=== PATIENT | male | born 1950 | race Caucasian/White ===

== ENCOUNTER 2019-01-27 14:07 | Observation (INO) | payer OTHER ==
--- OUTSIDE RECORDS SUMMARY | 2019-01-27 14:38 | XMS REPORT | Clinical Summary ---
:1950 Author Organization [facility] Address [address] [place] [address] Care Team Providers Name Role Phone Sybil Orona MD Primary Care Provider Allergies Active Allergy Reactions Severity Noted Date Comments Codeine Itching, Rash Low 07/09/2018 Latex Rash Low 07/09/2018 Penicillins Itching, Rash Low 07/09/2018 Medications Medication Sig Dispensed Refills Start End Date Status Date DULoxetine Take 60 mg by mouth 0 Active (CYMBALTA) 60 MG daily. capsule lansoprazole Take 30 mg by mouth 0 Active (PREVACID) 30 MG daily. capsule tamsulosin Take 0.4 mg by 0 Active (FLOMAX) 0.4 mg mouth daily. Cap 24 hr capsule rOPINIRole Take 2 mg by mouth 0 Active (REQUIP) 2 MG nightly. tablet olmesartan Take 20 mg by mouth 0 Active (BENICAR) 20 MG daily. tablet allopurinol Take 100 mg by 0 Active (ZYLOPRIM) 100 MG mouth daily . tablet colchicine Take 0.6 mg by 0 Active (COLCRYS) 0.6 mg mouth daily as tablet needed. albuterol HFA Inhale 1 puff by 0 Active (VENTOLIN HFA) 90 mouth via inhaler mcg/actuation every 6 (six) hours inhaler as needed for Wheezing. pravastatin Take 80 mg by mouth 0 Active (PRAVACHOL) 80 MG daily. tablet cholecalciferol, Take by mouth daily 0 Active vitamin D3, 2,000 . unit Cap traMADol (ULTRAM) Take 2 tablets (100 30 tablet 0 Active 50 mg tablet mg total) by mouth 9 every 6 (six) hours as needed for Pain. Max Daily Amount: 400 mg rivaroxaban Take 20 mg by mouth 0 11/22/19 Discontinued (XARELTO) 20 mg daily with dinner. 19 Tab tablet docusate sodium Take 1 capsule (100 30 capsule 0 08/30/20 (COLACE) 100 MG mg total) by mouth 8 18 capsule 2 (two) times daily for 10 days. traMADol (ULTRAM) Take 1 tablet (50 30 tablet 0 08/30/20 50 mg tablet mg total) by mouth 8 18 every 6 (six) hours as needed for Pain for up to 10 days. Max Daily Amount: 200 mg heparin injection Inject 1 mL (5,000 21 mL 0 08/27/20 5,000 units/mL Units total) 8 18 for DVT subcutaneously 3 prophylaxis/dialy (three) times daily sis lock/IV bolus for 7 days. traMADol (ULTRAM) Take 2 tablets (100 30 tablet 0 11/22/19 Discontinued 50 mg tablet mg total) by mouth 9 19 every 6 (six) hours as needed for Pain. Max Daily Amount: 400 mg docusate sodium Take 1 capsule (100 50 capsule 0 11/22/19 Discontinued (COLACE) 100 MG mg total) by mouth 9 19 capsule 2 (two) times daily. traMADol (ULTRAM) Take 2 tablets (100 30 tablet 0 11/22/19 Discontinued 50 mg tablet mg total) by mouth 9 19 every 6 (six) hours as needed for Pain. Max Daily Amount: 400 mg traMADol (ULTRAM) Take 2 tablets (100 30 tablet 0 11/22/19 Discontinued 50 mg tablet mg total) by mouth 9 19 every 6 (six) hours as needed for Pain. Max Daily Amount: 400 mg traMADol (ULTRAM) Take 2 tablets (100 30 tablet 0 11/22/19 Discontinued 50 mg tablet mg total) by mouth 9 19 every 6 (six) hours as needed for Pain. Max Daily Amount: 400 mg Active Problems Problem Noted Date Bilateral renal masses 11/19/2018 Renal mass 08/17/2018 Encounters Date Type Specialty Care Team Description 11/20/2018 Travel 11/19/2018 Anesthesia Event Ladarius Verde MD 11/19/2018 Surgery Link, Jose Barnhart MD LAPAROSCOPY,NEPHREC JOCELYN-PARTIAL 11/19/2018 - Hospital Encounter General Internal Link, Jose Renal mass 11/22/2018 Lia Barnhart MD 11/09/2018 Hospital Encounter Pre-Admission Link, Jose Barnhart MD Resource, [employer] Preadmit Phone 08/17/2018 Anesthesia Event Tahir Tamez MD 08/17/2018 Surgery Link, Jose Barnhart MD LAPAROSCOPY,NEPHREC JOCELYN-CHIDI 08/17/2018 - Hospital Encounter General Internal Link, Jose Renal mass 08/20/2018 Lia Barnhart MD 07/09/2018 Hospital Encounter Link, Jose Left renal mass MD [facility] 07/01/2018 Hospital Encounter Radiology Link, Jose No Show MD [facility] 06/25/2018 Outside Orders Central Scheduling Link, Jose Left renal mass MD [facility] (Primary Dx) after 01/26/2018 Social History Tobacco Use Types Packs/Day Years Used Date Former Smoker 2 30 Smokeless Tobacco: Never Used Comments: quit 1989 Alcohol Use Drinks/Week oz/Week Comments No Sex Assigned at Date Recorded Not on file Job Start Date Occupation Industry Not on file Not on file Not on file Travel History Travel Start Travel End No recent travel history available. Last Filed Vital Signs Vital Sign Reading Time Taken Blood Pressure 131/67 11/22/2018 8:32 AM CDT Pulse 86 11/22/2018 8:32 AM CDT Temperature 36.7 C (98 F) 11/22/2018 8:32 AM CDT Respiratory Rate 20 11/22/2018 8:32 AM CDT Oxygen Saturation 95% 11/22/2018 5:42 AM CDT Inhaled Oxygen Concentration - - Weight 119 kg (262 lb 5.6 oz) 11/19/2018 5:42 AM [employer]IGONOMETRY TEACHER Height 193 cm (6' 4") 11/19/2018 5:42 AM TRIGONOMETRY TEACHER Body Mass Index 31.93 11/19/2018 5:42 AM TRIGONOMETRY TEACHER Plan of Treatment Not on file Procedures Procedure Name Priority Date/Time Associated Comments Diagnosis RHYTHM STRIP - SCAN 12/21/2018 8:50 AM CDT RHYTHM STRIP - SCAN 11/24/2018 8:52 AM CDT TRANSFUSION SERVICE 11/23/2018 6:01 REPORT - SCAN PM CDT PREPARE Routine 11/22/2018 11:54 Results for this LEUKO-REDUCED RBC PM CDT procedure are in the results section. TRANSFUSION SERVICE 11/22/2018 6:00 REPORT - SCAN PM CDT HEMOGLOBIN AND Routine 11/22/2018 5:49 Results for this HEMATOCRIT AM CDT procedure are in the results section. BASIC METABOLIC Routine 11/22/2018 5:49 Results for this PANEL (7) AM CDT procedure are in the results section. HEMOGLOBIN AND STAT 11/21/2018 8:05 Results for this HEMATOCRIT PM CDT procedure are in the results section. TRANSFUSE Routine 11/21/2018 6:50 LEUKO-REDUCED RED PM CDT BLOOD CELLS HEMOGLOBIN AND STAT 11/21/2018 12:54 Results for this HEMATOCRIT PM CDT procedure are in the results section. HEMOGLOBIN AND Routine 11/21/2018 4:58 Results for this HEMATOCRIT AM CDT procedure are in the results section. BASIC METABOLIC Routine 11/21/2018 4:58 Results for this PANEL (7) AM CDT procedure are in the results section. TRANSFUSION SERVICE 11/20/2018 6:00 REPORT - SCAN PM TR[employer]ONOMETRY TEACHER HEMOGLOBIN AND Routine 11/20/2018 3:41 Results for this HEMATOCRIT AM TRIGONOMETRY TEACHER procedure are in the results section. BASIC METABOLIC Routine 11/20/2018 3:41 Results for this PANEL (7) AM TRIGONOMETRY TEACHER procedure are in the results section. HEMOGLOBIN AND Routine 11/19/2018 1:24 Results for this HEMATOCRIT PM TRIGONOMETRY TEACHER procedure are in the results section. BASIC METABOLIC Routine 11/19/2018 1:24 Results for this PANEL (7) PM TRIGONOMETRY TEACHER procedure are in the results section. TISSUE EXAM AP Routine 11/19/2018 12:18 Results for this PM [employer]ONOMETRY TEACHER procedure are in the results section. HGB/HCT (H&H) - STAT STAT 11/19/2018 9:25 Results for this LAB AM TRIGONOMETRY TEACHER procedure are in the results section. GLUCOSE-STAT LAB STAT 11/19/2018 9:25 Results for this AM TRIGONOMETRY TEACHER procedure are in the results section. POTASSIUM-STAT LAB STAT 11/19/2018 9:25 Results for this AM TRIGONOMETRY TEACHER procedure are in the results section. SODIUM NA-STAT LAB STAT 11/19/2018 9:25 Results for this AM TRIGONOMETRY TEACHER procedure are in the results section. BLOOD GAS, ARTERIAL STAT 11/19/2018 9:25 Results for this AM TRIGONOMETRY TEACHER procedure are in the results section. RRL CRITICAL LABS STAT 11/19/2018 9:25 Results for this (ABG,NA,K,H&H,GLUCOS AM TRIGONOMETRY TEACHER procedure are in E) the results section. PREPARE RBC STAT 11/19/2018 8:41 Results for this AM TRIGONOMETRY TEACHER procedure are in the results section. PROCEDURE W/ DAVINCI 11/19/2018 7:30 Renal mass AM TRIGONOMETRY TEACHER Case Notes 4 HRS Special Needs (DAVINCI Si) [employer] Confirmation [id number] for Ultrasound ROBOTIC LAPAROSCOPY,NEPHRECTOMY-PARTIAL 11/19/2018 7:30 AM TRIGONOMETRY TEACHER Renal mass Case Notes 4 HRS Special Needs (DAVINCI Si) [employer] Confirmation [id number] for Ultrasound TYPE AND SCREEN, Routine 11/19/2018 6:17 AM Results for this AUTOMATED TRIGONOMETRY TEACHER procedure are in the results section. RHYTHM STRIP - SCAN 08/27/2018 9:50 AM TRIGONOMETRY TEACHER BASIC METABOLIC PANEL STAT 08/20/2018 11:18 AM Results for this (7) TRIGONOMETRY TEACHER procedure are in the results section. HEMOGLOBIN AND Routine 08/20/2018 11:18 AM Results for this HEMATOCRIT TR[employer]ONOMETRY TEACHER procedure are in the results section. CBC W/PLT COUNT & AUTO Routine 08/20/2018 4:33 AM Results for this DIFFERENTIAL TR[employer]ONOMETRY TEACHER procedure are in the results section. CBC W/PLT COUNT & AUTO Routine 08/20/2018 4:33 AM Results for this DIFFERENTIAL TR[employer]ONOMETRY TEACHER procedure are in the results section. BASIC METABOLIC PANEL Routine 08/20/2018 4:33 AM Results for this (7) TRIGONOMETRY TEACHER procedure are in the results section. (CELLAVISION MANUAL Routine 08/19/2018 5:25 AM Results for this DIFF) TRIGONOMETRY TEACHER procedure are in the results section. CBC W/PLT COUNT & AUTO Routine 08/19/2018 5:25 AM Results for this DIFFERENTIAL TR[employer]ONOMETRY TEACHER procedure are in the results section. CBC W/PLT COUNT & AUTO Routine 08/19/2018 5:25 AM Results for this DIFFERENTIAL TRIGONOMETRY TEACHER procedure are in the results section. BASIC METABOLIC PANEL Routine 08/19/2018 5:25 AM Results for this (7) TRIGONOMETRY TEACHER procedure are in the results section. TRANSFUSION SERVICE 08/18/2018 6:01 PM REPORT - SCAN TRIGONOMETRY TEACHER HEMOGLOBIN AND Routine 08/18/2018 5:15 PM Results for this HEMATOCRIT TRIGONOMETRY TEACHER procedure are in the results section. CBC W/PLT COUNT & AUTO Routine 08/18/2018 8:38 AM Results for this DIFFERENTIAL TRIGONOMETRY TEACHER procedure are in the results section. CBC W/PLT COUNT & AUTO Routine 08/18/2018 8:38 AM Results for this DIFFERENTIAL TR[employer]ONOMETRY TEACHER procedure are in the results section. BASIC METABOLIC PANEL Routine 08/18/2018 5:53 AM Results for this (7) TR[employer]ONOMETRY TEACHER procedure are in the results section. HEMOGLOBIN AND Routine 08/17/2018 9:05 PM Results for this HEMATOCRIT TRIGONOMETRY TEACHER procedure are in the results section. BASIC METABOLIC PANEL Routine 08/17/2018 9:05 PM Results for this (7) TR[employer]ONOMETRY TEACHER procedure are in the results section. HGB/HCT (H&H) - STAT STAT 08/17/2018 8:07 PM Results for this LAB [employer]ONOMETRY TEACHER procedure are in the results section. GLUCOSE-STAT LAB STAT 08/17/2018 8:07 PM Results for this TR[employer]ONOMETRY TEACHER procedure are in the results section. POTASSIUM-STAT LAB STAT 08/17/2018 8:07 PM Results for this TRIGONOMETRY TEACHER procedure are in the results section. SODIUM NA-STAT LAB STAT 08/17/2018 8:07 PM Results for this TR[employer]ONOMETRY TEACHER procedure are in the results section. BLOOD GAS, ARTERIAL STAT 08/17/2018 8:07 PM Results for this TR[employer]ONOMETRY TEACHER procedure are in the results section. CALCIUM, IONIZED STAT 08/17/2018 8:07 PM Results for this TRIGONOMETRY TEACHER procedure are in the results section. RRL CRITICAL LABS STAT 08/17/2018 8:07 PM Results for this (ABG,NA,K,H&H,GLUCOSE) TR[employer]ONOMETRY TEACHER procedure are in the results section. TISSUE EXAM AP Routine 08/17/2018 7:58 PM Results for this TRIGONOMETRY TEACHER procedure are in the results section. PREPARE LEUKO-REDUCED Routine 08/17/2018 12:50 PM Results for this RBC TRIGONOMETRY TEACHER procedure are in the results section. PROCEDURE W/ DAVINCI 08/17/2018 12:30 PM Renal cell TRIGONOMETRY TEACHER adenocarcinoma , left (HCC) Case Notes 4 HRS Special Needs DAVINCI ROBOTIC LAPAROSCOPY,NEPHRECTOMY-PARTIAL 08/17/2018 12:30 Renal cell PM TRIGONOMETRY TEACHER adenocarcinoma, left (HCC) Case Notes 4 HRS Special Needs DAVINCI TYPE AND SCREEN, AUTOMATED Routine 08/17/2018 11:26 AM TRIGONOMETRY TEACHER PROTHROMBIN TIME/INR STAT 08/17/2018 11:26 AM TRIGONOMETRY TEACHER TISSUE EXAM AP Routine 07/09/2018 9:40 PM CDT US RENAL BIOPSY Routine 07/09/2018 5:22 PM CDT CBC W/PLT COUNT & AUTO STAT 07/09/2018 12:22 PM CDT Results for this DIFFERENTIAL procedure are in the results section. CREATININE STAT 07/09/2018 12:22 PM CDT PT/APTT STAT 07/09/2018 12:22 PM CDT CBC W/PLT COUNT & AUTO STAT 07/09/2018 12:22 PM CDT Results for this DIFFERENTIAL procedure are in the results section. after 01/26/2018 Results RHYTHM STRIP - SCAN (12/21/2018 8:50 AM CDT)Only the most recent of3 resultswithin the time period is included. Narrative Performed At TRANSFUSION SERVICE REPORT - SCAN (11/23/2018 6:01 PM CDT)Only the most recent of4 resultswithin the time period is included. Narrative Performed At Prepare Leuko-Red RBC (11/22/2018 11:54 PM CDT)Only the most recent of2 resultswithin the time period is included. CROSSMATCH COMPATIBLE SAFETRACE TX Unit ABO B Pos SAFETRACE TX UNIT NUMBER [id number] [place] Status TX_TIMEINCHART [facility] [place] Blood Bank Product RED BLOOD CELLS [place]AF[place]ACE [place] PRODUCT CODE [id number] [place] Specimen Other Performing Organization Address City/[facility] [place] [facility] Phone Number [employer] [place] Hemoglobin and hematocrit POD # 1 (11/22/2018 5:49 AM CDT)Only the most recent of9 resultswithin the time period is included. Hemoglobin 7.5 (L) 13.7 - 17.5 GM/DL [facility] Hematocrit 24.8 (L) 40.1 - 51.0 % [facility] Specimen Blood Performing Organization Address City/State/Zipcode Phone Number [facility] [address] [place] [address] [phone] CENTER Basic Metabolic Panel - POD 1 (11/22/2018 5:49 AM CDT)Only the most recent of9 resultswithin the time period is included. Sodium 135 (L) 136 - 145 meq/L [facility] Potassium 3.8 3.5 - 5.1 meq/L [facility] Chloride 108 (H) 98 - 107 meq/L [facility] CO2 20 (L) 22 - 29 meq/L [facility] BUN 16 7 - 21 mg/dL [facility] Creatinine 1.16 0.57 - 1.25 mg/dL [facility] Glucose 97 70 - 105 mg/dL [facility] Calcium 8.1 (L) 8.4 - 10.2 mg/dL [facility] EGFR 62Comment: ESTIMATED GFR IS mL/min/1.73 sq m [facility] NOT ACCURATE CREATININE [facility] CLEARANCE IN PREDICTING GLOMERULAR FILTRATION RATE. ESTIMATED GFR IS NOT APPLICABLE FOR DIALYSIS PATIENTS. Specimen Blood Performing Organization Address City/State/Zipcode Phone Number [facility] [address] [place] [address] [phone] CENTER Transfuse Leuko-Red RBC (11/21/2018 6:50 PM CDT)Only the most recent of2 resultswithin the time period is included.Tissue Exam (11/19/2018 12:18 PM TRIGONOMETRY TEACHER) Only the most recent of3 resultswithin the time period is included. 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 [facility] THE NEOPLASM IS CONFINED TO THE KIDNEY. LYMPHOVASCULAR INVASION IS NOT IDENTIFIED. PERINEURAL INVASION IS NOT IDENTIFIED. SURGICAL MARGINS ARE NEGATIVE FOR TUMOR. 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 SEE SYNOPTIC REPORT. Signing Pathologist Direct Phone Line: [phone] COMMENT This case has been partially [facility] reviewed (slide A5) with [facility] Del Catalan, who concurs with the interpretation of the presence of metaplastic bone. There is no evidence of sarcomatous transformation. SYNOPTIC REPORT KIDNEY: Nephrectomy(Kidney Res - All Specimens) [facility] SPECIMEN Procedure:Partial nephrectomy Specimen Laterality:Right TUMOR Tumor Site:Not specified Histologic Type:Clear cell renal cell carcinoma Histologic Grade (WHO / ISUP Grade):G2: Nucleoli conspicuous and eosinophilic at 400x magnification, visible but not prominent at 100x magnification Tumor Size:Greatest dimension in Centimeters (cm): 3 Centimeters (cm) Additional Dimension in Centimeters (cm):3 Centimeters (cm) Additional Dimension in Centimeters (cm):2.5 Centimeters (cm ) Tumor Focality:Unifocal Tumor Extent: Tumor Extension:Tumor limited to kidney Accessory Findings: Sarcomatoid Features:Not identified Rhabdoid Features:Not identified Tumor Necrosis:Present Percentage of Necrosis:10 % Lymphovascular Invasion:Not identified MARGINS Margins:Uninvolved by invasive carcinoma LYMPH NODES Regional Lymph Nodes:No lymph nodes submitted or found PATHOLOGIC STAGE CLASSIFICATION (pTNM, AJCC 8th Edition) Primary Tumor (pT):pT1a Regional Lymph Nodes (pN):pNX CPT Code(s) 14603 [facility] CLINICAL HISTORY Renal mass [facility] SPECIMEN SOURCE Right renal mass with [facility] perirenal fat [facility] GROSS DESCRIPTION The specimen is received fresh labeled with the patient's information labeled "right renal mass with perirenal fat" and consists of 170 gm partial nephrectomy that measures 4.5 x 3.8 x 2.6 cm with detac [facility] hed perirenal fat measuring 8 x 8 x 2 cm in aggregate. [facility] Ink code: perirenal fat black and kidney parenchyma blue. The specimen is serially sectioned from one end to the other revealing well- circumscribed hemorrhagic partially bulging yellow mass measuring 3 x 3 x 2.5 cm , grossly 0.5 cm from the kidney parenchymal m argin and 0.3 cm from the perirenal fat. The detached perirenal fat is sectioned yielding no lymph nodes or areas of suspicion. Section code: A1 to A3, Tumor and kidney parenchyma; A4 to A6, tumor and perirenal fat; A7 and 8, sales representative jewelry of detached perirenal fat. Tissue is submitted for tumor banking. CG/pl MICROSCOPIC DESCRIPTION Performed. [facility] Specimen Tissue Performing Organization Address [facility] [place] [facility] Phone Number [address] [address] OCCIDENTAL Potassium-Stat Lab (11/19/2018 9:25 AM TRIGONOMETRY TEACHER)Only the most recent of2 resultswithin the time period is included. Potassium 3.6 3.6 - 5.5 meq/L [facility] Specimen Blood, Arterial Performing Organization Address [facility] Phone Number [address] [address] OCCIDENTAL Sodium Na-Stat Lab (11/19/2018 9:25 AM TRIGONOMETRY TEACHER)Only the most recent of2 resultswithin the time period is included. Sodium 138 135 - 148 meq/L [facility] Specimen Blood, Arterial Performing Organization Address [facility] Phone Number [address] [phone] OCCIDENTAL Glucose-Stat Lab (11/19/2018 9:25 AM TRIGONOMETRY TEACHER)Only the most recent of2 resultswithin the time period is included. Glucose 139 (H) 70 - 110 mg/dL [facility] Specimen Blood, Arterial Performing Organization Address [facility] Phone Number [address] [address] [phone] CENTER HGB/HCT (H&H)-Stat Lab (11/19/2018 9:25 AM TRIGONOMETRY TEACHER)Only the most recent of2 resultswithin the time period is included. Hemoglobin 8.0 (L) 13.0 - 16.8 g/dL [facility] Hematocrit 24.0 (L) 40.0 - 50.0 % [facility] Specimen Blood, Arterial Performing Organization Address [facility] [place] [facility] Cent[facility]ode Phone Number [address] [address] [phone] OCCIDENTAL Blood gas, arterial (11/19/2018 9:25 AM TRIGONOMETRY TEACHER)Only the most recent of2 resultswithin the time period is included. pH, Arterial 7.30 (L) 7.35 - 7.45 [facility] pCO2, Arterial 45 35 - 45 mmHg [facility] pO2, Arterial 100 (H) 80 - 90 mmHg [facility] O2 Sat, Arterial 97.0 96.0 - 97.0 % [facility] HCO3, Arterial 22 21 - 29 mmol/L [facility] Base Excess, Arterial -4.6 (L) -2.0 - 3.0 mmol/L [facility] Patient Temperature 37.0 C [facility] FIO2 21.0 % [facility] Specimen Blood, Arterial Performing Organization Address [facility] Phone Number [address] [address] OCCIDENTAL Prepare RBC (11/19/2018 8:41 AM TRIGONOMETRY TEACHER) CROSSMATCH COMPATIBLE SAFETRACE TX Unit ABO B Pos SAFETRACE TX UNIT NUMBER [id number] SAFETRACE TX Status READY SAFETRACE TX Blood Bank Product RED BLOOD CELLS SAFETRACE TX PRODUCT CODE [id number] SAFETRACE TX CROSSMATCH COMPATIBLE SAFETRACE TX Unit ABO B Pos SAFETRACE TX UNIT NUMBER [id number] SAFETRACE TX Status READY SAFETRACE TX Blood Bank Product RED BLOOD CELLS SAFETRACE TX PRODUCT CODE [id number] [place]AFET[place] Performing Organization Address City/[facility] [place] [facility] Phone Number [employer] [place] Type and screen, automated (11/19/2018 6:17 AM TRIGONOMETRY TEACHER)Only the most recent of2 resultswithin the time period is included. ABO/RH AUTOMATED (BEAKER) B POSITIVE [facility] Ab Scrn NEGATIVE [facility] Specimen Blood Performing Organization Address City/State/Zipcode Phone Number [facility] [address] [place] [address] CBC with platelet count + automated diff (08/20/2018 4:33 AM TRIGONOMETRY TEACHER)Only the most recent of4 resultswithin the time period is included. WBC 11.1 (H) 3.5 - 10.5 K/L [facility] RBC 3.18 (L) 4.63 - 6.08 M/L [facility] Hemoglobin 8.0 (L) 13.7 - 17.5 GM/DL [facility] Hematocrit 26.6 (L) 40.1 - 51.0 % [facility] MCV 83.6 79.0 - 92.2 fL [facility] MCH 25.2 (L) 25.7 - 32.2 pg [facility] MCHC 30.1 (L) 32.3 - 36.5 GM/DL [facility] RDW 14.8 (H) 11.6 - 14.4 % [facility] Platelets 205 150 - 450 K/CU MM [facility] MPV 11.5 9.4 - 12.4 fL [facility] nRBC 0 0 - 0 /100 WBC [facility] % Neutros 79 % [facility] % Lymphs 8 % [facility] % Monos 11 % [facility] % Eos 2 % [facility] % Baso 0 % [facility] # Neutros 8.75 (H) 1.78 - 5.38 K/L [facility] # Lymphs 0.86 (L) 1.32 - 3.57 K/L [facility] # Monos 1.16 (H) 0.30 - 0.82 K/L [facility] # Eos 0.25 0.04 - 0.54 K/L [facility] # Baso 0.04 0.01 - 0.08 K/L [facility] Immature Granulocytes-Relative 0 0 - 1 % [facility] Specimen Blood Performing Organization Address City/State/Zipcode Phone Number [facility] [address] [place] [address] CENTER Manual Differential (08/19/2018 5:25 AM TRIGONOMETRY TEACHER) % Neutros 90 % [facility] % Lymphs 5 % [facility] % Monos 2 % [facility] % Eos 2 % [facility] % Baso 1 % [facility] # Neutros 11.70 (H) 1.78 - 5.38 K/ul [facility] # Lymphs 0.65 (L) 1.32 - 3.57 K/ul [facility] # Monos 0.26 (L) 0.30 - 0.82 K/uL [facility] # Eos 0.26 0.04 - 0.54 K/uL [facility] # Baso 0.13 (H) 0.01 - 0.08 K/uL [facility] Total Counted 100 [facility] WBC Morphology Normal [facility] Giant Platelet Present [facility] Anisocytosis 2+ moderate [facility] Microcytes 2+ moderate [facility] Poikilocytes 1+ few [facility] Elliptocytes 1+ few [facility] Artifact Present [facility] Platelet Conc Adequate [facility] Specimen Blood Narrative Performed At Received comment: [facility] User comments: Slide comments: Performing Organization Address City/State/[place] [facility] Phone Number [address] [address] [phone] OCCIDENTAL Calcium, Ionized (08/17/2018 8:07 PM [employer]IGONOMETRY TEACHER) Calcium, Ion 1.05 (L) 1.12 - 1.27 mmol/L [facility] pH, Blood 7.35 [facility] Specimen Blood Performing Organization Address City/[facility]/[place] [facility] Phone Number [address] [address] OCCIDENTAL Prothrombin time/INR (08/17/2018 11:26 AM TRIGONOMETRY TEACHER) Protime 14.8 (H) 11.7 - 14.7 seconds [facility] INR 1.2 <=5.9 [facility] Specimen Blood Narrative Performed At RECOMMENDED COUMADIN/WARFARIN INR THERAPY [facility] RANGES STANDARD DOSE: 2.0 - 3.0 Includes: PROPHYLAXIS for venous thrombosis, systemic embolization; TREATMENT for venous thrombosis and/or pulmonary embolus. HIGH RISK: Target INR is 2.5-3.5 for patients with mechanical heart valves. Performing Organization Address City/State/Zipcode Phone Number [address] [address] OCCIDENTAL US renal biopsy (07/09/2018 5:22 PM CDT) Specimen Narrative Performed At [facility] [employer] Ultrasound guided renal biopsy. Clinical History: Left renal mass. Informed consent was obtained from the patient and risks of the procedure were explained including bleeding, infection and visceral injury. Sedation: 1% Xylocaine. 0.5 mg of Versed and 25 mcg of Fentanyl were administered using the moderate sedation protocol under the supervision of a physician. Moderate Sedation Time: 30 minutes. Technique: Using sterile technique, real-time ultrasound guidance and a 18 gauge core biopsy needle, a two pass core biopsy of the 4.3 x 2.0 cm mass in the lower pole of the left kidney. The sample was sent to the pathology lab in formalin. No complications were encountered. Patient disposition: The patient was asymptomatic.Postprocedure ultrasound demonstrates no significant bleeding. Impression: Successful biopsy of a mass in the lower pole of the left kidney. Signed: David Leyva MD Report Verified Date/Time:07/09/2018 17:45:45 Reading Location: [address] Ultrasound Reading Room Procedure Note Interface, External Ris In - 07/09/2018 5:47 PM CDT FINAL REPORT Ultrasound guided renal biopsy. Clinical History: Left renal mass. Informed consent was obtained from the patient and risks of the procedure were explained including bleeding, infection and visceral injury. Sedation: 1% Xylocaine. 0.5 mg of Versed and 25 mcg of Fentanyl were administered using the moderate sedation protocol under the supervision of a physician. Moderate Sedation Time: 30 minutes. Technique: Using sterile technique, real-time ultrasound guidance and a 18 gauge core biopsy needle, a two pass core biopsy of the 4.3 x 2.0 cm mass in the lower pole of the left kidney. The sample was sent to the pathology lab in formalin. No complications were encountered. Patient disposition: The patient was asymptomatic. Postprocedure ultrasound demonstrates no significant bleeding. Impression: Successful biopsy of a mass in the lower pole of the left kidney. Signed: David Leyva MD Report Verified Date/Time: 07/09/2018 17:45:45 Reading Location: [address] Ultrasound Reading Room Performing Organization Address City/State/Zipcode Phone Number [facility] PT/aPTT (07/09/2018 12:22 PM CDT) Protime 14.6 11.7 - 14.7 seconds [facility] INR 1.1 <=5.9 [facility] PTT 28.7 22.5 - 36.0 seconds [facility] Specimen Blood Narrative Performed At [facility] RECOMMENDED COUMADIN/WARFARIN INR THERAPY RANGES STANDARD DOSE: 2.0 - 3.0 Includes: PROPHYLAXIS for venous thrombosis, systemic embolization; TREATMENT for venous thrombosis and/or pulmonary embolus. HIGH RISK: Target INR is 2.5-3.5 for patients with mechanical heart valves. Performing Organization Address City/State/[place] [facility] Phone Number [address] [phone] CENTER Creatinine (07/09/2018 12:22 PM CDT) Creatinine 1.29 (H) 0.57 - 1.25 mg/dL [facility] EGFR 55Comment: ESTIMATED GFR IS mL/min/1.73 sq m [facility] NOT ACCURATE CREATININE [facility] CLEARANCE IN PREDICTING GLOMERULAR FILTRATION RATE. ESTIMATED GFR IS NOT APPLICABLE FOR DIALYSIS PATIENTS. Specimen Blood Performing Organization Address City/[facility]/[place] [facility] Cent[facility] Phone Number [phone] [place] [address] CENTER after 01/26/2018 Insurance Payer Benefit Plan / Subscriber ID Type Phone Address Group [employer] - MEDICARE [employer] MEDICARE O xxxxxxxx [phone] [address] [place] [address] Advance Directives For more information, please contact:[address] [place], [place] [phone] Code Status Date Activated Date Inactivated Comments Full Code 11/19/2018 4:41 PM 11/22/2018 11:47 AM This code status was determined by: Patient Full Code 08/17/2018 9:36 PM 11/19/2018 5:32 AM This code status was determined by: Patient Full Code 07/09/2018 5:20 PM 07/12/2018 7:40 AM This code status was determined by: Patient
--- OUTSIDE RECORDS SUMMARY | 2019-01-27 14:39 | XMS REPORT ---
:1950 [facility] Address [address] [place] [address] Dr. Mai [address] [place] [id number] Care Team Providers Name Role Phone ABA ROBINS Unavailable Unavailable Problems This patient has no known problems. Allergies, Adverse Reactions, Alerts This patient has no known allergies or adverse reactions. Medications This patient has no known medications. 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 SEE SYNOPTIC REPORT. Signing Pathologist Direct Phone Line: [phone] signed by Tristan Huffman MD on 11/24/2018 at 4:03 PMThis case has been partially reviewed (slide A5) with Dr. Del Catalan, who concurs with the interpretation of the presence of metaplastic bone. There is no evidence of sarcomatous transformation.KIDNEY: Nephrectomy (Kidney Res - All Specimens)SPECIMEN Procedure: Partial nephrectomy Specimen Laterality: Right TUMOR Tumor Site: Not specified Histologic Type: Clear cell renal cell carcinoma Histologic Grade (WHO / ISUP Grade): G2: Nucleoli conspicuous and eosinophilic at 400x magnification, visible but not prominent at 100x magnification Tumor Size: Greatest dimension in Centimeters (cm): 3 Centimeters (cm) Additional Dimension in Centimeters (cm): 3 Centimeters (cm) Additional Dimension in Centimeters (cm): 2.5 Centimeters (cm) Tumor Focality: Unifocal Tumor Extent: Tumor Extension: Tumor limited to kidney Accessory Findings: Sarcomatoid Features: Not identified Rhabdoid Features: Not identified Tumor Necrosis: Present Percentage of Necrosis: 10 % Lymphovascular Invasion: Not identified MARGINS Margins: Uninvolved by invasive carcinoma LYMPH NODES Regional Lymph Nodes: No lymph nodes submitted or found PATHOLOGIC STAGE CLASSIFICATION (pTNM, AJCC 8th Edition) Primary Tumor (pT): pT1a Regional Lymph Nodes (pN): pNX [id number] massRight renal mass with perirenal fat The specimen is received fresh labeled with the patient's information labeled "right renal mass with perirenal fat" and consists of 170 gm partial nephrectomy that measures 4.5 x 3.8 x 2.6 cm with detached perirenal fat measuring 8 x 8 x 2 cm in aggregate. Ink code: perirenal fat black and kidney parenchyma blue.The specimen is serially sectioned from one end to the other revealing well-circumscribed hemorrhagic partially bulging yellow mass measuring 3 x 3 x 2.5 cm, grossly 0.5 cm from the kidney parenchymal margin and 0.3 cm from the perirenal fat. The detached perirenal fat is sectioned yielding no lymph nodes or areas of suspicion. Section code: A1 to A3, Tumor and kidney parenchyma; A4 to A6, tumor and perirenal fat; A7 and 8, physician representative of detached perirenal fat. Tissue is submitted for tumor banking. CG/pl Performed. BASIC METABOLIC PANEL 2018-11-22 07:10:00 Test Item Value Reference Range Comments SODIUM (BEAKER) (test 135 meq/L 136-145 josc=226) POTASSIUM (BEAKER) (test 3.8 meq/L 3.5-5.1 upvy=512) CHLORIDE (BEAKER) (test 108 meq/L 98-107 kisl=353) CO2 (BEAKER) (test izre=014) 20 meq/L 22-29 BLOOD UREA NITROGEN (BEAKER) 16 mg/dL 7-21 (test vwtq=823) CREATININE (BEAKER) (test 1.16 mg/dL 0.57-1.25 ulgb=137) GLUCOSE RANDOM (BEAKER) 97 mg/dL 70-105 (test yehp=842) CALCIUM (BEAKER) (test 8.1 mg/dL 8.4-10.2 fsgv=837) EGFR (BEAKER) (test 62 mL/min/1.73 sq m ESTIMATED GFR IS NOT mjfm=8204) ACCURATE CREATININE CLEARANCE IN PREDICTING GLOMERULAR FILTRATION RATE. ESTIMATED GFR IS NOT APPLICABLE FOR DIALYSIS PATIENTS. HEMOGLOBIN AND [id number] 06:37:00 Test Item Value Reference Range Comments HEMOGLOBIN (BEAKER) (test psdk=367) 7.5 GM/DL 13.7-17.5 HEMATOCRIT (BEAKER) (test sjxy=108) 24.8 % 40.1-51.0 HEMOGLOBIN AND [id number] 20:28:00 Test Item Value Reference Range Comments HEMOGLOBIN (BEAKER) (test mcmh=683) 8.1 GM/DL 13.7-17.5 HEMATOCRIT (BEAKER) (test kcsc=934) 27.3 % 40.1-51.0 After transfusionHEMOGLOBIN AND [id number] 13:08:00 Test Item Value Reference Range Comments HEMOGLOBIN (BEAKER) (test hknx=240) 6.9 GM/DL 13.7-17.5 HEMATOCRIT (BEAKER) (test hhhj=224) 23.0 % 40.1-51.0 BASIC METABOLIC [id number] 06:12:00 Test Item Value Reference Range Comments SODIUM (BEAKER) (test 137 meq/L 136-145 bfvm=807) POTASSIUM (BEAKER) (test 3.9 meq/L 3.5-5.1 smql=509) CHLORIDE (BEAKER) (test 110 meq/L 98-107 mjgw=231) CO2 (BEAKER) (test 20 meq/L 22-29 arlg=514) BLOOD UREA NITROGEN 21 mg/dL 7-21 (BEAKER) (test npro=885) CREATININE (BEAKER) (test 1.29 mg/dL 0.57-1.25 xtio=729) GLUCOSE RANDOM (BEAKER) 96 mg/dL 70-105 (test tkoi=332) CALCIUM (BEAKER) (test 7.9 mg/dL 8.4-10.2 ogak=574) EGFR (BEAKER) (test 55 mL/min/1.73 sq m ESTIMATED GFR IS NOT fdku=5960) ACCURATE CREATININE CLEARANCE IN PREDICTING GLOMERULAR FILTRATION RATE. ESTIMATED GFR IS NOT APPLICABLE FOR DIALYSIS PATIENTS. HEMOGLOBIN AND [id number] 05:47:00 Test Item Value Reference Range Comments HEMOGLOBIN (BEAKER) (test awoj=404) 7.0 GM/DL 13.7-17.5 HEMATOCRIT (BEAKER) (test ppvj=159) 23.8 % 40.1-51.0 BASIC METABOLIC [id number] 05:00:00 Test Item Value Reference Range Comments SODIUM (BEAKER) (test 139 meq/L 136-145 ubtr=219) POTASSIUM (BEAKER) (test 4.0 meq/L 3.5-5.1 ozcp=936) CHLORIDE (BEAKER) (test 110 meq/L 98-107 jcqd=834) CO2 (BEAKER) (test 21 meq/L 22-29 cleu=352) BLOOD UREA NITROGEN 25 mg/dL 7-21 (BEAKER) (test czbh=966) CREATININE (BEAKER) (test 1.40 mg/dL 0.57-1.25 ptjn=942) GLUCOSE RANDOM (BEAKER) 110 mg/dL 70-105 (test tsla=652) CALCIUM (BEAKER) (test 8.1 mg/dL 8.4-10.2 rurx=469) EGFR (BEAKER) (test 50 mL/min/1.73 sq m ESTIMATED GFR IS NOT stxl=7663) ACCURATE CREATININE CLEARANCE IN PREDICTING GLOMERULAR FILTRATION RATE. ESTIMATED GFR IS NOT APPLICABLE FOR DIALYSIS PATIENTS. HEMOGLOBIN AND [id number] 04:36:00 Test Item Value Reference Range Comments HEMOGLOBIN (BEAKER) (test ushx=503) 7.4 GM/DL 13.7-17.5 HEMATOCRIT (BEAKER) (test kypm=511) 25.7 % 40.1-51.0 BASIC METABOLIC [id number] 13:52:00 Test Item Value Reference Range Comments SODIUM (BEAKER) (test 138 meq/L 136-145 vaww=229) POTASSIUM (BEAKER) (test 4.6 meq/L 3.5-5.1 zbni=212) CHLORIDE (BEAKER) (test 111 meq/L 98-107 haky=014) CO2 (BEAKER) (test 19 meq/L 22-29 qcah=653) BLOOD UREA NITROGEN 30 mg/dL 7-21 (BEAKER) (test gjdh=441) CREATININE (BEAKER) (test 1.35 mg/dL 0.57-1.25 bmuk=786) GLUCOSE RANDOM (BEAKER) 125 mg/dL 70-105 (test ilii=070) CALCIUM (BEAKER) (test 7.9 mg/dL 8.4-10.2 siku=420) EGFR (BEAKER) (test 52 mL/min/1.73 sq m ESTIMATED GFR IS NOT caqb=1875) ACCURATE CREATININE CLEARANCE IN PREDICTING GLOMERULAR FILTRATION RATE. ESTIMATED GFR IS NOT APPLICABLE FOR DIALYSIS PATIENTS. [id number] 13:30:00 Test Item Value Reference Range Comments HEMOGLOBIN (BEAKER) (test zhih=570) 7.2 GM/DL 13.7-17.5 HEMATOCRIT (BEAKER) (test kbcb=635) 24.5 % 40.1-51.0 SODIUM NA-STAT [id number] 09:41:00 Test Item Value Reference Range Comments SODIUM (BEAKER) (test eamw=107) 138 meq/L 135-148 POTASSIUM-STAT [id number] 09:41:00 Test Item Value Reference Range Comments POTASSIUM (BEAKER) (test jrjt=502) 3.6 meq/L 3.6-5.5 BLOOD GAS, [id number] 09:41:00 Test Item Value Reference Range Comments PH ARTERIAL (BEAKER) (test wygf=998) 7.30 7.35-7.45 PCO2 ARTERIAL (BEAKER) (test vbsq=345) 45 mmHg 35-45 PO2 ARTERIAL (BEAKER) (test sisc=638) 100 mmHg 80-90 O2 SATURATION ARTERIAL (BEAKER) (test xwlt=822) 97.0 % 96.0-97.0 HCO3 ARTERIAL (BEAKER) (test npdv=925) 22 mmol/L 21-29 BASE EXCESS ARTERIAL (BEAKER) (test bvkj=496) -4.6 mmol/L -2.0-3.0 PATIENT TEMPERATURE (BEAKER) (test zrxu=6201) 37.0 C FIO2 (BEAKER) (test ffgu=0858) 21.0 % GLUCOSE-STAT [id number] 09:41:00 Test Item Value Reference Range Comments GLUCOSE RANDOM (BEAKER) (test lyuh=893) 139 mg/dL 70-110 HGB/HCT (H&H) - STAT [id number] 09:41:00 Test Item Value Reference Range Comments HEMOGLOBIN (BEAKER) (test cjch=400) 8.0 g/dL 13.0-16.8 HEMATOCRIT (BEAKER) (test bjqc=629) 24.0 % 40.0-50.0 TISSUE [id number] 18:24:00Surgical Pathology Report Case: [id number] Authorizing Provider: Aba Robins MD Collected: 08/17/20181957 Ordering Location: [facility] Received: 08/18/2018 0820 SERVICES Pathologist: Aylin Arango MD Specimen: Mass, Left renal mass KIDNEY, LEFT, PARTIAL NEPHRECTOMY : - CLEAR CELL RENAL CELL CARCINOMA, 4.0 CM ~ NUCLEAR GRADE 2 ~ PARENCHYMAL MARGIN FOCALLY POSITIVE FOR CARCINOMA - NO LYMPH-VASCULAR OR ELLEN- NEURAL INVASION IDENTIFIED -PATHOLOGIC STAGE CLASSIFICATION (pTNM, AJCC 8th Edition) : pT1a pNX pMX Signing Pathologist Direct Phone Line: [phone] The tumor is very close to the parenchymal margin and focally touches the inked margin (A9). It bulges into the fat but does not conclusively invade the adipose tissue (A9, A12, A19).INTRADEPARTMENTAL CONSULTATION: - Dee Newton MD has seen selected slides and agrees with the diagnosis.KIDNEY: Nephrectomy( Kidney Res - All Specimens)SPECIMEN Procedure: Partial nephrectomy Specimen Laterality: Left TUMOR Tumor Site: Lower pole Histologic Type: Clear cell renal cell carcinoma Histologic Grade (WHO / ISUP Grade) : G2: Nucleoli conspicuous and eosinophilic at 400x magnification, visible but not prominent at 100x magnification Tumor Size: Greatest dimension in Centimeters (cm): 4.0 Centimeters (cm) Additional Dimension in Centimeters ( cm): 3 Centimeters (cm) Additional Dimension in Centimeters (cm): 2.2 Centimeters (cm) Tumor Focality: Unifocal TumorExtent: Tumor Extension: Tumor limited to kidney Accessory Findings: Sarcomatoid Features: Not identified Rhabdoid Features: Not identified Tumor Necrosis: Not identified Lymphovascular Invasion: Not identified MARGINS Margins: Involved by invasivecarcinoma Margin(s): Renal parenchymal margin (partial nephrectomy only) LYMPH NODES Regional Lymph Nodes: No lymph nodes submitted or found PATHOLOGIC STAGE CLASSIFICATION (pTNM, AJCC 8thEdition) TNM Descriptors: Not applicable Primary Tumor (pT): pT1a Regional Lymph Nodes(pN): pNX ADDITIONAL FINDINGS Pathologic Findings in Nonneoplastic Kidney: None identified 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 Received fresh labeled "mass ", description "left renal mass" is a 6.0 x 4.0 x 4.0 cm left partial nephrectomy specimen.The capsular sections is purple-urbano and smooth with attached focally adherent yellow-urbano adipose tissue.The specimen is serially sectioned to reveal a 4.0 x 3.0 x 2.2 cm, irregular, yellow-gold to red, rubbery , lobulated, hemorrhagic mass, which abuts the parenchymal resection margin and capsule and appears to invade into the attached perinephric adipose tissue.The surrounding uninvolved renal parenchyma is dark-brown, homogeneous, dense and unremarkable.Ink code: Parenchymal resection margin-black, capsule-blue.Also received in the specimen container is a 15.0 x 8. X 3.0 cm, yellow-urbano, irregular portion of adipose tissue. Sectioning reveals no discrete masses. Section code: A1-A12, physician representative sequential sections of renal mass; A13-A16 , physician representative sections of separately received adipose tissue. Additional sections A17-20. DB/ew [facility] METABOLIC [id number] 11:51:00 Test Item Value Reference Range Comments SODIUM (BEAKER) (test 135 meq/L 136-145 antz=206) POTASSIUM (BEAKER) (test 3.4 meq/L 3.5-5.1 ocgp=467) CHLORIDE (BEAKER) (test 106 meq/L 98-107 mcmm=055) CO2 (BEAKER) (test 21 meq/L 22-29 xfxh=715) BLOOD UREA NITROGEN 16 mg/dL 7-21 (BEAKER) (test xisd=958) CREATININE (BEAKER) (test 1.17 mg/dL 0.57-1.25 nhsu=443) GLUCOSE RANDOM (BEAKER) 116 mg/dL 70-105 (test kvfq=830) CALCIUM (BEAKER) (test 8.2 mg/dL 8.4-10.2 xcwj=310) EGFR (BEAKER) (test 62 mL/min/1.73 sq m ESTIMATED GFR IS NOT uysz=0159) ACCURATE CREATININE CLEARANCE IN PREDICTING GLOMERULAR FILTRATION RATE. ESTIMATED GFR IS NOT APPLICABLE FOR DIALYSIS PATIENTS. HEMOGLOBIN AND [id number] 11:31:00 Test Item Value Reference Range Comments HEMOGLOBIN (BEAKER) (test fxwk=152) 8.7 GM/DL 13.7-17.5 HEMATOCRIT (BEAKER) (test dest=786) 28.1 % 40.1-51.0 BASIC METABOLIC [id number] 05:37:00 Test Item Value Reference Range Comments SODIUM (BEAKER) (test 133 meq/L 136-145 nzlh=064) POTASSIUM (BEAKER) (test 3.5 meq/L 3.5-5.1 oejl=298) CHLORIDE (BEAKER) (test 107 meq/L 98-107 vzuv=661) CO2 (BEAKER) (test 20 meq/L 22-29 jhyh=535) BLOOD UREA NITROGEN 16 mg/dL 7-21 (BEAKER) (test kmus=189) CREATININE (BEAKER) (test 1.15 mg/dL 0.57-1.25 llhe=650) GLUCOSE RANDOM (BEAKER) 101 mg/dL 70-105 (test qrdb=327) CALCIUM (BEAKER) (test 7.8 mg/dL 8.4-10.2 upcr=268) EGFR (BEAKER) (test 63 mL/min/1.73 sq m ESTIMATED GFR IS NOT wxcf=9473) ACCURATE CREATININE CLEARANCE IN PREDICTING GLOMERULAR FILTRATION RATE. ESTIMATED GFR IS NOT APPLICABLE FOR DIALYSIS PATIENTS. CBC W/PLT COUNT & AUTO [id number] 05:18:00 Test Item Value Reference Range Comments WHITE BLOOD CELL COUNT (BEAKER) (test jova=402) 11.1 K/ L 3.5-10.5 RED BLOOD CELL COUNT (BEAKER) (test rxal=784) 3.18 M/ L 4.63-6.08 HEMOGLOBIN (BEAKER) (test hfwt=369) 8.0 GM/DL 13.7-17.5 HEMATOCRIT (BEAKER) (test mzng=065) 26.6 % 40.1-51.0 MEAN CORPUSCULAR VOLUME (BEAKER) (test ltvo=836) 83.6 fL 79.0-92.2 MEAN CORPUSCULAR HEMOGLOBIN (BEAKER) (test 25.2 pg 25.7-32.2 owap=104) MEAN CORPUSCULAR HEMOGLOBIN CONC (BEAKER) (test 30.1 GM/DL 32.3-36.5 tlvp=410) RED CELL DISTRIBUTION WIDTH (BEAKER) (test 14.8 % 11.6-14.4 tipb=008) PLATELET COUNT (BEAKER) (test wjkx=406) 205 K/CU MM 150-450 MEAN PLATELET VOLUME (BEAKER) (test cgqr=162) 11.5 fL 9.4-12.4 NUCLEATED RED BLOOD CELLS (BEAKER) (test 0 /100 WBC 0-0 jwso=464) NEUTROPHILS RELATIVE PERCENT (BEAKER) (test 79 % nifo=426) LYMPHOCYTES RELATIVE PERCENT (BEAKER) (test 8 % mdxz=727) MONOCYTES RELATIVE PERCENT (BEAKER) (test 11 % qnup=332) EOSINOPHILS RELATIVE PERCENT (BEAKER) (test 2 % glei=741) BASOPHILS RELATIVE PERCENT (BEAKER) (test 0 % nqhu=044) NEUTROPHILS ABSOLUTE COUNT (BEAKER) (test 8.75 K/ L 1.78-5.38 gzaw=189) LYMPHOCYTES ABSOLUTE COUNT (BEAKER) (test 0.86 K/ L 1.32-3.57 bkzj=108) MONOCYTES ABSOLUTE COUNT (BEAKER) (test 1.16 K/ L 0.30-0.82 xyvs=383) EOSINOPHILS ABSOLUTE COUNT (BEAKER) (test 0.25 K/ L 0.04-0.54 fctd=338) BASOPHILS ABSOLUTE COUNT (BEAKER) (test 0.04 K/ L 0.01-0.08 oadu=234) IMMATURE GRANULOCYTES-RELATIVE PERCENT (BEAKER) 0 % 0-1 (test ymaj=5340) CBC W/PLT COUNT & AUTO [id number] 16:39:00 Test Item Value Reference Range Comments WHITE BLOOD CELL COUNT (BEAKER) (test qjux=292) 13.0 K/ L 3.5-10.5 RED BLOOD CELL COUNT (BEAKER) (test wkdm=271) 3.44 M/ L 4.63-6.08 HEMOGLOBIN (BEAKER) (test ngzg=143) 8.7 GM/DL 13.7-17.5 HEMATOCRIT (BEAKER) (test bsjv=422) 28.3 % 40.1-51.0 MEAN CORPUSCULAR VOLUME (BEAKER) (test dvzq=732) 82.3 fL 79.0-92.2 MEAN CORPUSCULAR HEMOGLOBIN (BEAKER) (test 25.3 pg 25.7-32.2 smqc=144) MEAN CORPUSCULAR HEMOGLOBIN CONC (BEAKER) (test 30.7 GM/DL 32.3-36.5 ayjy=125) RED CELL DISTRIBUTION WIDTH (BEAKER) (test 15.0 % 11.6-14.4 nmpk=787) PLATELET COUNT (BEAKER) (test ljfy=104) 224 K/CU MM 150-450 MEAN PLATELET VOLUME (BEAKER) (test gahl=589) 11.9 fL 9.4-12.4 NUCLEATED RED BLOOD CELLS (BEAKER) (test 0 /100 WBC 0-0 ioiv=116) (CELLAVISION MANUAL DIFF)2018-08-19 16:39:00 Test Item Value Reference Range Comments NEUTROPHILS - REL (CELLAVISION)(BEAKER) (test 90 % xtik=6575) LYMPHOCYTES - REL (CELLAVISION)(BEAKER) (test 5 % amoc=6746) MONOCYTES - REL (CELLAVISION)(BEAKER) (test 2 % rjvh=2140) EOSINOPHILS - REL (CELLAVISION)(BEAKER) (test 2 % gohd=6270) BASOPHILS - REL (CELLAVISION)(BEAKER) (test 1 % ksod=0205) NEUTROPHILS - ABS (CELLAVISION)(BEAKER) (test 11.70 K/ul 1.78-5.38 zeza=9719) LYMPHOCYTES - ABS (CELLAVISION)(BEAKER) (test 0.65 K/ul 1.32-3.57 xbwk=0469) MONOCYTES - ABS (CELLAVISION)(BEAKER) (test 0.26 K/uL 0.30-0.82 jona=8455) EOSINOPHILS - ABS (CELLAVISION)(BEAKER) (test 0.26 K/uL 0.04-0.54 uthl=9518) BASOPHILS - ABS (CELLAVISION)(BEAKER) (test 0.13 K/uL 0.01-0.08 lckw=2687) TOTAL COUNTED (BEAKER) (test azkg=4261) 100 WBC MORPHOLOGY (BEAKER) (test ingo=470) Normal GIANT PLATELETS (BEAKER) (test bszk=526) Present ANISOCYTOSIS (BEAKER) (test ubfu=058) 2+ moderate MICROCYTES (BEAKER) (test mqbc=318) 2+ moderate POIKILOCYTES (BEAKER) (test kohe=120) 1+ few ELLIPTOCYTES (BEAKER) (test itle=152) 1+ few ARTIFACT (CELLAVISION)(BEAKER) (test dzsc=4166) Present PLATELET CONCENTRATION (CELLAVISION)(BEAKER) Adequate (test jqep=0576) Received comment: User comments: Slide comments:BASIC METABOLIC [id number] 07:05:00 Test Item Value Reference Range Comments SODIUM (BEAKER) (test 137 meq/L 136-145 xsmt=941) POTASSIUM (BEAKER) (test 3.6 meq/L 3.5-5.1 gvhk=929) CHLORIDE (BEAKER) (test 108 meq/L 98-107 mrnb=844) CO2 (BEAKER) (test 23 meq/L 22-29 deaq=999) BLOOD UREA NITROGEN 15 mg/dL 7-21 (BEAKER) (test kgrj=501) CREATININE (BEAKER) (test 1.13 mg/dL 0.57-1.25 ombv=790) GLUCOSE RANDOM (BEAKER) 92 mg/dL 70-105 (test bugv=519) CALCIUM (BEAKER) (test 7.8 mg/dL 8.4-10.2 vhfi=086) EGFR (BEAKER) (test 64 mL/min/1.73 sq m ESTIMATED GFR IS NOT haob=9151) ACCURATE CREATININE CLEARANCE IN PREDICTING GLOMERULAR FILTRATION RATE. ESTIMATED GFR IS NOT APPLICABLE FOR DIALYSIS PATIENTS. HEMOGLOBIN AND [id number] 17:30:00 Test Item Value Reference Range Comments HEMOGLOBIN (BEAKER) (test qrpk=037) 9.2 GM/DL 13.7-17.5 HEMATOCRIT (BEAKER) (test wzgh=274) 29.7 % 40.1-51.0 CBC W/PLT COUNT & AUTO [id number] 10:06:00 Test Item Value Reference Range Comments WHITE BLOOD CELL COUNT (BEAKER) (test kapy=648) 8.6 K/ L 3.5-10.5 RED BLOOD CELL COUNT (BEAKER) (test jlpq=376) 3.50 M/ L 4.63-6.08 HEMOGLOBIN (BEAKER) (test pkvn=170) 8.9 GM/DL 13.7-17.5 HEMATOCRIT (BEAKER) (test udkt=022) 29.3 % 40.1-51.0 MEAN CORPUSCULAR VOLUME (BEAKER) (test sxjn=437) 83.7 fL 79.0-92.2 MEAN CORPUSCULAR HEMOGLOBIN (BEAKER) (test 25.4 pg 25.7-32.2 moph=618) MEAN CORPUSCULAR HEMOGLOBIN CONC (BEAKER) (test 30.4 GM/DL 32.3-36.5 bgei=133) RED CELL DISTRIBUTION WIDTH (BEAKER) (test 14.8 % 11.6-14.4 fjwn=958) PLATELET COUNT (BEAKER) (test mawt=031) 210 K/CU MM 150-450 MEAN PLATELET VOLUME (BEAKER) (test uudo=823) 11.7 fL 9.4-12.4 NUCLEATED RED BLOOD CELLS (BEAKER) (test 0 /100 WBC 0-0 ycda=594) NEUTROPHILS RELATIVE PERCENT (BEAKER) (test 80 % jtal=939) LYMPHOCYTES RELATIVE PERCENT (BEAKER) (test 8 % iwhj=301) MONOCYTES RELATIVE PERCENT (BEAKER) (test 11 % xibt=468) EOSINOPHILS RELATIVE PERCENT (BEAKER) (test 1 % ucgc=776) BASOPHILS RELATIVE PERCENT (BEAKER) (test 0 % afja=778) NEUTROPHILS ABSOLUTE COUNT (BEAKER) (test 6.88 K/ L 1.78-5.38 qsko=846) LYMPHOCYTES ABSOLUTE COUNT (BEAKER) (test 0.65 K/ L 1.32-3.57 mbpo=480) MONOCYTES ABSOLUTE COUNT (BEAKER) (test 0.96 K/ L 0.30-0.82 axnb=623) EOSINOPHILS ABSOLUTE COUNT (BEAKER) (test 0.06 K/ L 0.04-0.54 zlem=901) BASOPHILS ABSOLUTE COUNT (BEAKER) (test 0.03 K/ L 0.01-0.08 gumt=191) IMMATURE GRANULOCYTES-RELATIVE PERCENT (BEAKER) 0 % 0-1 (test gfnt=6634) BASIC METABOLIC [id number] 07:06:00 Test Item Value Reference Range Comments SODIUM (BEAKER) (test 140 meq/L 136-145 batf=822) POTASSIUM (BEAKER) (test 4.1 meq/L 3.5-5.1 fsgk=149) CHLORIDE (BEAKER) (test 111 meq/L 98-107 ffyl=532) CO2 (BEAKER) (test 25 meq/L 22-29 eqla=276) BLOOD UREA NITROGEN 18 mg/dL 7-21 (BEAKER) (test dflt=629) CREATININE (BEAKER) (test 1.11 mg/dL 0.57-1.25 nhaq=790) GLUCOSE RANDOM (BEAKER) 96 mg/dL 70-105 (test pgnq=871) CALCIUM (BEAKER) (test 8.0 mg/dL 8.4-10.2 pved=844) EGFR (BEAKER) (test 65 mL/min/1.73 sq m ESTIMATED GFR IS NOT rgxe=8027) ACCURATE CREATININE CLEARANCE IN PREDICTING GLOMERULAR FILTRATION RATE. ESTIMATED GFR IS NOT APPLICABLE FOR DIALYSIS PATIENTS. HEMOGLOBIN AND [id number] 21:41:00 Test Item Value Reference Range Comments HEMOGLOBIN (BEAKER) (test aqgt=573) 13.9 GM/DL 13.7-17.5 HEMATOCRIT (BEAKER) (test hupi=313) 45.4 % 40.1-51.0 BASIC METABOLIC [id number] 21:35:00 Test Item Value Reference Range Comments SODIUM (BEAKER) (test 137 meq/L 136-145 mzxo=873) POTASSIUM (BEAKER) (test 4.4 meq/L 3.5-5.1 Specimen slightly xneu=927) hemolyzed CHLORIDE (BEAKER) (test 109 meq/L 98-107 ltgt=655) CO2 (BEAKER) (test 22 meq/L 22-29 biaj=953) BLOOD UREA NITROGEN 19 mg/dL 7-21 (BEAKER) (test hhnl=753) CREATININE (BEAKER) (test 1.18 mg/dL 0.57-1.25 Specimen slightly vdiv=838) hemolyzed GLUCOSE RANDOM (BEAKER) 133 mg/dL 70-105 (test nesb=271) CALCIUM (BEAKER) (test 7.9 mg/dL 8.4-10.2 rxkt=803) EGFR (BEAKER) (test 61 mL/min/1.73 sq m ESTIMATED GFR IS NOT nyld=5538) ACCURATE CREATININE CLEARANCE IN PREDICTING GLOMERULAR FILTRATION RATE. ESTIMATED GFR IS NOT APPLICABLE FOR DIALYSIS PATIENTS. SODIUM NA-STAT [id number] 20:15:00 Test Item Value Reference Range Comments SODIUM (BEAKER) (test hlsc=295) 137 meq/L 135-148 FIO2: 75TEMP:36FIO2: 75TEMP:36FIO2: 75TEMP:36FIO2: 75TEMP:36FIO2: 75TEMP: 36POTASSIUM-STAT [id number] 20:15:00 Test Item Value Reference Range Comments POTASSIUM (BEAKER) (test zlmg=540) 4.1 meq/L 3.6-5.5 FIO2: 75TEMP:36FIO2: 75TEMP:36FIO2: 75TEMP:36FIO2: 75TEMP:36FIO2: 75TEMP: 36CALCIUM, [id number] 20:15:00 Test Item Value Reference Range Comments CALCIUM IONIZED (BEAKER) (test mafv=277) 1.05 mmol/L 1.12-1.27 PH, BLOOD (BEAKER) (test xupp=3398) 7.35 BLOOD GAS, [id number] 20:15:00 Test Item Value Reference Range Comments PH ARTERIAL (BEAKER) (test ekcq=422) 7.36 7.35-7.45 PCO2 ARTERIAL (BEAKER) (test nuit=678) 39 mmHg 35-45 PO2 ARTERIAL (BEAKER) (test awiu=167) 172 mmHg 80-90 O2 SATURATION ARTERIAL (BEAKER) (test rkow=077) 99.1 % 96.0-97.0 HCO3 ARTERIAL (BEAKER) (test pjsn=285) 22 mmol/L 21-29 BASE EXCESS ARTERIAL (BEAKER) (test ivkw=527) -3.2 mmol/L -2.0-3.0 PATIENT TEMPERATURE (BEAKER) (test mfhf=0844) 36.0 C FIO2 (BEAKER) (test cphf=1519) 75.0 % FIO2: 75TEMP:36FIO2: 75TEMP:36FIO2: 75TEMP:36FIO2: 75TEMP:36FIO2: 75TEMP: 36GLUCOSE-STAT [id number] 20:15:00 Test Item Value Reference Range Comments GLUCOSE RANDOM (BEAKER) (test owjx=035) 145 mg/dL 70-110 FIO2: 75TEMP:36FIO2: 75TEMP:36FIO2: 75TEMP:36FIO2: 75TEMP:36FIO2: 75TEMP:36HGB/ HCT (H&H) - STAT [id number] 20:15:00 Test Item Value Reference Range Comments HEMOGLOBIN (BEAKER) (test bpdo=997) 10.4 g/dL 13.0-16.8 HEMATOCRIT (BEAKER) (test vibx=038) 31.0 % 40.0-50.0 FIO2: 75TEMP:36FIO2: 75TEMP:36FIO2: 75TEMP:36FIO2: 75TEMP:36FIO2: 75TEMP: 36PROTHROMBIN TIME/[id number] 12:12:00 Test Item Value Reference Range Comments PROTIME (BEAKER) (test hnwf=295) 14.8 seconds 11.7-14.7 INR (BEAKER) (test dkzf=556) 1.2 <=5.9 RECOMMENDED COUMADIN/WARFARIN INR THERAPY RANGESSTANDARD DOSE: 2.0 - 3.0 Includes: PROPHYLAXIS forvenous thrombosis, systemic embolization; TREATMENT for venous thrombosis and/or pulmonary embolus.HIGH RISK: Target INR is 2.5-3.5 for patients with mechanical heart valves.TISSUE [id number] 14:21: 00Surgical Pathology Report Case: [id number] Authorizing Provider: Aba Robins MD Collected : 07/09/[id number] Ordering Location: [place] [address] OP Received: 07/09/[id number] Pathologist: Jose Archibald MD Specimen: Kidney, Left, Mass Bx KIDNEY, LEFT INFERIOR POLE, ULTRASOUND-GUIDED CORE NEEDLE BIOPSY :- CONVENTIONAL CLEAR CELL RENAL CELL CARCINOMA, FURHMAN NUCLEAR GRADE 2 Signing Pathologist Direct Phone Line: [phone] signed by Jose Archibald MD on 07/21/2018 at 2:21 PMPreliminary result electronically signed by Jose Archibald MD on 07/13/2018 at 1:34 PMPreliminary result electronically signed by Jose Archibald MD on 07/10/2018 at 12:23 [id number] inferior pole renal massUltrasound-guided biopsy of renal mass at lower pole of kidneyReceived in formalin labeled with patient's name and MRN are multiple tissue cores ranging from 0.2 cm to 1.5 cm in length respectively with an average diameter of 0.1 cm. Entirely submitted in A1.Microscopic examination is performed and the findings are incorporated in the diagnosticline.U/S, BIOPSY, RENAL (KIDNEY)2018-07-09 17:45:00Reason for exam:->Left renal massFINAL REPORT Ultrasound guided renal biopsy. Clinical History: Left renal mass. Informed consent was obtained from the patient and risks of the procedure were explained includingbleeding, infection and visceral injury. Sedation: 1% Xylocaine. [...] of the left kidney. Signed: David Leyva MDReport Verified Date/Time: 07/09/2018 17:45:45 Reading Location: [address] Ultrasound Reading Room [id number] 13:01:00 Test Item Value Reference Range Comments CREATININE (BEAKER) (test 1.29 mg/dL 0.57-1.25 wrmj=118) EGFR (BEAKER) (test 55 mL/min/1.73 sq m ESTIMATED GFR IS NOT giqg=1152) ACCURATE CREATININE CLEARANCE IN PREDICTING GLOMERULAR FILTRATION RATE. ESTIMATED GFR IS NOT APPLICABLE FOR DIALYSIS PATIENTS. PT/[id number] 12:41:00 Test Item Value Reference Range Comments PROTIME (BEAKER) (test qqvh=029) 14.6 seconds 11.7-14.7 INR (BEAKER) (test ojkh=912) 1.1 <=5.9 PARTIAL THROMBOPLASTIN TIME (BEAKER) (test 28.7 seconds 22.5-36.0 hmou=436) RECOMMENDED COUMADIN/WARFARIN INR THERAPY RANGESSTANDARD DOSE: 2.0 - 3.0 Includes: PROPHYLAXIS forvenous thrombosis, systemic embolization; TREATMENT for venous thrombosis and/or pulmonary embolus.HIGH RISK: Target INR is 2.5-3.5 for patients with mechanical heart valves.CBC W/PLT COUNT & AUTO [id number] 12:32:00 Test Item Value Reference Range Comments WHITE BLOOD CELL COUNT (BEAKER) (test zhkv=139) 7.8 K/ L 3.5-10.5 RED BLOOD CELL COUNT (BEAKER) (test cefr=982) 4.07 M/ L 4.63-6.08 HEMOGLOBIN (BEAKER) (test pqhn=151) 11.1 GM/DL 13.7-17.5 HEMATOCRIT (BEAKER) (test guoe=938) 34.9 % 40.1-51.0 MEAN CORPUSCULAR VOLUME (BEAKER) (test nqnf=929) 85.7 fL 79.0-92.2 MEAN CORPUSCULAR HEMOGLOBIN (BEAKER) (test 27.3 pg 25.7-32.2 kdca=804) MEAN CORPUSCULAR HEMOGLOBIN CONC (BEAKER) (test 31.8 GM/DL 32.3-36.5 cvhx=101) RED CELL DISTRIBUTION WIDTH (BEAKER) (test 14.5 % 11.6-14.4 dxob=679) PLATELET COUNT (BEAKER) (test jahm=201) 286 K/CU MM 150-450 MEAN PLATELET VOLUME (BEAKER) (test hkhb=205) 11.6 fL 9.4-12.4 NUCLEATED RED BLOOD CELLS (BEAKER) (test 0 /100 WBC 0-0 dwtz=879) NEUTROPHILS RELATIVE PERCENT (BEAKER) (test 71 % drib=399) LYMPHOCYTES RELATIVE PERCENT (BEAKER) (test 12 % aeuc=902) MONOCYTES RELATIVE PERCENT (BEAKER) (test 10 % suda=584) EOSINOPHILS RELATIVE PERCENT (BEAKER) (test 5 % ddbb=715) BASOPHILS RELATIVE PERCENT (BEAKER) (test 1 % migv=629) NEUTROPHILS ABSOLUTE COUNT (BEAKER) (test 5.58 K/ L 1.78-5.38 qvbm=109) LYMPHOCYTES ABSOLUTE COUNT (BEAKER) (test 0.96 K/ L 1.32-3.57 rjiy=586) MONOCYTES ABSOLUTE COUNT (BEAKER) (test 0.80 K/ L 0.30-0.82 urnq=661) EOSINOPHILS ABSOLUTE COUNT (BEAKER) (test 0.41 K/ L 0.04-0.54 dgie=878) BASOPHILS ABSOLUTE COUNT (BEAKER) (test 0.06 K/ L 0.01-0.08 modn=455) IMMATURE GRANULOCYTES-RELATIVE PERCENT (BEAKER) 0 % 0-1 (test nwai=3331)
[2019-01-27 15:42] LABS: Protime INR 1.89
[2019-01-27 15:43] LABS: Absolute Monocytes 0.7 K/uL (0.1-1.3); Absolute Neutrophil 7.2 K/uL (1.8-8.0); Basophils % 0.6 % (0-1.3); Eosinophils % 1.9 % (0-4.4); Hematocrit 28.2 % (39.6-49.0); Lymphocytes % 10.6 % (15.3-44.8); MPV 9.2 fL (7.6-11.3); Monocytes % 8.1 % (3.3-12.3); RBC Red Blood Cell Count 3.94 M/uL (4.33-5.43)
[2019-01-27 15:55] LABS: ALT/SGPT 17 U/L (12-78); AST/SGOT 13 U/L (15-37); Albumin 3.9 g/dL (3.4-5.0); Alkaline Phosphatase 128 U/L (45-117); BUN Blood Urea Nitrogen 35 mg/dL (7-18); Bicarbonate 23 mmol/L (21-32); Bilirubin Direct 0.1 mg/dL (0-0.2); Bilirubin Total 0.3 mg/dL (0.2-1.0); Glucose Level 98 mg/dL (74-106); Magnesium 2.2 mg/dL (1.8-2.4); NT PRO-BNP 45 pg/mL (<125); Potassium 4.2 mmol/L (3.5-5.1); Protein, Total 8.1 g/dL (6.4-8.2); Sodium Level 141 mmol/L (136-145); Troponin (Emerg Dept Use Only) < 0.02 ng/mL (0.0-0.045)
--- NOTE | 2019-01-27 16:09 | RAD REPORT ---
EXAM DESCRIPTION: RAD - Chest Single View - 01/27/2019 4:01 pm CLINICAL HISTORY: SOB Chest pain. COMPARISON: Chest Pa And Lat (2 Views) dated 09/12/2016; CHEST PA AND LAT 2 VIEW dated 11/13/2015; TIM ST PA AND LAT 2 VIEW dated 12/08/2014; CHEST PA AND LAT 2 VIEW dated 03/13/2000 FINDINGS: Portable technique limits examination quality. Lungs are mildly emphysematous but clear. The heart is normal in size. No displaced fractures. IMPRESSION: No acute intrathoracic process suspected.
--- NOTE | 2019-01-27 16:32 | RAD REPORT ---
EXAM DESCRIPTION: CT - Thorax Wo Con CLINICAL HISTORY: Chest pain shortness of breath COMPARISON: Thorax Wo Con dated 05/27/2016; Chest Single View dated 01/27/2019 FINDINGS: The lungs are mildly emphysematous with peripheral areas of early fibrosis suspected. No p ulmonary nodule, mass or infiltrate is seen. No pleural thickening or pleural effusion. No pneumothor ax. No axillary, mediastinal or hilar adenopathy. No concerning bony finding. Cholelithiasis. All CT scans are performed using dose optimization technique as appropriate and may include automated exposure control or mA/KV adjustment according to patient size. IMPRESSION: COPD is visualized without evidence of pulmonary nodule, mass or infiltrate of concern. Cholelithiasis.
[2019-01-27] MEDS ORDERED: NA CHLORIDE 0.9% 500 ML ONE (16:58)
--- NOTE | 2019-01-27 17:05 | ER ---
Nurse's Notes [facility] Name: Zen Pink Age: 68 yrs Sex: Male : 1950 Arrival Date: 01/27/2019 Time: 14:09 Bed 24 Private MD: Sybil Orona F Diagnosis: Anemia in chronic diseases classified elsewhere;Dyspnea, unspecified;Chronic kidney disease, unspecified Presentation: 01/27 14:12 Presenting complaint: Patient states: coming from Dr. Pelayo [facility], felicitas had SOB for a hj long time and its getting worse, i was flakita i was anemic and short of electrolytes; reports chest pain (feeling heavy);. Transition of care: patient was not received from another setting of care. Onset of symptoms was January 27, 2019. Risk Assessment: Do you want to hurt yourself or someone else? Patient reports no desire to harm self or others. Initial Sepsis Screen: Does the patient meet any 2 criteria? No. Patient's initial sepsis screen is negative. Does the patient have a suspected source of infection? No. Patient's initial sepsis screen is negative. Care prior to arrival: None. 14:12 Method Of Arrival: Ambulatory hj 14:12 Acuity: DOMINICK 3 hj Historical: - Allergies: 14:15 Codeine; hj 14:15 Latex, Natural Rubber; hj 14:15 PENICILLINS; hj - PMHx: 14:15 Hypertension; COPD; Asthma; asbestosis; Hyperlipidemia; stege 3 kidney disease; hj - PSHx: 14:15 kidney cancer; hj - Immunization history:: Flu vaccine status is unknown. - Social history:: Smoking status: unknown. - Ebola Screening: : No symptoms or risks identified at this time. Screenin:04 Abuse screen: Denies threats or abuse. Denies injuries from another. Nutritional mg2 screening: No deficits noted. Tuberculosis screening: No symptoms or risk factors identified. Fall Risk IV access (20 points). Assessment: 15:59 General: Appears in no apparent distress. comfortable, Behavior is calm, cooperative. mg2 Pain: Complains of pain in chest Pain does not radiate. Pain currently is 5 out of 10 on a pain scale. Quality of pain is described as heavy, pressure, Pain began gradually, few days ago Is intermittent. Neuro: Level of Consciousness is awake, alert, obeys commands, Oriented to person, place, time, situation. Cardiovascular: Reports chest pain, Capillary refill < 3 seconds Patient's skin is warm and dry. Respiratory: Airway is patent Respiratory effort is even, unlabored, Respiratory pattern is regular, symmetrical. GI: No signs and/or symptoms were reported involving the gastrointestinal system. : No signs and/or symptoms were reported regarding the genitourinary system. EENT: No signs and/or symptoms were reported regarding the EENT system. Derm: Skin is intact, is healthy with good turgor, Skin is pink, warm \T\ dry. normal. Musculoskeletal: Circulation, motion, and sensation intact. Capillary refill < 3 seconds. 16:18 Reassessment: patient sent to ct scan via stretcher. mg2 20:47 Reassessment: receiving nurse will call back to take the report. mg2 Vital Signs: 14:15 BP 116 / 66; Pulse 100; Resp 20; Temp 98.2(TE); Pulse Ox 98% on R/A; Weight 117.93 kg; hj Height 6 ft. 4 in. (193.04 cm); Pain 5/10; 16:05 BP 92 / 58; Pulse 87; Resp 19; Temp 98.3; Pulse Ox 100% on R/A; Pain 4/10; mg2 17:23 BP 102 / 62; Pulse 88; Resp 18; Temp 98.5; Pulse Ox 100% on R/A; mg2 19:49 BP 114 / 62; Pulse 79; Resp 18; Pulse Ox 100% on R/A; mg2 20:46 BP 127 / 79; Pulse 90; Resp 18; Temp 98.3; Pulse Ox 100% on R/A; Pain 0/10; mg2 14:15 Body Mass Index 31.65 (117.93 kg, 193.04 cm) ED Course: 14:09 Patient arrived in ED. rg4 14:09 Sybil Orona MD is Private Physician. rg4 14:14 Triage completed. hj 14:17 Arm band placed on right wrist. hj 14:20 EKG done, by head of academic technology. reviewed by Pipo Prieto MD. sm3 14:50 Rajinder Waldrop PA is PHCP. cp 14:50 Pipo Prieto MD is Attending Physician. cp 14:58 Joey Payan, FILI is Primary Nurse. mg2 16:01 X-ray completed. Portable x-ray completed in exam room. Patient tolerated procedure mh1 well. 16:01 XRAY Chest (1 view) In Process Unspecified. EDMS 16:04 No provider procedures requiring assistance completed. Inserted saline lock: 20 gauge mg2 in right antecubital area, using aseptic technique. Blood collected. 16:06 Patient has correct armband on for positive identification. pvc monitor on. Pulse mg2 ox on. NIBP on. Door closed. Warm blanket given. Pillow given. 16:[address] vm2 16:23 CT Chest Wo Con In Process Unspecified. EDMS 17:02 Sybil Orona MD is Hospitalizing Provider. cp 20:45 Patient admitted, IV remains in place. mg2 Administered Medications: 17:07 Drug: NS 0.9% 500 ml Route: IV; Rate: 500 ml/hr; Site: right antecubital; mg2 18:56 Follow up: Response: No adverse reaction; IV Status: Completed infusion; IV Intake: mg2 500ml Intake: 18:56 IV: 500ml; Total: 500ml. mg2 Outcome: 17:04 Decision to Hospitalize by Provider. cp 21:06 Admitted to Tele accompanied by tech, via wheelchair, room 411, with chart, Report mg2 called to Chuck Mota RN 21:06 Condition: stable 21:06 Instructed on the need for admit, Demonstrated understanding of instructions. 21:39 Patient left the ED. mg2 Signatures: Dispatcher [employer] EDMS Elsa Chatman 1 Romel Wolf RN RN hj Page, Corey, PA PA Maria Elena Tiwari 4 Xuan Rg 2 Joey Payan RN RN mg2 Lorraine Huntley 3 Corrections: (The following items were deleted from the chart) 14:17 14:15 Pulse 100bpm; Resp 20bpm; Pulse Ox 98% RA; Temp 98.2F Temporal; 117.93 kg; Height 6 ft. 4 in.; BMI: 31.6; Pain 5/10; hj 16:07 16:05 Pulse 87bpm; Resp 19bpm; Pulse Ox 100% RA; Temp 98.3F; Pain 4/10; mg2 mg2
--- NOTE | 2019-01-27 17:05 | EDPHYS ---
Physician Documentation [facility] Name: Zen Pink Age: 68 yrs Sex: Male : 1950 Arrival Date: 01/27/2019 Time: 14:09 Bed 24 Private MD: Sybil Orona F ED Physician Pipo Prieto HPI: 01/27 15:10 This 68 yrs old Male presents to ER via Ambulatory with complaints of cp Abnormal Lab Results. 15:10 The patient has shortness of breath at rest, with light activity. Onset: The cp symptoms/episode began/occurred gradually. 15:10 Duration: The symptoms are continuous, and are steadily getting worse. cp 15:10 The patient's shortness of breath is aggravated by light activity. Associated signs and cp symptoms: Pertinent positives: history of anemia, Pertinent negatives: chest pain, productive cough, diaphoresis, dizziness, fever, hemoptysis. Severity of symptoms: in the emergency department the symptoms are unchanged despite home interventions. Historical: - Allergies: 14:15 Codeine; hj 14:15 Latex, Natural Rubber; hj 14:15 PENICILLINS; hj - PMHx: 14:15 Hypertension; COPD; Asthma; asbestosis; Hyperlipidemia; stege 3 kidney disease; hj - PSHx: 14:15 kidney cancer; hj - Immunization history:: Flu vaccine status is unknown. - Social history:: Smoking status: unknown. - Ebola Screening: : No symptoms or risks identified at this time. ROS: 15:15 Eyes: Negative for injury, pain, redness, and discharge. cp 15:15 Constitutional: Negative for body aches, chills, fever, poor PO intake. 15:15 ENT: Negative for drainage from ear(s), ear pain, sore throat, difficulty swallowing, cp difficulty handling secretions. 15:15 Cardiovascular: Negative for chest pain, edema, palpitations. 15:15 Respiratory: Positive for dyspnea on exertion, shortness of breath, Negative for cough, wheezing. 15:15 Abdomen/GI: Negative for abdominal pain, vomiting, diarrhea, constipation, anorexia, cp black/tarry stool, rectal bleeding. 15:15 : Negative for urinary symptoms. 15:15 Skin: Negative for rash. 15:15 Neuro: Negative for altered mental status, headache, syncope, weakness. 15:15 All other systems are negative. Exam: 14:30 ECG was reviewed by the Attending Physician. cp 15:20 Constitutional: The patient appears in no acute distress, alert, awake, cp non-diaphoretic, non-toxic, well developed, well nourished. 15:20 Head/Face: Normocephalic, atraumatic. cp 15:20 Eyes: Periorbital structures: appear normal, Pupils: equal, round, and reactive to cp light and accomodation, Extraocular movements: intact throughout, Conjunctiva: normal, no exudate, no injection, Sclera: no appreciated abnormality, Lids and lashes: appear normal, bilaterally. 15:20 ENT: External ear(s): are unremarkable, Ear canal(s): are normal, clear, TM's: cp dullness, bilaterally, Nose: is normal, Mouth: Lips: moist, Oral mucosa: pink and intact, moist, Posterior pharynx: is normal, airway is patent, no erythema, no exudate. 15:20 Neck: ROM/movement: is normal, is supple, without pain, no range of motions limitations, no nuchal rigidity. 15:20 Chest/axilla: Inspection: normal, Palpation: is normal, no crepitus, no tenderness. 15:20 Cardiovascular: Rate: tachycardic, Rhythm: regular, Edema: is not appreciated, JVD: is not appreciated. 15:20 Respiratory: the patient does not display signs of respiratory distress, Respirations: labored breathing, that is mild, intercostal retractions, are absent, splinting, is not noted, tachypnea, is not appreciated, Breath sounds: are clear throughout, no stridor, no wheezing, decreased breath sounds, that are mild, throughout. 15:20 Abdomen/GI: Inspection: abdomen appears normal, Bowel sounds: active, all quadrants, Palpation: abdomen is soft and non-tender, in all quadrants, voluntary guarding, is not appreciated, involuntary guarding, is not appreciated. 15:20 Back: pain, is absent, ROM is normal. 15:20 Skin: cellulitis, is not appreciated, no rash present. 15:20 Neuro: Orientation: to person, place \T\ time. Mentation: is normal, Cerebellar function: is grossly normal, Motor: is normal. 16:00 : Rectal exam: Stool: brown, Guaiac testing: results were negative for occult blood. Vital Signs: 14:15 BP 116 / 66; Pulse 100; Resp 20; Temp 98.2(TE); Pulse Ox 98% on R/A; Weight 117.93 kg; hj Height 6 ft. 4 in. (193.04 cm); Pain 5/10; 16:05 BP 92 / 58; Pulse 87; Resp 19; Temp 98.3; Pulse Ox 100% on R/A; Pain 4/10; mg2 17:23 BP 102 / 62; Pulse 88; Resp 18; Temp 98.5; Pulse Ox 100% on R/A; mg2 19:49 BP 114 / 62; Pulse 79; Resp 18; Pulse Ox 100% on R/A; mg2 20:46 BP 127 / 79; Pulse 90; Resp 18; Temp 98.3; Pulse Ox 100% on R/A; Pain 0/10; mg2 14:15 Body Mass Index 31.65 (117.93 kg, 193.04 cm) hj MDM: 14:50 Patient medically screened. cp 15:30 Differential diagnosis: Anemia asthma, Bronchitis CHF exacerbation, Chronic Obstructive cp Pulmonary Disease Myocardial Infarction pneumonia, pulmonary edema, Pulmonary Embolism Unstable Angina. 16:40 Data reviewed: vital signs, nurses notes, lab test result(s), EKG, radiologic studies, cp CT scan, plain films. 16:40 Test interpretation: by ED physician or midlevel provider: ECG, plain radiologic cp studies. 16:41 Physician consultation: Sybil Orona MD was called at 16:42, regarding admission, to cp the telemetry unit. patient's condition, left message on voicemail. 17:02 Physician consultation: Sybil Orona MD was contacted at 17:02, regarding admission, cp to the telemetry unit. patient's condition, would like consultation with Dr. Bustamante. 01/27 15:10 Order name: Basic Metabolic Panel; Complete Time: 16:03 cp 01/27 16:03 Interpretation: Normal except: CL 111; BUN 35; CRE 1.76; GFR 38. cp 01/27 15:10 Order name: CBC with Diff; Complete Time: 16:03 cp 01/27 16:04 Interpretation: Normal except: RBC 3.94; HGB 8.7; HCT 28.2; MCV 71.4; MCH 22.0; MCHC cp 30.8; RDW 17.5; FIDE% 78.8; LYM% 10.6. 01/27 15:10 Order name: LFT's; Complete Time: 16:03 cp 01/27 15:10 Order name: Magnesium; Complete Time: 16:03 cp 01/27 15:10 Order name: NT PRO-BNP; Complete Time: 16:03 cp 01/27 15:10 Order name: PT-INR; Complete Time: 16:03 cp 01/27 15:10 Order name: Troponin (emerg Dept Use Only); Complete Time: 16:03 cp 01/27 15:10 Order name: XRAY Chest (1 view); Complete Time: 16:38 cp 01/27 15:10 Order name: EKG; Complete Time: 15:11 cp 01/27 16:06 Order name: CT Chest Wo Con; Complete Time: 16:38 cp 01/27 16:40 Order name: Type And Screen 01/27 16:49 Order name: Urine Microscopic Only 01/27 21:06 Order name: ABO/RH no charge [facility] 01/27 15:10 Order name: Cardiac monitoring; Complete Time: 15:58 cp 01/27 15:10 Order name: EKG - Nurse/Tech; Complete Time: 15:58 01/27 15:10 Order name: IV Saline Lock; Complete Time: 15:58 01/27 15:10 Order name: Labs collected and sent; Complete Time: 15:58 01/27 15:10 Order name: O2 Per Protocol; Complete Time: 15:58 01/27 15:10 Order name: O2 Sat Monitoring; Complete Time: 15:59 01/27 17:41 Order name: CONS Physician Consult [facility] 01/27 17:41 Order name: Heart Healthy EDIL EC:30 Rate is 99 beats/min. Rhythm is regular. OK interval is normal. QRS interval is normal. cp QT interval is normal. Interpreted by me. Reviewed by me. Administered Medications: 17:07 Drug: NS 0.9% 500 ml Route: IV; Rate: 500 ml/hr; Site: right antecubital; mg2 18:56 Follow up: Response: No adverse reaction; IV Status: Completed infusion; IV Intake: mg2 500ml Disposition: 01/28 11:56 Co-signature as Attending Physician, Pipo Prieto MD. Disposition: 01/27/19 17:04 Hospitalization ordered by Sybil Orona for Inpatient Admission. Preliminary diagnosis are Anemia in chronic diseases classified elsewhere, Dyspnea, unspecified, Chronic kidney disease, unspecified. - Bed requested for Telemetry/MedSurg (Inpatient). - Status is Inpatient Admission. mg2 - Condition is Stable. - Problem is an ongoing problem. - Symptoms are unchanged. UTI on Admission? No Signatures: Dispatcher [employer] EDIL Romel Wolf RN RN Rajinder Waldrop PA PA cp Fitzgerald, Diane, RN RN df Pipo Prieto MD MD Joey Payan RN RN mg2 Corrections: (The following items were deleted from the chart) 01/27 17:05 17:04 Hospitalization Ordered by Sybil Orona MD for Inpatient Admission. Preliminary cp diagnosis is Anemia in chronic diseases classified elsewhere; Dyspnea, unspecified. Bed requested for Telemetry/MedSurg (Inpatient). Status is Inpatient Admission. Condition is Stable. Problem is an ongoing problem. Symptoms are unchanged. UTI on Admission? No. cp 20:20 17:05 01/27/2019 17:04 Hospitalization Ordered by Sybil Orona MD for Inpatient df Admission. Preliminary diagnosis is Anemia in chronic diseases classified elsewhere; Dyspnea, unspecified; Chronic kidney disease, unspecified. Bed requested for Telemetry/MedSurg (Inpatient). Status is Inpatient Admission. Condition is Stable. Problem is an ongoing problem. Symptoms are unchanged. UTI on Admission? No. cp 21:39 20:20 01/27/2019 17:04 Hospitalization Ordered by Sybil Orona MD for Inpatient mg2 Admission. Preliminary diagnosis is Anemia in chronic diseases classified elsewhere; Dyspnea, unspecified; Chronic kidney disease, unspecified. Bed requested for Telemetry/MedSurg (Inpatient). Status is Inpatient Admission. Condition is Stable. Problem is an ongoing problem. Symptoms are unchanged. UTI on Admission? No. df
[2019-01-27] MEDS ORDERED: ONDANSETRON 4 MG/2 ML VIAL IV PRN (17:33)
[2019-01-27] MEDS: ALBUTEROL 2.5 MG/3 ML NEB SOL NEB SCH (21:40)
[2019-01-28] MEDS: ALBUTEROL 2.5 MG/3 ML NEB SOL NEB SCH ×4 (02:25→20:00)
[2019-01-28 05:07] LABS: Urine Appearance CLOUDY; Urine Bilirubin NEGATIVE (NEG); Urine Blood NEGATIVE (NEG); Urine Color YELLOW; Urine Glucose NEGATIVE (NEG); Urine Protein NEGATIVE (NEG); Urine Specific Gravity 1.015 (1.005-1.030); Urine Urobilinogen 0.2 mg/dL (0.2-1.0); Urine pH 5.5 (5.0-7.0)
[2019-01-28 05:21] LABS: Urine Bacteria <20 /HPF (NONE SEEN); Urine Culture Reflex Order REFLEXED; Urine RBC NONE SEEN /HPF (NONE SEEN)
[2019-01-28 06:04] LABS: Absolute Lymphocytes (CBC) 0.9 K/uL (0.7-4.9); Absolute Monocytes 0.7 K/uL (0.1-1.3); Absolute Neutrophil 5.4 K/uL (1.8-8.0); Basophils % 0.7 % (0-1.3); Eosinophils % 3.4 % (0-4.4); Hematocrit 22.8 % (39.6-49.0); Lymphocytes % 12.1 % (15.3-44.8); MPV 8.6 fL (7.6-11.3); Monocytes % 10.1 % (3.3-12.3); RBC Red Blood Cell Count 3.24 M/uL (4.33-5.43)
[2019-01-28 06:23] LABS: Magnesium 2.2 mg/dL (1.8-2.4); Potassium 4.5 mmol/L (3.5-5.1)
--- NOTE | 2019-01-28 08:23 | RAD REPORT ---
EXAM DESCRIPTION: NM - Vent Perfusion VQ Scan - 01/28/2019 7:27 am CLINICAL HISTORY: SOB, r/o PE Chest pain, shortness of breath COMPARISON: AXILLA ONLY dated 07/14/2016; Chest Single View dated 01/27/2019 TECHNIQUE: 22mCi Xe-133 gas inhaled and 7mCi Tc-MAA IV. Planar ventilation scan was performed in posterior projection after Xe-133 gas inhalation (wash-in, e quilibrium, and wash-out phases) followed by perfusion scan with Tc-MAA IV in multiple projections. Examination is correlated with recent chest radiograph. FINDINGS: Normal ventilation with appropriate wash-out and no significant air-trapping. No mismatched segmental perfusion defect. IMPRESSION: Very low probability of acute pulmonary embolism.
--- NOTE | 2019-01-28 08:29 | EKG ---
Test Date: 2019-01-27 Test Time: 14:20:15 Sales And Events Coordinator: HARSHAD MEASUREMENT RESULTS: Intervals: Rate: 99 IN: 124 QRSD: 82 QT: 328 QTc: 420 [place]: P: 16 IN: 124 QRS: 47 T: 59 INTERPRETIVE STATEMENTS: Normal sinus rhythm Normal ECG Compared to ECG 12/30/2005 15:45:24 No significant changes Electronically Signed On 01-28-19 08:28:33 CDT by Rashad Pelaoy
[2019-01-28] MEDS ORDERED: ASPIRIN EC 81 MG TAB PO SCH (09:00)
[2019-01-28 09:31] LABS: Ferritin 7.5 ng/mL (26-388); Folic Acid, (Folate) 8.5 ng/mL (3.1-17.5)
[2019-01-28] MEDS ORDERED: NA CHLORIDE 0.9% 250 ML ONE ×2 (11:33→16:24)
--- NOTE | 2019-01-28 14:12 | P.CNS ---
Date of Consult: 01/28/19 Reason for Consult: Shortness of breath Chief Complaint: Shortness of breath History of Present Illness: Patient is 68 years of age admitted with progressive dyspnea he is at shortness of breath for quite some time uses albuterol at home former smoker he quit smoking in the denies any orthopnea PND seen by a lath tier also has chronic renal insufficiency underlying anemia denies any cough sputum hemoptysis no chest pain patient was evaluated by me over a year ago Allergies codeine [Codeine] Allergy (Mild, Verified 12/09/12 08:04) ITCH Penicillins Allergy (Mild, Verified 12/09/12 08:03) ITCH Latex, Natu Allergy (Uncoded 10/21/17 14:01) Unknown Home Medications: Albuterol Sulfate [Proair Hfa] 8.5 gm IH TID PRN 01/27/19 Allopurinol 100 mg PO DAILY 01/27/19 Aspirin/Acetaminophen/Caffeine [Excedrin Extra Strength Caplet] 1 each PO BID PRN 01/27/19 Cholecalciferol (Vitamin D3) [Vitamin D3] 1,000 unit PO DAILY 01/27/19 Colchicine [Colcrys] 0.6 mg PO DAILY PRN 01/27/19 Duloxetine HCl 60 mg PO DAILY 01/27/19 Loratadine [Claritin] 10 mg PO DAILY PRN 01/27/19 Pravastatin Sodium 80 mg PO DAILY 01/27/19 Rivaroxaban [Xarelto] 20 mg PO DAILY 01/27/19 Ropinirole HCl 2 mg PO DAILY 01/27/19 Tamsulosin [Flomax] 0.4 mg PO DAILY 01/27/19 - Past Medical/Surgical History Diabetic: No -: CKD -: COPD -: Asbestosis -: Asthma -: HTN -: Hyperelipidemia -: IBS -: 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, 11/2017 -: back sx - 2010 -: spinal stimulator - 2016 - Social History Smoking Status: Unknown if ever smoked Alcohol use: No CD- Drugs: No Caffeine use: Yes Place of Residence: Home Review of Systems 10-point ROS is otherwise unremarkable General: Weakness Respiratory: Shortness of Breath Physical Examination Temp Pulse Resp BP Pulse Ox 97.0 F 89 24 H 108/51 L 99 01/28/19 12:00 01/28/19 12:00 01/28/19 12:00 01/28/19 12:00 01/28/19 12:00 General: Alert, Oriented x3 HEENT: Atraumatic Neck: Supple Respiratory: Clear to auscultation bilaterally Cardiovascular: No edema, Regular rate/rhythm, Normal S1 S2 Gastrointestinal: Normal bowel sounds, Soft and benign Laboratory Data (last 24 hrs) 01/27/19 15:20: PT 21.8 H, INR 1.89 01/27/19 15:20: WBC 9.1, Hgb 8.7 L, Hct 28.2 L, Plt Count 355 01/27/19 15:20: Sodium 141, Potassium 4.2, BUN 35 H, Creatinine 1.76 H, Glucose 98, Magnesium 2.2, Total Bilirubin 0.3, AST 13 L, ALT 17, Alkaline Phosphatase 128 H - Problems (1) Shortness of breath Current Visit: Yes Status: Acute Plan: Patient is 68 years of age admitted with progressive dyspnea extensive workup done CT scan was negative no evidence of thromboembolism patient has a microcytic anemia currently being transfused 2 units of packed red blood cells chronic renal insufficiency bilateral renal cell cancers that were resected patient has iron deficiency anemia ferritin level is very low is also anti coagulated denies any hematemesis or melena apparently he has a hemoglobin around [address] [place] the [facility] psychiatry he probably has underlying obstructive airways disease I recommended trial of prednisone and long-acting bronchodilators oxygenation satisfactory seen by Dr. Pelayo lath tier his BNP level is also low I doubt if this is related to his heart
[2019-01-28] MEDS: predniSONE 20 MG TAB PO SCH ×2 (17:31→20:16)
[2019-01-28] MEDS: ARFORMOTEROL TARTRATE 15 MCG/2 ML VIAL.NEB NEB SCH (20:00)
[2019-01-28] MEDS: SMZ./TMP. 800/160 MG TABLET PO SCH (20:16)
[2019-01-28] MEDS: ATORVASTATIN 10 MG TAB PO SCH (20:16)
[2019-01-28 21:46] LABS: Hematocrit 26.8 % (39.6-49.0)
[2019-01-29] MEDS: ALBUTEROL 2.5 MG/3 ML NEB SOL NEB SCH ×4 (01:55→20:00)
[2019-01-29 05:59] LABS: Absolute Lymphocytes (CBC) 0.6 K/uL (0.7-4.9); Absolute Monocytes 0.1 K/uL (0.1-1.3); Absolute Neutrophil 8.5 K/uL (1.8-8.0); Basophils % 0.3 % (0-1.3); Eosinophils % 0.1 % (0-4.4); Hematocrit 29.8 % (39.6-49.0); Lymphocytes % 6.1 % (15.3-44.8); MPV 9.1 fL (7.6-11.3); Monocytes % 1.2 % (3.3-12.3); RBC Red Blood Cell Count 4.07 M/uL (4.33-5.43)
[2019-01-29] MEDS: ARFORMOTEROL TARTRATE 15 MCG/2 ML VIAL.NEB NEB SCH ×2 (08:00→20:00)
[2019-01-29 08:38] LABS: Anisocytosis 2+; Blood Morphology Comment NOTED (NOT SEEN); Elliptocytes 1+; Platelet Estimate ADEQ; Urine White Blood Cell Casts OK
[2019-01-29] MEDS ORDERED: HOME MED 1 EA UNK (Ropinirole Hcl [Ropinirole Hcl] 2 MG) PO SCH (09:00)
[2019-01-29] MEDS ORDERED: HOME MED 1 EA UNK (Duloxetine Hcl [Duloxetine Hcl] 60 MG) PO SCH (09:00)
[2019-01-29] MEDS ORDERED: HOME MED 1 EA UNK (Pravastatin Sodium [Pravastatin Sodium] 80 MG) PO SCH (09:00)
[2019-01-29] MEDS: predniSONE 20 MG TAB PO SCH ×2 (09:10→21:12)
[2019-01-29] MEDS: ROPINIROLE HCL 1 MG TAB PO SCH (09:11)
[2019-01-29] MEDS: SMZ./TMP. 800/160 MG TABLET PO SCH ×2 (09:11→21:11)
[2019-01-29] MEDS: TAMSULOSIN 0.4 MG SR CAP PO SCH (09:12)
[2019-01-29] MEDS: DULOXETINE 30 MG CAP PO SCH (09:12)
--- NOTE | 2019-01-29 16:35 | PN ---
Subjective: The patient is doing well, ambulating, and his shortness of breath is significantly less . Objective: Vital Signs: Blood pressure 120/60, pulse 95, temperature 98.2. Heart: Regular rate and rhythm. Chest: Clear to auscultation. Abdomen: Soft, nontender. Bowel sounds normoactive. Extremities: No edema. No cyanosis. Peripheral pulses are felt. Neurological Examination: Alert, oriented, nonfocal. Grossly intact. Laboratory Data: The patient's hemoglobin up 9.5 and hematocrit 29.8 this morning after transfusing 2 units of blood. Platelets 325. Chemistry; BUN 31, creatinine 1.60. The patient's iron 16 with tr ansferrin 4.1 and ferritin 7.5, and his B12 is 525 and folate is 8.5. Interpretation is iron-deficie ncy anemia. We will monitor his CBC. Assessment And Plan: The patient has anemia, possible gastrointestinal blood loss. We will monitor his CBC. If he stays stable, we can discharge him home tomorrow and work him up as an outpatient. T he rest of his chronic medical problems, stable. His urine showed less than 10,000 colony-forming un its. Look orders for details. MFS/MODL Voice ID: [id number] Report ID: [id number]
[2019-01-29] MEDS: ATORVASTATIN 10 MG TAB PO SCH (21:11)
[2019-01-30] MEDS: ALBUTEROL 2.5 MG/3 ML NEB SOL NEB SCH ×4 (02:00→20:05)
[2019-01-30 05:13] LABS: Absolute Lymphocytes (CBC) 0.6 K/uL (0.7-4.9); Absolute Monocytes 0.4 K/uL (0.1-1.3); Absolute Neutrophil 9.8 K/uL (1.8-8.0); Basophils % 0.3 % (0-1.3); Eosinophils % 0.1 % (0-4.4); Hematocrit 26.8 % (39.6-49.0); Lymphocytes % 5.8 % (15.3-44.8); MPV 8.6 fL (7.6-11.3); Monocytes % 4.1 % (3.3-12.3)
[2019-01-30 05:31] LABS: Potassium 4.8 mmol/L (3.5-5.1)
[2019-01-30] MEDS: PANTOPRAZOLE 40MG TABLET PO SCH (06:13)
[2019-01-30] MEDS: ARFORMOTEROL TARTRATE 15 MCG/2 ML VIAL.NEB NEB SCH ×2 (08:11→20:05)
[2019-01-30] MEDS: SMZ./TMP. 800/160 MG TABLET PO SCH ×2 (09:49→20:31)
[2019-01-30] MEDS: DULOXETINE 30 MG CAP PO SCH (09:49)
[2019-01-30] MEDS: ROPINIROLE HCL 1 MG TAB PO SCH (09:49)
[2019-01-30] MEDS: TAMSULOSIN 0.4 MG SR CAP PO SCH (09:49)
[2019-01-30] MEDS: predniSONE 20 MG TAB PO SCH ×2 (09:50→20:31)
--- NOTE | 2019-01-30 11:41 | P.PN ---
Subjective Date of Service: 01/30/19 Chief Complaint: Shortness of breath Subjective: Improving (Patient is doing much better shortness of breath has improved although is a little anemic with a declining hemoglobin feeling weak no other complaints) Review of Systems General: Weakness Respiratory: Shortness of Breath Physical Examination - Vital Signs Temperature: 98.2 F Blood Pressure: 126/60 Pulse: 81 Respirations: 14 Pulse Ox (%): 98 - Physical Exam General: Alert, In no apparent distress, Oriented x3 Respiratory: Clear to auscultation bilaterally Cardiovascular: No edema, Regular rate/rhythm Assessment & Plan - Problems (Diagnosis) (1) Shortness of breath Current Visit: Yes Status: Acute Plan: Patient shortness of breath improved he will need bronchodilators at home monitor hemoglobin vital signs satisfactory room-air sats satisfactory possible discharge home tomorrow he will need outpatient follow up with me
--- NOTE | 2019-01-30 16:14 | PN ---
The patient is doing well, having no new complaint. No increased shortness of breath. Objective: Vital signs: Blood pressure 125/60, pulse 80, temperature 98.2. Heart: Regular rate and rhythm. Chest: Clear to auscultation. Abdomen: Soft, benign. Neurological examination: Alert, oriented, intact. Extremities: No edema. No cyanosis. Peripheral pulses are felt. Laboratory Data: Hemoglobin 8.7, dropped from 9.5 since yesterday; hematocrit 26.8, platelets 313. Chemistry noted; BUN 35 and creatinine 1.61. Assessment And Plan: 1.Shortness of breath, likely secondary to anemia. Drop in hemoglobin noted, however, he has also a nemia of chronic illness. We will recheck his hemoglobin in the morning. If it stays within the 8.5 range, we can discharge to be followed as an outpatient. Meanwhile, we will continue the rest of hi s current treatment. 2.Chronic renal insufficiency, stable. 3.Rest of chronic medical problems, stable. MFS/MODL Voice ID: [id number] Report ID: [id number]
[2019-01-30 16:49] VITALS: O2SAT 98
[2019-01-30] MEDS: ATORVASTATIN 10 MG TAB PO SCH (20:31)
[2019-01-31] MEDS: ALBUTEROL 2.5 MG/3 ML NEB SOL NEB SCH ×2 (02:05→07:52)
[2019-01-31 06:09] LABS: Absolute Lymphocytes (CBC) 0.9 K/uL (0.7-4.9); Absolute Monocytes 0.4 K/uL (0.1-1.3); Basophils % 0.2 % (0-1.3); Hematocrit 28.8 % (39.6-49.0); Lymphocytes % 7.8 % (15.3-44.8); Monocytes % 3.3 % (3.3-12.3); RBC Red Blood Cell Count 3.93 M/uL (4.33-5.43)
[2019-01-31] MEDS: PANTOPRAZOLE 40MG TABLET PO SCH (06:30)
[2019-01-31 06:45] VITALS: BMI 31.6
[2019-01-31] MEDS: ARFORMOTEROL TARTRATE 15 MCG/2 ML VIAL.NEB NEB SCH (07:52)
[2019-01-31] MEDS: SMZ./TMP. 800/160 MG TABLET PO SCH (08:56)
[2019-01-31] MEDS: ROPINIROLE HCL 1 MG TAB PO SCH (08:56)
[2019-01-31] MEDS: TAMSULOSIN 0.4 MG SR CAP PO SCH (08:56)
[2019-01-31] MEDS: DULOXETINE 30 MG CAP PO SCH (08:57)
[2019-01-31] MEDS: predniSONE 20 MG TAB PO SCH (08:59)
[2019-01-31 12:23] VITALS: BP 120/66; TEMP 98.5
== END 2019-01-31 12:22 | disposition home or self-care (01) ==
LOC: ER 14:07 → INTOOBSV 17:31 → ERHOLD 17:31 → 4TH 21:09
PROVIDERS: ADMIT Internal Medicine; ATTEND Internal Medicine
DX: N18.9 Chronic kidney disease, unspecified (principal); D63.1 Anemia in chronic kidney disease; D50.9 Iron deficiency anemia, unspecified; I12.9 Hypertensive chronic kidney disease with stage 1 through stage 4 chronic kidney disease, or unspecified chronic kidney disease; R06.00 Dyspnea, unspecified; R06.02 Shortness of breath; J44.9 Chronic obstructive pulmonary disease, unspecified; K80.20 Calculus of gallbladder without cholecystitis without obstruction; E78.5 Hyperlipidemia, unspecified; Z79.01 Long term (current) use of anticoagulants; Z79.82 Long term (current) use of aspirin; Z79.899 Other long term (current) drug therapy
CPT/HCPCS: 96361; 36430; 93005; 87088; 85025 ×6; 81001; 87086; 80048 ×4; 36415 ×5; 86900; 83735 ×2; 86850; 82274; 85610; 80061; 86901; 80076; 85018; 85014; 84484; 82728; 82746; 82607; 83540; 83880; 84466; 71250; 71045; 94640; 78582; 96360; 99285; J7605 ×6; P9016 ×2; A9558; A9540; J7512

== ENCOUNTER 2019-02-09 09:59 | Day surgery (SDC) | payer OTHER ==
--- OUTSIDE RECORDS SUMMARY | 2019-02-09 10:09 | XMS REPORT | Clinical Summary ---
:1950 Author Organization [facility] Address [address] [place] [address] Care Team Providers Name Role Phone Sybil [...] renal mass MD Obey (Primary Dx) after 02/08/2018 Social History Tobacco Use Types Packs/Day Years [...] (262 lb 5.6 oz) 11/19/2018 5:42 AM POTATO LOADER Height 193 cm (6' 4") 11/19/2018 5:42 AM POTATO LOADER Body Mass Index 31.93 11/19/2018 5:42 AM POTATO LOADER Plan of Treatment Not on file Procedures [...] SERVICE 11/20/2018 6:00 REPORT - SCAN PM [employer]ER HEMOGLOBIN AND Routine 11/20/2018 3:41 Results for this HEMATOCRIT AM [employer]ATO [employer]ADER procedure are in the results section. BASIC METABOLIC Routine 11/20/2018 3:41 Results for this PANEL (7) AM [employer]ATO [employer]ER procedure are in the results section. HEMOGLOBIN AND Routine 11/19/2018 1:24 Results for this HEMATOCRIT PM [employer]ATO [employer]ADER procedure are in the results section. BASIC METABOLIC Routine 11/19/2018 1:24 Results for this PANEL (7) PM [employer]ATO [employer]ADER procedure are in the results section. TISSUE EXAM AP Routine 11/19/2018 12:18 Results for this PM [employer]ER procedure are in the results section. HGB/HCT (H&H) - STAT STAT 11/19/2018 9:25 Results for this LAB AM [employer]ATO [employer]ADER procedure are in the results section. GLUCOSE-STAT LAB STAT 11/19/2018 9:25 Results for this AM [employer]O [employer]ER procedure are in the results section. POTASSIUM-STAT LAB STAT 11/19/2018 9:25 Results for this AM [employer]O [employer]ADER procedure are in the results section. SODIUM NA-STAT LAB STAT 11/19/2018 9:25 Results for this AM [employer]ATO [employer]ADER procedure are in the results section. BLOOD GAS, ARTERIAL STAT 11/19/2018 9:25 Results for this AM [employer]ATO [employer]ADER procedure are in the results section. RRL CRITICAL LABS STAT 11/19/2018 9:25 Results for this (ABG,NA,K,H&H,GLUCOS AM POTATO LOADER procedure are in E) the results section. PREPARE RBC STAT 11/19/2018 8:41 Results for this AM [employer]ATO LOADER procedure are in the results section. PROCEDURE W/ DAVINCI 11/19/2018 7:30 Renal mass AM POTATO LOADER Case Notes 4 HRS Special Needs (DAVINCI Si) [place] Confirmation [id number] for Ultrasound ROBOTIC LAPAROSCOPY,NEPHRECTOMY-PARTIAL 11/19/2018 7:30 AM POTATO LOADER Renal mass Case Notes 4 HRS Special Needs (DAVINCI Si) [place] Confirmation [id number] for Ultrasound TYPE AND SCREEN, Routine 11/19/2018 6:17 AM Results for this AUTOMATED [employer]ATO [employer]ER procedure are in the results section. RHYTHM STRIP - SCAN 08/27/2018 9:50 AM POTATO LOADER BASIC METABOLIC PANEL STAT 08/20/2018 11:18 AM Results for this (7) [employer]ER procedure are in the results section. HEMOGLOBIN AND Routine 08/20/2018 11:18 AM Results for this HEMATOCRIT [employer]ER procedure are in the results section. CBC W/PLT COUNT & AUTO Routine 08/20/2018 4:33 AM Results for this DIFFERENTIAL [employer]ADER procedure are in the results section. CBC W/PLT COUNT & AUTO Routine 08/20/2018 4:33 AM Results for this DIFFERENTIAL [employer]ER procedure are in the results section. BASIC METABOLIC PANEL Routine 08/20/2018 4:33 AM Results for this (7) [employer]ER procedure are in the results section. (CELLAVISION MANUAL Routine 08/19/2018 5:25 AM Results for this DIFF) [employer]ADER procedure are in the results section. CBC W/PLT COUNT & AUTO Routine 08/19/2018 5:25 AM Results for this DIFFERENTIAL [employer]ER procedure are in the results section. CBC W/PLT COUNT & AUTO Routine 08/19/2018 5:25 AM Results for this DIFFERENTIAL [employer]ADER procedure are in the results section. BASIC METABOLIC PANEL Routine 08/19/2018 5:25 AM Results for this (7) [employer]ER procedure are in the results section. TRANSFUSION SERVICE 08/18/2018 6:01 PM REPORT - SCAN P[employer]ATO [employer]ADER HEMOGLOBIN AND Routine 08/18/2018 5:15 PM Results for this HEMATOCRIT [employer]AT[employer]ADER procedure are in the results section. CBC W/PLT COUNT & AUTO Routine 08/18/2018 8:38 AM Results for this DIFFERENTIAL [employer]ER procedure are in the results section. CBC W/PLT COUNT & AUTO Routine 08/18/2018 8:38 AM Results for this DIFFERENTIAL [employer]ADER procedure are in the results section. BASIC METABOLIC PANEL Routine 08/18/2018 5:53 AM Results for this (7) [employer]ER procedure are in the results section. HEMOGLOBIN AND Routine 08/17/2018 9:05 PM Results for this HEMATOCRIT [employer]AT[employer]ER procedure are in the results section. BASIC METABOLIC PANEL Routine 08/17/2018 9:05 PM Results for this (7) [employer]ER procedure are in the results section. HGB/HCT (H&H) - STAT STAT 08/17/2018 8:07 PM Results for this LAB [employer] procedure are in the results section. GLUCOSE-STAT LAB STAT 08/17/2018 8:07 PM Results for this [employer]ER procedure are in the results section. POTASSIUM-STAT LAB STAT 08/17/2018 8:07 PM Results for this [employer]ER procedure are in the results section. SODIUM NA-STAT LAB STAT 08/17/2018 8:07 PM Results for this [employer]ADER procedure are in the results section. BLOOD GAS, ARTERIAL STAT 08/17/2018 8:07 PM Results for this [employer]ADER procedure are in the results section. CALCIUM, IONIZED STAT 08/17/2018 8:07 PM Results for this [employer]AT[employer] LOADER procedure are in the results section. RRL CRITICAL LABS STAT 08/17/2018 8:07 PM Results for this (ABG,NA,K,H&H,GLUCOSE) [employer]ADER procedure are in the results section. TISSUE EXAM AP Routine 08/17/2018 7:58 PM Results for this [employer]ADER procedure are in the results section. PREPARE LEUKO-REDUCED Routine 08/17/2018 12:50 PM Results for this RBC [employer]ER procedure are in the results section. PROCEDURE W/ DAVINCI 08/17/2018 12:30 PM Renal cell POTATO LOADER adenocarcinoma , left (HCC) Case Notes 4 HRS Special Needs DAVINCI ROBOTIC LAPAROSCOPY,NEPHRECTOMY-PARTIAL 08/17/2018 12:30 Renal cell PM [employer]OTATO LOADER adenocarcinoma, left (HCC) Case Notes 4 HRS Special Needs DAVINCI TYPE AND SCREEN, AUTOMATED Routine 08/17/2018 11:26 AM POTATO LOADER PROTHROMBIN TIME/INR STAT 08/17/2018 11:26 AM POTATO LOADER TISSUE EXAM AP Routine 07/09/2018 9:40 PM [...] procedure are in the results section. after 02/08/2018 Results RHYTHM STRIP - SCAN (12/21/2018 8:50 [...] ABO B Pos SAFETRACE TX UNIT NUMBER [id number] [place] Status TX_TIMEINCHART [place] Blood Bank Product RED BLOOD CELLS [place] PRODUCT CODE [id number] [place] Specimen Other Performing Organization Address City/[facility] Phone Number [place] Hemoglobin and hematocrit POD # 1 (11/22/2018 5:49 AM CDT)Only the most recent of9 resultswithin the time period is included. Hemoglobin 7.5 (L) 13.7 - 17.5 GM/DL [facility] Hematocrit 24.8 (L) 40.1 - 51.0 % [facility] Specimen Blood Performing Organization Address City/State/Zipcode Phone Number [facility] [address] [place] [address] [phone] CENTER Basic Metabolic Panel - POD 1 (11/22/2018 5:49 AM CDT)Only the most recent of9 resultswithin the time period is included. Sodium 135 (L) 136 - 145 meq/L [facility] Potassium 3.8 3.5 - 5.1 meq/L [facility] Chloride 108 (H) 98 - 107 meq/L [facility] CO2 20 (L) 22 - 29 meq/L [facility] BUN 16 7 - 21 mg/dL [facility] Creatinine 1.16 0.57 - 1.25 mg/dL [facility] Glucose 97 70 - 105 mg/dL [facility] Calcium 8.1 (L) 8.4 - 10.2 mg/dL [facility] EGFR 62Comment: ESTIMATED GFR IS mL/min/1.73 sq m [facility] NOT ACCURATE CREATININE [facility] CENTER CLEARANCE IN PREDICTING GLOMERULAR FILTRATION RATE. ESTIMATED GFR IS NOT APPLICABLE FOR DIALYSIS PATIENTS. Specimen Blood Performing Organization Address City/State/Zipcode Phone Number [facility] [address] [place] [address] CENTER Transfuse Leuko-Red RBC (11/21/2018 6:50 PM CDT)Only the most recent of2 resultswithin the time period is included.Tissue Exam (11/19/2018 12:18 PM POTATO LOADER) Only the most recent of3 resultswithin the time period is included. 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 [facility] THE NEOPLASM IS CONFINED TO THE KIDNEY. LYMPHOVASCULAR INVASION IS NOT IDENTIFIED. PERINEURAL INVASION IS NOT IDENTIFIED. SURGICAL MARGINS ARE NEGATIVE FOR TUMOR. 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 SEE SYNOPTIC REPORT. Signing Pathologist Direct Phone Line: [phone] COMMENT This case has been partially [facility] reviewed (slide A5) with [facility] Del Catalan, who concurs with the interpretation of the presence of metaplastic bone. There is no evidence of sarcomatous transformation. SYNOPTIC REPORT KIDNEY: Nephrectomy(Kidney Res - All Specimens) [facility] SPECIMEN Procedure:Partial nephrectomy Specimen Laterality:Right TUMOR Tumor [...] (pT):pT1a Regional Lymph Nodes (pN):pNX CPT Code(s) 65212 [facility] CLINICAL HISTORY Renal mass [facility] SPECIMEN SOURCE Right renal mass with [facility] perirenal fat [facility] GROSS DESCRIPTION The specimen is received fresh labeled with the patient's information labeled "right renal mass with perirenal fat" and consists of 170 gm partial nephrectomy that measures 4.5 x 3.8 x 2.6 cm with detac [facility] hed perirenal fat measuring 8 x 8 x 2 cm in aggregate. [facility] Ink code: perirenal fat black and [...] and perirenal fat; A7 and 8, sales and merchandising representative of detached perirenal fat. Tissue is submitted for tumor banking. CG/pl MICROSCOPIC DESCRIPTION Performed. [facility] Specimen Tissue Performing Organization Address [facility] Phone Number [address] [address] [phone] [place] Potassium-Stat Lab (11/19/2018 9:25 AM POTATO LOADER)Only the most recent of2 resultswithin the time period is included. Potassium 3.6 3.6 - 5.5 meq/L [facility] Specimen Blood, Arterial Performing Organization Address [facility] Phone Number [address] [address] [place] Sodium Na-Stat Lab (11/19/2018 9:25 AM POTATO LOADER)Only the most recent of2 resultswithin the time period is included. Sodium 138 135 - 148 meq/L [facility] Specimen Blood, Arterial Performing Organization Address [facility] Phone Number [address] [address] [phone] [place] Glucose-Stat Lab (11/19/2018 9:25 AM POTATO LOADER)Only the most recent of2 resultswithin the time period is included. Glucose 139 (H) 70 - 110 mg/dL [facility] Specimen Blood, Arterial Performing Organization Address [facility] Phone Number [address] [address] CENTER HGB/HCT (H&H)-Stat Lab (11/19/2018 9:25 AM POTATO LOADER)Only the most recent of2 resultswithin the time period is included. Hemoglobin 8.0 (L) 13.0 - 16.8 g/dL [facility] Hematocrit 24.0 (L) 40.0 - 50.0 % [facility] Specimen Blood, Arterial Performing Organization Address [facility] Phone Number [address] [address] [place] Blood gas, arterial (11/19/2018 9:25 AM POTATO LOADER)Only the most recent of2 resultswithin the time period is included. pH, Arterial 7.30 (L) 7.35 - 7.45 [facility] pCO2, Arterial 45 35 - 45 mmHg [facility] pO2, Arterial 100 (H) 80 - 90 mmHg [facility] O2 Sat, Arterial 97.0 96.0 - 97.0 % [facility] HCO3, Arterial 22 21 - 29 mmol/L [facility] Base Excess, Arterial -4.6 (L) -2.0 - 3.0 mmol/L [facility] Patient Temperature 37.0 C [facility] FIO2 21.0 % [facility] Specimen Blood, Arterial Performing Organization Address [facility] Phone Number [address] [address] [phone] [place] Prepare RBC (11/19/2018 8:41 AM POTATO LOADER) CROSSMATCH COMPATIBLE SAFET[place]ACE [place] Unit ABO B Pos SAFETRACE TX UNIT NUMBER [id number] [place] Status READY [place] Blood Bank Product RED BLOOD CELLS [place] PRODUCT CODE [id number] [place] CROSSMATCH COMPATIBLE SAFETRACE TX Unit ABO B Pos SAFETRACE TX UNIT NUMBER [id number] [place] Status READY [place] Blood Bank Product RED BLOOD CELLS [place] PRODUCT CODE [id number] [place] Performing Organization Address City/[facility] Phone Number [place] Type and screen, automated (11/19/2018 6:17 AM POTATO LOADER)Only the most recent of2 resultswithin the time period is included. ABO/RH AUTOMATED (BEAKER) B POSITIVE [facility] Ab Scrn NEGATIVE [facility] Specimen Blood Performing Organization Address City/State/Zipcode Phone Number [facility] [address] [place] [address] CBC with platelet count + automated diff (08/20/2018 4:33 AM POTATO LOADER)Only the most recent of4 resultswithin the time period is included. WBC 11.1 (H) 3.5 - 10.5 K/L [facility] RBC 3.18 (L) 4.63 - 6.08 M/L [facility] Hemoglobin 8.0 (L) 13.7 - 17.5 GM/DL [facility] Hematocrit 26.6 (L) 40.1 - 51.0 % [facility] MCV 83.6 79.0 - 92.2 fL [facility] MCH 25.2 (L) 25.7 - 32.2 pg [facility] MCHC 30.1 (L) 32.3 - 36.5 GM/DL [facility] RDW 14.8 (H) 11.6 - 14.4 % [facility] Platelets 205 150 - 450 K/CU MM [facility] MPV 11.5 9.4 - 12.4 fL [facility] nRBC 0 0 - 0 /100 WBC [facility] % Neutros 79 % [facility] % Lymphs 8 % [facility] % Monos 11 % [facility] % Eos 2 % [facility] % Baso 0 % [facility] # Neutros 8.75 (H) 1.78 - 5.38 K/L [facility] # Lymphs 0.86 (L) 1.32 - 3.57 K/L [facility] # Monos 1.16 (H) 0.30 - 0.82 K/L [facility] # Eos 0.25 0.04 - 0.54 K/L [facility] # Baso 0.04 0.01 - 0.08 K/L [facility] Immature Granulocytes-Relative 0 0 - 1 % [facility] Specimen Blood Performing Organization Address City/State/Zipcode Phone Number [facility] [address] [place] [address] [phone] CENTER Manual Differential (08/19/2018 5:25 AM POTATO LOADER) % Neutros 90 % [facility] % Lymphs 5 % [facility] % Monos 2 % [facility] % Eos 2 % [facility] % Baso 1 % [facility] # Neutros 11.70 (H) 1.78 - 5.38 K/ul [facility] # Lymphs 0.65 (L) 1.32 - 3.57 K/ul [facility] # Monos 0.26 (L) 0.30 - 0.82 K/uL [facility] # Eos 0.26 0.04 - 0.54 K/uL [facility] # Baso 0.13 (H) 0.01 - 0.08 K/uL [facility] Total Counted 100 [facility] WBC Morphology Normal [facility] Giant Platelet Present [facility] Anisocytosis 2+ moderate [facility] Microcytes 2+ moderate [facility] Poikilocytes 1+ few [facility] Elliptocytes 1+ few [facility] Artifact Present [facility] Platelet Conc Adequate [facility] Specimen Blood Narrative Performed At Received comment: [facility] User comments: Slide comments: Performing Organization Address City/State/[facility] Phone Number [address] [address] [phone] [place] Calcium, Ionized (08/17/2018 8:07 PM POTATO LOADER) Calcium, Ion 1.05 (L) 1.12 - 1.27 mmol/L [facility] pH, Blood 7.35 [facility] Specimen Blood Performing Organization Address City/[facility] Phone Number [address] [address] [place] Prothrombin time/INR (08/17/2018 11:26 AM POTATO LOADER) Protime 14.8 (H) 11.7 - 14.7 seconds [facility] INR 1.2 <=5.9 [facility] Specimen Blood Narrative Performed At RECOMMENDED COUMADIN/WARFARIN INR THERAPY [facility] RANGES STANDARD DOSE: 2.0 - 3.0 Includes: PROPHYLAXIS for venous thrombosis, systemic embolization; TREATMENT for venous thrombosis and/or pulmonary embolus. HIGH RISK: Target INR is 2.5-3.5 for patients with mechanical heart valves. Performing Organization Address City/State/Zipcode Phone Number [address] [address] [place] US renal biopsy (07/09/2018 5:22 PM CDT) Specimen Narrative Performed At FINAL REPORT [employer] Ultrasound guided renal biopsy. Clinical History: Left [...] MD Report Verified Date/Time:07/09/2018 17:45:45 Reading Location: [address] Ultrasound Reading Room Procedure Note Interface, [...] Report Verified Date/Time: 07/09/2018 17:45:45 Reading Location: [address] Ultrasound Reading Room Performing Organization Address City/State/Zipcode Phone Number [facility] PT/aPTT (07/09/2018 12:22 PM CDT) Protime 14.6 11.7 - 14.7 seconds [facility] INR 1.1 <=5.9 [facility] PTT 28.7 22.5 - 36.0 seconds [facility] Specimen Blood Narrative Performed At [facility] RECOMMENDED COUMADIN/WARFARIN INR THERAPY RANGES STANDARD DOSE: 2.0 - 3.0 Includes: PROPHYLAXIS for venous thrombosis, systemic embolization; TREATMENT for venous thrombosis and/or pulmonary embolus. HIGH RISK: Target INR is 2.5-3.5 for patients with mechanical heart valves. Performing Organization Address City/State/[facility] Phone Number [address] [address] [phone] CENTER Creatinine (07/09/2018 12:22 PM CDT) Creatinine 1.29 (H) 0.57 - 1.25 mg/dL [facility] EGFR 55Comment: ESTIMATED GFR IS mL/min/1.73 sq m [facility] NOT ACCURATE CREATININE [facility] CENTER CLEARANCE IN PREDICTING GLOMERULAR FILTRATION RATE. ESTIMATED GFR IS NOT APPLICABLE FOR DIALYSIS PATIENTS. Specimen Blood Performing Organization Address City/[facility] Phone Number [place] [phone] [place] [address] [phone] CENTER after 02/08/2018 Insurance Payer Benefit Plan / Subscriber ID Type Phone Address Group [employer] - MEDICARE [employer] MEDICARE O xxxxxxxx [phone] [address] [place] [address] Advance Directives For more information, please contact:[address] [place], [place] [phone] Code Status Date Activated Date Inactivated Comments Full Code 11/19/2018 4:41 PM 11/22/2018 11:47 AM This code status was determined by: Patient Full Code 08/17/2018 9:36 PM 11/19/2018 5:32 AM This code status was determined by: Patient Full Code 07/09/2018 5:20 PM 07/12/2018 7:40 AM This code status was determined by: Patient
--- OUTSIDE RECORDS SUMMARY | 2019-02-09 10:10 | XMS REPORT | Clinical Summary ---
:1950 Author Organization [facility] Address [address] [place] [address] Care Team Providers Name Role Phone Sybil [...] (262 lb 5.6 oz) 11/19/2018 5:42 AM [employer] [employer] Height 193 cm (6' 4") 11/19/2018 5:42 AM [employer] [employer] Body Mass Index 31.93 11/19/2018 5:42 AM [employer] [employer] Plan of Treatment Not on file Procedures [...] SERVICE 11/20/2018 6:00 REPORT - SCAN PM [employer] [employer] HEMOGLOBIN AND Routine 11/20/2018 3:41 Results for this HEMATOCRIT AM [employer] [employer] procedure are in the results section. BASIC METABOLIC Routine 11/20/2018 3:41 Results for this PANEL (7) AM [employer] [employer] procedure are in the results section. HEMOGLOBIN AND Routine 11/19/2018 1:24 Results for this HEMATOCRIT PM [employer] procedure are in the results section. BASIC METABOLIC Routine 11/19/2018 1:24 Results for this PANEL (7) PM [employer] [employer] procedure are in the results section. TISSUE EXAM AP Routine 11/19/2018 12:18 Results for this PM [employer] procedure are in the results section. HGB/HCT (H&H) - STAT STAT 11/19/2018 9:25 Results for this LAB AM [employer] procedure are in the results section. GLUCOSE-STAT LAB STAT 11/19/2018 9:25 Results for this AM [employer] procedure are in the results section. POTASSIUM-STAT LAB STAT 11/19/2018 9:25 Results for this AM [employer] procedure are in the results section. SODIUM NA-STAT LAB STAT 11/19/2018 9:25 Results for this AM [employer] procedure are in the results section. BLOOD GAS, ARTERIAL STAT 11/19/2018 9:25 Results for this AM [employer] procedure are in the results section. RRL CRITICAL LABS STAT 11/19/2018 9:25 Results for this (ABG,NA,K,H&H,GLUCOS AM [employer] procedure are in E) the results section. PREPARE RBC STAT 11/19/2018 8:41 Results for this AM [employer] procedure are in the results section. PROCEDURE W/ DAVINCI 11/19/2018 7:30 Renal mass AM [employer] Case Notes 4 HRS Special Needs (DAVINCI Si) [place] Confirmation [id number] for Ultrasound ROBOTIC LAPAROSCOPY,NEPHRECTOMY-PARTIAL 11/19/2018 7:30 AM [employer] Renal mass Case Notes 4 HRS Special Needs (DAVINCI Si) [place] Confirmation [id number] for Ultrasound TYPE AND SCREEN, Routine 11/19/2018 6:17 AM Results for this AUTOMATED [employer] procedure are in the results section. RHYTHM STRIP - SCAN 08/27/2018 9:50 AM [employer] BASIC METABOLIC PANEL STAT 08/20/2018 11:18 AM Results for this (7) [employer] [employer] procedure are in the results section. HEMOGLOBIN AND Routine 08/20/2018 11:18 AM Results for this HEMATOCRIT [employer] procedure are in the results section. CBC W/PLT COUNT & AUTO Routine 08/20/2018 4:33 AM Results for this DIFFERENTIAL [employer] procedure are in the results section. CBC W/PLT COUNT & AUTO Routine 08/20/2018 4:33 AM Results for this DIFFERENTIAL [employer] procedure are in the results section. BASIC METABOLIC PANEL Routine 08/20/2018 4:33 AM Results for this (7) [employer] procedure are in the results section. (CELLAVISION MANUAL Routine 08/19/2018 5:25 AM Results for this DIFF) [employer] procedure are in the results section. CBC W/PLT COUNT & AUTO Routine 08/19/2018 5:25 AM Results for this DIFFERENTIAL [employer] procedure are in the results section. CBC W/PLT COUNT & AUTO Routine 08/19/2018 5:25 AM Results for this DIFFERENTIAL [employer] procedure are in the results section. BASIC METABOLIC PANEL Routine 08/19/2018 5:25 AM Results for this (7) [employer] procedure are in the results section. TRANSFUSION SERVICE 08/18/2018 6:01 PM REPORT - SCAN [employer] [employer] HEMOGLOBIN AND Routine 08/18/2018 5:15 PM Results for this HEMATOCRIT [employer] [employer] procedure are in the results section. CBC W/PLT COUNT & AUTO Routine 08/18/2018 8:38 AM Results for this DIFFERENTIAL [employer] procedure are in the results section. CBC W/PLT COUNT & AUTO Routine 08/18/2018 8:38 AM Results for this DIFFERENTIAL [employer] procedure are in the results section. BASIC METABOLIC PANEL Routine 08/18/2018 5:53 AM Results for this (7) [employer] procedure are in the results section. HEMOGLOBIN AND Routine 08/17/2018 9:05 PM Results for this HEMATOCRIT [employer] procedure are in the results section. BASIC METABOLIC PANEL Routine 08/17/2018 9:05 PM Results for this (7) [employer] procedure are in the results section. HGB/HCT (H&H) - STAT STAT 08/17/2018 8:07 PM Results for this LAB [employer] procedure are in the results section. GLUCOSE-STAT LAB STAT 08/17/2018 8:07 PM Results for this [employer] procedure are in the results section. POTASSIUM-STAT LAB STAT 08/17/2018 8:07 PM Results for this [employer] procedure are in the results section. SODIUM NA-STAT LAB STAT 08/17/2018 8:07 PM Results for this [employer] procedure are in the results section. BLOOD GAS, ARTERIAL STAT 08/17/2018 8:07 PM Results for this [employer] procedure are in the results section. CALCIUM, IONIZED STAT 08/17/2018 8:07 PM Results for this [employer] procedure are in the results section. RRL CRITICAL LABS STAT 08/17/2018 8:07 PM Results for this (ABG,NA,K,H&H,GLUCOSE) [employer] procedure are in the results section. TISSUE EXAM AP Routine 08/17/2018 7:58 PM Results for this [employer] procedure are in the results section. PREPARE LEUKO-REDUCED Routine 08/17/2018 12:50 PM Results for this RBC [employer] procedure are in the results section. 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 , left (HCC) Case Notes 4 HRS Special Needs DAVINCI ROBOTIC LAPAROSCOPY,NEPHRECTOMY-PARTIAL 08/17/2018 12:30 Renal cell PM [employer] adenocarcinoma, left (HCC) Case Notes 4 HRS Special Needs DAVINCI TYPE AND SCREEN, AUTOMATED Routine 08/17/2018 11:26 AM [employer] PROTHROMBIN TIME/INR STAT 08/17/2018 11:26 AM [employer] TISSUE EXAM AP Routine 07/09/2018 9:40 PM [...] ABO B Pos SAFETRACE TX UNIT NUMBER [id number] SAFETRACE TX Status TX_TIMEINCHART SAFETRACE TX Blood Bank Product RED BLOOD CELLS SAFETR[place] PRODUCT CODE [id number] [place]AF[place] Specimen Other Performing Organization Address City/[facility] Cent[facility]ode Phone Number [employer] Hemoglobin and hematocrit POD # 1 (11/22/2018 5:49 AM CDT)Only the most recent of9 resultswithin the time period is included. Hemoglobin 7.5 (L) 13.7 - 17.5 GM/DL [facility] Hematocrit 24.8 (L) 40.1 - 51.0 % [facility] Specimen Blood Performing Organization Address City/State/Zipcode Phone Number [facility] [address] [place] [address] CENTER Basic Metabolic Panel - POD 1 (11/22/2018 5:49 AM CDT)Only the most recent of9 resultswithin the time period is included. Sodium 135 (L) 136 - 145 meq/L [facility] Potassium 3.8 3.5 - 5.1 meq/L [facility] Chloride 108 (H) 98 - 107 meq/L [facility] CO2 20 (L) 22 - 29 meq/L [facility] BUN 16 7 - 21 mg/dL [facility] Creatinine 1.16 0.57 - 1.25 mg/dL [facility] Glucose 97 70 - 105 mg/dL [facility] Calcium 8.1 (L) 8.4 - 10.2 mg/dL [facility] EGFR 62Comment: ESTIMATED GFR IS mL/min/1.73 sq m [facility] NOT ACCURATE CREATININE [facility] CLEARANCE IN PREDICTING GLOMERULAR FILTRATION RATE. ESTIMATED GFR IS NOT APPLICABLE FOR DIALYSIS PATIENTS. Specimen Blood Performing Organization Address City/State/Zipcode Phone Number [facility] [address] [place] [address] CENTER Transfuse Leuko-Red RBC (11/21/2018 6:50 PM CDT)Only the most recent of2 resultswithin the time period is included.Tissue Exam (11/19/2018 12:18 PM [employer]) Only the most recent of3 resultswithin the time period is included. Case Report Surgical Pathology Report Case: [id number] [facility] Authorizing Provider:Jose Robins MD Collected: 11/19/2018 1218 [place] Ordering Location: [facility] PERIOPERATIVE Received: 11/19/2018 1324 SERVICES Pathologist: Tristan Huffman MD Specimen:Mass, RIGHT RENAL MASS WITH PERINEAL FAT DIAGNOSIS PART A RIGHT RENAL MASS, PARTIAL NEPHRECTOMY (170 GRAMS): 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 [place] THE NEOPLASM IS CONFINED TO THE KIDNEY. LYMPHOVASCULAR INVASION IS NOT IDENTIFIED. PERINEURAL INVASION IS NOT IDENTIFIED. SURGICAL MARGINS ARE NEGATIVE FOR TUMOR. 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 SEE SYNOPTIC REPORT. Signing Pathologist Direct Phone Line: [phone] COMMENT This case has been partially [facility] reviewed (slide A5) with [place], who concurs with the interpretation of the presence of metaplastic bone. There is no evidence of sarcomatous transformation. SYNOPTIC REPORT KIDNEY: Nephrectomy(Kidney Res - All Specimens) [facility] SPECIMEN Procedure:Partial nephrectomy Specimen Laterality:Right TUMOR Tumor [...] (pT):pT1a Regional Lymph Nodes (pN):pNX CPT Code(s) 04278 [facility] CLINICAL HISTORY Renal mass [facility] SPECIMEN SOURCE Right renal mass with [facility] perirenal fat [place] GROSS DESCRIPTION The specimen is received fresh labeled with the patient's information labeled "right renal mass with perirenal fat" and consists of 170 gm partial nephrectomy that measures 4.5 x 3.8 x 2.6 cm with detac [facility] hed perirenal fat measuring 8 x 8 x 2 cm in aggregate. [place] Ink code: perirenal fat black and kidney [...] tumor and perirenal fat; A7 and 8, teleservices representative of detached perirenal fat. Tissue is submitted for tumor banking. CG/pl MICROSCOPIC DESCRIPTION Performed. [facility] Specimen Tissue Performing Organization Address [facility] Centercone Phone Number [address] [address] [phone] [place] Potassium-Stat Lab (11/19/2018 9:25 AM [employer])Only the most recent of2 resultswithin the time period is included. Potassium 3.6 3.6 - 5.5 meq/L [facility] Specimen Blood, Arterial Performing Organization Address [facility] Phone Number [address] [address] [place] Sodium Na-Stat Lab (11/19/2018 9:25 AM [employer])Only the most recent of2 resultswithin the time period is included. Sodium 138 135 - 148 meq/L [facility] Specimen Blood, Arterial Performing Organization Address [facility] Phone Number [address] [address] [phone] [place] Glucose-Stat Lab (11/19/2018 9:25 AM [employer])Only the most recent of2 resultswithin the time period is included. Glucose 139 (H) 70 - 110 mg/dL [facility] Specimen Blood, Arterial Performing Organization Address [facility] Phone Number [address] [address] CENTER HGB/HCT (H&H)-Stat Lab (11/19/2018 9:25 AM [employer])Only the most recent of2 resultswithin the time period is included. Hemoglobin 8.0 (L) 13.0 - 16.8 g/dL [facility] Hematocrit 24.0 (L) 40.0 - 50.0 % [facility] Specimen Blood, Arterial Performing Organization Address [facility] Centercode Phone Number [address] [address] [place] Blood gas, arterial (11/19/2018 9:25 AM [employer])Only the most recent of2 resultswithin the time period is included. pH, Arterial 7.30 (L) 7.35 - 7.45 [facility] pCO2, Arterial 45 35 - 45 mmHg [facility] pO2, Arterial 100 (H) 80 - 90 mmHg [facility] O2 Sat, Arterial 97.0 96.0 - 97.0 % [facility] HCO3, Arterial 22 21 - 29 mmol/L [facility] Base Excess, Arterial -4.6 (L) -2.0 - 3.0 mmol/L [facility] Patient Temperature 37.0 C [facility] FIO2 21.0 % [facility] Specimen Blood, Arterial Performing Organization Address [facility] Phone Number [address] [address] [place] Prepare RBC (11/19/2018 8:41 AM [employer]) CROSSMATCH COMPATIBLE SAFETRACE TX Unit ABO B Pos SAFETRACE TX UNIT NUMBER [id number] SAFETRACE TX Status READY SAFETRACE [place] Blood Bank Product RED BLOOD CELLS [place]AFETRACE [place] PRODUCT CODE [id number] SAFETRACE [place] CROSSMATCH COMPATIBLE SAFETRACE TX Unit ABO B Pos SAFETRACE TX UNIT NUMBER [id number] SAFETRACE TX Status READY [place]AFETRACE [place] Blood Bank Product RED BLOOD CELLS [place] PRODUCT CODE [id number] [place] Performing Organization Address City/[facility] Phone Number [place] Type and screen, automated (11/19/2018 6:17 AM [employer])Only the most recent of2 resultswithin the time period is included. ABO/RH AUTOMATED (BEAKER) B POSITIVE [facility] Ab Scrn NEGATIVE [facility] Specimen Blood Performing Organization Address City/State/Zipcode Phone Number [facility] [address] [place] [address] CBC with platelet count + automated diff (08/20/2018 4:33 AM [employer])Only the most recent of4 resultswithin the time period is included. WBC 11.1 (H) 3.5 - 10.5 K/L [facility] RBC 3.18 (L) 4.63 - 6.08 M/L [facility] Hemoglobin 8.0 (L) 13.7 - 17.5 GM/DL [facility] Hematocrit 26.6 (L) 40.1 - 51.0 % [facility] MCV 83.6 79.0 - 92.2 fL [facility] MCH 25.2 (L) 25.7 - 32.2 pg [facility] MCHC 30.1 (L) 32.3 - 36.5 GM/DL [facility] RDW 14.8 (H) 11.6 - 14.4 % [facility] Platelets 205 150 - 450 K/CU MM [facility] MPV 11.5 9.4 - 12.4 fL [facility] nRBC 0 0 - 0 /100 WBC [facility] % Neutros 79 % [facility] % Lymphs 8 % [facility] % Monos 11 % [facility] % Eos 2 % [facility] % Baso 0 % [facility] # Neutros 8.75 (H) 1.78 - 5.38 K/L [facility] # Lymphs 0.86 (L) 1.32 - 3.57 K/L [facility] # Monos 1.16 (H) 0.30 - 0.82 K/L [facility] # Eos 0.25 0.04 - 0.54 K/L [facility] # Baso 0.04 0.01 - 0.08 K/L [facility] Immature Granulocytes-Relative 0 0 - 1 % [facility] Specimen Blood Performing Organization Address City/State/Zipcode Phone Number [facility] [address] [place] [address] CENTER Manual Differential (08/19/2018 5:25 AM [employer]) % Neutros 90 % [facility] % Lymphs 5 % [facility] % Monos 2 % [facility] % Eos 2 % [facility] % Baso 1 % [facility] # Neutros 11.70 (H) 1.78 - 5.38 K/ul [facility] # Lymphs 0.65 (L) 1.32 - 3.57 K/ul [facility] # Monos 0.26 (L) 0.30 - 0.82 K/uL [facility] # Eos 0.26 0.04 - 0.54 K/uL [facility] # Baso 0.13 (H) 0.01 - 0.08 K/uL [facility] Total Counted 100 [facility] WBC Morphology Normal [facility] Giant Platelet Present [facility] Anisocytosis 2+ moderate [facility] Microcytes 2+ moderate [facility] Poikilocytes 1+ few [facility] Elliptocytes 1+ few [facility] Artifact Present [facility] Platelet Conc Adequate [facility] Specimen Blood Narrative Performed At Received comment: [facility] User comments: Slide comments: Performing Organization Address City/State/[facility] Cent[facility] Phone Number [address] [address] [phone] [place] Calcium, Ionized (08/17/2018 8:07 PM [employer]) Calcium, Ion 1.05 (L) 1.12 - 1.27 mmol/L [facility] pH, Blood 7.35 [facility] Specimen Blood Performing Organization Address City/[facility] Centercode Phone Number [address] [address] [phone] [place] Prothrombin time/INR (08/17/2018 11:26 AM [employer]) Protime 14.8 (H) 11.7 - 14.7 seconds [facility] INR 1.2 <=5.9 [facility] Specimen Blood Narrative Performed At RECOMMENDED COUMADIN/WARFARIN INR THERAPY [facility] RANGES STANDARD DOSE: 2.0 - 3.0 Includes: PROPHYLAXIS for venous thrombosis, systemic embolization; TREATMENT for venous thrombosis and/or pulmonary embolus. HIGH RISK: Target INR is 2.5-3.5 for patients with mechanical heart valves. Performing Organization Address City/State/Zipcode Phone Number [address] [address] [place] US renal biopsy (07/09/2018 5:22 PM CDT) Specimen Narrative Performed At FINAL REPORT [facility] Ultrasound guided renal biopsy. Clinical History: Left [...] MD Report Verified Date/Time:07/09/2018 17:45:45 Reading Location: [address] Ultrasound Reading Room Procedure Note Interface, [...] Report Verified Date/Time: 07/09/2018 17:45:45 Reading Location: [address] Ultrasound Reading Room Performing Organization Address City/State/Zipcode Phone Number [facility] PT/aPTT (07/09/2018 12:22 PM CDT) Protime 14.6 11.7 - 14.7 seconds [facility] INR 1.1 <=5.9 [facility] PTT 28.7 22.5 - 36.0 seconds [facility] Specimen Blood Narrative Performed At [facility] RECOMMENDED COUMADIN/WARFARIN INR THERAPY RANGES STANDARD DOSE: 2.0 - 3.0 Includes: PROPHYLAXIS for venous thrombosis, systemic embolization; TREATMENT for venous thrombosis and/or pulmonary embolus. HIGH RISK: Target INR is 2.5-3.5 for patients with mechanical heart valves. Performing Organization Address City/State/[facility] Cent[facility]ode Phone Number [address] [address] [phone] CENTER Creatinine (07/09/2018 12:22 PM CDT) Creatinine 1.29 (H) 0.57 - 1.25 mg/dL [facility] EGFR 55Comment: ESTIMATED GFR IS mL/min/1.73 sq m [facility] NOT ACCURATE CREATININE [facility] CLEARANCE IN PREDICTING GLOMERULAR FILTRATION RATE. ESTIMATED GFR IS NOT APPLICABLE FOR DIALYSIS PATIENTS. Specimen Blood Performing Organization Address City/[facility] Centercode Phone Number [place] [phone] [place] [address] CENTER after 02/08/2018 Insurance Payer Benefit Plan / Subscriber ID Type Phone Address Group [employer] - MEDICARE [employer] MEDICARE O xxxxxxxx [phone] [address] [place] [address] Advance Directives For more information, please contact:[address] [place], [place] [phone] Code Status Date Activated Date Inactivated Comments Full Code 11/19/2018 4:41 PM 11/22/2018 11:47 AM This code status was determined by: Patient Full Code 08/17/2018 9:36 PM 11/19/2018 5:32 AM This code status was determined by: Patient Full Code 07/09/2018 5:20 PM 07/12/2018 7:40 AM This code status was determined by: Patient
--- OUTSIDE RECORDS SUMMARY | 2019-02-09 10:10 | XMS REPORT ---
:1950 Author Organization [facility] Address [address] [place] [address] Dr. Mai [address] [place] [id number] Care Team Providers Name Role Phone ABA ROBINS Unavailable Unavailable Problems This patient has no known problems. Allergies, Adverse Reactions, Alerts This patient has no known allergies or adverse reactions. Medications This patient has no known medications. Results Test Description Test Time Test Comments Text Results Atomic Results Result Comments TISSUE EXAM 2018-11-24 16:03:00 Surgical Pathology Report Case: [id number] Authorizing Provider: Aba Robins MD Collected: 11/19/2018 1218 Ordering Location: [facility] Received: 11/19/2018 1324 SERVICES Pathologist: [...] BONE IS PRESENT IN THE TUMORAJCC CLASSIFICATION [id number]. SEE SYNOPTIC REPORT. Signing Pathologist Direct Phone Line: [phone] signed by Tristan Huffman MD on 11/24/2018 [...] (pT): pT1a Regional Lymph Nodes (pN): pNX [id number] massRight renal mass with perirenal fat The [...] tumor and perirenal fat; A7 and 8, employer relations representative of detached perirenal fat. Tissue is submitted for tumor banking. CG/pl Performed. BASIC METABOLIC PANEL 2018-11-22 07:10:00 Test Item Value Reference Range Comments SODIUM (BEAKER) (test 135 meq/L 136-145 oyip=724) POTASSIUM (BEAKER) (test 3.8 meq/L 3.5-5.1 hmix=997) CHLORIDE (BEAKER) (test 108 meq/L 98-107 sfvy=853) CO2 (BEAKER) (test qqip=638) 20 meq/L 22-29 BLOOD UREA NITROGEN (BEAKER) 16 mg/dL 7-21 (test wtad=605) CREATININE (BEAKER) (test 1.16 mg/dL 0.57-1.25 vfnl=023) GLUCOSE RANDOM (BEAKER) 97 mg/dL 70-105 (test nkst=185) CALCIUM (BEAKER) (test 8.1 mg/dL 8.4-10.2 dlig=846) EGFR (BEAKER) (test 62 mL/min/1.73 sq m ESTIMATED GFR IS NOT bold=6325) ACCURATE CREATININE CLEARANCE IN PREDICTING GLOMERULAR FILTRATION RATE. ESTIMATED GFR IS NOT APPLICABLE FOR DIALYSIS PATIENTS. HEMOGLOBIN AND [id number] 06:37:00 Test Item Value Reference Range Comments HEMOGLOBIN (BEAKER) (test osax=181) 7.5 GM/DL 13.7-17.5 HEMATOCRIT (BEAKER) (test ffjv=195) 24.8 % 40.1-51.0 HEMOGLOBIN AND [id number] 20:28:00 Test Item Value Reference Range Comments HEMOGLOBIN (BEAKER) (test zqvg=846) 8.1 GM/DL 13.7-17.5 HEMATOCRIT (BEAKER) (test esac=977) 27.3 % 40.1-51.0 After transfusionHEMOGLOBIN AND [id number] 13:08:00 Test Item Value Reference Range Comments HEMOGLOBIN (BEAKER) (test exym=122) 6.9 GM/DL 13.7-17.5 HEMATOCRIT (BEAKER) (test ehwz=827) 23.0 % 40.1-51.0 BASIC METABOLIC [id number] 06:12:00 Test Item Value Reference Range Comments SODIUM (BEAKER) (test 137 meq/L 136-145 ynhi=480) POTASSIUM (BEAKER) (test 3.9 meq/L 3.5-5.1 mhpl=808) CHLORIDE (BEAKER) (test 110 meq/L 98-107 htdd=940) CO2 (BEAKER) (test 20 meq/L 22-29 vllq=820) BLOOD UREA NITROGEN 21 mg/dL 7-21 (BEAKER) (test uhgf=260) CREATININE (BEAKER) (test 1.29 mg/dL 0.57-1.25 yzqr=082) GLUCOSE RANDOM (BEAKER) 96 mg/dL 70-105 (test dvos=733) CALCIUM (BEAKER) (test 7.9 mg/dL 8.4-10.2 wnch=706) EGFR (BEAKER) (test 55 mL/min/1.73 sq m ESTIMATED GFR IS NOT xjgs=8059) ACCURATE CREATININE CLEARANCE IN PREDICTING GLOMERULAR FILTRATION RATE. ESTIMATED GFR IS NOT APPLICABLE FOR DIALYSIS PATIENTS. HEMOGLOBIN AND [id number] 05:47:00 Test Item Value Reference Range Comments HEMOGLOBIN (BEAKER) (test lnzj=401) 7.0 GM/DL 13.7-17.5 HEMATOCRIT (BEAKER) (test jdek=326) 23.8 % 40.1-51.0 BASIC METABOLIC [id number] 05:00:00 Test Item Value Reference Range Comments SODIUM (BEAKER) (test 139 meq/L 136-145 wian=379) POTASSIUM (BEAKER) (test 4.0 meq/L 3.5-5.1 zqsz=978) CHLORIDE (BEAKER) (test 110 meq/L 98-107 ntoz=352) CO2 (BEAKER) (test 21 meq/L 22-29 zpus=790) BLOOD UREA NITROGEN 25 mg/dL 7-21 (BEAKER) (test juuj=251) CREATININE (BEAKER) (test 1.40 mg/dL 0.57-1.25 czkq=339) GLUCOSE RANDOM (BEAKER) 110 mg/dL 70-105 (test tbdl=081) CALCIUM (BEAKER) (test 8.1 mg/dL 8.4-10.2 qnzy=543) EGFR (BEAKER) (test 50 mL/min/1.73 sq m ESTIMATED GFR IS NOT svcd=8268) ACCURATE CREATININE CLEARANCE IN PREDICTING GLOMERULAR FILTRATION RATE. ESTIMATED GFR IS NOT APPLICABLE FOR DIALYSIS PATIENTS. HEMOGLOBIN AND [id number] 04:36:00 Test Item Value Reference Range Comments HEMOGLOBIN (BEAKER) (test quzo=950) 7.4 GM/DL 13.7-17.5 HEMATOCRIT (BEAKER) (test jckx=771) 25.7 % 40.1-51.0 BASIC METABOLIC [id number] 13:52:00 Test Item Value Reference Range Comments SODIUM (BEAKER) (test 138 meq/L 136-145 jrik=435) POTASSIUM (BEAKER) (test 4.6 meq/L 3.5-5.1 kyqo=939) CHLORIDE (BEAKER) (test 111 meq/L 98-107 tmis=423) CO2 (BEAKER) (test 19 meq/L 22-29 nvte=990) BLOOD UREA NITROGEN 30 mg/dL 7-21 (BEAKER) (test wkbh=807) CREATININE (BEAKER) (test 1.35 mg/dL 0.57-1.25 vubq=752) GLUCOSE RANDOM (BEAKER) 125 mg/dL 70-105 (test yjwy=555) CALCIUM (BEAKER) (test 7.9 mg/dL 8.4-10.2 urjn=728) EGFR (BEAKER) (test 52 mL/min/1.73 sq m ESTIMATED GFR IS NOT muog=9812) ACCURATE CREATININE CLEARANCE IN PREDICTING GLOMERULAR FILTRATION RATE. ESTIMATED GFR IS NOT APPLICABLE FOR DIALYSIS PATIENTS. Upon arrival to [facility]OGLOBIN AND [id number] 13:30:00 Test Item Value Reference Range Comments HEMOGLOBIN (BEAKER) (test tbuq=418) 7.2 GM/DL 13.7-17.5 HEMATOCRIT (BEAKER) (test gfxd=888) 24.5 % 40.1-51.0 SODIUM NA-STAT [id number] 09:41:00 Test Item Value Reference Range Comments SODIUM (BEAKER) (test tpjl=208) 138 meq/L 135-148 POTASSIUM-STAT [id number] 09:41:00 Test Item Value Reference Range Comments POTASSIUM (BEAKER) (test hfeg=163) 3.6 meq/L 3.6-5.5 BLOOD GAS, [id number] 09:41:00 Test Item Value Reference Range Comments PH ARTERIAL (BEAKER) (test mard=422) 7.30 7.35-7.45 PCO2 ARTERIAL (BEAKER) (test xsyh=771) 45 mmHg 35-45 PO2 ARTERIAL (BEAKER) (test bvwa=790) 100 mmHg 80-90 O2 SATURATION ARTERIAL (BEAKER) (test oftx=484) 97.0 % 96.0-97.0 HCO3 ARTERIAL (BEAKER) (test nogc=935) 22 mmol/L 21-29 BASE EXCESS ARTERIAL (BEAKER) (test dxfb=671) -4.6 mmol/L -2.0-3.0 PATIENT TEMPERATURE (BEAKER) (test vooj=0230) 37.0 C FIO2 (BEAKER) (test qqjt=5769) 21.0 % GLUCOSE-STAT [id number] 09:41:00 Test Item Value Reference Range Comments GLUCOSE RANDOM (BEAKER) (test xnkv=627) 139 mg/dL 70-110 HGB/HCT (H&H) - STAT [id number] 09:41:00 Test Item Value Reference Range Comments HEMOGLOBIN (BEAKER) (test wswv=082) 8.0 g/dL 13.0-16.8 HEMATOCRIT (BEAKER) (test yxde=361) 24.0 % 40.0-50.0 TISSUE [id number] 18:24:00Surgical Pathology Report Case: [id number] Authorizing Provider: Aba Robins MD Collected: 08/17/20181957 Ordering Location: [facility] Received: 08/18/2018 0820 SERVICES Pathologist: Aylin Arango MD Specimen: Mass, Left renal mass KIDNEY, LEFT, PARTIAL NEPHRECTOMY : - CLEAR CELL RENAL CELL CARCINOMA, 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 Section code: A1-A12, employer relations representative sequential sections of renal mass; A13-A16 , employer relations representative sections of separately received adipose tissue. Additional sections A17-20. DB/ew [facility]formedB[facility] METABOLIC [id number] 11:51:00 Test Item Value Reference Range Comments SODIUM (BEAKER) (test 135 meq/L 136-145 cdvo=084) POTASSIUM (BEAKER) (test 3.4 meq/L 3.5-5.1 etmb=376) CHLORIDE (BEAKER) (test 106 meq/L 98-107 mxcn=489) CO2 (BEAKER) (test 21 meq/L 22-29 qadc=266) BLOOD UREA NITROGEN 16 mg/dL 7-21 (BEAKER) (test fsjo=691) CREATININE (BEAKER) (test 1.17 mg/dL 0.57-1.25 ivwq=539) GLUCOSE RANDOM (BEAKER) 116 mg/dL 70-105 (test iliu=279) CALCIUM (BEAKER) (test 8.2 mg/dL 8.4-10.2 lxbw=570) EGFR (BEAKER) (test 62 mL/min/1.73 sq m ESTIMATED GFR IS NOT utus=1599) ACCURATE CREATININE CLEARANCE IN PREDICTING GLOMERULAR FILTRATION RATE. ESTIMATED GFR IS NOT APPLICABLE FOR DIALYSIS PATIENTS. HEMOGLOBIN AND [id number] 11:31:00 Test Item Value Reference Range Comments HEMOGLOBIN (BEAKER) (test lyym=836) 8.7 GM/DL 13.7-17.5 HEMATOCRIT (BEAKER) (test akom=514) 28.1 % 40.1-51.0 BASIC METABOLIC [id number] 05:37:00 Test Item Value Reference Range Comments SODIUM (BEAKER) (test 133 meq/L 136-145 bevq=608) POTASSIUM (BEAKER) (test 3.5 meq/L 3.5-5.1 bvsj=528) CHLORIDE (BEAKER) (test 107 meq/L 98-107 zxzx=418) CO2 (BEAKER) (test 20 meq/L 22-29 tlrq=037) BLOOD UREA NITROGEN 16 mg/dL 7-21 (BEAKER) (test vhqj=304) CREATININE (BEAKER) (test 1.15 mg/dL 0.57-1.25 fwfc=945) GLUCOSE RANDOM (BEAKER) 101 mg/dL 70-105 (test etqi=468) CALCIUM (BEAKER) (test 7.8 mg/dL 8.4-10.2 rwyb=704) EGFR (BEAKER) (test 63 mL/min/1.73 sq m ESTIMATED GFR IS NOT sdnq=0656) ACCURATE CREATININE CLEARANCE IN PREDICTING GLOMERULAR FILTRATION RATE. ESTIMATED GFR IS NOT APPLICABLE FOR DIALYSIS PATIENTS. CBC W/PLT COUNT & AUTO [id number] 05:18:00 Test Item Value Reference Range Comments WHITE BLOOD CELL COUNT (BEAKER) (test dmcn=591) 11.1 K/ L 3.5-10.5 RED BLOOD CELL COUNT (BEAKER) (test jgwy=999) 3.18 M/ L 4.63-6.08 HEMOGLOBIN (BEAKER) (test fwcy=732) 8.0 GM/DL 13.7-17.5 HEMATOCRIT (BEAKER) (test jyum=878) 26.6 % 40.1-51.0 MEAN CORPUSCULAR VOLUME (BEAKER) (test drdy=260) 83.6 fL 79.0-92.2 MEAN CORPUSCULAR HEMOGLOBIN (BEAKER) (test 25.2 pg 25.7-32.2 mwip=345) MEAN CORPUSCULAR HEMOGLOBIN CONC (BEAKER) (test 30.1 GM/DL 32.3-36.5 vsgl=484) RED CELL DISTRIBUTION WIDTH (BEAKER) (test 14.8 % 11.6-14.4 kyln=999) PLATELET COUNT (BEAKER) (test wxju=878) 205 K/CU MM 150-450 MEAN PLATELET VOLUME (BEAKER) (test ebft=842) 11.5 fL 9.4-12.4 NUCLEATED RED BLOOD CELLS (BEAKER) (test 0 /100 WBC 0-0 sony=320) NEUTROPHILS RELATIVE PERCENT (BEAKER) (test 79 % cqrz=874) LYMPHOCYTES RELATIVE PERCENT (BEAKER) (test 8 % hdpc=511) MONOCYTES RELATIVE PERCENT (BEAKER) (test 11 % mljq=082) EOSINOPHILS RELATIVE PERCENT (BEAKER) (test 2 % ceta=561) BASOPHILS RELATIVE PERCENT (BEAKER) (test 0 % lcva=168) NEUTROPHILS ABSOLUTE COUNT (BEAKER) (test 8.75 K/ L 1.78-5.38 midu=550) LYMPHOCYTES ABSOLUTE COUNT (BEAKER) (test 0.86 K/ L 1.32-3.57 scec=066) MONOCYTES ABSOLUTE COUNT (BEAKER) (test 1.16 K/ L 0.30-0.82 fajw=382) EOSINOPHILS ABSOLUTE COUNT (BEAKER) (test 0.25 K/ L 0.04-0.54 wphn=983) BASOPHILS ABSOLUTE COUNT (BEAKER) (test 0.04 K/ L 0.01-0.08 qxlj=350) IMMATURE GRANULOCYTES-RELATIVE PERCENT (BEAKER) 0 % 0-1 (test pjly=2849) CBC W/PLT COUNT & AUTO [id number] 16:39:00 Test Item Value Reference Range Comments WHITE BLOOD CELL COUNT (BEAKER) (test sudt=302) 13.0 K/ L 3.5-10.5 RED BLOOD CELL COUNT (BEAKER) (test nbng=077) 3.44 M/ L 4.63-6.08 HEMOGLOBIN (BEAKER) (test ieye=381) 8.7 GM/DL 13.7-17.5 HEMATOCRIT (BEAKER) (test yaeu=582) 28.3 % 40.1-51.0 MEAN CORPUSCULAR VOLUME (BEAKER) (test cxrj=416) 82.3 fL 79.0-92.2 MEAN CORPUSCULAR HEMOGLOBIN (BEAKER) (test 25.3 pg 25.7-32.2 retq=093) MEAN CORPUSCULAR HEMOGLOBIN CONC (BEAKER) (test 30.7 GM/DL 32.3-36.5 pmsz=258) RED CELL DISTRIBUTION WIDTH (BEAKER) (test 15.0 % 11.6-14.4 abxg=786) PLATELET COUNT (BEAKER) (test ewor=078) 224 K/CU MM 150-450 MEAN PLATELET VOLUME (BEAKER) (test gign=625) 11.9 fL 9.4-12.4 NUCLEATED RED BLOOD CELLS (BEAKER) (test 0 /100 WBC 0-0 fhga=437) (CELLAVISION MANUAL DIFF)2018-08-19 16:39:00 Test Item Value Reference Range Comments NEUTROPHILS - REL (CELLAVISION)(BEAKER) (test 90 % agrb=1309) LYMPHOCYTES - REL (CELLAVISION)(BEAKER) (test 5 % jmsj=7077) MONOCYTES - REL (CELLAVISION)(BEAKER) (test 2 % wmjz=9980) EOSINOPHILS - REL (CELLAVISION)(BEAKER) (test 2 % sfkk=5470) BASOPHILS - REL (CELLAVISION)(BEAKER) (test 1 % fpjv=2461) NEUTROPHILS - ABS (CELLAVISION)(BEAKER) (test 11.70 K/ul 1.78-5.38 clia=2997) LYMPHOCYTES - ABS (CELLAVISION)(BEAKER) (test 0.65 K/ul 1.32-3.57 qazg=1686) MONOCYTES - ABS (CELLAVISION)(BEAKER) (test 0.26 K/uL 0.30-0.82 gwrp=2321) EOSINOPHILS - ABS (CELLAVISION)(BEAKER) (test 0.26 K/uL 0.04-0.54 tkiy=0378) BASOPHILS - ABS (CELLAVISION)(BEAKER) (test 0.13 K/uL 0.01-0.08 whge=3387) TOTAL COUNTED (BEAKER) (test rtod=2926) 100 WBC MORPHOLOGY (BEAKER) (test gmni=053) Normal GIANT PLATELETS (BEAKER) (test gnao=444) Present ANISOCYTOSIS (BEAKER) (test mwcp=644) 2+ moderate MICROCYTES (BEAKER) (test ypiq=055) 2+ moderate POIKILOCYTES (BEAKER) (test elzb=974) 1+ few ELLIPTOCYTES (BEAKER) (test zekq=141) 1+ few ARTIFACT (CELLAVISION)(BEAKER) (test jjhj=1098) Present PLATELET CONCENTRATION (CELLAVISION)(BEAKER) Adequate (test vqhv=9211) Received comment: User comments: Slide comments:BASIC METABOLIC [id number] 07:05:00 Test Item Value Reference Range Comments SODIUM (BEAKER) (test 137 meq/L 136-145 rtdw=509) POTASSIUM (BEAKER) (test 3.6 meq/L 3.5-5.1 qzbf=538) CHLORIDE (BEAKER) (test 108 meq/L 98-107 enuy=996) CO2 (BEAKER) (test 23 meq/L 22-29 quky=054) BLOOD UREA NITROGEN 15 mg/dL 7-21 (BEAKER) (test glcl=232) CREATININE (BEAKER) (test 1.13 mg/dL 0.57-1.25 hopy=221) GLUCOSE RANDOM (BEAKER) 92 mg/dL 70-105 (test xefx=840) CALCIUM (BEAKER) (test 7.8 mg/dL 8.4-10.2 nigo=427) EGFR (BEAKER) (test 64 mL/min/1.73 sq m ESTIMATED GFR IS NOT lnfs=8955) ACCURATE CREATININE CLEARANCE IN PREDICTING GLOMERULAR FILTRATION RATE. ESTIMATED GFR IS NOT APPLICABLE FOR DIALYSIS PATIENTS. HEMOGLOBIN AND [id number] 17:30:00 Test Item Value Reference Range Comments HEMOGLOBIN (BEAKER) (test lyxi=783) 9.2 GM/DL 13.7-17.5 HEMATOCRIT (BEAKER) (test miuq=838) 29.7 % 40.1-51.0 CBC W/PLT COUNT & AUTO [id number] 10:06:00 Test Item Value Reference Range Comments WHITE BLOOD CELL COUNT (BEAKER) (test hzav=468) 8.6 K/ L 3.5-10.5 RED BLOOD CELL COUNT (BEAKER) (test oqyh=281) 3.50 M/ L 4.63-6.08 HEMOGLOBIN (BEAKER) (test vydr=267) 8.9 GM/DL 13.7-17.5 HEMATOCRIT (BEAKER) (test hppx=828) 29.3 % 40.1-51.0 MEAN CORPUSCULAR VOLUME (BEAKER) (test spzl=663) 83.7 fL 79.0-92.2 MEAN CORPUSCULAR HEMOGLOBIN (BEAKER) (test 25.4 pg 25.7-32.2 txih=654) MEAN CORPUSCULAR HEMOGLOBIN CONC (BEAKER) (test 30.4 GM/DL 32.3-36.5 nbkk=546) RED CELL DISTRIBUTION WIDTH (BEAKER) (test 14.8 % 11.6-14.4 ezse=839) PLATELET COUNT (BEAKER) (test hzyb=036) 210 K/CU MM 150-450 MEAN PLATELET VOLUME (BEAKER) (test lrxm=452) 11.7 fL 9.4-12.4 NUCLEATED RED BLOOD CELLS (BEAKER) (test 0 /100 WBC 0-0 heen=920) NEUTROPHILS RELATIVE PERCENT (BEAKER) (test 80 % hkvf=379) LYMPHOCYTES RELATIVE PERCENT (BEAKER) (test 8 % iudk=667) MONOCYTES RELATIVE PERCENT (BEAKER) (test 11 % hhix=939) EOSINOPHILS RELATIVE PERCENT (BEAKER) (test 1 % bwyj=433) BASOPHILS RELATIVE PERCENT (BEAKER) (test 0 % jylf=666) NEUTROPHILS ABSOLUTE COUNT (BEAKER) (test 6.88 K/ L 1.78-5.38 vwmo=629) LYMPHOCYTES ABSOLUTE COUNT (BEAKER) (test 0.65 K/ L 1.32-3.57 fcwp=914) MONOCYTES ABSOLUTE COUNT (BEAKER) (test 0.96 K/ L 0.30-0.82 qsry=538) EOSINOPHILS ABSOLUTE COUNT (BEAKER) (test 0.06 K/ L 0.04-0.54 vyps=590) BASOPHILS ABSOLUTE COUNT (BEAKER) (test 0.03 K/ L 0.01-0.08 shgz=138) IMMATURE GRANULOCYTES-RELATIVE PERCENT (BEAKER) 0 % 0-1 (test mned=5831) BASIC METABOLIC [id number] 07:06:00 Test Item Value Reference Range Comments SODIUM (BEAKER) (test 140 meq/L 136-145 sseq=716) POTASSIUM (BEAKER) (test 4.1 meq/L 3.5-5.1 pdft=507) CHLORIDE (BEAKER) (test 111 meq/L 98-107 appq=117) CO2 (BEAKER) (test 25 meq/L 22-29 uczv=207) BLOOD UREA NITROGEN 18 mg/dL 7-21 (BEAKER) (test yngr=476) CREATININE (BEAKER) (test 1.11 mg/dL 0.57-1.25 byox=150) GLUCOSE RANDOM (BEAKER) 96 mg/dL 70-105 (test uwph=041) CALCIUM (BEAKER) (test 8.0 mg/dL 8.4-10.2 oovq=620) EGFR (BEAKER) (test 65 mL/min/1.73 sq m ESTIMATED GFR IS NOT awfr=2775) ACCURATE CREATININE CLEARANCE IN PREDICTING GLOMERULAR FILTRATION RATE. ESTIMATED GFR IS NOT APPLICABLE FOR DIALYSIS PATIENTS. HEMOGLOBIN AND [id number] 21:41:00 Test Item Value Reference Range Comments HEMOGLOBIN (BEAKER) (test qjos=830) 13.9 GM/DL 13.7-17.5 HEMATOCRIT (BEAKER) (test hstd=105) 45.4 % 40.1-51.0 BASIC METABOLIC [id number] 21:35:00 Test Item Value Reference Range Comments SODIUM (BEAKER) (test 137 meq/L 136-145 namv=858) POTASSIUM (BEAKER) (test 4.4 meq/L 3.5-5.1 Specimen slightly fgai=498) hemolyzed CHLORIDE (BEAKER) (test 109 meq/L 98-107 iydu=395) CO2 (BEAKER) (test 22 meq/L 22-29 jxll=511) BLOOD UREA NITROGEN 19 mg/dL 7-21 (BEAKER) (test gnfh=583) CREATININE (BEAKER) (test 1.18 mg/dL 0.57-1.25 Specimen slightly apjb=572) hemolyzed GLUCOSE RANDOM (BEAKER) 133 mg/dL 70-105 (test jvqx=976) CALCIUM (BEAKER) (test 7.9 mg/dL 8.4-10.2 tqum=617) EGFR (BEAKER) (test 61 mL/min/1.73 sq m ESTIMATED GFR IS NOT itwg=9732) ACCURATE CREATININE CLEARANCE IN PREDICTING GLOMERULAR FILTRATION RATE. ESTIMATED GFR IS NOT APPLICABLE FOR DIALYSIS PATIENTS. SODIUM NA-STAT [id number] 20:15:00 Test Item Value Reference Range Comments SODIUM (BEAKER) (test fuxn=601) 137 meq/L 135-148 FIO2: 75TEMP:36FIO2: 75TEMP:36FIO2: 75TEMP:36FIO2: 75TEMP:36FIO2: 75TEMP: 36POTASSIUM-STAT [id number] 20:15:00 Test Item Value Reference Range Comments POTASSIUM (BEAKER) (test vvjp=225) 4.1 meq/L 3.6-5.5 FIO2: 75TEMP:36FIO2: 75TEMP:36FIO2: 75TEMP:36FIO2: 75TEMP:36FIO2: 75TEMP: 36CALCIUM, [id number] 20:15:00 Test Item Value Reference Range Comments CALCIUM IONIZED (BEAKER) (test swjf=229) 1.05 mmol/L 1.12-1.27 PH, BLOOD (BEAKER) (test adci=3048) 7.35 BLOOD GAS, [id number] 20:15:00 Test Item Value Reference Range Comments PH ARTERIAL (BEAKER) (test mfyc=264) 7.36 7.35-7.45 PCO2 ARTERIAL (BEAKER) (test kwrd=023) 39 mmHg 35-45 PO2 ARTERIAL (BEAKER) (test idzc=803) 172 mmHg 80-90 O2 SATURATION ARTERIAL (BEAKER) (test ykla=992) 99.1 % 96.0-97.0 HCO3 ARTERIAL (BEAKER) (test ndco=009) 22 mmol/L 21-29 BASE EXCESS ARTERIAL (BEAKER) (test gnzr=149) -3.2 mmol/L -2.0-3.0 PATIENT TEMPERATURE (BEAKER) (test txqf=9603) 36.0 C FIO2 (BEAKER) (test ggjd=5002) 75.0 % FIO2: 75TEMP:36FIO2: 75TEMP:36FIO2: 75TEMP:36FIO2: 75TEMP:36FIO2: 75TEMP: 36GLUCOSE-STAT [id number] 20:15:00 Test Item Value Reference Range Comments GLUCOSE RANDOM (BEAKER) (test gbnd=166) 145 mg/dL 70-110 FIO2: 75TEMP:36FIO2: 75TEMP:36FIO2: 75TEMP:36FIO2: 75TEMP:36FIO2: 75TEMP:36HGB/ HCT (H&H) - STAT [id number] 20:15:00 Test Item Value Reference Range Comments HEMOGLOBIN (BEAKER) (test egia=645) 10.4 g/dL 13.0-16.8 HEMATOCRIT (BEAKER) (test udqw=658) 31.0 % 40.0-50.0 FIO2: 75TEMP:36FIO2: 75TEMP:36FIO2: 75TEMP:36FIO2: 75TEMP:36FIO2: 75TEMP: 36PROTHROMBIN [id number] 12:12:00 Test Item Value Reference Range Comments PROTIME (BEAKER) (test zkzx=913) 14.8 seconds 11.7-14.7 INR (BEAKER) (test dniy=345) 1.2 <=5.9 RECOMMENDED COUMADIN/WARFARIN INR THERAPY RANGESSTANDARD DOSE: 2.0 - 3.0 Includes: PROPHYLAXIS forvenous thrombosis, systemic embolization; TREATMENT for venous thrombosis and/or pulmonary embolus.HIGH RISK: Target INR is 2.5-3.5 for patients with mechanical heart valves.TISSUE [id number] 14:21: 00Surgical Pathology Report Case: [id number] Authorizing Provider: Aba Robins MD Collected : 07/09/20182139 Ordering Location: [place] [address] OP Received: 07/09/20182144 Pathologist: Jose Archibald MD Specimen: Kidney, Left, Mass Bx KIDNEY, LEFT INFERIOR POLE, ULTRASOUND-GUIDED CORE NEEDLE BIOPSY :- CONVENTIONAL CLEAR CELL RENAL CELL CARCINOMA, FURHMAN NUCLEAR GRADE 2 Signing Pathologist Direct Phone Line: [phone] signed by Jose Archibald MD on 07/21/2018 at 2:21 PMPreliminary result electronically signed by Jose Archibald MD on 07/13/2018 at 1:34 PMPreliminary result electronically signed by Jose Archibald MD on 07/10/2018 at 12:23 [id number] inferior pole renal massUltrasound-guided biopsy of renal [...] MDReport Verified Date/Time: 07/09/2018 17:45:45 Reading Location: [address] Ultrasound Reading Room [id number] 13:01:00 Test Item Value Reference Range Comments CREATININE (BEAKER) (test 1.29 mg/dL 0.57-1.25 lfvg=598) EGFR (BEAKER) (test 55 mL/min/1.73 sq m ESTIMATED GFR IS NOT hnix=9740) ACCURATE CREATININE CLEARANCE IN PREDICTING GLOMERULAR FILTRATION RATE. ESTIMATED GFR IS NOT APPLICABLE FOR DIALYSIS PATIENTS. [id number] 12:41:00 Test Item Value Reference Range Comments PROTIME (BEAKER) (test ipff=872) 14.6 seconds 11.7-14.7 INR (BEAKER) (test qgvf=048) 1.1 <=5.9 PARTIAL THROMBOPLASTIN TIME (BEAKER) (test 28.7 seconds 22.5-36.0 dwie=206) RECOMMENDED COUMADIN/WARFARIN INR THERAPY RANGESSTANDARD DOSE: 2.0 - 3.0 Includes: PROPHYLAXIS forvenous thrombosis, systemic embolization; TREATMENT for venous thrombosis and/or pulmonary embolus.HIGH RISK: Target INR is 2.5-3.5 for patients with mechanical heart valves.CBC W/PLT COUNT & AUTO [id number] 12:32:00 Test Item Value Reference Range Comments WHITE BLOOD CELL COUNT (BEAKER) (test jwkb=198) 7.8 K/ L 3.5-10.5 RED BLOOD CELL COUNT (BEAKER) (test ougw=848) 4.07 M/ L 4.63-6.08 HEMOGLOBIN (BEAKER) (test ocnm=806) 11.1 GM/DL 13.7-17.5 HEMATOCRIT (BEAKER) (test qpfp=386) 34.9 % 40.1-51.0 MEAN CORPUSCULAR VOLUME (BEAKER) (test oszd=310) 85.7 fL 79.0-92.2 MEAN CORPUSCULAR HEMOGLOBIN (BEAKER) (test 27.3 pg 25.7-32.2 ohdm=058) MEAN CORPUSCULAR HEMOGLOBIN CONC (BEAKER) (test 31.8 GM/DL 32.3-36.5 duof=127) RED CELL DISTRIBUTION WIDTH (BEAKER) (test 14.5 % 11.6-14.4 vamn=294) PLATELET COUNT (BEAKER) (test qeko=042) 286 K/CU MM 150-450 MEAN PLATELET VOLUME (BEAKER) (test qthf=581) 11.6 fL 9.4-12.4 NUCLEATED RED BLOOD CELLS (BEAKER) (test 0 /100 WBC 0-0 izsb=053) NEUTROPHILS RELATIVE PERCENT (BEAKER) (test 71 % nhis=378) LYMPHOCYTES RELATIVE PERCENT (BEAKER) (test 12 % rvcn=748) MONOCYTES RELATIVE PERCENT (BEAKER) (test 10 % eaym=342) EOSINOPHILS RELATIVE PERCENT (BEAKER) (test 5 % requ=727) BASOPHILS RELATIVE PERCENT (BEAKER) (test 1 % rfah=630) NEUTROPHILS ABSOLUTE COUNT (BEAKER) (test 5.58 K/ L 1.78-5.38 vzuf=782) LYMPHOCYTES ABSOLUTE COUNT (BEAKER) (test 0.96 K/ L 1.32-3.57 znis=692) MONOCYTES ABSOLUTE COUNT (BEAKER) (test 0.80 K/ L 0.30-0.82 rqlk=453) EOSINOPHILS ABSOLUTE COUNT (BEAKER) (test 0.41 K/ L 0.04-0.54 qcke=382) BASOPHILS ABSOLUTE COUNT (BEAKER) (test 0.06 K/ L 0.01-0.08 tkhk=412) IMMATURE GRANULOCYTES-RELATIVE PERCENT (BEAKER) 0 % 0-1 (test kohu=9474)
--- OUTSIDE RECORDS SUMMARY | 2019-02-09 10:11 | XMS REPORT ---
:1950 Author Organization [facility] Address [address] [place] [address] Dr. Mai [address] [place] [id number] Care Team Providers Name Role Phone ABA ROBINS Unavailable Unavailable Problems This patient has no known problems. Allergies, Adverse Reactions, Alerts This patient has no known allergies or adverse reactions. Medications This patient has no known medications. Results Test Description Test Time Test Comments Text Results Atomic Results Result Comments TISSUE EXAM 2018-11-24 16:03:00 Surgical Pathology Report Case: [id number] Authorizing Provider: Aba Robins MD Collected: 11/19/2018 1218 Ordering Location: [facility] Received: 11/19/2018 1324 SERVICES Pathologist: [...] BONE IS PRESENT IN THE TUMORAJCC CLASSIFICATION [id number]. SEE SYNOPTIC REPORT. Signing Pathologist Direct Phone Line: [phone] signed by Tristan Huffman MD on 11/24/2018 [...] (pT): pT1a Regional Lymph Nodes (pN): pNX [id number] massRight renal mass with perirenal fat The [...] tumor and perirenal fat; A7 and 8, telephone sales representative of detached perirenal fat. Tissue is submitted for tumor banking. CG/pl Performed. BASIC METABOLIC PANEL 2018-11-22 07:10:00 Test Item Value Reference Range Comments SODIUM (BEAKER) (test 135 meq/L 136-145 hsce=469) POTASSIUM (BEAKER) (test 3.8 meq/L 3.5-5.1 nwpm=113) CHLORIDE (BEAKER) (test 108 meq/L 98-107 mllb=143) CO2 (BEAKER) (test sxwl=109) 20 meq/L 22-29 BLOOD UREA NITROGEN (BEAKER) 16 mg/dL 7-21 (test jnew=759) CREATININE (BEAKER) (test 1.16 mg/dL 0.57-1.25 swaa=775) GLUCOSE RANDOM (BEAKER) 97 mg/dL 70-105 (test yxqo=338) CALCIUM (BEAKER) (test 8.1 mg/dL 8.4-10.2 kzvk=175) EGFR (BEAKER) (test 62 mL/min/1.73 sq m ESTIMATED GFR IS NOT xgyl=3186) ACCURATE CREATININE CLEARANCE IN PREDICTING GLOMERULAR FILTRATION RATE. ESTIMATED GFR IS NOT APPLICABLE FOR DIALYSIS PATIENTS. HEMOGLOBIN AND [id number] 06:37:00 Test Item Value Reference Range Comments HEMOGLOBIN (BEAKER) (test ksnv=683) 7.5 GM/DL 13.7-17.5 HEMATOCRIT (BEAKER) (test elbj=611) 24.8 % 40.1-51.0 HEMOGLOBIN AND [id number] 20:28:00 Test Item Value Reference Range Comments HEMOGLOBIN (BEAKER) (test olcs=365) 8.1 GM/DL 13.7-17.5 HEMATOCRIT (BEAKER) (test mwxp=386) 27.3 % 40.1-51.0 After transfusionHEMOGLOBIN AND [id number] 13:08:00 Test Item Value Reference Range Comments HEMOGLOBIN (BEAKER) (test alcd=935) 6.9 GM/DL 13.7-17.5 HEMATOCRIT (BEAKER) (test xjqr=818) 23.0 % 40.1-51.0 BASIC METABOLIC [id number] 06:12:00 Test Item Value Reference Range Comments SODIUM (BEAKER) (test 137 meq/L 136-145 rpkd=421) POTASSIUM (BEAKER) (test 3.9 meq/L 3.5-5.1 xrpk=836) CHLORIDE (BEAKER) (test 110 meq/L 98-107 pqcm=540) CO2 (BEAKER) (test 20 meq/L 22-29 mlkw=436) BLOOD UREA NITROGEN 21 mg/dL 7-21 (BEAKER) (test mxhl=313) CREATININE (BEAKER) (test 1.29 mg/dL 0.57-1.25 fpuw=066) GLUCOSE RANDOM (BEAKER) 96 mg/dL 70-105 (test vtjw=739) CALCIUM (BEAKER) (test 7.9 mg/dL 8.4-10.2 lzmp=348) EGFR (BEAKER) (test 55 mL/min/1.73 sq m ESTIMATED GFR IS NOT xkqe=5928) ACCURATE CREATININE CLEARANCE IN PREDICTING GLOMERULAR FILTRATION RATE. ESTIMATED GFR IS NOT APPLICABLE FOR DIALYSIS PATIENTS. HEMOGLOBIN AND [id number] 05:47:00 Test Item Value Reference Range Comments HEMOGLOBIN (BEAKER) (test fkoh=678) 7.0 GM/DL 13.7-17.5 HEMATOCRIT (BEAKER) (test whur=258) 23.8 % 40.1-51.0 BASIC METABOLIC [id number] 05:00:00 Test Item Value Reference Range Comments SODIUM (BEAKER) (test 139 meq/L 136-145 jtou=098) POTASSIUM (BEAKER) (test 4.0 meq/L 3.5-5.1 vybg=496) CHLORIDE (BEAKER) (test 110 meq/L 98-107 ppzp=071) CO2 (BEAKER) (test 21 meq/L 22-29 pxrp=763) BLOOD UREA NITROGEN 25 mg/dL 7-21 (BEAKER) (test vzja=718) CREATININE (BEAKER) (test 1.40 mg/dL 0.57-1.25 aoip=330) GLUCOSE RANDOM (BEAKER) 110 mg/dL 70-105 (test ckps=871) CALCIUM (BEAKER) (test 8.1 mg/dL 8.4-10.2 bbvi=200) EGFR (BEAKER) (test 50 mL/min/1.73 sq m ESTIMATED GFR IS NOT jqyd=3930) ACCURATE CREATININE CLEARANCE IN PREDICTING GLOMERULAR FILTRATION RATE. ESTIMATED GFR IS NOT APPLICABLE FOR DIALYSIS PATIENTS. HEMOGLOBIN AND [id number] 04:36:00 Test Item Value Reference Range Comments HEMOGLOBIN (BEAKER) (test jiss=915) 7.4 GM/DL 13.7-17.5 HEMATOCRIT (BEAKER) (test pxdr=576) 25.7 % 40.1-51.0 BASIC METABOLIC [id number] 13:52:00 Test Item Value Reference Range Comments SODIUM (BEAKER) (test 138 meq/L 136-145 sfxp=193) POTASSIUM (BEAKER) (test 4.6 meq/L 3.5-5.1 btrl=316) CHLORIDE (BEAKER) (test 111 meq/L 98-107 iwty=984) CO2 (BEAKER) (test 19 meq/L 22-29 bufu=486) BLOOD UREA NITROGEN 30 mg/dL 7-21 (BEAKER) (test fbnh=986) CREATININE (BEAKER) (test 1.35 mg/dL 0.57-1.25 ioxf=949) GLUCOSE RANDOM (BEAKER) 125 mg/dL 70-105 (test slbk=546) CALCIUM (BEAKER) (test 7.9 mg/dL 8.4-10.2 korp=555) EGFR (BEAKER) (test 52 mL/min/1.73 sq m ESTIMATED GFR IS NOT aeug=0901) ACCURATE CREATININE CLEARANCE IN PREDICTING GLOMERULAR FILTRATION RATE. ESTIMATED GFR IS NOT APPLICABLE FOR DIALYSIS PATIENTS. [facility] [id number] 13:30:00 Test Item Value Reference Range Comments HEMOGLOBIN (BEAKER) (test bnly=215) 7.2 GM/DL 13.7-17.5 HEMATOCRIT (BEAKER) (test cyne=737) 24.5 % 40.1-51.0 SODIUM NA-STAT [id number] 09:41:00 Test Item Value Reference Range Comments SODIUM (BEAKER) (test kyhv=180) 138 meq/L 135-148 POTASSIUM-STAT [id number] 09:41:00 Test Item Value Reference Range Comments POTASSIUM (BEAKER) (test xlef=382) 3.6 meq/L 3.6-5.5 BLOOD GAS, [id number] 09:41:00 Test Item Value Reference Range Comments PH ARTERIAL (BEAKER) (test nadv=733) 7.30 7.35-7.45 PCO2 ARTERIAL (BEAKER) (test oknp=308) 45 mmHg 35-45 PO2 ARTERIAL (BEAKER) (test lspd=578) 100 mmHg 80-90 O2 SATURATION ARTERIAL (BEAKER) (test lmfi=527) 97.0 % 96.0-97.0 HCO3 ARTERIAL (BEAKER) (test kyva=050) 22 mmol/L 21-29 BASE EXCESS ARTERIAL (BEAKER) (test xrjq=582) -4.6 mmol/L -2.0-3.0 PATIENT TEMPERATURE (BEAKER) (test zgth=8318) 37.0 C FIO2 (BEAKER) (test kvog=7087) 21.0 % GLUCOSE-STAT [id number] 09:41:00 Test Item Value Reference Range Comments GLUCOSE RANDOM (BEAKER) (test ztzj=537) 139 mg/dL 70-110 HGB/HCT (H&H) - STAT [id number] 09:41:00 Test Item Value Reference Range Comments HEMOGLOBIN (BEAKER) (test kkzg=015) 8.0 g/dL 13.0-16.8 HEMATOCRIT (BEAKER) (test rvtc=170) 24.0 % 40.0-50.0 TISSUE [id number] 18:24:00Surgical Pathology Report Case: [id number] Authorizing Provider: Aba Robins MD Collected: 08/17/20181957 Ordering Location: [facility] Received: 08/18/2018 0820 SERVICES Pathologist: [...] Pathologic Findings in Nonneoplastic Kidney: 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 Section code: A1-A12, telephone sales representative sequential sections of renal mass; A13-A16 , telephone sales representative sections of separately received adipose tissue. Additional sections A17-20. DB[facility] [id number] 11:51:00 Test Item Value Reference Range Comments SODIUM (BEAKER) (test 135 meq/L 136-145 hifs=653) POTASSIUM (BEAKER) (test 3.4 meq/L 3.5-5.1 svdk=924) CHLORIDE (BEAKER) (test 106 meq/L 98-107 ehlq=693) CO2 (BEAKER) (test 21 meq/L 22-29 qgev=101) BLOOD UREA NITROGEN 16 mg/dL 7-21 (BEAKER) (test afmo=331) CREATININE (BEAKER) (test 1.17 mg/dL 0.57-1.25 rpqj=894) GLUCOSE RANDOM (BEAKER) 116 mg/dL 70-105 (test casa=996) CALCIUM (BEAKER) (test 8.2 mg/dL 8.4-10.2 duzu=968) EGFR (BEAKER) (test 62 mL/min/1.73 sq m ESTIMATED GFR IS NOT ftzj=1362) ACCURATE CREATININE CLEARANCE IN PREDICTING GLOMERULAR FILTRATION RATE. ESTIMATED GFR IS NOT APPLICABLE FOR DIALYSIS PATIENTS. HEMOGLOBIN AND [id number] 11:31:00 Test Item Value Reference Range Comments HEMOGLOBIN (BEAKER) (test vgfo=250) 8.7 GM/DL 13.7-17.5 HEMATOCRIT (BEAKER) (test koxh=813) 28.1 % 40.1-51.0 BASIC METABOLIC [id number] 05:37:00 Test Item Value Reference Range Comments SODIUM (BEAKER) (test 133 meq/L 136-145 hrjd=517) POTASSIUM (BEAKER) (test 3.5 meq/L 3.5-5.1 tkrh=464) CHLORIDE (BEAKER) (test 107 meq/L 98-107 nqks=255) CO2 (BEAKER) (test 20 meq/L 22-29 xapu=007) BLOOD UREA NITROGEN 16 mg/dL 7-21 (BEAKER) (test gfxh=275) CREATININE (BEAKER) (test 1.15 mg/dL 0.57-1.25 oowa=115) GLUCOSE RANDOM (BEAKER) 101 mg/dL 70-105 (test skyk=546) CALCIUM (BEAKER) (test 7.8 mg/dL 8.4-10.2 mcuj=192) EGFR (BEAKER) (test 63 mL/min/1.73 sq m ESTIMATED GFR IS NOT qsva=1502) ACCURATE CREATININE CLEARANCE IN PREDICTING GLOMERULAR FILTRATION RATE. ESTIMATED GFR IS NOT APPLICABLE FOR DIALYSIS PATIENTS. CBC W/PLT COUNT & AUTO [id number] 05:18:00 Test Item Value Reference Range Comments WHITE BLOOD CELL COUNT (BEAKER) (test rwvn=334) 11.1 K/ L 3.5-10.5 RED BLOOD CELL COUNT (BEAKER) (test joxv=840) 3.18 M/ L 4.63-6.08 HEMOGLOBIN (BEAKER) (test zqnd=601) 8.0 GM/DL 13.7-17.5 HEMATOCRIT (BEAKER) (test ssfi=337) 26.6 % 40.1-51.0 MEAN CORPUSCULAR VOLUME (BEAKER) (test rqlz=259) 83.6 fL 79.0-92.2 MEAN CORPUSCULAR HEMOGLOBIN (BEAKER) (test 25.2 pg 25.7-32.2 dxam=385) MEAN CORPUSCULAR HEMOGLOBIN CONC (BEAKER) (test 30.1 GM/DL 32.3-36.5 vdzl=768) RED CELL DISTRIBUTION WIDTH (BEAKER) (test 14.8 % 11.6-14.4 ypjx=777) PLATELET COUNT (BEAKER) (test puxt=181) 205 K/CU MM 150-450 MEAN PLATELET VOLUME (BEAKER) (test soor=771) 11.5 fL 9.4-12.4 NUCLEATED RED BLOOD CELLS (BEAKER) (test 0 /100 WBC 0-0 akwx=150) NEUTROPHILS RELATIVE PERCENT (BEAKER) (test 79 % ooky=623) LYMPHOCYTES RELATIVE PERCENT (BEAKER) (test 8 % szgk=896) MONOCYTES RELATIVE PERCENT (BEAKER) (test 11 % hlyl=050) EOSINOPHILS RELATIVE PERCENT (BEAKER) (test 2 % vihe=820) BASOPHILS RELATIVE PERCENT (BEAKER) (test 0 % qahu=293) NEUTROPHILS ABSOLUTE COUNT (BEAKER) (test 8.75 K/ L 1.78-5.38 vhbe=070) LYMPHOCYTES ABSOLUTE COUNT (BEAKER) (test 0.86 K/ L 1.32-3.57 wzho=957) MONOCYTES ABSOLUTE COUNT (BEAKER) (test 1.16 K/ L 0.30-0.82 cgpm=679) EOSINOPHILS ABSOLUTE COUNT (BEAKER) (test 0.25 K/ L 0.04-0.54 mzss=084) BASOPHILS ABSOLUTE COUNT (BEAKER) (test 0.04 K/ L 0.01-0.08 vprm=237) IMMATURE GRANULOCYTES-RELATIVE PERCENT (BEAKER) 0 % 0-1 (test wxig=2251) CBC W/PLT COUNT & AUTO [id number] 16:39:00 Test Item Value Reference Range Comments WHITE BLOOD CELL COUNT (BEAKER) (test elxd=655) 13.0 K/ L 3.5-10.5 RED BLOOD CELL COUNT (BEAKER) (test qtnq=074) 3.44 M/ L 4.63-6.08 HEMOGLOBIN (BEAKER) (test ieyd=968) 8.7 GM/DL 13.7-17.5 HEMATOCRIT (BEAKER) (test ynmb=449) 28.3 % 40.1-51.0 MEAN CORPUSCULAR VOLUME (BEAKER) (test eqmc=214) 82.3 fL 79.0-92.2 MEAN CORPUSCULAR HEMOGLOBIN (BEAKER) (test 25.3 pg 25.7-32.2 yhnv=602) MEAN CORPUSCULAR HEMOGLOBIN CONC (BEAKER) (test 30.7 GM/DL 32.3-36.5 hvki=721) RED CELL DISTRIBUTION WIDTH (BEAKER) (test 15.0 % 11.6-14.4 ppmp=618) PLATELET COUNT (BEAKER) (test bbkm=743) 224 K/CU MM 150-450 MEAN PLATELET VOLUME (BEAKER) (test unin=641) 11.9 fL 9.4-12.4 NUCLEATED RED BLOOD CELLS (BEAKER) (test 0 /100 WBC 0-0 bhba=719) (CELLAVISION MANUAL DIFF)2018-08-19 16:39:00 Test Item Value Reference Range Comments NEUTROPHILS - REL (CELLAVISION)(BEAKER) (test 90 % oqfq=9047) LYMPHOCYTES - REL (CELLAVISION)(BEAKER) (test 5 % xewp=4632) MONOCYTES - REL (CELLAVISION)(BEAKER) (test 2 % oyve=3691) EOSINOPHILS - REL (CELLAVISION)(BEAKER) (test 2 % wmyu=5735) BASOPHILS - REL (CELLAVISION)(BEAKER) (test 1 % bwye=7408) NEUTROPHILS - ABS (CELLAVISION)(BEAKER) (test 11.70 K/ul 1.78-5.38 glls=3579) LYMPHOCYTES - ABS (CELLAVISION)(BEAKER) (test 0.65 K/ul 1.32-3.57 ndqc=9449) MONOCYTES - ABS (CELLAVISION)(BEAKER) (test 0.26 K/uL 0.30-0.82 ihnb=8728) EOSINOPHILS - ABS (CELLAVISION)(BEAKER) (test 0.26 K/uL 0.04-0.54 apbi=5194) BASOPHILS - ABS (CELLAVISION)(BEAKER) (test 0.13 K/uL 0.01-0.08 izxr=8311) TOTAL COUNTED (BEAKER) (test fcsq=7220) 100 WBC MORPHOLOGY (BEAKER) (test ntaj=394) Normal GIANT PLATELETS (BEAKER) (test qyhe=069) Present ANISOCYTOSIS (BEAKER) (test bbws=708) 2+ moderate MICROCYTES (BEAKER) (test tofy=509) 2+ moderate POIKILOCYTES (BEAKER) (test tukw=249) 1+ few ELLIPTOCYTES (BEAKER) (test njmq=586) 1+ few ARTIFACT (CELLAVISION)(BEAKER) (test iare=0406) Present PLATELET CONCENTRATION (CELLAVISION)(BEAKER) Adequate (test hcuh=1274) Received comment: User comments: Slide comments:BASIC METABOLIC [id number] 07:05:00 Test Item Value Reference Range Comments SODIUM (BEAKER) (test 137 meq/L 136-145 rloe=040) POTASSIUM (BEAKER) (test 3.6 meq/L 3.5-5.1 xtxe=695) CHLORIDE (BEAKER) (test 108 meq/L 98-107 kmni=444) CO2 (BEAKER) (test 23 meq/L 22-29 xrgs=514) BLOOD UREA NITROGEN 15 mg/dL 7-21 (BEAKER) (test wsvl=057) CREATININE (BEAKER) (test 1.13 mg/dL 0.57-1.25 ygpa=458) GLUCOSE RANDOM (BEAKER) 92 mg/dL 70-105 (test ryea=120) CALCIUM (BEAKER) (test 7.8 mg/dL 8.4-10.2 fvjh=398) EGFR (BEAKER) (test 64 mL/min/1.73 sq m ESTIMATED GFR IS NOT nvuw=7369) ACCURATE CREATININE CLEARANCE IN PREDICTING GLOMERULAR FILTRATION RATE. ESTIMATED GFR IS NOT APPLICABLE FOR DIALYSIS PATIENTS. HEMOGLOBIN AND [id number] 17:30:00 Test Item Value Reference Range Comments HEMOGLOBIN (BEAKER) (test guxy=285) 9.2 GM/DL 13.7-17.5 HEMATOCRIT (BEAKER) (test ayvh=895) 29.7 % 40.1-51.0 CBC W/PLT COUNT & AUTO [id number] 10:06:00 Test Item Value Reference Range Comments WHITE BLOOD CELL COUNT (BEAKER) (test pfpb=884) 8.6 K/ L 3.5-10.5 RED BLOOD CELL COUNT (BEAKER) (test fxte=010) 3.50 M/ L 4.63-6.08 HEMOGLOBIN (BEAKER) (test jpjg=540) 8.9 GM/DL 13.7-17.5 HEMATOCRIT (BEAKER) (test vyul=772) 29.3 % 40.1-51.0 MEAN CORPUSCULAR VOLUME (BEAKER) (test vgsk=170) 83.7 fL 79.0-92.2 MEAN CORPUSCULAR HEMOGLOBIN (BEAKER) (test 25.4 pg 25.7-32.2 dwue=408) MEAN CORPUSCULAR HEMOGLOBIN CONC (BEAKER) (test 30.4 GM/DL 32.3-36.5 rjeg=116) RED CELL DISTRIBUTION WIDTH (BEAKER) (test 14.8 % 11.6-14.4 tptr=446) PLATELET COUNT (BEAKER) (test rsiw=535) 210 K/CU MM 150-450 MEAN PLATELET VOLUME (BEAKER) (test rtuo=013) 11.7 fL 9.4-12.4 NUCLEATED RED BLOOD CELLS (BEAKER) (test 0 /100 WBC 0-0 nlfz=948) NEUTROPHILS RELATIVE PERCENT (BEAKER) (test 80 % qjww=978) LYMPHOCYTES RELATIVE PERCENT (BEAKER) (test 8 % wcsq=839) MONOCYTES RELATIVE PERCENT (BEAKER) (test 11 % blii=577) EOSINOPHILS RELATIVE PERCENT (BEAKER) (test 1 % ovks=350) BASOPHILS RELATIVE PERCENT (BEAKER) (test 0 % tdsp=813) NEUTROPHILS ABSOLUTE COUNT (BEAKER) (test 6.88 K/ L 1.78-5.38 qkku=349) LYMPHOCYTES ABSOLUTE COUNT (BEAKER) (test 0.65 K/ L 1.32-3.57 nmjx=549) MONOCYTES ABSOLUTE COUNT (BEAKER) (test 0.96 K/ L 0.30-0.82 cvvu=291) EOSINOPHILS ABSOLUTE COUNT (BEAKER) (test 0.06 K/ L 0.04-0.54 lxui=366) BASOPHILS ABSOLUTE COUNT (BEAKER) (test 0.03 K/ L 0.01-0.08 gewx=705) IMMATURE GRANULOCYTES-RELATIVE PERCENT (BEAKER) 0 % 0-1 (test isro=5225) BASIC METABOLIC [id number] 07:06:00 Test Item Value Reference Range Comments SODIUM (BEAKER) (test 140 meq/L 136-145 hqoc=596) POTASSIUM (BEAKER) (test 4.1 meq/L 3.5-5.1 dysj=928) CHLORIDE (BEAKER) (test 111 meq/L 98-107 pfpb=244) CO2 (BEAKER) (test 25 meq/L 22-29 jnbz=566) BLOOD UREA NITROGEN 18 mg/dL 7-21 (BEAKER) (test sdmc=006) CREATININE (BEAKER) (test 1.11 mg/dL 0.57-1.25 enzp=608) GLUCOSE RANDOM (BEAKER) 96 mg/dL 70-105 (test fbyt=200) CALCIUM (BEAKER) (test 8.0 mg/dL 8.4-10.2 syxe=964) EGFR (BEAKER) (test 65 mL/min/1.73 sq m ESTIMATED GFR IS NOT ywmt=3512) ACCURATE CREATININE CLEARANCE IN PREDICTING GLOMERULAR FILTRATION RATE. ESTIMATED GFR IS NOT APPLICABLE FOR DIALYSIS PATIENTS. HEMOGLOBIN AND [id number] 21:41:00 Test Item Value Reference Range Comments HEMOGLOBIN (BEAKER) (test wvnc=801) 13.9 GM/DL 13.7-17.5 HEMATOCRIT (BEAKER) (test ovcp=963) 45.4 % 40.1-51.0 BASIC METABOLIC [id number] 21:35:00 Test Item Value Reference Range Comments SODIUM (BEAKER) (test 137 meq/L 136-145 rkhl=477) POTASSIUM (BEAKER) (test 4.4 meq/L 3.5-5.1 Specimen slightly kxod=720) hemolyzed CHLORIDE (BEAKER) (test 109 meq/L 98-107 izbs=884) CO2 (BEAKER) (test 22 meq/L 22-29 fdvc=102) BLOOD UREA NITROGEN 19 mg/dL 7-21 (BEAKER) (test gjlk=100) CREATININE (BEAKER) (test 1.18 mg/dL 0.57-1.25 Specimen slightly sycm=256) hemolyzed GLUCOSE RANDOM (BEAKER) 133 mg/dL 70-105 (test idtl=773) CALCIUM (BEAKER) (test 7.9 mg/dL 8.4-10.2 pwyp=965) EGFR (BEAKER) (test 61 mL/min/1.73 sq m ESTIMATED GFR IS NOT ncau=2612) ACCURATE CREATININE CLEARANCE IN PREDICTING GLOMERULAR FILTRATION RATE. ESTIMATED GFR IS NOT APPLICABLE FOR DIALYSIS PATIENTS. SODIUM NA-STAT [id number] 20:15:00 Test Item Value Reference Range Comments SODIUM (BEAKER) (test dcgj=201) 137 meq/L 135-148 FIO2: 75TEMP:36FIO2: 75TEMP:36FIO2: 75TEMP:36FIO2: 75TEMP:36FIO2: 75TEMP: 36POTASSIUM-STAT [id number] 20:15:00 Test Item Value Reference Range Comments POTASSIUM (BEAKER) (test eivh=303) 4.1 meq/L 3.6-5.5 FIO2: 75TEMP:36FIO2: 75TEMP:36FIO2: 75TEMP:36FIO2: 75TEMP:36FIO2: 75TEMP: 36CALCIUM, [id number] 20:15:00 Test Item Value Reference Range Comments CALCIUM IONIZED (BEAKER) (test xdja=738) 1.05 mmol/L 1.12-1.27 PH, BLOOD (BEAKER) (test ogwu=1491) 7.35 BLOOD GAS, [id number] 20:15:00 Test Item Value Reference Range Comments PH ARTERIAL (BEAKER) (test bzxk=133) 7.36 7.35-7.45 PCO2 ARTERIAL (BEAKER) (test vnra=814) 39 mmHg 35-45 PO2 ARTERIAL (BEAKER) (test qjay=191) 172 mmHg 80-90 O2 SATURATION ARTERIAL (BEAKER) (test rrpe=016) 99.1 % 96.0-97.0 HCO3 ARTERIAL (BEAKER) (test ejqx=407) 22 mmol/L 21-29 BASE EXCESS ARTERIAL (BEAKER) (test csrr=451) -3.2 mmol/L -2.0-3.0 PATIENT TEMPERATURE (BEAKER) (test jwqg=8237) 36.0 C FIO2 (BEAKER) (test mzsw=1271) 75.0 % FIO2: 75TEMP:36FIO2: 75TEMP:36FIO2: 75TEMP:36FIO2: 75TEMP:36FIO2: 75TEMP: 36GLUCOSE-STAT [id number] 20:15:00 Test Item Value Reference Range Comments GLUCOSE RANDOM (BEAKER) (test jwvn=263) 145 mg/dL 70-110 FIO2: 75TEMP:36FIO2: 75TEMP:36FIO2: 75TEMP:36FIO2: 75TEMP:36FIO2: 75TEMP:36HGB/ HCT (H&H) - STAT [id number] 20:15:00 Test Item Value Reference Range Comments HEMOGLOBIN (BEAKER) (test gwbm=396) 10.4 g/dL 13.0-16.8 HEMATOCRIT (BEAKER) (test spdx=919) 31.0 % 40.0-50.0 FIO2: 75TEMP:36FIO2: 75TEMP:36FIO2: 75TEMP:36FIO2: 75TEMP:36FIO2: 75TEMP: 36PROTHROMBIN TIME/[id number] 12:12:00 Test Item Value Reference Range Comments PROTIME (BEAKER) (test uidt=509) 14.8 seconds 11.7-14.7 INR (BEAKER) (test nuaa=015) 1.2 <=5.9 RECOMMENDED COUMADIN/WARFARIN INR THERAPY RANGESSTANDARD DOSE: 2.0 - 3.0 Includes: PROPHYLAXIS forvenous thrombosis, systemic embolization; TREATMENT for venous thrombosis and/or pulmonary embolus.HIGH RISK: Target INR is 2.5-3.5 for patients with mechanical heart valves.TISSUE [id number] 14:21: 00Surgical Pathology Report Case: [id number] Authorizing Provider: Aba Robins MD Collected : 07/09/20182139 Ordering Location: [place] [address] OP Received: 07/09/20182144 Pathologist: Jose Archibald MD Specimen: Kidney, Left, Mass Bx KIDNEY, LEFT INFERIOR POLE, ULTRASOUND-GUIDED CORE NEEDLE BIOPSY :- CONVENTIONAL CLEAR CELL RENAL CELL CARCINOMA, FURHMAN NUCLEAR GRADE 2 Signing Pathologist Direct Phone Line: [phone] signed by Jose Archibald MD on 07/21/2018 at 2:21 PMPreliminary result electronically signed by Jose Archibald MD on 07/13/2018 at 1:34 PMPreliminary result electronically signed by Jose Archibald MD on 07/10/2018 at 12:23 [id number] inferior pole renal massUltrasound-guided biopsy of renal [...] MDReport Verified Date/Time: 07/09/2018 17:45:45 Reading Location: [address] Ultrasound Reading Room [id number] 13:01:00 Test Item Value Reference Range Comments CREATININE (BEAKER) (test 1.29 mg/dL 0.57-1.25 hdem=836) EGFR (BEAKER) (test 55 mL/min/1.73 sq m ESTIMATED GFR IS NOT qcsw=7607) ACCURATE CREATININE CLEARANCE IN PREDICTING GLOMERULAR FILTRATION RATE. ESTIMATED GFR IS NOT APPLICABLE FOR DIALYSIS PATIENTS. [id number] 12:41:00 Test Item Value Reference Range Comments PROTIME (BEAKER) (test saak=650) 14.6 seconds 11.7-14.7 INR (BEAKER) (test rbcj=580) 1.1 <=5.9 PARTIAL THROMBOPLASTIN TIME (BEAKER) (test 28.7 seconds 22.5-36.0 xjaf=692) RECOMMENDED COUMADIN/WARFARIN INR THERAPY RANGESSTANDARD DOSE: 2.0 - 3.0 Includes: PROPHYLAXIS forvenous thrombosis, systemic embolization; TREATMENT for venous thrombosis and/or pulmonary embolus.HIGH RISK: Target INR is 2.5-3.5 for patients with mechanical heart valves.CBC W/PLT COUNT & AUTO [id number] 12:32:00 Test Item Value Reference Range Comments WHITE BLOOD CELL COUNT (BEAKER) (test wwtq=513) 7.8 K/ L 3.5-10.5 RED BLOOD CELL COUNT (BEAKER) (test exiw=930) 4.07 M/ L 4.63-6.08 HEMOGLOBIN (BEAKER) (test zvpj=077) 11.1 GM/DL 13.7-17.5 HEMATOCRIT (BEAKER) (test mxqj=087) 34.9 % 40.1-51.0 MEAN CORPUSCULAR VOLUME (BEAKER) (test tvrg=851) 85.7 fL 79.0-92.2 MEAN CORPUSCULAR HEMOGLOBIN (BEAKER) (test 27.3 pg 25.7-32.2 lyjg=841) MEAN CORPUSCULAR HEMOGLOBIN CONC (BEAKER) (test 31.8 GM/DL 32.3-36.5 krdl=136) RED CELL DISTRIBUTION WIDTH (BEAKER) (test 14.5 % 11.6-14.4 pxjq=331) PLATELET COUNT (BEAKER) (test qawc=812) 286 K/CU MM 150-450 MEAN PLATELET VOLUME (BEAKER) (test mskb=112) 11.6 fL 9.4-12.4 NUCLEATED RED BLOOD CELLS (BEAKER) (test 0 /100 WBC 0-0 takf=511) NEUTROPHILS RELATIVE PERCENT (BEAKER) (test 71 % hzxh=987) LYMPHOCYTES RELATIVE PERCENT (BEAKER) (test 12 % klss=003) MONOCYTES RELATIVE PERCENT (BEAKER) (test 10 % tffe=607) EOSINOPHILS RELATIVE PERCENT (BEAKER) (test 5 % slcc=000) BASOPHILS RELATIVE PERCENT (BEAKER) (test 1 % aejq=333) NEUTROPHILS ABSOLUTE COUNT (BEAKER) (test 5.58 K/ L 1.78-5.38 laur=871) LYMPHOCYTES ABSOLUTE COUNT (BEAKER) (test 0.96 K/ L 1.32-3.57 yxgx=576) MONOCYTES ABSOLUTE COUNT (BEAKER) (test 0.80 K/ L 0.30-0.82 kpww=590) EOSINOPHILS ABSOLUTE COUNT (BEAKER) (test 0.41 K/ L 0.04-0.54 wsla=333) BASOPHILS ABSOLUTE COUNT (BEAKER) (test 0.06 K/ L 0.01-0.08 ehzf=734) IMMATURE GRANULOCYTES-RELATIVE PERCENT (BEAKER) 0 % 0-1 (test mjqm=1062)
[2019-02-09] MEDS ORDERED: Ringers Lactate 1,000 ML IV ONE (10:44)
[2019-02-09] MEDS ORDERED: LIDOCAINE 1% MPF 5 ML VIAL ONE (11:02)
[2019-02-09] MEDS ORDERED: PROPOFOL 200 MG/20 ML VIAL IV ONE (11:02)
--- NOTE | 2019-02-09 11:59 | ENDO RPT ---
[address], [address] EGD PROCEDURE REPORT EXAM DATE: 02/09/2019 PATIENT NAME: Zen Pink MR#: [id number] BIRTHDATE: 1950 ATTENDING: Ish[address]el [address] STATUS: outpatient OVEN TENDER BAGELS: Linette Colón, Brenden Arenas RN, and Becky Laboy RN INDICATIONS: The patient is a 68 yr old Male here for an EGD due to melenic bleeding, iron deficiency anemia, bloating, GERD, and chronic unexplained diarrhea PROCEDURE PERFORMED: EGD with biopsy MEDICATIONS: Per Anesthesia. TOPICAL ANESTHETIC: none CONSENT: The patient understands the risks and benefits of the procedure and understands that these risks include, but are not limited to: sedation, allergic reaction, infection, perforation and/or bleeding. Alternative means of evaluation and treatment include, among others: physical exam, x-rays, and/or surgical intervention. The patient elects to proceed with this endoscopic procedure. DESCRIPTION OF PROCEDURE: During intra-op preparation period all mechanical medical equipment was checked for proper function. Hand hygiene and appropriate measures for infection prevention was taken. Procedure, possible complications, and alternatives including but not limited to the possibility of bleeding, perforation, tear, infection, sepsis, need for surgery, need for blood transfusion, and anesthesia related complications were explained to the patient. After the risks, benefits and alternatives of the procedure were thoroughly explained, Informed consent was verified, confirmed and timeout was successfully executed by the treatment team. The patient was placed in the left lateral position. The patient was anesthetized with topical anesthesia. Through the anesthetized oropharyngeal area, the scope was passed without any difficulty. The [id number] ([id number]) endoscope was introduced through the mouth and advanced to the third portion of the duodenum. Retroflexed views revealed no abnormalities. The gastroscope was then slowly withdrawn and removed. Mild gastritis was found in the antrum. Multiple biopsies were obtained and sent to pathology. Multiple erosions were found in the antrum. ADVERSE EVENTS: There were no complications. IMPRESSIONS: 1. Mild gastritis in the antrum, s/p biopsies 2. Multiple (4) erosions in the antrum 3. Small bowel biopsies obtained with history of iron deficiency anemia RECOMMENDATIONS: 1. await biopsy results 2. acid suppression therapy 3. colonoscopy REPEAT EXAM: Ishmael [address]field Dr eSigned: Ishmael [address]field Dr 02/09/2019 11:58 AM cc: Nick Orona CPT CODES: ICD9 CODES: PATIENT NAME: Zen Pink MR#: [id number]
[2019-02-09 12:03] VITALS: TEMP 98
[2019-02-09 12:11] VITALS: BP 114/74; O2SAT 99
== END 2019-02-09 12:16 | disposition home or self-care (01) ==
LOC: OR 09:59
PROVIDERS: ATTEND Internal Medicine Gastroenterology
PROC: 0DB88ZX Excision of Small Intestine, Via Natural or Artificial Opening Endoscopic, Diagnostic (ICD-10-PCS; 2019-02-09)
PROC: 0DB68ZX Excision of Stomach, Via Natural or Artificial Opening Endoscopic, Diagnostic (ICD-10-PCS; principal; 2019-02-09 11:30)
DX: K29.50 Unspecified chronic gastritis without bleeding (principal); K21.9 Gastro-esophageal reflux disease without esophagitis; K29.80 Duodenitis without bleeding; D50.9 Iron deficiency anemia, unspecified; K58.9 Irritable bowel syndrome, unspecified; J44.9 Chronic obstructive pulmonary disease, unspecified; I10 Essential (primary) hypertension; M19.90 Unspecified osteoarthritis, unspecified site; F41.9 Anxiety disorder, unspecified; F32.9 Major depressive disorder, single episode, unspecified; Z86.010 Personal history of colon polyps; Z87.891 Personal history of nicotine dependence; Z79.01 Long term (current) use of anticoagulants; Z88.0 Allergy status to penicillin; Z88.6 Allergy status to analgesic agent; Z91.040 Latex allergy status; Z86.718 Personal history of other venous thrombosis and embolism; Z80.7 Family history of other malignant neoplasms of lymphoid, hematopoietic and related tissues
CPT/HCPCS: 88312; 88305; 43239; J2704

== ENCOUNTER 2021-09-18 10:23 | Emergency (ER) | payer OTHER ==
--- OUTSIDE RECORDS SUMMARY | 2021-09-18 10:27 | XMS REPORT | Continuity of Care Document ---
:1950 Author Organization [facility] t Address [address] [place] [address] Care Team Providers Name Role Phone Link Carrie MAHONEY Attending Clinician SAVANNAH ROBINS Attending Clinician Unavailable LINKSAVANNAH Admitting Clinician Unavailable Payers Payer Name Policy Type Policy Number Effective Date Expiration Date S ource Problems Condition Condition Condition Status Onset Resolution Last Treating Co mments Source Name Details Category Date Date Treatment Clinician Date Renal cell Renal cell Disease Active [facility] carcinoma, carcinoma, 3-31 [facility] Medici n e CKD CKD Disease Active 2017-09 [facility] (chronic (chronic 09-27 Colleg e kidney kidney 00:00: of disease) disease) 00 Medici n stage 3, stage 3, e GFR 30-59 GFR 30-59 ml/min ml/min Renal cell Renal cell Disease Active 2017-09 [facility] carcinoma, carcinoma, 14 Co llege left left 00:00: [facility] 00 Medici n e Bilateral Bilateral Disease Active 2017-09 [facility] renal renal 14 College masses masses 00:00: of 00 Medicin e Allergies, Adverse Reactions, Alerts Allergy Allergy Status Severity Reaction(s) Onset Inactive Treating Comm ents Source Name Type Date Date Clinician Codeine Propensi Active 2017-09 [facility] ty to 14 College adverse 00:00: of reaction 00 Medicin s to e drug Latex Propensi Active 2017-09 [facility] ty to 14 College adverse 00:00: of reaction 00 Medicin s to e substanc e Penicill Propensi Active 2017-09 [facility] ins ty to 14 College adverse 00:00: of reaction 00 Medicin s to e drug Social History Social Habit Start Date Stop Date Quantity Comments Source Tobacco use and 2020-10-23 2020-10-23 Never used [facility] Co llege exposure 00:00:00 00:00:00 of Medicine Alcohol intake 2020-10-23 2020-10-23 Current [facility] Col lege 00:00:00 00:00:00 non-drinker of of Medicin e alcohol (finding) Sex Ass[birth year] [facility] l[facility] 00:00:00 00:00:00 of Medicine Smoking Status Start Date Stop Date Source Former smoker 2020-10-23 00:00:00 2020-10-23 00:00:00 [facility] C ollege of Medicine Medications Ordered Filled Start Stop Current Ordering Indication Dosage Frequency Signature Comments Components Source Medication Medication Date Date Medication? Clinician (SIG) Name Name olmesartan Yes 40mg Take 40 mg [facility] (BENICAR) 2-03 by mouth Colleg e 20 MG 20:16: daily. of tablet 34 Medicin e allopurinol Yes allopurino Sridhar (ZYLOPRIM) 203 l 100 mg Colle ge 100 MG 20:15: tablet of tablet 20 Medicin e ropinirole Yes ropinirole [facility] (REQUIP) 2 2-03 2 mg College MG tablet 20:15: tablet of 20 Medicin e pravastatin Yes 80mg Take 80 mg Sridhar (PRAVACHOL) 2-03 by mouth [facility] 80 MG 20:15: daily. of tablet 20 Medicin e duloxetine Yes 60mg Take 60 mg [facility] (CYMBALTA) 2-03 by mouth Colle ge 60 MG 20:15: daily. of capsule 20 Medicin e lansoprazol Yes 30mg Take 30 mg Sridhar e (PREVACID 2-03 by mouth [facility]ia [facility] SOLUTAB) 30 20:15: daily. of MG 20 Medicin disintegrat e ing tablet Tamsulosin Yes Take by [place] [facility] HCl 0.4 MG 2-03 mouth. College CAPS 20:15: of 20 Medicin e PROAIR HFA Yes Sridhar 2-03 College 20:15: of 20 Medicin e Nutritional Yes Take by [facility] Supplements 2-03 mouth. Colleg e (VITAMIN D 20:15: of BOOSTER OR) 20 Medicin e Loratadine Yes Take by [place] [facility] (CLARITIN 2-03 mouth. College OR) 20:15: of 20 Medicin e allopurinol 2018-09 Yes allopurino [facility]rid[facility] (ZYLOPRIM) 0-07 l 100 mg Colle ge 100 MG 14:18: tablet of tablet 48 Medicin e ropinirole 2018-09 Yes ropinirole [facility] (REQUIP) 2 0-07 2 mg College MG tablet 14:18: tablet of 48 Medicin e pravastatin 2018-09 Yes 80mg Take 80 mg [facility] (PRAVACHOL) 0-07 by mouth [facility] 80 MG 14:18: daily. of tablet 48 Medicin e duloxetine 2018-09 Yes 60mg Take 60 mg [facility] (CYMBALTA) 0-07 by mouth Colle ge 60 MG 14:18: daily. of capsule 48 Medicin e lansoprazol 2018-09 Yes 30mg Take 30 mg [facility] e (PREVACID 0-07 by mouth [facility] SOLUTAB) 30 14:18: daily. of MG 48 Medicin disintegrat e ing tablet Tamsulosin 2018-09 Yes Take by [place] [facility] HCl 0.4 MG 0-07 mouth. [facility] CAPS 14:18: of 48 Medicin e olmesartan 2018-09 Yes 20mg Take 20 mg [facility] (BENICAR) 0-07 by mouth Colleg e 20 MG 14:18: daily. of tablet 48 Medicin e PROAIR HFA 2018-09 Yes [facility] 0-07 College 14:18: of 48 Medicin e Nutritional 2018-09 Yes Take by [facility] Supp[facility] 0-07 mouth. Vanitag e (VITAMIN D 14:18: of BOOSTER OR) 48 Medicin e Loratadine 2018-09 Yes Take by [place] [facility] (CLARITIN 0-07 mouth. [facility] OR) 14:18: of 48 Medicin e Rivaroxaban 2018-09 2019- No Take by [facility] (XARELTO) 0-07 10-07 mouth. [facility] 20 MG TABS 14:15: 00:00 of 20 :00 Medicin e SYMBICORT 2019-0 Yes [facility] [address] [place] [address] MCG/ACT 00:00: of AERO 00 Medicin e SYMBICORT 2019-0 Yes [facility] 160-4.[address] [place] [address] MCG/ACT 00:00: of AERO 00 Medicin e Vital Signs Vital Name Observation Time Observation Value Comments Source Systolic blood 2020-10-17 20:14:00 144 mm[Hg] [facility] Diastolic blood 2020-10-17 20:14:00 80 mm[Hg] [facility] Heart rate 2020-10-17 20:14:00 100 /min [facility] Body temperature 2020-10-17 20:14:00 35.67 Sejal [facility] Respiratory rate 2020-10-17 20:14:00 18 /min [facility] Body height 2020-10-17 20:14:00 193 cm [facility] Body weight 2020-10-17 20:14:00 122.471 kg [facility] BMI 2020-10-17 20:14:00 32.87 kg/m2 [facility] Systolic blood 2019-06-20 14:13:00 96 mm[Hg] [facility] Diastolic blood 2019-06-20 14:13:00 64 mm[Hg] [facility] Heart rate 2019-06-20 14:13:00 61 /min [facility] Body temperature 2019-06-20 14:13:00 36.72 Sejal [facility] Body height 2019-06-20 14:13:00 193 cm [facility] Body weight 2019-06-20 14:13:00 117.935 kg [facility] BMI 2019-06-20 14:13:00 31.65 kg/m2 [facility] Systolic blood 2019-06-20 14:13:00 96 mm[Hg] [facility] Medicine Diastolic blood 2019-06-20 14:13:00 64 mm[Hg] [facility] Medicine Heart rate 2019-06-20 14:13:00 61 /min [facility] Body temperature 2019-06-20 14:13:00 36.72 Sejal [facility] Body height 2019-06-20 14:13:00 193 cm [facility] Body weight 2019-06-20 14:13:00 117.935 kg [facility] BMI 2019-06-20 14:13:00 31.65 kg/m2 [facility] Procedures Procedure Date / Time Performed Performing Clinician Sourpete e POCT URINALYSIS 2020-10-17 00:00:00 Jose Robins [facility] Vanita ge of [facility] Medicine POCT URINALYSIS 2019-06-20 00:00:00 Jose Robins [facility] Vanita ge of [facility] Medicine Plan of Care Planned Activity Planned Date Details Comments Source Future Scheduled 2021-10-17 CT ABDOMEN PELVIS W Expected: [facility] or [facility] Test 00:00:00 WO CONTRAST [code = 10/17/2021, of Medic ine 30893-4] Expires: 10/17/2021 Future Scheduled 2021-10-17 XR CHEST PA AND Expected: [facility] ollege Test 00:00:00 LATERAL [code = 10/17/2021, of Medicine 51786-4] Expires: 10/17/2021 Future Scheduled COLON CANCER [facility] ege Test SCREENING: of Medicine COLONOSCOPY [code = COLON CANCER SCREENING: COLONOSCOPY] Future Scheduled MEDICARE AWV [code [facility] Test = MEDICARE AWV] of Medicine Future Scheduled TETANUS SHOT [facility] Bia ege Test (ADULT) [code = of Medicine TETANUS SHOT (ADULT)] Future Scheduled BMI FOLLOW UP PLAN [facility] r College Test [code = BMI FOLLOW of Medici ne UP PLAN] Future Scheduled HEPATITIS C [facility] Bia ege Test SCREENING [code = of Medicin e HEPATITIS C SCREENING] Future Scheduled AAA Screen [code = [facility] r College Test AAA Screen] of Medicine Future Scheduled FALL SCREEN [code = [facility] or [facility] Test FALL SCREEN] of Medicine Future Scheduled PNEUMOVAX >=65 [facility] Co llege Test (PPSV23) [code = of Medicine PNEUMOVAX >=65 (PPSV23)] Future Scheduled PREVNAR >= 65 [facility] Col lege Test (PCV13) [code = of Medicine PREVNAR >= 65 (PCV13)] Future Scheduled FLU VACCINE > 6 [facility] C ollege Test MONTHS [code = FLU of Medici ne VACCINE > 6 MONTHS] Future Scheduled COLON CANCER [facility] Bia ege Test SCREENING: of Medicine COLONOSCOPY [code = COLON CANCER SCREENING: COLONOSCOPY] Future Scheduled COVID-19 Vaccine [facility] Test Evaluation [code = of Medici ne COVID-19 Vaccine Evaluation] Future Scheduled TETANUS SHOT [facility] Bia ege Test (ADULT) [code = of Medicine TETANUS SHOT (ADULT)] Future Scheduled BMI FOLLOW UP PLAN [facility] r College Test [code = BMI FOLLOW of Medici ne UP PLAN] Future Scheduled HEPATITIS C [facility] Bia ege Test SCREENING [code = of Medicin e HEPATITIS C SCREENING] Future Scheduled ZOSTER VACCINE (1 [facility] Test of 2) [code = of Medicine ZOSTER VACCINE (1 of 2)] Future Scheduled AAA Screen [code = [facility] r College Test AAA Screen] of Medicine Future Scheduled FALL SCREEN [code = [facility] or [facility] Test FALL SCREEN] of Medicine Future Scheduled PNEUMOVAX >=65 [facility] Co llege Test (PPSV23) [code = of Medicine PNEUMOVAX >=65 (PPSV23)] Future Scheduled MEDICARE AWV [facility] Bia ege Test (Initial) [code = of Medicin e MEDICARE AWV (Initial)] Encounters Start End Encounter Admission Attending Care Care Encounter Source Date/Time Date/Time Type Type Clinicians Facility Department ID 2020-10-17 2020-10-17 Office Link, [facility] [id number] [facility] 13:13:31 14:18:58 Visit Jose Butler AMBULATOR [id number] College Y [id number] [id number] [facility] 300 e 2019-06-20 2019-06-20 Office Link, [facility] [id number] 08:22:01 09:59:00 Visit Jose Butler AMBULATOR 350.1.13.21 Y [id number] [id number] 300 2019-06-20 2019-06-20 Office Link, [facility] [id number] [facility] 08:22:01 09:59:00 Visit Jose Butler AMBULATOR 350.1.13.21 College Y 0.2.7.2.686 of [id number] [facility] 300 e Results Test Description Test Time Test Comments Results Result Comments Source POCT URINALYSIS DIPSTICK 2020-10-17 00:00:00 Test Item Value Reference Range Interpretation Comme nts COLOR UA (test code = 5778-6) Yellow YELLOW/STRAW CLARITY UA (test code = 29715-4) Clear CLEAR GLUCOSE UA (test code = 5792-7) Negative NEGATIVE BILIRUBIN UA (test code = 5770-3) Negative NEGATIVE KETONES UA (test code = 34557-3) Negative NEGATIVE SPECIFIC GRAVITY UA (test code = 5811-5) 1.005-1.035 BLOOD UA (test code = 5794-3) Negative NEGATIVE PH UA (test code = 5803-2) 5.0-9.0 PROTEIN UA (test code = 5804-0) Negative NEGATIVE UROBILINOGEN UA (test code = 5818-0) 0.02 E.U/DL NORMAL MG/DL LEUKOCYTE ESTERASE UA (test code = 5799-2) Negative NEGATIVE NITRITE UA (test code = 5802-4) Negative NEGATIVE REDUCING SUBSTANCES URINE (test code = 08107-5) [facility] [id number] 00:00:00 Test Item Value Reference Range Interpretation Comments COLOR UA (test code = 5778-6) Yellow YELLOW/STRAW CLARITY UA (test code = 15585-0) Clear CLEAR GLUCOSE UA (test code = 5792-7) Negative NEGATIVE BILIRUBIN UA (test code = 5770-3) Negative NEGATIVE KETONES UA (test code = 06145-9) Negative NEGATIVE SPECIFIC GRAVITY UA (test code = 1.005-1.035 5811-5) BLOOD UA (test code = 5794-3) Negative NEGATIVE PH UA (test code = 5803-2) 5-9 PROTEIN UA (test code = 5804-0) Negative NEGATIVE UROBILINOGEN UA (test code = 0.02 E.U/DL NORMAL MG/DL 5818-0) LEUKOCYTE ESTERASE UA (test code Negative NEGATIVE = 5799-2) NITRITE UA (test code = 5802-4) Negative NEGATIVE REDUCING SUBSTANCES URINE (test NEGATIVE code = 65935-6) [id number] 16:03:00Surgical Pathology Report Case: [id number] Authorizing Provider: Jose Robins MD Collected: 11/19/2018 1218 Ordering Location: [facility] Received: 11/19/2018 1324 SERVICES Pathologist: Tristan [...] BONE IS PRESENT IN THE TUMORAJCC CLASSIFICATION [id number]. SEE SYNOPTIC REPORT. Signing Pathologist Direct Phone Line: [phone] signed by Tristan Huffman MD on 11/24/2018 at 4:03 PMThiscase has been partially reviewed (slide A5) with Dr. 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 There [...] (pT): pT1a [facility] Lymph Nodes (pN): pNX [id number] massRight renal mass with perirenal fat The specimen is received fresh labeled with the patient's information labeled "right renal masswith perirenal fat" and consists of 170 gm partial nephrectomy that measures 4.5 x 3.8 x 2.6 cm withdetached perirenal fat measuring 8 x 8 x [...] tumor and perirenal fat; A7 and 8, rental representative of detached perirenal fat. Tissue is submitted for tumor banking. CG/pl Performed.BASIC METABOLIC [id number] 07:10:00 Test Item Value Reference Range Interpretation Comments SODIUM (BEAKER) 135 meq/L 136-145 L (test code = 381) POTASSIUM (BEAKER) 3.8 meq/L 3.5-5.1 (test code = 379) CHLORIDE (BEAKER) 108 meq/L 98-107 H (test code = 382) CO2 (BEAKER) (test 20 meq/L 22-29 L code = 355) BLOOD UREA NITROGEN 16 mg/dL 7-21 (BEAKER) (test code = 354) CREATININE (BEAKER) 1.16 mg/dL 0.57-1.25 (test code = 358) GLUCOSE RANDOM 97 mg/dL 70-105 (BEAKER) (test code = 652) CALCIUM (BEAKER) 8.1 mg/dL 8.4-10.2 L (test code = 697) EGFR (BEAKER) (test 62 mL/min/1.73 ESTIMA SYED GFR IS code = 1092) sq m NOT ACCURATE CREATININE CLEARANCE IN PREDICTING GLOMERULAR FILTRATION RATE . ESTIMATED GFR I S NOT APPLICABLE FOR DIALYSIS PATIEN TS. HEMOGLOBIN AND [id number] 06:37:00 Test Item Value Reference Range Interpretation Comments HEMOGLOBIN (BEAKER) (test code = 7.5 GM/DL 13.7-17.5 L 410) HEMATOCRIT (BEAKER) (test code = 24.8 % 40.1-51.0 L 411) HEMOGLOBIN AND [id number] 20:28:00 Test Item Value Reference Range Interpretation Comments HEMOGLOBIN (BEAKER) (test code = 8.1 GM/DL 13.7-17.5 L 410) HEMATOCRIT (BEAKER) (test code = 27.3 % 40.1-51.0 L 411) After transfusionHEMOGLOBIN AND [id number] 13:08:00 Test Item Value Reference Range Interpretation Comments HEMOGLOBIN (BEAKER) (test code = 6.9 GM/DL 13.7-17.5 L 410) HEMATOCRIT (BEAKER) (test code = 23.0 % 40.1-51.0 L 411) BASIC METABOLIC [id number] 06:12:00 Test Item Value Reference Range Interpretation Comments SODIUM (BEAKER) 137 meq/L 136-145 (test code = 381) POTASSIUM (BEAKER) 3.9 meq/L 3.5-5.1 (test code = 379) CHLORIDE (BEAKER) 110 meq/L 98-107 H (test code = 382) CO2 (BEAKER) (test 20 meq/L 22-29 L code = 355) BLOOD UREA NITROGEN 21 mg/dL 7-21 (BEAKER) (test code = 354) CREATININE (BEAKER) 1.29 mg/dL 0.57-1.25 H (test code = 358) GLUCOSE RANDOM 96 mg/dL 70-105 (BEAKER) (test code = 652) CALCIUM (BEAKER) 7.9 mg/dL 8.4-10.2 L (test code = 697) EGFR (BEAKER) (test 55 mL/min/1.73 ESTIMA SYED GFR IS code = 1092) sq m NOT ACCURATE CREATININE CLEARANCE IN PREDICTING GLOMERULAR FILTRATION RATE . ESTIMATED GFR I S NOT APPLICABLE FOR DIALYSIS PATIEN TS. HEMOGLOBIN AND [id number] 05:47:00 Test Item Value Reference Range Interpretation Comments HEMOGLOBIN (BEAKER) (test code = 7.0 GM/DL 13.7-17.5 L 410) HEMATOCRIT (BEAKER) (test code = 23.8 % 40.1-51.0 L 411) BASIC METABOLIC [id number] 05:00:00 Test Item Value Reference Range Interpretation Comments SODIUM (BEAKER) 139 meq/L 136-145 (test code = 381) POTASSIUM (BEAKER) 4.0 meq/L 3.5-5.1 (test code = 379) CHLORIDE (BEAKER) 110 meq/L 98-107 H (test code = 382) CO2 (BEAKER) (test 21 meq/L 22-29 L code = 355) BLOOD UREA NITROGEN 25 mg/dL 7-21 H (BEAKER) (test code = 354) CREATININE (BEAKER) 1.40 mg/dL 0.57-1.25 H (test code = 358) GLUCOSE RANDOM 110 mg/dL 70-105 H (BEAKER) (test code = 652) CALCIUM (BEAKER) 8.1 mg/dL 8.4-10.2 L (test code = 697) EGFR (BEAKER) (test 50 mL/min/1.73 ESTIMA SYED GFR IS code = 1092) sq m NOT ACCURATE CREATININE CLEARANCE IN PREDICTING GLOMERULAR FILTRATION RATE . ESTIMATED GFR I S NOT APPLICABLE FOR DIALYSIS PATIEN TS. HEMOGLOBIN AND [id number] 04:36:00 Test Item Value Reference Range Interpretation Comments HEMOGLOBIN (BEAKER) (test code = 7.4 GM/DL 13.7-17.5 L 410) HEMATOCRIT (BEAKER) (test code = 25.7 % 40.1-51.0 L 411) BASIC METABOLIC [id number] 13:52:00 Test Item Value Reference Range Interpretation Comments SODIUM (BEAKER) 138 meq/L 136-145 (test code = 381) POTASSIUM (BEAKER) 4.6 meq/L 3.5-5.1 (test code = 379) CHLORIDE (BEAKER) 111 meq/L 98-107 H (test code = 382) CO2 (BEAKER) (test 19 meq/L 22-29 L code = 355) BLOOD UREA NITROGEN 30 mg/dL 7-21 H (BEAKER) (test code = 354) CREATININE (BEAKER) 1.35 mg/dL 0.57-1.25 H (test code = 358) GLUCOSE RANDOM 125 mg/dL 70-105 H (BEAKER) (test code = 652) CALCIUM (BEAKER) 7.9 mg/dL 8.4-10.2 L (test code = 697) EGFR (BEAKER) (test 52 mL/min/1.73 ESTIMA SYED GFR IS code = 1092) sq m NOT ACCURATE CREATININE CLEARANCE IN PREDICTING GLOMERULAR FILTRATION RATE . ESTIMATED GFR I S NOT APPLICABLE FOR DIALYSIS PATIEN TS. [facility] [id number] 13:30:00 Test Item Value Reference Range Interpretation Comments HEMOGLOBIN (BEAKER) (test code = 7.2 GM/DL 13.7-17.5 L 410) HEMATOCRIT (BEAKER) (test code = 24.5 % 40.1-51.0 L 411) SODIUM NA-STAT [id number] 09:41:00 Test Item Value Reference Range Interpretation Comments SODIUM (BEAKER) (test code = 381) 138 meq/L 135-148 POTASSIUM-STAT [id number] 09:41:00 Test Item Value Reference Range Interpretation Comments POTASSIUM (BEAKER) (test code = 3.6 meq/L 3.6-5.5 379) BLOOD GAS, [id number] 09:41:00 Test Item Value Reference Range Interpretation Comments PH ARTERIAL (BEAKER) (test code = 7.30 7.35-7.45 L 383) PCO2 ARTERIAL (BEAKER) (test code 45 mmHg 35-45 = 384) PO2 ARTERIAL (BEAKER) (test code 100 mmHg 80-90 H = 385) O2 SATURATION ARTERIAL (BEAKER) 97.0 % 96.0-97.0 (test code = 386) HCO3 ARTERIAL (BEAKER) (test code 22 mmol/L 21-29 = 388) BASE EXCESS ARTERIAL (BEAKER) -4.6 mmol/L -2.0-3.0 L (test code = 387) PATIENT TEMPERATURE (BEAKER) 37.0 C (test code = 1818) FIO2 (BEAKER) (test code = 1819) 21.0 % GLUCOSE-STAT [id number] 09:41:00 Test Item Value Reference Range Interpretation Comments GLUCOSE RANDOM (BEAKER) (test code 139 mg/dL 70-110 H = 652) HGB/HCT (H&H) - STAT [id number] 09:41:00 Test Item Value Reference Range Interpretation Comments HEMOGLOBIN (BEAKER) (test code = 8.0 g/dL 13.0-16.8 L 410) HEMATOCRIT (BEAKER) (test code = 24.0 % 40.0-50.0 L 411) TISSUE [id number] 18:24:00Surgical Pathology Report Case: [id number] Authorizing Provider: Jose Robins MD Collected: 08/17/20181957 Ordering Location: 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 It bulges into the fat but does not conclusively invade the adipose tissue (A9, A12, A19).INTRADEPARTMENTAL CONSULTATION: - Dee Newton MD has seen selected slides and agrees with the diagnosis.KIDNEY: Nephrectomy (Kidney Res - All Specimens)SPECIMEN Procedure: Partial nephrectomy Specimen Laterality: Left TUMOR Tumor Site: Lower pole Histologic Type: Clear cell renal cell carcinoma Histologic Grade (WHO / ISUP Grade): G2: Nucleoli conspicuous and eosinophilic at 400x magnification, visible but not prominent at 100x magnification Tumor Size: Greatest dimension in Centimeters (cm): 4.0 Centimeters (cm) Additional Dimension in Centimeters (cm): [...] Pathologic Findings in Nonneoplastic Kidney: None identified [id number] cell adenocarcinoma left Left renal mass Received fresh labeled "mass", description "left renal mass" is a 6.0 x 4.0 x 4.0 cm left partial nephrectomy specimen.The capsular sections is purple-urbano and smooth with attached focally adherent yellow-urbano adipose tissue.The specimen is serially sectioned to reveal a 4.0 x 3.0 x 2.2 cm, irregular, yellow-gold to red, rubbery, lobulated, hemorrhagic m ass, which abuts the parenchymal resection margin and capsule and appears to invade into the attached perinephric adipose tissue.The surrounding uninvolved renal parenchyma is dark-brown, homogeneous, dense and unremarkable.Ink code: Parenchymal resection margin-black, capsule-blue.Also received in the specimen container is a 15.0 x 8. X 3.0 cm, yellow-urabno, irregular portion of adipose tissue. Sectioning reveals no discrete masses. Section code: A1-A12, rental representative sequential sections of renal mass; A13-A16, rental representative sections of separately received adipose tissue. Additional sections A17-20. DB/ew PerformedBASIC METABOLIC [id number] 11:51:00 Test Item Value Reference Range Interpretation Comments SODIUM (BEAKER) 135 meq/L 136-145 L (test code = 381) POTASSIUM (BEAKER) 3.4 meq/L 3.5-5.1 L (test code = 379) CHLORIDE (BEAKER) 106 meq/L 98-107 (test code = 382) CO2 (BEAKER) (test 21 meq/L 22-29 L code = 355) BLOOD UREA NITROGEN 16 mg/dL 7-21 (BEAKER) (test code = 354) CREATININE (BEAKER) 1.17 mg/dL 0.57-1.25 (test code = 358) GLUCOSE RANDOM 116 mg/dL 70-105 H (BEAKER) (test code = 652) CALCIUM (BEAKER) 8.2 mg/dL 8.4-10.2 L (test code = 697) EGFR (BEAKER) (test 62 mL/min/1.73 ESTIMA SYED GFR IS code = 1092) sq m NOT ACCURATE CREATININE CLEARANCE IN PREDICTING GLOMERULAR FILTRATION RATE . ESTIMATED GFR I S NOT APPLICABLE FOR DIALYSIS PATIEN TS. HEMOGLOBIN AND [id number] 11:31:00 Test Item Value Reference Range Interpretation Comments HEMOGLOBIN (BEAKER) (test code = 8.7 GM/DL 13.7-17.5 L 410) HEMATOCRIT (BEAKER) (test code = 28.1 % 40.1-51.0 L 411) BASIC METABOLIC [id number] 05:37:00 Test Item Value Reference Range Interpretation Comments SODIUM (BEAKER) 133 meq/L 136-145 L (test code = 381) POTASSIUM (BEAKER) 3.5 meq/L 3.5-5.1 (test code = 379) CHLORIDE (BEAKER) 107 meq/L 98-107 (test code = 382) CO2 (BEAKER) (test 20 meq/L 22-29 L code = 355) BLOOD UREA NITROGEN 16 mg/dL 7-21 (BEAKER) (test code = 354) CREATININE (BEAKER) 1.15 mg/dL 0.57-1.25 (test code = 358) GLUCOSE RANDOM 101 mg/dL 70-105 (BEAKER) (test code = 652) CALCIUM (BEAKER) 7.8 mg/dL 8.4-10.2 L (test code = 697) EGFR (BEAKER) (test 63 mL/min/1.73 ESTIMA SYED GFR IS code = 1092) sq m NOT ACCURATE CREATININE CLEARANCE IN PREDICTING GLOMERULAR FILTRATION RATE . ESTIMATED GFR I S NOT APPLICABLE FOR DIALYSIS PATIEN TS. CBC W/PLT COUNT & AUTO [id number] 05:18:00 Test Item Value Reference Range Interpretation Comments WHITE BLOOD CELL COUNT (BEAKER) 11.1 K/ L 3.5-10.5 H (test code = 775) RED BLOOD CELL COUNT (BEAKER) 3.18 M/ L 4.63-6.08 L (test code = 761) HEMOGLOBIN (BEAKER) (test code = 8.0 GM/DL 13.7-17.5 L 410) HEMATOCRIT (BEAKER) (test code = 26.6 % 40.1-51.0 L 411) MEAN CORPUSCULAR VOLUME (BEAKER) 83.6 fL 79.0-92.2 (test code = 753) MEAN CORPUSCULAR HEMOGLOBIN 25.2 pg 25.7-32.2 L (BEAKER) (test code = 751) MEAN CORPUSCULAR HEMOGLOBIN CONC 30.1 GM/DL 32.3-36.5 L (BEAKER) (test code = 752) RED CELL DISTRIBUTION WIDTH 14.8 % 11.6-14.4 H (BEAKER) (test code = 412) PLATELET COUNT (BEAKER) (test 205 K/CU MM 150-450 code = 756) MEAN PLATELET VOLUME (BEAKER) 11.5 fL 9.4-12.4 (test code = 754) NUCLEATED RED BLOOD CELLS 0 /100 WBC 0-0 (BEAKER) (test code = 413) NEUTROPHILS RELATIVE PERCENT 79 % (BEAKER) (test code = 429) LYMPHOCYTES RELATIVE PERCENT 8 % (BEAKER) (test code = 430) MONOCYTES RELATIVE PERCENT 11 % (BEAKER) (test code = 431) EOSINOPHILS RELATIVE PERCENT 2 % (BEAKER) (test code = 432) BASOPHILS RELATIVE PERCENT 0 % (BEAKER) (test code = 437) NEUTROPHILS ABSOLUTE COUNT 8.75 K/ L 1.78-5.38 H (BEAKER) (test code = 670) LYMPHOCYTES ABSOLUTE COUNT 0.86 K/ L 1.32-3.57 L (BEAKER) (test code = 414) MONOCYTES ABSOLUTE COUNT (BEAKER) 1.16 K/ L 0.30-0.82 H (test code = 415) EOSINOPHILS ABSOLUTE COUNT 0.25 K/ L 0.04-0.54 (BEAKER) (test code = 416) BASOPHILS ABSOLUTE COUNT (BEAKER) 0.04 K/ L 0.01-0.08 (test code = 417) IMMATURE GRANULOCYTES-RELATIVE 0 % 0-1 PERCENT (BEAKER) (test code = 2801) CBC W/PLT COUNT & AUTO [id number] 16:39:00 Test Item Value Reference Range Interpretation Comments WHITE BLOOD CELL COUNT (BEAKER) 13.0 K/ L 3.5-10.5 H (test code = 775) RED BLOOD CELL COUNT (BEAKER) 3.44 M/ L 4.63-6.08 L (test code = 761) HEMOGLOBIN (BEAKER) (test code = 8.7 GM/DL 13.7-17.5 L 410) HEMATOCRIT (BEAKER) (test code = 28.3 % 40.1-51.0 L 411) MEAN CORPUSCULAR VOLUME (BEAKER) 82.3 fL 79.0-92.2 (test code = 753) MEAN CORPUSCULAR HEMOGLOBIN 25.3 pg 25.7-32.2 L (BEAKER) (test code = 751) MEAN CORPUSCULAR HEMOGLOBIN CONC 30.7 GM/DL 32.3-36.5 L (BEAKER) (test code = 752) RED CELL DISTRIBUTION WIDTH 15.0 % 11.6-14.4 H (BEAKER) (test code = 412) PLATELET COUNT (BEAKER) (test 224 K/CU MM 150-450 code = 756) MEAN PLATELET VOLUME (BEAKER) 11.9 fL 9.4-12.4 (test code = 754) NUCLEATED RED BLOOD CELLS 0 /100 WBC 0-0 (BEAKER) (test code = 413) (CELLAVISION MANUAL DIFF)[id number] 16:39:00 Test Item Value Reference Range Interpretation Comments NEUTROPHILS - REL 90 % (CELLAVISION)(BEAKER) (test code = 2816) LYMPHOCYTES - REL 5 % (CELLAVISION)(BEAKER) (test code = 2817) MONOCYTES - REL 2 % (CELLAVISION)(BEAKER) (test code = 2818) EOSINOPHILS - REL 2 % (CELLAVISION)(BEAKER) (test code = 2819) BASOPHILS - REL 1 % (CELLAVISION)(BEAKER) (test code = 2820) NEUTROPHILS - ABS 11.70 K/ul 1.78-5.38 H (CELLAVISION)(BEAKER) (test code = 2830) LYMPHOCYTES - ABS 0.65 K/ul 1.32-3.57 L (CELLAVISION)(BEAKER) (test code = 2831) MONOCYTES - ABS 0.26 K/uL 0.30-0.82 L (CELLAVISION)(BEAKER) (test code = 2832) EOSINOPHILS - ABS 0.26 K/uL 0.04-0.54 (CELLAVISION)(BEAKER) (test code = 2834) BASOPHILS - ABS 0.13 K/uL 0.01-0.08 H (CELLAVISION)(BEAKER) (test code = 2835) TOTAL COUNTED (BEAKER) (test code 100 = 1351) WBC MORPHOLOGY (BEAKER) (test Normal code = 487) GIANT PLATELETS (BEAKER) (test Present code = 313) ANISOCYTOSIS (BEAKER) (test code 2+ moderate = 961) MICROCYTES (BEAKER) (test code = 2+ moderate 965) POIKILOCYTES (BEAKER) (test code 1+ few = 966) ELLIPTOCYTES (BEAKER) (test code 1+ few = 962) ARTIFACT (CELLAVISION)(BEAKER) Present (test code = 3432) PLATELET CONCENTRATION Adequate (CELLAVISION)(BEAKER) (test code = 3248) Received comment: User comments: Slide comments:BASIC METABOLIC [id number] 07:05:00 Test Item Value Reference Range Interpretation Comments SODIUM (BEAKER) 137 meq/L 136-145 (test code = 381) POTASSIUM (BEAKER) 3.6 meq/L 3.5-5.1 (test code = 379) CHLORIDE (BEAKER) 108 meq/L 98-107 H (test code = 382) CO2 (BEAKER) (test 23 meq/L 22-29 code = 355) BLOOD UREA NITROGEN 15 mg/dL 7-21 (BEAKER) (test code = 354) CREATININE (BEAKER) 1.13 mg/dL 0.57-1.25 (test code = 358) GLUCOSE RANDOM 92 mg/dL 70-105 (BEAKER) (test code = 652) CALCIUM (BEAKER) 7.8 mg/dL 8.4-10.2 L (test code = 697) EGFR (BEAKER) (test 64 mL/min/1.73 ESTIMA SYED GFR IS code = 1092) sq m NOT ACCURATE CREATININE CLEARANCE IN PREDICTING GLOMERULAR FILTRATION RATE . ESTIMATED GFR I S NOT APPLICABLE FOR DIALYSIS PATIEN TS. HEMOGLOBIN AND [id number] 17:30:00 Test Item Value Reference Range Interpretation Comments HEMOGLOBIN (BEAKER) (test code = 9.2 GM/DL 13.7-17.5 L 410) HEMATOCRIT (BEAKER) (test code = 29.7 % 40.1-51.0 L 411) CBC W/PLT COUNT & AUTO [id number] 10:06:00 Test Item Value Reference Range Interpretation Comments WHITE BLOOD CELL COUNT (BEAKER) 8.6 K/ L 3.5-10.5 (test code = 775) RED BLOOD CELL COUNT (BEAKER) 3.50 M/ L 4.63-6.08 L (test code = 761) HEMOGLOBIN (BEAKER) (test code = 8.9 GM/DL 13.7-17.5 L 410) HEMATOCRIT (BEAKER) (test code = 29.3 % 40.1-51.0 L 411) MEAN CORPUSCULAR VOLUME (BEAKER) 83.7 fL 79.0-92.2 (test code = 753) MEAN CORPUSCULAR HEMOGLOBIN 25.4 pg 25.7-32.2 L (BEAKER) (test code = 751) MEAN CORPUSCULAR HEMOGLOBIN CONC 30.4 GM/DL 32.3-36.5 L (BEAKER) (test code = 752) RED CELL DISTRIBUTION WIDTH 14.8 % 11.6-14.4 H (BEAKER) (test code = 412) PLATELET COUNT (BEAKER) (test 210 K/CU MM 150-450 code = 756) MEAN PLATELET VOLUME (BEAKER) 11.7 fL 9.4-12.4 (test code = 754) NUCLEATED RED BLOOD CELLS 0 /100 WBC 0-0 (BEAKER) (test code = 413) NEUTROPHILS RELATIVE PERCENT 80 % (BEAKER) (test code = 429) LYMPHOCYTES RELATIVE PERCENT 8 % (BEAKER) (test code = 430) MONOCYTES RELATIVE PERCENT 11 % (BEAKER) (test code = 431) EOSINOPHILS RELATIVE PERCENT 1 % (BEAKER) (test code = 432) BASOPHILS RELATIVE PERCENT 0 % (BEAKER) (test code = 437) NEUTROPHILS ABSOLUTE COUNT 6.88 K/ L 1.78-5.38 H (BEAKER) (test code = 670) LYMPHOCYTES ABSOLUTE COUNT 0.65 K/ L 1.32-3.57 L (BEAKER) (test code = 414) MONOCYTES ABSOLUTE COUNT (BEAKER) 0.96 K/ L 0.30-0.82 H (test code = 415) EOSINOPHILS ABSOLUTE COUNT 0.06 K/ L 0.04-0.54 (BEAKER) (test code = 416) BASOPHILS ABSOLUTE COUNT (BEAKER) 0.03 K/ L 0.01-0.08 (test code = 417) IMMATURE GRANULOCYTES-RELATIVE 0 % 0-1 PERCENT (BEAKER) (test code = 2801) BASIC METABOLIC [id number] 07:06:00 Test Item Value Reference Range Interpretation Comments SODIUM (BEAKER) 140 meq/L 136-145 (test code = 381) POTASSIUM (BEAKER) 4.1 meq/L 3.5-5.1 (test code = 379) CHLORIDE (BEAKER) 111 meq/L 98-107 H (test code = 382) CO2 (BEAKER) (test 25 meq/L 22-29 code = 355) BLOOD UREA NITROGEN 18 mg/dL 7-21 (BEAKER) (test code = 354) CREATININE (BEAKER) 1.11 mg/dL 0.57-1.25 (test code = 358) GLUCOSE RANDOM 96 mg/dL 70-105 (BEAKER) (test code = 652) CALCIUM (BEAKER) 8.0 mg/dL 8.4-10.2 L (test code = 697) EGFR (BEAKER) (test 65 mL/min/1.73 ESTIMA SYED GFR IS code = 1092) sq m NOT ACCURATE CREATININE CLEARANCE IN PREDICTING GLOMERULAR FILTRATION RATE . ESTIMATED GFR I S NOT APPLICABLE FOR DIALYSIS PATIEN TS. HEMOGLOBIN AND [id number] 21:41:00 Test Item Value Reference Range Interpretation Comments HEMOGLOBIN (BEAKER) (test code = 13.9 GM/DL 13.7-17.5 410) HEMATOCRIT (BEAKER) (test code = 45.4 % 40.1-51.0 411) BASIC METABOLIC [id number] 21:35:00 Test Item Value Reference Range Interpretation Comments SODIUM (BEAKER) 137 meq/L 136-145 (test code = 381) POTASSIUM (BEAKER) 4.4 meq/L 3.5-5.1 Specimen slightly (test code = 379) hemolyzed CHLORIDE (BEAKER) 109 meq/L 98-107 H (test code = 382) CO2 (BEAKER) (test 22 meq/L 22-29 code = 355) BLOOD UREA NITROGEN 19 mg/dL 7-21 (BEAKER) (test code = 354) CREATININE (BEAKER) 1.18 mg/dL 0.57-1.25 Specimen slightly (test code = 358) hemolyzed GLUCOSE RANDOM 133 mg/dL 70-105 H (BEAKER) (test code = 652) CALCIUM (BEAKER) 7.9 mg/dL 8.4-10.2 L (test code = 697) EGFR (BEAKER) (test 61 mL/min/1.73 ESTIMA SYED GFR IS code = 1092) sq m NOT ACCURATE CREATININE CLEARANCE IN PREDICTING GLOMERULAR FILTRATION RATE . ESTIMATED GFR I S NOT APPLICABLE FOR DIALYSIS PATIEN TS. SODIUM NA-STAT [id number] 20:15:00 Test Item Value Reference Range Interpretation Comments SODIUM (BEAKER) (test code = 381) 137 meq/L 135-148 FIO2: 75TEMP:36FIO2: 75TEMP:36FIO2: 75TEMP:36FIO2: 75TEMP:36FIO2: 75TEMP:36 POTASSIUM-STAT [id number] 20:15:00 Test Item Value Reference Range Interpretation Comments POTASSIUM (BEAKER) (test code = 4.1 meq/L 3.6-5.5 379) FIO2: 75TEMP:36FIO2: 75TEMP:36FIO2: 75TEMP:36FIO2: 75TEMP:36FIO2: 75TEMP:36 CALCIUM, [id number] 20:15:00 Test Item Value Reference Range Interpretation Comments CALCIUM IONIZED (BEAKER) (test 1.05 mmol/L 1.12-1.27 L code = 698) PH, BLOOD (BEAKER) (test code = 7.35 1810) BLOOD GAS, [id number] 20:15:00 Test Item Value Reference Range Interpretation Comments PH ARTERIAL (BEAKER) (test code = 7.36 7.35-7.45 383) PCO2 ARTERIAL (BEAKER) (test code 39 mmHg 35-45 = 384) PO2 ARTERIAL (BEAKER) (test code 172 mmHg 80-90 H = 385) O2 SATURATION ARTERIAL (BEAKER) 99.1 % 96.0-97.0 H (test code = 386) HCO3 ARTERIAL (BEAKER) (test code 22 mmol/L 21-29 = 388) BASE EXCESS ARTERIAL (BEAKER) -3.2 mmol/L -2.0-3.0 L (test code = 387) PATIENT TEMPERATURE (BEAKER) 36.0 C (test code = 1818) FIO2 (BEAKER) (test code = 1819) 75.0 % FIO2: 75TEMP:36FIO2: 75TEMP:36FIO2: 75TEMP:36FIO2: 75TEMP:36FIO2: 75TEMP:36 GLUCOSE-STAT [id number] 20:15:00 Test Item Value Reference Range Interpretation Comments GLUCOSE RANDOM (BEAKER) (test code 145 mg/dL 70-110 H = 652) FIO2: 75TEMP:36FIO2: 75TEMP:36FIO2: 75TEMP:36FIO2: 75TEMP:36FIO2: 75TEMP:36 HGB/HCT (H&H) - STAT [id number] 20:15:00 Test Item Value Reference Range Interpretation Comments HEMOGLOBIN (BEAKER) (test code = 10.4 g/dL 13.0-16.8 L 410) HEMATOCRIT (BEAKER) (test code = 31.0 % 40.0-50.0 L 411) FIO2: 75TEMP:36FIO2: 75TEMP:36FIO2: 75TEMP:36FIO2: 75TEMP:36FIO2: 75TEMP:36 PROTHROMBIN [id number] 12:12:00 Test Item Value Reference Range Interpretation Comments PROTIME (BEAKER) (test code = 14.8 seconds 11.7-14.7 H 759) INR (BEAKER) (test code = 370) 1.2 <=5.9 RECOMMENDED COUMADIN/WARFARIN INR THERAPY RANGESSTANDARD DOSE: 2.0 - 3.0 Includes: PROPHYLAXIS forvenous thrombosis, systemic embolization; TREATMENT for venous thrombosis and/or pulmonary embolus.HIGH RISK: Target INR is 2.5-3.5 for patients with mechanical heart valves.TISSUE [id number] 14:21:00Surgical Pathology Report Case: [id number] Authorizing Provider: Jose Robins MD Collected: 07/09/[id number] Ordering Location: [place] [address] OP Received: 07/09/[id number] Pathologist: Jose Archibald MD Specimen: Kidney, Left, Mass Bx KIDNEY, LEFT INFERIOR POLE, ULTRASOUND-GUIDED CORE NEEDLE 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 Signed: David Leyvaeport Verified Date/Time: 07/09/2018 17:45:45 Reading Location: [address] Ultrasound Reading Room [id number] 13:01:00 Test Item Value Reference Range Interpretation Comments CREATININE (BEAKER) 1.29 mg/dL 0.57-1.25 H (test code = 358) EGFR (BEAKER) (test 55 mL/min/1.73 ESTIMA SYED GFR IS code = 1092) sq m NOT ACCURATE CREATININE CLEARANCE IN PREDICTING GLOMERULAR FILTRATION RATE . ESTIMATED GFR I S NOT APPLICABLE FOR DIALYSIS PATIEN TS. [id number] 12:41:00 Test Item Value Reference Range Interpretation Comments PROTIME (BEAKER) (test code = 14.6 seconds 11.7-14.7 759) INR (BEAKER) (test code = 370) 1.1 <=5.9 PARTIAL THROMBOPLASTIN TIME 28.7 seconds 22.5-36.0 (BEAKER) (test code = 760) RECOMMENDED COUMADIN/WARFARIN INR THERAPY RANGESSTANDARD DOSE: 2.0 - 3.0 Includes: PROPHYLAXIS forvenous thrombosis, systemic embolization; TREATMENT for venous thrombosis and/or pulmonary embolus.HIGH RISK: Target INR is 2.5-3.5 for patients with mechanical heart valves.CBC W/PLT COUNT & AUTO DIFFERENTIAL 2018-07-09 12:32:00 Test Item Value Reference Range Interpretation Comments WHITE BLOOD CELL COUNT (BEAKER) 7.8 K/ L 3.5-10.5 (test code = 775) RED BLOOD CELL COUNT (BEAKER) 4.07 M/ L 4.63-6.08 L (test code = 761) HEMOGLOBIN (BEAKER) (test code = 11.1 GM/DL 13.7-17.5 L 410) HEMATOCRIT (BEAKER) (test code = 34.9 % 40.1-51.0 L 411) MEAN CORPUSCULAR VOLUME (BEAKER) 85.7 fL 79.0-92.2 (test code = 753) MEAN CORPUSCULAR HEMOGLOBIN 27.3 pg 25.7-32.2 (BEAKER) (test code = 751) MEAN CORPUSCULAR HEMOGLOBIN CONC 31.8 GM/DL 32.3-36.5 L (BEAKER) (test code = 752) RED CELL DISTRIBUTION WIDTH 14.5 % 11.6-14.4 H (BEAKER) (test code = 412) PLATELET COUNT (BEAKER) (test 286 K/CU MM 150-450 code = 756) MEAN PLATELET VOLUME (BEAKER) 11.6 fL 9.4-12.4 (test code = 754) NUCLEATED RED BLOOD CELLS 0 /100 WBC 0-0 (BEAKER) (test code = 413) NEUTROPHILS RELATIVE PERCENT 71 % (BEAKER) (test code = 429) LYMPHOCYTES RELATIVE PERCENT 12 % (BEAKER) (test code = 430) MONOCYTES RELATIVE PERCENT 10 % (BEAKER) (test code = 431) EOSINOPHILS RELATIVE PERCENT 5 % (BEAKER) (test code = 432) BASOPHILS RELATIVE PERCENT 1 % (BEAKER) (test code = 437) NEUTROPHILS ABSOLUTE COUNT 5.58 K/ L 1.78-5.38 H (BEAKER) (test code = 670) LYMPHOCYTES ABSOLUTE COUNT 0.96 K/ L 1.32-3.57 L (BEAKER) (test code = 414) MONOCYTES ABSOLUTE COUNT (BEAKER) 0.80 K/ L 0.30-0.82 (test code = 415) EOSINOPHILS ABSOLUTE COUNT 0.41 K/ L 0.04-0.54 (BEAKER) (test code = 416) BASOPHILS ABSOLUTE COUNT (BEAKER) 0.06 K/ L 0.01-0.08 (test code = 417) IMMATURE GRANULOCYTES-RELATIVE 0 % 0-1 PERCENT (BEAKER) (test code = 2807)
[2021-09-18 11:27] LABS: Absolute Lymphocytes (CBC) 1.2 K/uL (0.7-4.9); Hematocrit 43.4 % (39.6-49.0); Lymphocytes % 9.2 % (15.3-44.8); MPV 9.1 fL (7.6-11.3); RBC Red Blood Cell Count 5.09 M/uL (4.33-5.43)
--- NOTE | 2021-09-18 11:34 | RAD REPORT ---
EXAM DESCRIPTION: RAD - Chest Pa And Lat (2 Views) - 09/18/2021 11:04 am CLINICAL HISTORY: Cough;Congestion COMPARISON: Abdomen 1 View (KUB) dated 07/26/2020; Chest Pa And Lat (2 Views) dated 06/30/2019; Ches t Single View dated 01/27/2019; Chest Pa And Lat (2 Views) dated 09/12/2016 FINDINGS: Lines: None. Lungs: No evidence of edema or pneumonia. Pleural: No significant pleural effusions or pneumothorax. Cardiac: The heart size is within normal limits. Bones: No acute fractures. Spinal stimulator. Other: IMPRESSION: No acute cardiopulmonary disease.
[2021-09-18 11:42] LABS: Potassium 3.7 mmol/L (3.5-5.1)
[2021-09-18 13:03] LABS: SARS-COV-2 RT PCR NEGATIVE (NEGATIVE)
--- NOTE | 2021-09-18 14:21 | EDPHYS ---
Physician Documentation [facility] Name: Zen Pink Age: 71 yrs Sex: Male : 1950 Arrival Date: 09/18/2021 Time: 10:28 Bed 17 Private MD: ED Physician Pacheco Wood HPI: 09/18 14:09 This 71 yrs old Male presents to ER via Ambulatory with complaints of Shortness Of kb Breath, Chest Congestion, Cough. 14:09 The patient has shortness of breath at rest. Onset: The symptoms/episode began/occurred kb 1 week(s) ago. Duration: The symptoms are continuous. The patient's shortness of breath is aggravated by nothing, is alleviated by nothing. Associated signs and symptoms: Pertinent positives: non-productive cough, Pertinent negatives: chest pain, productive cough, fever. Severity of symptoms: At their worst the symptoms were moderate in the emergency department the symptoms are unchanged. The patient has not experienced similar symptoms in the past. The patient has not recently seen a physician. Pt reports cough, congestion and increased shortness of breath for a week. Historical: - Allergies: 10:45 Codeine; ss 10:45 Latex, Natural Rubber; ss 10:45 PENICILLINS; ss - PMHx: 10:45 asbestosis; Asthma; COPD; Hyperlipidemia; Hypertension; stege 3 kidney disease; ss - Immunization history:: Client reports having NOT received the Covid vaccine. - Social history:: Smoking status: Patient/guardian denies using tobacco, the patient reports quitting approximately 31 years ago. ROS: 14:06 Constitutional: Negative for fever, chills, and weight loss. kb 14:06 Respiratory: Positive for cough, shortness of breath, Negative for dyspnea on exertion, hemoptysis, orthopnea, pleurisy, sputum production, wheezing. 14:06 All other systems are negative. Exam: 14:06 Constitutional: This is a well developed, well nourished patient who is awake, alert, kb and in no acute distress. Head/Face: Normocephalic, atraumatic. ENT: Moist Mucous membranes Cardiovascular: Regular rate and rhythm with a normal S1 and S2. No gallops, murmurs, or rubs. No pulse deficits. Respiratory: Respirations even and unlabored. No increased work of breathing. Talking in full sentences Skin: Warm, dry with normal turgor. Normal color. MS/ Extremity: Pulses equal, no cyanosis. Neurovascular intact. Full, normal range of motion. Neuro: Awake and alert, GCS 15, oriented to person, place, time, and situation. Moves all extremities. Normal gait. Psych: Awake, alert, with orientation to person, place and time. Behavior, mood, and affect are within normal limits. Vital Signs: 10:42 BP 119 / 85; Pulse 113; Resp 23; Temp 98.1(O); Pulse Ox 100% on R/A; Weight 124.74 kg; ss Height 6 ft. 4 in. (193.04 cm); Pain 0/10; 11:45 BP 118 / 75; Pulse 115; Resp 23 S; Pulse Ox 95% ; jg9 12:00 BP 100 / 62; Pulse 114; Resp 25 S; Pulse Ox 96% on R/A; jg9 12:15 BP 109 / 78; Pulse 113; Resp 24 S; Pulse Ox 92% on 2 lpm NC; jg9 13:00 BP 122 / 87; Pulse 107; Resp 22 S; Pulse Ox 86% on R/A; jg9 14:00 BP 118 / 69; Pulse 109; Resp 20 S; Pulse Ox 99% on 2 lpm NC; jg9 10:42 Body Mass Index 33.47 (124.74 kg, 193.04 cm) ss MDM: 10:47 Patient medically screened. annmarie 14:05 Data reviewed: vital signs, nurses notes. Data interpreted: Pulse oximetry: on room air kb is 100 %. Interpretation: normal. 14:07 ED course: Pt had a "Coughing fit" and oxygen dropped into the 80s for a short time. RN annmarie put pt on oxygen at that time and pt states that seems to help. States he is feeling better today than he had been over the last few days. I discussed admission with pt, but he does not want to stay in the hospital. States he has nebs at home and will follow up with Dr Bustamante, but cannot stay here because his is at home and he needs to get back to take care of her. Due to patient's history I will send him home on antibiotics and steroids with strict return precautions. Will give solumedrol prior to discharge. Pt refuses neb treatment here, states he will do one at home. 14:19 Data reviewed: I have discussed the patient's presentation/case with the attending Emergency Department Physician;. Counseling: I had a detailed discussion with the patient and/or guardian regarding: the historical points, exam findings, and any diagnostic results supporting the discharge/admit diagnosis, lab results, radiology results, the need for outpatient follow up, a family practitioner, to return to the emergency department if symptoms worsen or persist or if there are any questions or concerns that arise at home. 09/18 10:47 Order name: CBC with Diff; Complete Time: 11:30 kb 09/18 10:47 Order name: Basic Metabolic Panel; Complete Time: 11:59 kb 09/18 10:47 Order name: COVID-19/FLU A+B (Document "Date of Onset" if Symptomatic); Complete Time: kb 13:05 09/18 12:30 Order name: LFT's 09/18 12:30 Order name: Magnesium 09/18 12:30 Order name: NT PRO-BNP 09/18 10:47 Order name: Chest Pa And Lat (2 Views) XRAY; Complete Time: 11:36 kb 09/18 12:30 Order name: Troponin (emerg Dept Use Only) 09/18 12:30 Order name: EKG; Complete Time: 12:31 kb 09/18 12:30 Order name: Cardiac monitoring; Complete Time: 13:28 kb 09/18 12:30 Order name: EKG - Nurse/Tech; Complete Time: 13:28 kb 09/18 12:30 Order name: Procalcitonin 09/18 12:30 Order name: IV Saline Lock; Complete Time: 13:28 kb 09/18 12:30 Order name: Labs collected and sent; Complete Time: 13:28 kb 09/18 12:30 Order name: O2 Per Protocol; Complete Time: 13:28 kb 09/18 12:30 Order name: O2 Sat Monitoring; Complete Time: 13:29 kb Administered Medications: 14:25 Drug: SOLU-Medrol (methylPrednisoLONE) 125 mg Route: IVP; Site: left wrist; jg9 14:33 Follow up: Response: No adverse reaction jg9 Disposition: 15:38 Co-signature as Attending Physician, Pacheco Wood MD I agree with the assessment and rn plan of care. Attestation: The patient's history, exam findings, diagnostics, and a summary of any interventions or procedures was reviewed in detail with Abigail WARNER. Disposition Summary: 09/18/21 14:20 Discharge Ordered Location: Home kb Condition: Stable kb Diagnosis - COPD/ Chronic obstructive pulmonary disease with (acute) exacerbation kb Followup: kb - With: Emergency Department - When: As needed - Reason: Worsening of condition Followup: kb - With: Private Physician - When: 2 - 3 days - Reason: Recheck today's complaints, Continuance of care, Re-evaluation by your physician Discharge Instructions: - Discharge Summary Sheet kb - Chronic Obstructive Pulmonary Disease Exacerbation kb Forms: - Medication Reconciliation Form kb - Thank You Letter kb - Antibiotic Education kb - Prescription Opioid Use kb Prescriptions: - Prednisone 20 mg Oral Tablet - take 1 tablet by ORAL route once daily for 5 days; 5 tablet; Refills: 0, kb Product Selection Permitted - Zithromax 500 mg Oral Tablet - take 1 tablet by ORAL route once daily for 5 days; 5 tablet; Refills: 0, kb Product Selection Permitted Signatures: Dispatcher [employer] EDMS Abigail Khanna FNP-C FNP-Ckb Nieto, Roman, MD MD rn Smirch, Shelby, RN RN ss Gilmore, Jennifer jg9 Corrections: (The following items were deleted from the chart) 14:19 14:07 ED course: Pt had a "Coughing fit" and oxygen dropped into the 80s for a short kb time. RN put pt on oxygen at that time and pt states that seems to help. States he is feeling better today than he had been over the last few days. I discussed admission with pt, but he does not want to stay in the hospital. States he has nebs at home and will follow up with Dr Bustamante, but cannot stay here because his is at home and he needs to get back to take care of her. . kb 14:20 14:07 ED course: Pt had a "Coughing fit" and oxygen dropped into the 80s for a short kb time. RN put pt on oxygen at that time and pt states that seems to help. States he is feeling better today than he had been over the last few days. I discussed admission with pt, but he does not want to stay in the hospital. States he has nebs at home and will follow up with Dr Bustamante, but cannot stay here because his is at home and he needs to get back to take care of her. Due to patient's history I will send him home on antibiotics and steroids with strict return precautions. . kb
--- NOTE | 2021-09-18 14:21 | ER ---
Nurse's Notes [facility] Name: Zen Pink Age: 71 yrs Sex: Male : 1950 Arrival Date: 09/18/2021 Time: 10:28 Bed 17 Private MD: Diagnosis: COPD/ Chronic obstructive pulmonary disease with (acute) exacerbation Presentation: 09/18 10:42 Chief complaint: Patient states: shortness of breath, cough and congestion x 1 week. Pt ss states he is feeling better, but still becomes short of breath on exertion, and cannot sleep at night because he is coughing so much. Coronavirus screen: Client denies travel out of the [place] in the last 14 days. Ebola Screen: Patient denies exposure to infectious person. Patient denies travel to an Ebola-affected area in the 21 days before illness onset. Initial Sepsis Screen: Does the patient meet any 2 criteria? No. Patient's initial sepsis screen is negative. Does the patient have a suspected source of infection? No. Patient's initial sepsis screen is negative. Risk Assessment: Do you want to hurt yourself or someone else? Patient reports no desire to harm self or others. Onset of symptoms was September 11, 2021. 10:42 Method Of Arrival: Ambulatory ss 10:42 Acuity: DOMINICK 3 ss Triage Assessment: 11:22 Respiratory: Onset: The symptoms/episode began/occurred gradually. jg9 11:22 Respiratory: the patient has moderate shortness of breath. jg9 Historical: - Allergies: 10:45 Codeine; ss 10:45 Latex, Natural Rubber; ss 10:45 PENICILLINS; ss - PMHx: 10:45 asbestosis; Asthma; COPD; Hyperlipidemia; Hypertension; stege 3 kidney disease; ss - Immunization history:: Client reports having NOT received the Covid vaccine. - Social history:: Smoking status: Patient/guardian denies using tobacco, the patient reports quitting approximately 31 years ago. Screenin:22 Abuse screen: Denies threats or abuse. Denies injuries from another. Nutritional jg9 screening: No deficits noted. Tuberculosis screening: No symptoms or risk factors identified. Fall Risk None identified. Assessment: 11:10 General: Appears comfortable, Behavior is anxious. Pain: Denies pain. Neuro: No jg9 deficits noted. Cardiovascular: Rhythm is sinus tachycardia. Respiratory: Reports shortness of breath on exertion Hx of COPD with worsening sob for the past several days, patient reports he has been using inhalers at home with no changes Airway is patent Respiratory effort is even, labored, Breath sounds are diminished bilaterally. 12:12 Reassessment: Patient had coughing spell at which time his spo2 dropped into the low jg9 80's, 2L supplemental given via NC. Vital Signs: 10:42 BP 119 / 85; Pulse 113; Resp 23; Temp 98.1(O); Pulse Ox 100% on R/A; Weight 124.74 kg; ss Height 6 ft. 4 in. (193.04 cm); Pain 0/10; 11:45 BP 118 / 75; Pulse 115; Resp 23 S; Pulse Ox 95% ; jg9 12:00 BP 100 / 62; Pulse 114; Resp 25 S; Pulse Ox 96% on R/A; jg9 12:15 BP 109 / 78; Pulse 113; Resp 24 S; Pulse Ox 92% on 2 lpm NC; jg9 13:00 BP 122 / 87; Pulse 107; Resp 22 S; Pulse Ox 86% on R/A; jg9 14:00 BP 118 / 69; Pulse 109; Resp 20 S; Pulse Ox 99% on 2 lpm NC; jg9 10:42 Body Mass Index 33.47 (124.74 kg, 193.04 cm) ED Course: 10:28 Patient arrived in ED. ds1 10:42 Abigail Khanna FNP-C is PHCP. kb 10:42 Pacheco Wood MD is Attending Physician. kb 10:44 Triage completed. ss 10:45 Arm band placed on right wrist. ss 10:57 Rehana Noel is Primary Nurse. jg9 11:04 Chest Pa And Lat (2 Views) XRAY In Process Unspecified. EDMS 11:10 Patient has correct armband on for positive identification. Bed in low position. Call jg9 light in reach. Side rails up X 1. 14:32 No provider procedures requiring assistance completed. jg9 14:33 IV discontinued. jg9 Administered Medications: 14:25 Drug: SOLU-Medrol (methylPrednisoLONE) 125 mg Route: IVP; Site: left wrist; jg9 14:33 Follow up: Response: No adverse reaction jg9 Outcome: 14:20 Discharge ordered by MD. anguiano 14:32 Discharged to home ambulatory. jg9 14:32 Condition: stable 14:32 Discharge instructions given to patient, Instructed on discharge instructions, follow up and referral plans. Demonstrated understanding of instructions, follow-up care, medications, Prescriptions given X 2. 14:34 Patient left the ED. jg9 Signatures: Dispatcher [employer] EDAbigail Guthrie, TIMMY JAIMEP-Divina Dorado ds1 Bettina Willson, FILI RN Rehana Colon jg9
[2021-09-18] MEDS ORDERED: METHYLPREDNISOLONE 125 MG INJ ONE (14:23)
[2021-09-18 14:47] VITALS: TEMP 98.1
[2021-09-18 14:54] VITALS: BP 118/69; O2SAT 99
[2021-09-18 15:35] LABS: ALT/SGPT 37 U/L (12-78); AST/SGOT 29 U/L (15-37); Alkaline Phosphatase 124 U/L (45-117); Bilirubin Direct 0.1 mg/dL (0-0.2); Bilirubin Total 0.6 mg/dL (0.2-1.0); Magnesium 1.9 mg/dL (1.8-2.4); NT PRO-BNP 225 pg/mL (<125); Protein, Total 7.9 g/dL (6.4-8.2); Troponin (Emerg Dept Use Only) < 0.02 ng/mL (0.0-0.045)
== END 2021-09-18 14:34 | disposition home or self-care (01) ==
LOC: ER 10:23
DX: J44.1 Chronic obstructive pulmonary disease with (acute) exacerbation (principal); Z88.0 Allergy status to penicillin; Z88.5 Allergy status to narcotic agent; Z91.040 Latex allergy status; Z91.048 Other nonmedicinal substance allergy status; Z20.822 Contact with and (suspected) exposure to COVID-19
CPT/HCPCS: 93005; 85025; 80048; 36415; 83735; 80076; 84484; 84145; 83880; 0240U; 71046; 96374; 99284; J2930

== ENCOUNTER 2021-12-18 03:35 | Inpatient (IN) | payer OTHER ==
--- OUTSIDE RECORDS SUMMARY | 2021-12-18 03:40 | XMS REPORT | Continuity of Care Document ---
:1950 Author Organization [facility] t Address [address] [place] [address] Care Team Providers Name Role Phone WILLARD THURMAN Primary Care Physician Unavailable SAVANNAH CORDOVA Attending Clinician Unavailable LINK, Carrie Attending Clinician Unavailable Link Carrie MAHONEY Attending Clinician SAVANNAH CORDOVA Admitting Clinician Unavailable Payers Payer Name Policy Type Policy Number Effective Date Expiration Date S ource AETNA MEDICARE HMO [id number] 2017 POS PPO 00:00:00 MEDICARE PLAN PPO [id number] - [employer]ET[employer] Problems Condition Condition Condition Status Onset Resolution Last Treating Co mments Source Name Details Category Date Date Treatment Clinician Date Renal cell Renal cell Disease Active [facility] carcinoma, carcinoma, 3-31 Co llege right right 00:00: [facility] ([facility] 00 Medici n e CKD CKD Disease Active 2017-09 [facility] (chronic (chronic 1-14 Colleg e kidney kidney 00:00: of disease) disease) 00 Medici n stage 3, stage 3, e GFR 30-59 GFR 30-59 ml/min ml/min Renal cell Renal cell Disease Active 2017-09 [facility] carcinoma, carcinoma, 1-14 Co llege left left 00:00: of (HCCode) (HCCode) 00 Medici n e Bilateral Bilateral Disease Active 2017-09 [facility] renal renal 1-14 College masses masses 00:00: of 00 Medicin e Allergies, Adverse Reactions, Alerts Allergy Allergy Status Severity Reaction(s) Onset Inactive Treating Comm ents Source Name Type Date Date Clinician Codeine Propensi Active 2017-09 [facility] ty to 09-27 [facility] [place] adverse 00:00: of reaction 00 Medicin s to e drug Latex Propensi Active 2017-09 [facility] ty to 09-27 [facility] [place] adverse 00:00: of reaction 00 Medicin s to e substanc e Penicill Propensi Active 2017-09 [facility] ins ty to 09-27 [facility] [place] adverse 00:00: of reaction 00 Medicin s to e drug CODEINE Allergy Active Low Itching 2017-09 [facility] 0-26 00:00: 00 LATEX Allergy Active Low Rash 2017-09 [facility] 0-26 00:00: 00 PENICILL Allergy Active Low Itching 2017-09 [facility] INS 0-26 00:00: 00 Social History Social Habit Start Date Stop Date Quantity Comments Source Alcohol intake 2021-10-16 2021-10-16 Current [facility] Col lege 00:00:00 00:00:00 non-drinker of of Medicin e alcohol (finding) Tobacco use and 2018-06-14 2018-06-14 Smokeless tobacco Ba [facility] exposure 00:00:00 00:00:00 non-user of Medicine Sex Ass[birth year] [facility] Co llege 00:00:00 00:00:00 of Medicine Smoking Status Start Date Stop Date Source Ex-smoker 2018-06-14 00:00:00 2018-06-14 00:00:00 [facility] Pete ollenavjot of Medicine Medications Ordered Filled Start Stop Current Ordering Indication Dosage Frequency Signature Comments Components Source Medication Medication Date Date Medication? Clinician (SIG) Name Name colchicine Yes 1{tbl} 1 Tablet. Sridhar (COLCRYS) 10-16 College 0.6 MG 13:28: of tablet 40 Medicin e allopurinol Yes allopurino Sridhar (ZYLOPRIM) 202 l 100 mg Colle ge 100 MG 13:27: tablet of tablet 21 Medicin e ropinirole Yes ropinirole [facility] (REQUIP) 2 2-02 2 mg College MG tablet 13:27: tablet of 21 Medicin e pravastatin Yes 80mg Take 80 mg Sridhar (PRAVACHOL) 2 by mouth Bia [facility] 80 MG 13:27: daily. of tablet 21 Medicin e duloxetine Yes 60mg Take 60 mg [facility] (CYMBALTA) 10-16 by mouth Colle ge 60 MG 13:27: daily. of capsule 21 Medicin e lansoprazol Yes 30mg Take 30 mg Sridhar e (PREVACID 10-16 by mouth Bia ege SOLUTAB) 30 13:27: daily. of MG 21 Medicin disintegrat e ing tablet Tamsulosin Yes Take by [place] [facility] HCl 0.4 MG 10-16 mouth. College CAPS 13:27: of 21 Medicin e olmesartan Yes 40mg Take 40 mg [facility] (BENICAR) 10-16 by mouth Colleg e 20 MG 13:27: daily. of tablet 21 Medicin e PROAIR HFA Yes [facility]ridhar 10-16 [facility] [place] 13:27: of 21 Medicin e Nutritional Yes Take by [facility] Supplements 10-16 mouth. Colleg e (VITAMIN D 13:27: of BOOSTER OR) 21 Medicin e Loratadine Yes Take by [place] [facility] (CLARITIN 10-16 mouth as Colleg e OR) 13:27: needed. of 21 Medicin e olmesartan Yes 40mg Take 40 mg [facility] (BENICAR) 10-17 by mouth Colleg e 20 MG 20:16: daily. of tablet 34 Medicin e allopurinol Yes allopurino [facility] (ZYLOPRIM) 03 l 100 mg Colle ge 100 MG 20:15: tablet of tablet 20 Medicin e ropinirole Yes ropinirole [facility] (REQUIP) 2 03 2 mg College MG tablet 20:15: tablet of 20 Medicin e pravastatin Yes 80mg Take 80 mg [facility]ridhar (PRAVACHOL) 03 by mouth [facility] 80 MG 20:15: daily. of tablet 20 Medicin e duloxetine Yes 60mg Take 60 mg [facility] (CYMBALTA) -03 by mouth Colle ge 60 MG 20:15: daily. of capsule 20 Medicin e lansoprazol Yes 30mg Take 30 mg Sridhar e (PREVACID 2-03 by mouth [facility] SOLUTAB) 30 20:15: daily. of MG 20 Medicin disintegrat e ing tablet Tamsulosin Yes Take by [place] [facility] HCl 0.4 MG 2-03 mouth. College CAPS 20:15: of 20 Medicin e PROAIR HFA Yes Sridhar 2-03 College 20:15: of 20 Medicin e Nutritional Yes Take by [facility] Supplements 2-03 mouth. Colleg e (VITAMIN D 20:15: of BOOSTER OR) 20 Medicin e Loratadine Yes Take by [place] [facility] (CLARITIN 2-03 mouth. College OR) 20:15: of 20 Medicin e allopurinol 2018-09 Yes allopurino [facility] (ZYLOPRIM) 0-07 l 100 mg Colle ge 100 MG 14:18: tablet of tablet 48 Medicin e ropinirole 2018-09 Yes ropinirole [facility] (REQUIP) 2 0-07 2 mg College MG tablet 14:18: tablet of 48 Medicin e pravastatin 2018-09 Yes 80mg Take 80 mg [facility] (PRAVACHOL) 0-07 by mouth [facility] 80 MG 14:18: daily. of tablet 48 Medicin e duloxetine 2018-09 Yes 60mg Take 60 mg [facility] (CYMBALTA) 0-07 by mouth Colle ge 60 MG 14:18: daily. of capsule 48 Medicin e lansoprazol 2018-09 Yes 30mg Take 30 mg [facility] e (PREVACID 0-07 by mouth [facility]ia [facility] SOLUTAB) 30 14:18: daily. of MG 48 Medicin disintegrat e ing tablet Tamsulosin 2018-09 Yes Take by [place] [facility] HCl 0.4 MG 0-07 mouth. College CAPS 14:18: of 48 Medicin e olmesartan 2018-09 Yes 20mg Take 20 mg [facility] (BENICAR) 0-07 by mouth Colleg e 20 MG 14:18: daily. of tablet 48 Medicin e PROAIR HFA 2018-09 Yes [facility]ridhar 0-07 [facility] [place] 14:18: of 48 Medicin e Nutritional 2018-09 Yes Take by [facility] Supplements 0-07 mouth. Colleg e (VITAMIN D 14:18: of BOOSTER OR) 48 Medicin e Loratadine 2018-09 Yes Take by [place] [facility] (CLARITIN 0-07 mouth. [place] OR) 14:18: of 48 Medicin e Rivaroxaban 2018-09- No Take by Kirt peña (XARELTO) 0-07 - mouth. [facility] [place] 20 MG TABS 14:15: 00:00 of 20 :00 Medicin e SYMBICORT 2019-0 Yes [facility] 160-4.5 9- [facility] [place] MCG/ACT 00:00: of AERO 00 Medicin e SYMBICORT 2018-0 Yes [facility] 160-4.5 05-21 [facility] [place] MCG/ACT 00:00: of AERO 00 Medicin e SYMBICORT 2018-0 Yes [facility] 160-4.5 07 [facility] [place] MCG/ACT 00:00: of AERO 00 Medicin e Vital Signs Vital Name Observation Time Observation Value Comments Source Diastolic blood 2021-10-16 19:24:00 91 mm[Hg] [facility] Medicine Heart rate 2021-10-16 19:24:00 105 /min [facility] Systolic blood 2021-10-16 19:24:00 142 mm[Hg] [facility] Medicine Systolic blood 2020-10-17 20:14:00 144 mm[Hg] [facility] Medicine Diastolic blood 2020-10-17 20:14:00 80 mm[Hg] [facility] Heart rate 2020-10-17 20:14:00 100 /min [facility] Body temperature 2020-10-17 20:14:00 35.67 [facility] Respiratory rate 2020-10-17 20:14:00 18 /min [facility] Body height 2020-10-17 20:14:00 193 cm [facility] Body weight 2020-10-17 20:14:00 122.471 kg [facility] BMI 2020-10-17 20:14:00 32.87 kg/m2 [facility] Systolic blood 2019-06-20 14:13:00 96 mm[Hg] [facility] Diastolic blood 2019-06-20 14:13:00 64 mm[Hg] [facility] Medicine Heart rate 2019-06-20 14:13:00 61 /min [facility] Body temperature 2019-06-20 14:13:00 36.72 [facility] Body height 2019-06-20 14:13:00 193 cm [facility] Body weight 2019-06-20 14:13:00 117.935 kg [facility] BMI 2019-06-20 14:13:00 31.65 kg/m2 [facility] Systolic blood 2019-06-20 14:13:00 96 mm[Hg] [facility] pressure Medicine Diastolic blood 2019-06-20 14:13:00 64 mm[Hg] [facility] Medicine Heart rate 2019-06-20 14:13:00 61 /min [facility] Body temperature 2019-06-20 14:13:00 36.72 [facility] Body height 2019-06-20 14:13:00 193 cm [facility] Body weight 2019-06-20 14:13:00 117.935 kg [facility] BMI 2019-06-20 14:13:00 31.65 kg/m2 [facility] Procedures Procedure Date / Time Performed [facility] 2020-10[facility]17 00:00:00 Jose Cordova Sridharfalguni [facility] of [facility] POCT URINALYSIS 2019-06-20 00:00:00 Jose Cordova [facility] Vanita of [facility] Medicine Plan of Care Planned Activity Planned Date Details Comments Source Future Scheduled 2022-10-16 US RENAL BILATERAL Expected: [employer] Test 00:00:00 [code = 02831] 10/16/2022, of Medicine Expires: 10/16/2022 Future Scheduled 2021-10-17 CT ABDOMEN PELVIS W Expected: [facility] [employer] Test 00:00:00 WO CONTRAST [code = 10/17/2021, of Medic ine 37421-6] Expires: 10/17/2021 Future Scheduled 2021-10-17 XR CHEST PA AND Expected: [facility] Test 00:00:00 LATERAL [code = 10/17/2021, of Medicine 52354-0] Expires: 10/17/2021 Future Scheduled 2021-10-16 Screening for [facility] Col [facility]ge Test 13:45:05 malignant neoplasm of Medici ne of colon (procedure) [code = 156742429] Future Scheduled 2021-10-16 COVID-19 Vaccine (1) [place] [facility] [employer] Test 13:45:05 [code = COVID-19 of Medicine Vaccine (1)] Future Scheduled 2021-10-16 TETANUS SHOT (ADULT) [employer] [facility] [employer] Test 13:45:05 [code = TETANUS SHOT of Medi cine (ADULT)] Future Scheduled 2021-10-16 BMI FOLLOW UP PLAN [employer] Test 13:45:05 [code = BMI FOLLOW of Medici ne UP PLAN] Future Scheduled 2021-10-16 Hepatitis C [facility] Bia [facility]ge Test 13:45:05 screening of Medicine (procedure) [code = 468038800] Future Scheduled 2021-10-16 ZOSTER VACCINE (1 of [place] [facility] [employer] Test 13:45:05 2) [code = ZOSTER of Medicin e VACCINE (1 of 2)] Future Scheduled 2021-10-16 Abdominal aortic [facility] College Test 13:45:05 aneurysm screening of Medici ne (procedure) [code = 375046236] Future Scheduled 2021-10-16 Pneumococcal 65+ (1 [employer] Test 13:45:05 of 1 - PPSV23) [code of Medi cine = Pneumococcal 65+ (1 of 1 - PPSV23)] Future Scheduled 2021-10-16 MEDICARE AWV [facility] Test 13:45:05 (Initial) [code = of Medicin e MEDICARE AWV (Initial)] Future Scheduled 2021-10-16 FALL SCREEN [code = [employer] Test 13:45:05 FALL SCREEN] of Medicine Future Scheduled 2021-10-16 XR CHEST PA AND 1 Occurrences [facility] College Test 13:39:17 LATERAL [code = starting of Medicine 45277-3] 10/16/2021 until 10/16/2022 Future Scheduled COLON CANCER [facility] Test SCREENING: of Medicine COLONOSCOPY [code = COLON CANCER SCREENING: COLONOSCOPY] Future Scheduled MEDICARE AWV [code = [place] [facility] Test MEDICARE AWV] of Medicine Future Scheduled TETANUS SHOT (ADULT) [place] [facility] [employer] Test [code = TETANUS SHOT of Medi cine (ADULT)] Future Scheduled BMI FOLLOW UP PLAN [employer] Test [code = BMI FOLLOW of Medici ne UP PLAN] Future Scheduled HEPATITIS C [facility] [employer] Test SCREENING [code = of Medicin e HEPATITIS C SCREENING] Future Scheduled AAA Screen [code = [employer] [facility] AAA Screen] of Medicine Future Scheduled FALL SCREEN [code = [employer] Test FALL SCREEN] of Medicine Future Scheduled PNEUMOVAX >=65 [facility] Co llege Test (PPSV23) [code = of Medicine PNEUMOVAX >=65 (PPSV23)] Future Scheduled PREVNAR >= 65 [facility] Col [facility]ge Test (PCV13) [code = of Medicine PREVNAR >= 65 (PCV13)] Future Scheduled FLU VACCINE > 6 [facility] C ollege Test MONTHS [code = FLU of Medici ne VACCINE > 6 MONTHS] Future Scheduled COLON CANCER [facility] Bia [facility]ge Test SCREENING: of Medicine COLONOSCOPY [code = COLON CANCER SCREENING: COLONOSCOPY] Future Scheduled COVID-19 Vaccine [facility] College Test Evaluation [code = of Medici ne COVID-19 Vaccine Evaluation] Future Scheduled TETANUS SHOT (ADULT) [place] [facility] [employer] Test [code = TETANUS SHOT of Medi cine (ADULT)] Future Scheduled BMI FOLLOW UP PLAN [employer] Test [code = BMI FOLLOW of Medici ne UP PLAN] Future Scheduled HEPATITIS C [facility]ge Test SCREENING [code = of Medicin e HEPATITIS C SCREENING] Future Scheduled ZOSTER VACCINE (1 of [place] [facility] [employer] Test 2) [code = ZOSTER of Medicin e VACCINE (1 of 2)] Future Scheduled AAA Screen [code = [employer] Test AAA Screen] of Medicine Future Scheduled FALL SCREEN [code = [employer] Test FALL SCREEN] of Medicine Future Scheduled PNEUMOVAX >=65 [facility] Co llege Test (PPSV23) [code = of Medicine PNEUMOVAX >=65 (PPSV23)] Future Scheduled MEDICARE AWV [facility] Bia [facility]ge Test (Initial) [code = of Medicin e MEDICARE AWV (Initial)] Encounters Start End Encounter Admission Attending Care Care Encounter Source Date/Time Date/Time Type Type Clinicians Facility Department ID 2021-10-16 2021-10-16 Outpatient [facility] [id number] [facility] 14:04:45 23:59:00 JOSE 2021-10-16 2021-10-16 Office [facility] [id number] [facility] 13:09:18 15:59:13 Visit JOSE AMBULATOR 350.1.13.21 College Y 0.2.7.2.686 of [id number] Medi shantelle 300 e 2021-10-10 2021-10-16 Outpatient [facility] [id number] [facility] 13:20:35 12:02:26 Colleg e of Medicin e 2020-10-17 2020-10-17 Office Link, [facility] [id number] [facility] 13:13:31 14:18:58 Visit Jose Butler AMBULATOR 350.1.13.21 College Y 0.2.7.2.686 of [id number] Medi shantelle 300 e 2019-06-20 2019-06-20 Office Link, [facility] [id number] [facility] 08:22:01 09:59:00 Visit Jose Butler AMBULATOR 350.1.13.21 College Y 0.2.7.2.686 of [id number] Medi shantelle 300 e 2019-06-20 2019-06-20 Office Link, [facility] [id number] 08:22:01 09:59:00 Visit Jose Butler AMBULATOR 350.1.13.21 Y 0.2.7.2.686 [id number] Results Test Description Test Time Test Comments Results Result [facility] e Comments RAD, CHEST, 2 2021-10-17 Reason for VIEWS 08:36:00 Exam:->renal cell carcinoma, [facility] - MEDICAL Exam:->renal CENTERName: delmer LOCK right TEE DELANO : 1950 Sex: M FINAL REPORT EXAMINATION: RAD, CHEST, 2 VIEWS INDICATION: renal cell carcinoma, leftrenal cacinoma, right COMPARISON: None FINDINGS: AP view TUBES and LINES: Neurostimulator lead within the posterior lower thoracic spine. LUNGS: Lungs are well inflated. Minimal atelectasis in both lung bases. Few tiny dense vessels in the right apex and right lower lobe are indeterminate and may reflect calcified granulomas versus end vessels. There is no evidence of pneumonia or pulmonary edema. PLEURA: No pleural effusion or pneumothorax. HEART AND MEDIASTINUM: The cardiomediastinal silhouette is unremarkable. Tortuous thoracic aorta. BONES AND SOFT TISSUES: No acute osseous lesion. Soft tissues are unremarkable. UPPER ABDOMEN: No free air under the diaphragm. IMPRESSION: No acute thoracic abnormality. Specifically, no suspicious pulmonary nodules or enlarged lymphadenopathy. Signed: Felisha Holloway Verified Date/Time: 10/17/2021 08:36:25 Reading Location: [facility] Reading Room [address] [place] [address] URINALYSIS DIPSTICK 2020-10-17 00:00:00 Test Item Value Reference Range Interpretation Comme nts COLOR UA (test code = 5778-6) Yellow YELLOW/STRAW CLARITY UA (test code = 20809-3) Clear CLEAR GLUCOSE UA (test code = 5792-7) Negative NEGATIVE BILIRUBIN UA (test code = 5770-3) Negative NEGATIVE KETONES UA (test code = 28344-3) Negative NEGATIVE SPECIFIC GRAVITY UA (test code [...] NEGATIVE REDUCING SUBSTANCES URINE (test code = 94299-7) [facility] [id number] 00:00:00 Test Item Value Reference Range Interpretation Comments COLOR UA (test code = 5778-6) Yellow YELLOW/STRAW CLARITY UA (test code = 59361-1) Clear CLEAR GLUCOSE UA (test code = 5792-7) Negative NEGATIVE BILIRUBIN UA (test code = 5770-3) Negative NEGATIVE KETONES UA (test code = 20261-2) Negative NEGATIVE SPECIFIC GRAVITY UA (test code [...] REDUCING SUBSTANCES URINE (test NEGATIVE code = 51096-4) [facility] [id number] 16:03:00Surgical Pathology Report Case: [id number] Authorizing Provider: Jose Cordova MD Collected: 11/19/2018 1218 Ordering Location: [facility] PERIOPERATIVE Received: 11/19/2018 1324 SERVICES Pathologist: [...] BONE IS PRESENT IN THE TUMORAJCC CLASSIFICATION [id number]. SEE SYNOPTIC REPORT. Signing Pathologist Direct Phone Line: [phone] signed by Tristan Huffman MD on 11/24/2018 [...] (pT): pT1a Regional Lymph Nodes (pN): pNX 88406Hhyey massRight renal mass with perirenal fat The [...] tumor and perirenal fat; A7 and 8, key account representative of detached perirenal fat. Tissue is submitted for tumor banking. CG/pl Performed.BASIC METABOLIC [id number] 07:10:00 Test Item Value Reference Range Interpretation [...] APPLICABLE FOR DIALYSIS PATIEN TS. HEMOGLOBIN AND [id number] 06:37:00 Test Item Value Reference Range Interpretation Comments HEMOGLOBIN (BEAKER) (test code = 7.5 GM/DL 13.7-17.5 L 410) HEMATOCRIT (BEAKER) (test code = 24.8 % 40.1-51.0 L 411) HEMOGLOBIN AND [id number] 20:28:00 Test Item Value Reference Range Interpretation Comments HEMOGLOBIN (BEAKER) (test code = 8.1 GM/DL 13.7-17.5 L 410) HEMATOCRIT (BEAKER) (test code = 27.3 % 40.1-51.0 L 411) After transfusionHEMOGLOBIN AND [id number] 13:08:00 Test Item Value Reference Range Interpretation Comments HEMOGLOBIN (BEAKER) (test code = 6.9 GM/DL 13.7-17.5 L 410) HEMATOCRIT (BEAKER) (test code = 23.0 % 40.1-51.0 L 411) BASIC METABOLIC [id number] 06:12:00 Test Item Value Reference Range Interpretation [...] APPLICABLE FOR DIALYSIS PATIEN TS. HEMOGLOBIN AND [id number] 05:47:00 Test Item Value Reference Range Interpretation Comments HEMOGLOBIN (BEAKER) (test code = 7.0 GM/DL 13.7-17.5 L 410) HEMATOCRIT (BEAKER) (test code = 23.8 % 40.1-51.0 L 411) BASIC METABOLIC [id number] 05:00:00 Test Item Value Reference Range Interpretation [...] APPLICABLE FOR DIALYSIS PATIEN TS. HEMOGLOBIN AND [id number] 04:36:00 Test Item Value Reference Range Interpretation Comments HEMOGLOBIN (BEAKER) (test code = 7.4 GM/DL 13.7-17.5 L 410) HEMATOCRIT (BEAKER) (test code = 25.7 % 40.1-51.0 L 411) BASIC METABOLIC [id number] 13:52:00 Test Item Value Reference Range Interpretation [...] FOR DIALYSIS PATIEN TS. Upon arrival to PACEMOGLOBIN AND [id number] 13:30:00 Test Item Value Reference Range Interpretation Comments HEMOGLOBIN (BEAKER) (test code = 7.2 GM/DL 13.7-17.5 L 410) HEMATOCRIT (BEAKER) (test code = 24.5 % 40.1-51.0 L 411) SODIUM NA-STAT [id number] 09:41:00 Test Item Value Reference Range Interpretation Comments SODIUM (BEAKER) (test code = 381) 138 meq/L 135-148 POTASSIUM-STAT [id number] 09:41:00 Test Item Value Reference Range Interpretation Comments POTASSIUM (BEAKER) (test code = 3.6 meq/L 3.6-5.5 379) BLOOD GAS, [id number] 09:41:00 Test Item Value Reference Range Interpretation [...] (test code = 1819) 21.0 % GLUCOSE-STAT [id number] 09:41:00 Test Item Value Reference Range Interpretation Comments GLUCOSE RANDOM (BEAKER) (test code 139 mg/dL 70-110 H = 652) HGB/HCT (H&H) - STAT [id number] 09:41:00 Test Item Value Reference Range Interpretation Comments HEMOGLOBIN (BEAKER) (test code = 8.0 g/dL 13.0-16.8 L 410) HEMATOCRIT (BEAKER) (test code = 24.0 % 40.0-50.0 L 411) TISSUE [id number] 18:24:00Surgical Pathology Report Case: [id number] Authorizing Provider: Jose Cordova MD Collected: 08/17/20181957 Ordering Location: [facility] PERIOPER[facility] Received: 08/18/2018 0820 SERVICES Pathologist: Aylin Aranog MD Specimen: Mass, Left renal mass KIDNEY, LEFT, PARTIAL NEPHRECTOMY: - CLEAR CELL RENAL CELL CARCINOMA, 4.0 CM ~ NUCLEAR GRADE 2 ~ PARENCHYMA L MARGIN FOCALLY POSITIVE FOR CARCINOMA - NO LYMPH-VASCULAR OR ELLEN-NEURAL INVASION IDENTIFIED -PATHOLOGIC STAGE CLASSIFICATION (pTNM, AJCC 8th Edition) : pT1a pNX pMX Signing Pathologist Direct Phone Line: [phone] signed by Aylin Arango MD on 08/24/2018 [...] Pathologic Findings in Nonneoplastic Kidney: None identified 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 Section code: A1-A12, key account representative sequential sections of renal mass; A13-A16, key account representative sections of separately received adipose tissue. Additional sections A17-20. DB/ew [facility] METABOLIC [id number] 11:51:00 Test Item Value Reference Range Interpretation [...] APPLICABLE FOR DIALYSIS PATIEN TS. HEMOGLOBIN AND [id number] 11:31:00 Test Item Value Reference Range Interpretation Comments HEMOGLOBIN (BEAKER) (test code = 8.7 GM/DL 13.7-17.5 L 410) HEMATOCRIT (BEAKER) (test code = 28.1 % 40.1-51.0 L 411) BASIC METABOLIC [id number] 05:37:00 Test Item Value Reference Range Interpretation [...] PATIEN TS. CBC W/PLT COUNT & AUTO [id number] 05:18:00 Test Item Value Reference Range Interpretation [...] = 2801) CBC W/PLT COUNT & AUTO [id number] 16:39:00 Test Item Value Reference Range Interpretation [...] PLATELET CONCENTRATION Adequate (CELLAVISION)(BEAKER) (test code = 3438) Received comment: User comments: Slide comments:BASIC METABOLIC [id number] 07:05:00 Test Item Value Reference Range Interpretation [...] APPLICABLE FOR DIALYSIS PATIEN TS. HEMOGLOBIN AND [id number] 17:30:00 Test Item Value Reference Range Interpretation Comments HEMOGLOBIN (BEAKER) (test code = 9.2 GM/DL 13.7-17.5 L 410) HEMATOCRIT (BEAKER) (test code = 29.7 % 40.1-51.0 L 411) CBC W/PLT COUNT & AUTO [id number] 10:06:00 Test Item Value Reference Range Interpretation [...] (BEAKER) (test code = 2801) BASIC METABOLIC [id number] 07:06:00 Test Item Value Reference Range Interpretation [...] APPLICABLE FOR DIALYSIS PATIEN TS. HEMOGLOBIN AND [id number] 21:41:00 Test Item Value Reference Range Interpretation Comments HEMOGLOBIN (BEAKER) (test code = 13.9 GM/DL 13.7-17.5 410) HEMATOCRIT (BEAKER) (test code = 45.4 % 40.1-51.0 411) BASIC METABOLIC [id number] 21:35:00 Test Item Value Reference Range Interpretation [...] APPLICABLE FOR DIALYSIS PATIEN TS. SODIUM NA-STAT [id number] 20:15:00 Test Item Value Reference Range Interpretation Comments SODIUM (BEAKER) (test code = 381) 137 meq/L 135-148 FIO2: 75TEMP:36FIO2: 75TEMP:36FIO2: 75TEMP:36FIO2: 75TEMP:36FIO2: 75TEMP:36 POTASSIUM-STAT [id number] 20:15:00 Test Item Value Reference Range Interpretation Comments POTASSIUM (BEAKER) (test code = 4.1 meq/L 3.6-5.5 379) FIO2: 75TEMP:36FIO2: 75TEMP:36FIO2: 75TEMP:36FIO2: 75TEMP:36FIO2: 75TEMP:36 CALCIUM, [id number] 20:15:00 Test Item Value Reference Range Interpretation Comments CALCIUM IONIZED (BEAKER) (test 1.05 mmol/L 1.12-1.27 L code = 698) PH, BLOOD (BEAKER) (test code = 7.35 1810) BLOOD GAS, [id number] 20:15:00 Test Item Value Reference Range Interpretation [...] FIO2: 75TEMP:36FIO2: 75TEMP:36FIO2: 75TEMP:36FIO2: 75TEMP:36FIO2: 75TEMP:36 GLUCOSE-STAT [id number] 20:15:00 Test Item Value Reference Range Interpretation Comments GLUCOSE RANDOM (BEAKER) (test code 145 mg/dL 70-110 H = 652) FIO2: 75TEMP:36FIO2: 75TEMP:36FIO2: 75TEMP:36FIO2: 75TEMP:36FIO2: 75TEMP:36 HGB/HCT (H&H) - STAT [id number] 20:15:00 Test Item Value Reference Range Interpretation Comments HEMOGLOBIN (BEAKER) (test code = 10.4 g/dL 13.0-16.8 L 410) HEMATOCRIT (BEAKER) (test code = 31.0 % 40.0-50.0 L 411) FIO2: 75TEMP:36FIO2: 75TEMP:36FIO2: 75TEMP:36FIO2: 75TEMP:36FIO2: 75TEMP:36 PROTHROMBIN [id number] 12:12:00 Test Item Value Reference Range Interpretation Comments PROTIME (BEAKER) (test code = 14.8 seconds 11.7-14.7 H 759) INR (BEAKER) (test code = 370) 1.2 <=5.9 RECOMMENDED COUMADIN/WARFARIN INR THERAPY RANGESSTANDARD DOSE: 2.0 - 3.0 Includes: PROPHYLAXIS forvenous thrombosis, systemic embolization; TREATMENT for venous thrombosis and/or pulmonary embolus.HIGH RISK: Target INR is 2.5-3.5 for patients with mechanical heart valves.TISSUE [id number] 14:21:00Surgical Pathology Report Case: [id number] Authorizing Provider: Jose Cordova MD Collected: 07/09/2018 0239 Ordering Location: [facility] 6 OP Received: 07/09/20182144 Pathologist: Jose Archibald MD Specimen: Kidney, Left, Mass Bx KIDNEY, LEFT INFERIOR POLE, ULTRASOUND-GUIDED CORE NEEDLE BIOPSY:- CONVENTIONAL CLEAR CELL RENAL CELL CARCINOMA, FURHMAN NUCLEAR GRADE 2 Signing Pathologist Direct Phone Line: [phone] signed by Jose Archibald MD on 07/21/2018 at 2:21 PMPreliminary result electronically signed by Jose Archibald MD on 07/13/2018 at 1:34 PMPreliminary result electronically signed by Jose Archibald MD on 07/10/2018 at 12:23 [id number] inferior pole renal massUltrasound-guided biopsy of renal [...] MDReport Verified Date/Time: 07/09/2018 17:45:45 Reading Location: [address] Ultrasound Reading Room [id number] 13:01:00 Test Item Value Reference Range Interpretation Comments CREATININE (BEAKER) 1.29 mg/dL 0.57-1.25 H (test code = 358) EGFR (BEAKER) (test 55 mL/min/1.73 ESTIMA SYED GFR IS code = 1092) sq m NOT ACCURATE CREATININE CLEARANCE IN PREDICTING GLOMERULAR FILTRATION RATE . ESTIMATED GFR I S NOT APPLICABLE FOR DIALYSIS PATIEN TS. [id number] 12:41:00 Test Item Value Reference Range Interpretation [...] % 0-1 PERCENT (BEAKER) (test code = 8644)
[2021-12-18 04:24] LABS: Absolute Lymphocytes (CBC) 0.6 K/uL (0.7-4.9); Hematocrit 46.1 % (39.6-49.0); Lymphocytes % 4.6 % (15.3-44.8); MPV 9.9 fL (7.6-11.3); RBC Red Blood Cell Count 5.49 M/uL (4.33-5.43)
[2021-12-18 04:38] LABS: Protime INR 1.12
[2021-12-18] MEDS ORDERED: METHYLPREDNISOLONE 125 MG INJ ONE (04:40)
[2021-12-18] MEDS ORDERED: CEFTRIAXONE 1000 MG/VIAL ONE (04:41)
[2021-12-18] MEDS ORDERED: ONDANSETRON 4 MG/2 ML VIAL ONE (04:41)
[2021-12-18] MEDS ORDERED: AZITHROMYCIN 500 MG INJ IVPB ONE (04:41)
[2021-12-18] MEDS ORDERED: MORPHINE 2 MG/ML SYR ONE ×2 (04:41→09:40)
[2021-12-18] MEDS ORDERED: NA CHLORIDE 0.9% 100 ML IV ONE (04:42)
[2021-12-18] MEDS ORDERED: NA CHLORIDE 0.9% 250 ML ONE (04:42)
[2021-12-18] MEDS ORDERED: NA CHLORIDE 0.9% 1,000 ML ONE (04:42)
[2021-12-18 04:45] LABS: Albumin 3.5 g/dL (3.4-5.0); Bilirubin Total 0.8 mg/dL (0.2-1.0); Potassium 3.6 mmol/L (3.5-5.1); Protein, Total 7.4 g/dL (6.4-8.2)
[2021-12-18] MEDS: CEFTRIAXONE 1,000 MG in NA CHLORIDE 0.9% 50 ML IVPB SCH (04:54)
[2021-12-18] MEDS: AZITHROMYCIN IV 250 MG in NA CHLORIDE 0.9% 250 ML IVPB SCH (05:09)
[2021-12-18 05:18] LABS: Bilirubin Direct 0.2 mg/dL (0-0.2); Magnesium 1.9 mg/dL (1.8-2.4)
[2021-12-18 05:46] LABS: Troponin High Sensitivity 5.5 pg/mL (<58.9)
--- NOTE | 2021-12-18 06:09 | ER ---
Nurse's Notes [facility] Name: Zen Pink Age: 71 yrs Sex: Male : 1950 Arrival Date: 12/18/2021 Time: 03:38 Bed 14 Private MD: Diagnosis: Dyspnea;Pleurisy;Coronavirus infection, unspecified;Pneumonia due to SARS-associated coronavirus;Elevated white blood cell count;Unspecified kidney failure-renal insufficency Presentation: 12/18 03:52 Chief complaint: Patient states: he has had Covid x 3 weeks and was getting better but bb woke up this morning worse with difficulty breathing, chest pain, back pain, fever. Coronavirus screen: Client presents with at least one sign or symptom that may indicate coronavirus-19. Standard/surgical mask placed on the client. Ebola Screen: No symptoms or risks identified at this time. Initial Sepsis Screen: Does the patient meet any 2 criteria? RR > 20 per min. HR > 90 bpm. Yes Does the patient have a suspected source of infection? Yes: Productive cough/pneumonia. Risk Assessment: Do you want to hurt yourself or someone else? Patient reports no desire to harm self or others. Onset of symptoms was December 18, 2021. 03:52 Method Of Arrival: Wheelchair bb 03:52 Acuity: DOMINICK 2 bb Triage Assessment: 04:10 General: Appears uncomfortable, Behavior is calm, cooperative. Pain: Complains of pain as6 in Chest pain, back pain. Neuro: Level of Consciousness is awake, alert, obeys commands, Oriented to person, place, time, situation. Cardiovascular: Patient's skin is warm and dry. Respiratory: Reports shortness of breath Onset: The symptoms/episode began/occurred yesterday, the patient has moderate shortness of breath. Derm: Skin is pink, warm \T\ dry. Historical: - Allergies: 03:54 Codeine; bb 03:54 Latex, Natural Rubber; bb 03:54 PENICILLINS; bb - PMHx: 03:54 asbestosis; Asthma; COPD; Hyperlipidemia; Hypertension; stege 3 kidney disease; bb - Immunization history:: Client reports having NOT received the Covid vaccine. - Social history:: Smoking status: Patient/guardian denies using tobacco, but has a distant history of tobacco abuse. Screenin:21 Abuse screen: Denies threats or abuse. Nutritional screening: No deficits noted. as6 Tuberculosis screening: No symptoms or risk factors identified. Fall Risk No fall in past 12 months (0 pts). No secondary diagnosis (0 pts). IV access (20 points). Ambulatory Aid- None/Bed Rest/Nurse Assist (0 pts). Gait- Normal/Bed Rest/Wheelchair (0 pts) Mental Status- Oriented to own ability (0 pts). Total Figueroa Fall Scale indicates No Risk (0-24 pts). Assessment: 04:21 General: See triage assessment. Cardiovascular: Reports chest pain, shortness of as6 breath, Rhythm is sinus tachycardia. Respiratory: Airway is patent Respiratory effort is labored, Respiratory pattern is tachypnea Breath sounds are diminished Breath sounds with wheezes bilaterally. Derm: Skin is pink, warm \T\ dry. 05:30 Reassessment: No changes from previously documented assessment. Patient and/or family ll3 updated on plan of care and expected duration. Pain level reassessed. States pain is a bit better 6/10. 06:30 Reassessment: No changes from previously documented assessment. Patient and/or family ll3 updated on plan of care and expected duration. Pain level reassessed. States he feels about the same, declines more pain medication at this time. Vital Signs: 03:52 BP 137 / 99; Pulse 127; Resp 26 S; Temp 99.1(O); Pulse Ox 96% on R/A; Weight 122.47 kg bb (R); Height 6 ft. 4 in. (193.04 cm) (R); Pain 8/10; 05:00 BP 135 / 88; Pulse 110; Resp 30; Pulse Ox 94% on 3 lpm NC; ll3 05:30 BP 137 / 84; Pulse 112; Resp 18; Pulse Ox 94% on 3 lpm NC; ll3 06:45 BP 137 / 75; Pulse 98; Resp 26; Pulse Ox 94% on 3 lpm NC; ll3 03:52 Body Mass Index 32.87 (122.47 kg, 193.04 cm) ED Course: 03:38 Patient arrived in ED. ja2 03:44 Rajinder Archuleta MD is Attending Physician. jono 03:54 Triage completed. bb 03:54 Arm band placed on Patient placed in an exam room, on a stretcher, on telemetry monitor, bb on pulse oximetry. EKG completed in triage. Results shown to MD. 04:00 Inserted saline lock: 20 gauge in right antecubital area, using aseptic technique. bb Blood collected. 04:15 Initial lab(s) drawn, by me, sent to lab. First set of blood cultures drawn by me, bb Second set of blood cultures drawn by me. 04:21 Patient has correct armband on for positive identification. Placed in gown. Bed in low as6 position. Call light in reach. Side rails up X 1. compliance monitor on. Pulse ox on. NIBP on. 04:21 Oxygen administration via nasal cannula \T\ 2L/min. as6 04:35 XRAY Chest (1 view) In Process Unspecified. EDMS 05:40 CT Chest Wo Con In Process Unspecified. EDMS 06:06 Sybil Orona MD is Hospitalizing Provider. jono 07:22 Geovani Gonzalez MD is Hospitalizing Provider. jono 07:42 Xuan Tiwari, RN is Primary Nurse. vg1 07:42 COVID swab sent to lab. vg1 Administered Medications: 04:49 Drug: Zofran (Ondansetron) 4 mg Route: IVP; Site: right antecubital; ll3 06:09 Follow up: Response: No adverse reaction ll3 04:50 Drug: NS 0.9% 1000 ml Route: IV; Rate: 1 bolus; Site: right antecubital; ll3 04:50 Drug: morphine 2 mg Route: IVP; Site: right antecubital; ll3 06:09 Follow up: Response: No adverse reaction ll3 04:54 Drug: Rocephin (cefTRIAXone) 2 grams Route: IV; Rate: per protocol; Site: right ll3 antecubital; 05:09 Follow up: Response: No adverse reaction; IV Status: Completed infusion; IV Intake: ll3 100ml 05:06 Drug: SOLU-Medrol (methylPrednisoLONE) 125 mg Route: IVP; Site: right antecubital; ll3 06:09 Follow up: Response: No adverse reaction ll3 05:09 Drug: Zithromax (azithromycin) 500 mg Route: IVPB; Infused Over: 1 hrs; Site: right ll3 antecubital; 06:10 Follow up: Response: No adverse reaction; IV Status: Completed infusion; IV Intake: ll3 250ml 06:39 Drug: Pepcid (famotidine) 20 mg Route: IVP; Site: right antecubital; ll3 06:40 Drug: Lovenox (enoxaparin) 90 mg Route: Sub-Q; Site: abdomen; ll3 Intake: 05:09 IV: 100ml; Total: 100ml. ll3 06:10 IV: 250ml; Total: 350ml. ll3 Outcome: 06:08 Decision to Hospitalize by Provider. jono 18:41 Patient left the ED. ap3 Signatures: Dispatcher [employer] EDCO Rajinder Archuleta MD MD cha Ballard, Brenda, RN RN Tiffanie Granados RN RN ap3 Xuan Tiwari RN RN Lexis Brito Ashby, RN RN as6 Anjelica Khan RN RN ll3
--- NOTE | 2021-12-18 06:09 | EDPHYS ---
Physician Documentation [facility] Name: Zen Pink Age: 71 yrs Sex: Male : 1950 Arrival Date: 12/18/2021 Time: 03:38 Bed 14 Private MD: ED Physician Rajinder Archuleta HPI: 12/18 04:24 This 71 yrs old Male presents to ER via Wheelchair with complaints of jono Breathing Difficulty, Chest Pain, Flank Pain, Back Pain, Fever. 04:24 The patient has shortness of breath at rest, with light activity. Onset: The jono symptoms/episode began/occurred 2 day(s) ago. Duration: The symptoms are continuous, and are steadily getting worse. The patient's shortness of breath is aggravated by coughing. Associated signs and symptoms: Pertinent positives: non-productive cough, fever. Severity of symptoms: At their worst the symptoms were mild moderate in the emergency department the symptoms are unchanged. The patient has not experienced similar symptoms in the past. Historical: - Allergies: 03:54 Codeine; bb 03:54 Latex, Natural Rubber; bb 03:54 PENICILLINS; bb - PMHx: 03:54 asbestosis; Asthma; COPD; Hyperlipidemia; Hypertension; stege 3 kidney disease; bb - Immunization history:: Client reports having NOT received the Covid vaccine. - Social history:: Smoking status: Patient/guardian denies using tobacco, but has a distant history of tobacco abuse. ROS: 04:25 Constitutional: Negative for fever, chills, and weight loss, Eyes: Negative for injury, jono pain, redness, and discharge, ENT: Negative for injury, pain, and discharge, Neck: Negative for injury, pain, and swelling, Abdomen/GI: Negative for abdominal pain, nausea, vomiting, diarrhea, and constipation, Back: Negative for injury and pain, : Negative for injury, bleeding, discharge, and swelling, MS/Extremity: Negative for injury and deformity, Skin: Negative for injury, rash, and discoloration, Neuro: Negative for headache, weakness, numbness, tingling, and seizure, Psych: Negative for depression, anxiety, suicide ideation, homicidal ideation, and hallucinations, Allergy/Immunology: Negative for hives, rash, and allergies, Endocrine: Negative for neck swelling, polydipsia, polyuria, polyphagia, and marked weight changes, Hematologic/Lymphatic: Negative for swollen nodes, abnormal bleeding, and unusual bruising. 04:25 Cardiovascular: Positive for chest pain, with cough. 04:25 Respiratory: Positive for cough, shortness of breath, wheezing. Exam: 04:25 Constitutional: This is a well developed, well nourished patient who is awake, alert, jono and in no acute distress. Head/Face: Normocephalic, atraumatic. Eyes: Pupils equal round and reactive to light, extra-ocular motions intact. Lids and lashes normal. Conjunctiva and sclera are non-icteric and not injected. Cornea within normal limits. Periorbital areas with no swelling, redness, or edema. ENT: Nares patent. No nasal discharge, no septal abnormalities noted. Tympanic membranes are normal and external auditory canals are clear. Oropharynx with no redness, swelling, or masses, exudates, or evidence of obstruction, uvula midline. Mucous membranes moist. Neck: Trachea midline, no thyromegaly or masses palpated, and no cervical lymphadenopathy. Supple, full range of motion without nuchal rigidity, or vertebral point tenderness. No Meningismus. Chest/axilla: Normal chest wall appearance and motion. Nontender with no deformity. No lesions are appreciated. Abdomen/GI: Soft, non-tender, with normal bowel sounds. No distension or tympany. No guarding or rebound. No evidence of tenderness throughout. Back: No spinal tenderness. No costovertebral tenderness. Full range of motion. Male : Normal genitalia with no discharge or lesions. Skin: Warm, dry with normal turgor. Normal color with no rashes, no lesions, and no evidence of cellulitis. MS/ Extremity: Pulses equal, no cyanosis. Neurovascular intact. Full, normal range of motion. Neuro: Awake and alert, GCS 15, oriented to person, place, time, and situation. Cranial nerves II-XII grossly intact. Motor strength 5/5 in all extremities. Sensory grossly intact. Cerebellar exam normal. Normal gait. Psych: Awake, alert, with orientation to person, place and time. Behavior, mood, and affect are within normal limits. 04:25 Cardiovascular: Rate: tachycardic, actual rate is 127 bpm, Rhythm: regular, Heart sounds: normal, Edema: is not appreciated, JVD: is not appreciated. 04:25 ECG was reviewed by the Attending Physician. Vital Signs: 03:52 BP 137 / 99; Pulse 127; Resp 26 S; Temp 99.1(O); Pulse Ox 96% on R/A; Weight 122.47 kg bb (R); Height 6 ft. 4 in. (193.04 cm) (R); Pain 8/10; 05:00 BP 135 / 88; Pulse 110; Resp 30; Pulse Ox 94% on 3 lpm NC; ll3 05:30 BP 137 / 84; Pulse 112; Resp 18; Pulse Ox 94% on 3 lpm NC; ll3 06:45 BP 137 / 75; Pulse 98; Resp 26; Pulse Ox 94% on 3 lpm NC; ll3 03:52 Body Mass Index 32.87 (122.47 kg, 193.04 cm) bb MDM: 03:44 Patient medically screened. jono 04:27 Differential diagnosis: CHF exacerbation, Chronic Obstructive Pulmonary Disease jono bronchitis, flu, URI, abnormal EKG, acute pericarditis, anxiety, chest wall pain, hiatal hernia, pancreatitis, pneumonia, pneumothorax, pulmonary embolus, unstable angina, Myocardial Infarction pneumonia, pulmonary edema, reactive airway disease, Unstable Angina. Antibiotic administration: Rocephin and Zithromax given. HEART Score: History: Slightly Suspicious (0), ECG: Non specific repolarization disturbance / LBTB / PM (1), Age: > or = 65 years (2), Risk Factors: > or = 3 Risk factors for atherosclerotic disease (2), [Hypercholesterolemia] [Hypertension] [+ Family HX] Troponin: < or = 1 x Normal Limit (0). The patient was given aspirin in the Emergency Department. The patient's Wells Deep Vein Thrombosis Score was calculated as follows: Heart Rate >100 BPM (1.5 Pts) Total Score: 0-2 Pts- Low Risk. The patient's pulmonary embolism risk score was calculated as follows: Total Score: 0-2 points. This patient was found to be at low risk for a pulmonary embolism by using the Well's assessment criteria the patients heart rate is greater than 100 beats per minute (1.5 Pts) Total Score: 0-2 points. This patient was found to be at low risk for a pulmonary embolism by using the Well's assessment criteria. RETA Risk Score: 1 - patient's age is greater or equal to 65 years, 1 - Three or more CAD risk factors, 1- Known CAD, 1 - ASA use in past 7 days, TOTAL SCORE = 4. Immunization status: Pneumococcal vaccine: Influenza vaccine:. Data reviewed: vital signs, nurses notes, lab test result(s), EKG, radiologic studies. Data interpreted: stock driver: rate is 127 beats/min, rhythm is regular, Pulse oximetry: on room air. Test interpretation: by ED physician or midlevel provider: ECG, plain radiologic studies. 12/18 04:08 Order name: Blood Culture Adult (2) as 12/18 04:08 Order name: CBC with Diff; Complete Time: 04:45 as6 12/18 04:08 Order name: CMP; Complete Time: 06:02 as6 12/18 04:08 Order name: Lactate; Complete Time: 05:02 as6 12/18 04:08 Order name: Protime (+inr); Complete Time: 05:02 as6 12/18 04:08 Order name: Ptt, Activated; Complete Time: 05:02 as6 12/18 04:58 Order name: Bilirubin Direct; Complete Time: 06:02 EDOR 12/18 04:58 Order name: Troponin High Sensitivity; Complete Time: 06:02 EDMS 12/18 04:58 Order name: NT PRO-BNP; Complete Time: 06:02 EDMS 12/18 04:23 Order name: XRAY Chest (1 view) [facility] 12/18 04:31 Order name: CT Chest Wo Con [facility] 12/18 04:58 Order name: Magnesium; Complete Time: 06:02 EDOR 12/18 06:47 Order name: COVID-19/FLU A+B (Document "Date of Onset" if Symptomatic) [facility] 12/18 07:29 Order name: VQ scan (Nuclear Medicine) [facility] 12/18 07:29 Order name: US Extremity Venous W Compression Mitchel [facility] 12/18 08:22 Order name: US EDOR 12/18 09:25 Order name: COVID-19/FLU A+B EDOR 12/18 04:08 Order name: Accucheck; Complete Time: 04:28 as6 12/18 04:08 Order name: Cardiac monitoring; Complete Time: 04:08 as6 12/18 04:08 Order name: EKG - Nurse/Tech; Complete Time: 04:08 as12/18 04:08 Order name: IV Saline Lock - Large Bore; Complete Time: 04:08 as12/18 04:08 Order name: Labs collected and sent; Complete Time: 04:08 12/18 04:08 Order name: O2 Per Protocol; Complete Time: 04:08 12/18 04:08 Order name: O2 Sat Monitoring; Complete Time: 04:08 as6 12/18 04:23 Order name: EKG; Complete Time: 04:24 jono 12/18 04:23 Order name: IV Saline Lock; Complete Time: 04:27 jono 12/18 06:18 Order name: CONS Physician Consult EDMS 12/18 06:18 Order name: CONS Physician Consult EDMS EC:25 Rate is 148 beats/min. Rhythm is regular. QRS [place] is Normal. ME interval is normal. jono QRS interval is normal. QT interval is normal. No Q waves. T waves are Normal. No ST changes noted. Clinical impression: Sinus tachycardia and No evidence of ischemia. Interpreted by me. Reviewed by me. Administered Medications: 04:49 Drug: Zofran (Ondansetron) 4 mg Route: IVP; Site: right antecubital; ll3 06:09 Follow up: Response: No adverse reaction ll3 04:50 Drug: NS 0.9% 1000 ml Route: IV; Rate: 1 bolus; Site: right antecubital; ll3 04:50 Drug: morphine 2 mg Route: IVP; Site: right antecubital; ll3 06:09 Follow up: Response: No adverse reaction ll3 04:54 Drug: Rocephin (cefTRIAXone) 2 grams Route: IV; Rate: per protocol; Site: right ll3 antecubital; 05:09 Follow up: Response: No adverse reaction; IV Status: Completed infusion; IV Intake: ll3 100ml 05:06 Drug: SOLU-Medrol (methylPrednisoLONE) 125 mg Route: IVP; Site: right antecubital; ll3 06:09 Follow up: Response: No adverse reaction ll3 05:09 Drug: Zithromax (azithromycin) 500 mg Route: IVPB; Infused Over: 1 hrs; Site: right ll3 antecubital; 06:10 Follow up: Response: No adverse reaction; IV Status: Completed infusion; IV Intake: ll3 250ml 06:39 Drug: Pepcid (famotidine) 20 mg Route: IVP; Site: right antecubital; ll3 06:40 Drug: Lovenox (enoxaparin) 90 mg Route: Sub-Q; Site: abdomen; ll3 Disposition Summary: 12/18/21 06:08 Hospitalization Ordered Hospitalization Status: Inpatient Admission jono Location: Telemetry/MedSurg (Inpatient) jono Condition: Fair jono Problem: new jono Symptoms: have improved jono Bed/Room Type: Standard jono Provider: Geovani Gonzalez(12/18/21 07:22) jono Room Assignment: 222(12/18/21 17:07) Diagnosis - Dyspnea jono - Pleurisy jono - Coronavirus infection, unspecified jono - Pneumonia due to SARS-associated coronavirus jono - Elevated white blood cell count jono - Unspecified kidney failure - renal insufficency jono Forms: - Medication Reconciliation Form jono - SBAR form jono Signatures: Dispatcher [employer] EDMS Lillie Ahmadi RN RN dw Anderson, Corey, MD MD cha Ballard, Brenda RN RN bb Edmund Stratton RN RN as6 Anjelica Khan RN RN ll3 Flower Sweet PA PA sb3 Corrections: (The following items were deleted from the chart) 04:57 04:24 BASIC METABOLIC PANEL+C.LAB.BRZ ordered. EDMS EDMS 04:57 04:24 HEPATIC FUNCTION+C.LAB.BRZ ordered. EDMS EDMS 04:57 04:24 MAGNESIUM+C.LAB.BRZ ordered. EDMS EDMS 04:57 04:24 PROBNP+C.LAB.BRZ ordered. EDMS EDMS 04:57 04:24 Troponin High Sensitivity+C.LAB.BRZ ordered. EDMS EDMS 07:22 06:08 Sybil Orona cha jono 17:07 06:08 jono dw
[2021-12-18] MEDS ORDERED: ENOXAPARIN 100 MG/ML SYR SQ ONE (06:33)
[2021-12-18] MEDS ORDERED: FAMOTIDINE 20 MG/2 ML VIAL IV ONE (06:33)
--- NOTE | 2021-12-18 07:10 | EKG ---
Test Date: 2021-12-18 Test Time: 03:53:28 Covering And Lining Supervisor: YOSELYN MEASUREMENT RESULTS: Intervals: Rate: 118 MA: 164 QRSD: 82 QT: 306 QTc: 428 [place]: P: 27 MA: 164 QRS: 24 T: 52 INTERPRETIVE STATEMENTS: Sinus tachycardia Otherwise normal ECG Compared to ECG 09/18/2021 12:32:56 Ventricular premature complex(es) no longer present Electronically Signed On 12-18-21 07:09:23 CDT by Ruddy Black
--- NOTE | 2021-12-18 08:21 | RAD REPORT ---
EXAM DESCRIPTION: US - Extrem Venous W Compress Mitchel - 12/18/2021 8:01 am CLINICAL HISTORY: Pain;Swelling COMPARISON: UP LOW EXT ARTERIES MULTI dated 08/02/2007 TECHNIQUE: Real-time sonographic evaluation of the lower extremity deep venous systems was performed using color Doppler, grayscale, and compression. FINDINGS: Bilateral lower extremities. Normal compressibility, flow augmentation, phasic flow and spontaneous flow is identified in the left lower extremity. On the right, thrombus is identified within one of the calf veins which is probably the peroneal vein. The remaining vessels are patent. IMPRESSION: Positive for venous thrombosis in the right lower extremity involving what is likely the peroneal vein. Negative for left lower extremity DVT.
[2021-12-18] MEDS ORDERED: MORPHINE 2 MG/ML SYR IV PRN (08:52)
[2021-12-18] MEDS ORDERED: ALBUTEROL 2.5 MG/3 ML NEB SOL NEB PRN (08:52)
[2021-12-18] MEDS ORDERED: IPRATROPIUM BROM 0.5MG/2.5ML NEB PRN (08:52)
[2021-12-18] MEDS ORDERED: ONDANSETRON 4 MG/2 ML VIAL IV PRN (08:52)
[2021-12-18] MEDS ORDERED: ENOXAPARIN 80 MG/0.8 ML SQ SCH ×2 (09:00→18:00)
[2021-12-18 09:04] VITALS: BMI 32.8
[2021-12-18 09:25] LABS: SARS-COV-2 RT PCR POSITIVE (NEGATIVE)
--- NOTE | 2021-12-18 11:34 | RAD REPORT ---
EXAM DESCRIPTION: CT - Thorax Edgardo Rodriguez - 12/18/2021 6:53 am CLINICAL HISTORY: The patient is 71 years old and is Male; PAIN TECHNIQUE: Axial computed tomography images of the chest without intravenous contrast. Sagittal an d coronal reformatted images were created and reviewed. This CT exam was performed using one or mor e of the following dose reduction techniques: automated exposure control, adjustment of the mA and/ or kV according to patient size, and/or use of iterative reconstruction technique. COMPARISON: CT chest January 27, 2019. FINDINGS: Lungs: Bilateral lower lobe dependent atelectasis. Pleural space: No pleural effusion or pneumothorax. Heart: Borderline cardiac enlargement. Coronary artery calcifications. No significant pericardia l fluid. Mediastinum: No pneumomediastinum. No retrosternal hemorrhage. Bones/joints: No acute rib fracture visualized. No dislocation. Soft tissues: Unremarkable. Vasculature: Unremarkable. No thoracic aortic aneurysm. Lymph nodes: No pathologically enlarged lymph nodes. Tubes, lines and devices: Spinal stimulator device. IMPRESSION: Bilateral lower lobe dependent atelectasis. Additional non-emergent findings as above. Electronically signed by: Erin Seo MD 12/18/2021 6:21 AM CDT Due to temporary technical issues with the PACS/Fluency reporting system, reports are being signed by the in house radiologist without review as a courtesy to ensure prompt reporting. The interpreting r adiologist is fully responsible for the content of the report.
[2021-12-18] MEDS: METHYLPREDNISOLONE 125 MG INJ IV SCH (12:00)
[2021-12-18] MEDS ORDERED: PNEUMOCOCCAL VACCINE 0.5 ML IMVAC ONE (12:00)
--- NOTE | 2021-12-18 12:29 | RAD REPORT ---
EXAM DESCRIPTION: RAD - Chest Single View - 12/18/2021 4:34 am CLINICAL HISTORY: The patient is 71 years old and is Male; Cough;Dyspnea TECHNIQUE: Frontal view of the chest. COMPARISON: No relevant prior studies available. FINDINGS: Lungs: See below. Pleural space: Blunting of the costophrenic angles suggestive of bilateral pleural effusions. Left hemidiaphragm is somewhat obscured which can be seen with left pleural effusion, as wel l as left lower lobe consolidation or atelectasis. No pneumothorax. Heart: Unremarkable. Mediastinum: Unremarkable. Bones/joints: There may be an old right clavicle fracture. Vasculature: Prominent interstitial and vascular markings in the lungs bilaterally. Upper abdomen: Elevation of the left hemidiaphragm. IMPRESSION: 1. Prominent interstitial and vascular markings in the lungs bilaterally. 2. Blunting of the costophrenic angles suggestive of bilateral pleural effusions. 3. Left hemidiaphragm is somewhat obscured which can be seen with left pleural effusion, as well as left lower lobe consolidation or atelectasis. Electronically signed by: Ziyad Anders MD 12/18/2021 5:05 AM CDT Due to temporary technical issues with the PACS/Fluency reporting system, reports are being signed by the in house radiologist without review as a courtesy to ensure prompt reporting. The interpreting r adiologist is fully responsible for the content of the report.
--- NOTE | 2021-12-18 12:58 | ECHO ---
HEIGHT: 6 ft 4 in WEIGHT: 270 lb 0 oz DATE OF STUDY: 12/18/[address]: Rajinder Archlueta MD 2-DIMENSIONAL: YES M.MODE: YES DOPPLER: YES COLOR FLOW: YES TDS: PORTABLE: DEFINITY: BUBBLE STUDY: DIAGNOSIS: CHEST PAIN CARDIAC HISTORY: CATHERIZATION: YES SURGERY: NO PROSTHETIC VALVE: NO PACEMAKER: NO MEASUREMENTS (cm) DIASTOLIC (NORMALS) SYSTOLIC (NORMALS) IVSd 1.3 (0.6-1.2) LA Diam 2.5 (1.9-4.0) LVEF 51% LVIDd 4.4 (3.5-5.7) LVIDs 3.3 (2.0-3.5) %FS 26% LVPWd 1.2 (0.6-1.2) Ao Diam 3.5 (2.0-3.7) 2 DIMENSIONAL ASSESSMENT: RIGHT ATRIUM: NORMAL LEFT ATRIUM: NORMAL RIGHT VENTRICLE: NORMAL LEFT VENTRICLE: NORMAL TRICUSPID VALVE: NORMAL MITRAL VALVE: NORMAL PULMONIC VALVE: NORMAL AORTIC VALVE: NORMAL PERICARDIAL EFFUSION: NONE AORTIC ROOT: NORMAL LEFT VENTRICULAR WALL MOTION: DOPPLER/COLOR FLOW: COMMENTS: NORMAL 2-DIMENSIONAL ECHOCARDIOGRAM WITH DOPPLER. NO WALL MOTION ABNORMALITY. NO EFFUSION. TECHNOLOGIST: EDINSON GARCIA
--- NOTE | 2021-12-18 13:19 | P.HP ---
Certification for Inpatient Patient admitted to: Inpatient With expected LOS: >2 Midnights Patient will require the following post-hospital care: None Practitioner: I am a practitioner with admitting privileges, knowledge of patient current condition, hospital course, and medical plan of care. Services: Services provided to patient in accordance with Admission requirements found in Title 42 Section 412.3 of the Code of Federal Regulations Patient History Date of Service: 12/18/21 Reason for admission: Pleuritic chest pain History of Present Illness: Patient is a 71-year-old gentleman who started having sudden pleuritic chest pain yesterday. Pain progressively got worse and he became really dyspneic so he came into the emergency room for further evaluation. Patient was started on steroids, anticoagulation, neb treatments, and antibiotic therapy. Patient was recently diagnosed with Covid-19 pneumonia. Patient is not vaccinated. Patient was not on anticoagulation. Patient will be admitted for possible pulmonary embolism with a V/Q study pending. Continue with IV steroids for pleurisy. Continue with antibiotic therapy as well. Allergies codeine [Codeine] Allergy (Mild, Verified 12/09/12 08:04) ITCH Penicillins Allergy (Mild, Verified 12/09/12 08:03) ITCH Latex, Natu Allergy (Uncoded 10/21/17 14:01) Unknown Home Medications: Albuterol Sulfate [Proair Hfa] 8.5 gm IH TID PRN 01/27/19 Aspirin/Acetaminophen/Caffeine [Excedrin Extra Strength Caplet] 1 each PO BID PRN 01/27/19 Cholecalciferol (Vitamin D3) [Vitamin D3] 1,000 unit PO DAILY 01/27/19 Colchicine [Colcrys] 0.6 mg PO DAILY PRN 01/27/19 Duloxetine HCl 60 mg PO DAILY 01/27/19 Loratadine [Claritin] 10 mg PO DAILY PRN 01/27/19 Pravastatin Sodium 80 mg PO DAILY 01/27/19 Rivaroxaban [Xarelto] 20 mg PO DAILY 01/27/19 Ropinirole HCl 2 mg PO DAILY 01/27/19 Tamsulosin [Flomax] 0.4 mg PO DAILY 01/27/19 allopurinoL [Allopurinol] 100 mg PO DAILY 01/27/19 Fluticasone/Salmeterol [Advair 250-50 Diskus] 1 each IH BID #1 blst.w.dev 01/30/19 - Past Medical/Surgical History Has patient received pneumonia vaccine in the past: No Diabetic: No -: CKD -: COPD -: Asbestosis -: Asthma -: HTN -: Hyperelipidemia -: IBS -: 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 moist/pink, EOMI, Sclerae nonicteric Neck: Supple, 2+ carotid pulse no bruit, No LAD, Without JVD or thyroid abnormality Respiratory: Diminished, Expiratory wheezes Cardiovascular: Other (Tachycardic no murmurs) Gastrointestinal: Normal bowel sounds, Soft and benign, Non-distended, No tenderness, No rebound, No guarding Musculoskeletal: No clubbing, No swelling, No tenderness Integumentary: No rashes Neurological: Normal speech, Normal tone, Sensation intact, Cranial nerves 3-12 intact, Abnormal gait, Abnormal strength Lymphatics: No axilla or inguinal lymphadenopathy - Studies Laboratory Data (last 24 hrs) 12/18/21 04:23: Sodium Cancelled, Potassium Cancelled, BUN Cancelled, Creatinine Cancelled, Glucose Cancelled, Magnesium Cancelled, Total Bilirubin Cancelled, AST Cancelled, ALT Cancelled, Alkaline Phosphatase Cancelled 12/18/21 04:00: PT 12.3, INR 1.12, APTT 29.7 12/18/21 04:00: Sodium 139, Potassium 3.6, BUN 21 H, Creatinine 1.41 H, Glucose 124 H, Magnesium 1.9, Total Bilirubin 0.8, AST 14 L, ALT 28, Alkaline Phosphatase 123 H 12/18/21 04:00: WBC 14.0 H, Hgb 15.7, Hct 46.1, Plt Count 212 Assessment & Plan - Problems (Diagnosis) (1) Pleuritic chest pain Current Visit: Yes Status: Acute (2) Pulmonary embolism Current Visit: Yes Status: Acute (3) Pneumonia due to COVID-19 virus Current Visit: Yes Status: Acute (4) Pleurisy Current Visit: Yes Status: Acute (5) DVT (deep venous thrombosis) Current Visit: Yes Status: Acute (6) Shortness of breath Current Visit: No Status: Acute - Plan Plan: 1. Continue with anticoagulation 2. IV antibiotics 3. IV steroids 4. Neb treatments 5. Echocardiogram 6. CT imaging study if unable to do VQ scan 7. Pain control 8. GI DVT prophylaxis Discharge Plan: Home Plan to discharge in: Greater than 2 days - Advance Directives Does patient have a Living Will: Yes Does patient have a Durable POA for Healthcare: Yes - Code Status/Comfort Care Code Status Assessed: Yes Code Status: Full Code Critical Care: No Time Spent Managing PTS Care (In Minutes): 45
[2021-12-18] MEDS ORDERED: METHYLPREDNISOLONE 40 MG INJ ONE (13:59)
[2021-12-18] MEDS: APIXABAN 5 MG TABLET PO SCH (20:57)
[2021-12-18] MEDS: ACETAMINOPHEN 325 MG TABLET PO PRN (21:45)
[2021-12-19] MEDS: METHYLPREDNISOLONE 125 MG INJ IV SCH ×2 (00:56→08:10)
--- NOTE | 2021-12-19 03:29 | P.PN ---
Subjective Date of Service: 12/19/21 Subjective: No new changes, No C/O voiced, Improving Review of Systems 10-point ROS is otherwise unremarkable Physical Examination - Vital Signs Temperature: 98.6 F Blood Pressure: 142/91 Pulse: 87 Respirations: 20 Pulse Ox (%): 93 - Physical Exam General: Alert, In no apparent distress HEENT: Atraumatic, PERRLA, EOMI Neck: Supple, JVD not distended Respiratory: Clear to auscultation bilaterally, Normal air movement Cardiovascular: Regular rate/rhythm, Normal S1 S2 Gastrointestinal: Normal bowel sounds, No tenderness Musculoskeletal: No tenderness Integumentary: No rashes Neurological: Normal speech, Normal tone, Normal affect Lymphatics: No axilla or inguinal lymphadenopathy - Studies Laboratory Data (last 24 hrs) 12/18/21 04:23: Sodium Cancelled, Potassium Cancelled, BUN Cancelled, Creatinine Cancelled, Glucose Cancelled, Magnesium Cancelled, Total Bilirubin Cancelled, AST Cancelled, ALT Cancelled, Alkaline Phosphatase Cancelled 12/18/21 04:00: PT 12.3, INR 1.12, APTT 29.7 12/18/21 04:00: Sodium 139, Potassium 3.6, BUN 21 H, Creatinine 1.41 H, Glucose 124 H, Magnesium 1.9, Total Bilirubin 0.8, AST 14 L, ALT 28, Alkaline Phosphatase 123 H 12/18/21 04:00: WBC 14.0 H, Hgb 15.7, Hct 46.1, Plt Count 212 Medications List Reviewed: Yes Assessment & Plan - Problems (Diagnosis) (1) Pleuritic chest pain Current Visit: Yes Status: Acute (2) Pulmonary embolism Current Visit: Yes Status: Acute (3) Pneumonia due to COVID-19 virus Current Visit: Yes Status: Acute (4) Pleurisy Current Visit: Yes Status: Acute (5) DVT (deep venous thrombosis) Current Visit: Yes Status: Acute (6) Shortness of breath Current Visit: No Status: Acute - Plan Plan: Continue with plan of care as mentioned below: 1. Continue with anticoagulation 2. IV antibiotics 3. IV steroids 4. Neb treatments 5. Echocardiogram 6. CT imaging study if unable to do VQ scan 7. Pain control 8. GI DVT prophylaxis - Advance Directives Does patient have a Living Will: Yes Does patient have a Durable POA for Healthcare: Yes - Code Status/Comfort Care Code Status: Full Code
[2021-12-19] MEDS: AZITHROMYCIN IV 250 MG in NA CHLORIDE 0.9% 250 ML IVPB SCH (05:25)
[2021-12-19 06:13] LABS: Absolute Lymphocytes (CBC) 0.5 K/uL (0.7-4.9); Hematocrit 40.7 % (39.6-49.0); Lymphocytes % 2.7 % (15.3-44.8); MPV 9.9 fL (7.6-11.3); RBC Red Blood Cell Count 4.83 M/uL (4.33-5.43)
[2021-12-19 06:31] LABS: Potassium 4.1 mmol/L (3.5-5.1)
[2021-12-19] MEDS: ACETAMINOPHEN 325 MG TABLET PO PRN (06:48)
--- NOTE | 2021-12-19 07:19 | RAD REPORT ---
EXAM DESCRIPTION: RAD - Chest Single View - 12/19/2021 4:48 am CLINICAL HISTORY: Chest Pain COMPARISON: Chest Single View dated 12/18/2021; Chest Pa And Lat (2 Views) dated 09/18/2021; Abdomen 1 V iew (KUB) dated 07/26/2020; Chest Pa And Lat (2 Views) dated 06/30/2019 FINDINGS: Lines: None. Lungs: No evidence of edema or pneumonia. Pleural: No significant pleural effusions or pneumothorax. Cardiac: The heart size is within normal limits. Bones: No acute fractures. Other: IMPRESSION: No acute cardiopulmonary disease.
[2021-12-19] MEDS: CEFTRIAXONE 1,000 MG in NA CHLORIDE 0.9% 50 ML IVPB SCH (08:09)
[2021-12-19] MEDS: APIXABAN 5 MG TABLET PO SCH (09:55)
[2021-12-19 11:00] LABS: White Blood Cell Scan OK (OK)
[2021-12-19 11:01] LABS: Blood Morphology Comment NOT SEEN (NOT SEEN); Platelet Estimate ADEQ
--- NOTE | 2021-12-19 11:34 | P.CNS ---
Date of Consult: 12/19/21 Reason for Consult: SOB Chief Complaint: SOB History of Present Illness: SOB worse REcent COVID AW resp distress Allergies codeine [Codeine] Allergy (Mild, Verified 12/09/12 08:04) ITCH Penicillins Allergy (Mild, Verified 12/09/12 08:03) ITCH Latex, Natu Allergy (Uncoded 10/21/17 14:01) Unknown Home Medications: Albuterol Sulfate [Proair Hfa] 8.5 gm IH TID PRN 01/27/19 Aspirin/Acetaminophen/Caffeine [Excedrin Extra Strength Caplet] 1 each PO BID PRN 01/27/19 Cholecalciferol (Vitamin D3) [Vitamin D3] 1,000 unit PO DAILY 01/27/19 Colchicine [Colcrys] 0.6 mg PO DAILY PRN 01/27/19 Duloxetine HCl 60 mg PO DAILY 01/27/19 Loratadine [Claritin] 10 mg PO DAILY PRN 01/27/19 Pravastatin Sodium 80 mg PO DAILY 01/27/19 Rivaroxaban [Xarelto] 20 mg PO DAILY 01/27/19 Ropinirole HCl 2 mg PO DAILY 01/27/19 Tamsulosin [Flomax] 0.4 mg PO DAILY 01/27/19 allopurinoL [Allopurinol] 100 mg PO DAILY 01/27/19 Fluticasone/Salmeterol [Advair 250-50 Diskus] 1 each IH BID #1 blst.w.dev 01/30/19 - Past Medical/Surgical History Diabetic: No -: CKD -: COPD -: Asbestosis -: Asthma -: HTN -: Hyperelipidemia -: IBS -: 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, 11/2017 -: back sx - 2010 -: spinal stimulator - 2016 - Family History Father Family History: Reviewed- Non-Contributory - Social History Smoking Status: Former smoker Alcohol use: No CD- Drugs: No Caffeine use: No Place of Residence: Home Review of Systems 10-point ROS is otherwise unremarkable General: Weakness Respiratory: Cough, Shortness of Breath Physical Examination Temp Pulse Resp BP Pulse Ox 97.4 F 72 20 129/74 97 12/19/21 08:00 12/19/21 08:00 12/19/21 08:00 12/19/21 08:00 12/19/21 08:00 General: Alert, Oriented x3, Mild distress Respiratory: Clear to auscultation bilaterally, Diminished Cardiovascular: No edema, Regular rate/rhythm, Normal S1 S2 Gastrointestinal: Normal bowel sounds, Soft and benign Musculoskeletal: No clubbing, No swelling Integumentary: No rashes, No breakdown - Problems (1) Shortness of breath Current Visit: No Status: Acute (2) DVT (deep venous thrombosis) Current Visit: Yes Status: Acute Qualifiers: Laterality: right Conclusions/Impression: AW worsening SOB. Mid obstruction, Recent COVID poss PE. Cw Eliquis for 3 months Poss discharge on O2 , Dx poss COVID penumonia.CRF. Add decadron
--- NOTE | 2021-12-19 15:11 | CON ---
Date of Consultation: 12/18/2021 Admitted on 12/18/[address] Orona's service. I saw the patient on 12/18/2021. Reason For Consultation: Dyspnea on exertion, atypical chest pain, and COVID. History Of Present Illness: Mr. Pink is 71. Has a history of gout, COPD, dyslipidemia, DVT, benign prostatic hypertrophy. Came in with COVID, dyspnea on exertion, right-sided chest pain. DE has res olved. He also has a history of abdominal aortic aneurysm, gastroesophageal reflux disease. The olga lidia ous Doppler showed DVT. He is on Xarelto. V/Q is pending. EKG shows sinus tachycardia. Troponin i s negative. Echocardiogram is pending. Past Medical History: As stated above. Allergies: INCLUDE PENICILLIN AND CODEINE. Review of Systems: Negative. Social History: Negative. Family History: Negative. Medications: Include Xarelto, Flomax, Pravachol, allopurinol, colchicine, aspirin, and inhalers. Physical Examination: Vital Signs: Stable, afebrile. General: Very pleasant, no acute distress, sinus tach. HEENT: Negative. Neck: Supple with no bruit. Chest: Reveals rales at both bases. Cardiac: Revealed a regular rhythm and rate. No murmurs, gallops, or rubs. Abdomen: Benign. Extremities: Revealed no clubbing, cyanosis. He had some edema bilaterally. Neurologic: He is nonfocal. Skin: Dry and intact. Pulses were present distally bilaterally. Diagnostic Data: As stated earlier. Impression And Plan: 1.Atypical chest pain, right-sided, most likely secondary to COVID. I do not think we are dealing w ith acute coronary syndrome. 2.Dyspnea on exertion, possibly related to COVID versus new onset congestive heart failure. Echocar diogram is pending. 3.Deep vein thrombosis, on Xarelto. 4.Gout, on colchicine and allopurinol. 5.Chronic obstructive pulmonary disease, on inhalers. 6.Dyslipidemia, on pravastatin. 7.Benign prostatic hypertrophy. For now, we will continue his present regimen. Continue Xarelto. Obtain a 2D echocardiogram. He will need an outpatient stress test down the road. SHAR/KEVIN Voice ID: [id number] Report ID: [id number]
--- NOTE | 2021-12-19 15:59 | CON ---
Date of Consultation: 12/18/2021 Reason For Consultation: Elevated BUN and creatinine, history of chronic kidney disease. Hypertension, fluid management. History Of Present Illness: This is a pleasant 71-year-old gentleman with significant past medical history of osteoarthritis, hypertension, hyperlipidemia, chronic kidney disease, follow up with Dr. Carmen with baseline GFR according to the patient of 50, creatinine around 1.5 to 1.6 as of September 2021. GFR of 44 as of September. The patient came to the hospital complaining of shortness of breath. According to the patient, the patient had COVID back in mid of November. This was treated, recovered. The patient continued to have dyspnea. For that reason, the patient reported to the hospital. The patient found to be over volume. For that reason, we have been consulted. The patient denied taking any nonsteroidal, no recent change in his medication. The patient upon arrival to the hospital yesterday, creatinine was 1.4 with GFR of 49. Today, creatinine down to 1.2 with GFR of 55. Past Medical History: Include; 1. 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 2. Chronic kidney disease stage 3 as above. Baseline creatinine 1.4 to 1.6. GFR 44 to 50. 3. Asbestosis. 4. Asthma. 5. tylenol. 6. Hyperlipidemia. 7. Hypertension. 8. Osteoarthritis. 9. COVID pneumonia. Past Surgical History: Include; 1. Spinal stimulator insertion. 2. Back surgery. 3. Robotic tumor removal, bilateral kidney back in 2018. Allergies: CODEINE, PENICILLIN, AND LATEX. Family History: Positive for hypertension. Social History: Ex-smoker. Denied alcohol. Denied drug abuse. Review of Systems: Head and Neck: No red eye. No ear pain. GI: No nausea. No vomiting. : No polyuria. No dysuria. No hematuria. 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 Respiratory: Has shortness of breath. Has cough. Has chest pain. Cardiovascular: Has chest pain. No palpitations. Musculoskeletal: Has joint pain, using Excedrin. Neuro: Generalized weakness. No focality. Skin: No rash. Endocrine: No polydipsia. Physical Examination: Vital Signs: When I saw the patient, the patient lying in bed flat, on nasal cannula. Blood pressure 129/74, pulse of 72, afebrile. Chest: Crackles on the right base. Heart: S1, S2. Regular. Abdomen: Soft, nontender. No organomegaly. Could not appreciate any renal bruit. Extremities: No edema. Neuro: Alert and oriented x3. No focality. The patient has difficulty hearing.. Laboratory Data: Lab data on yesterday, December 18, sodium 139, potassium 3.6, bicarb 23, BUN 21, creatinine 1.4, GFR of 49, calcium 8.5. Today, sodium 139, potassium 4.1, bicarb 24, BUN 27, creatinine 1.2, GFR of 55, calcium 8.7. BNP 554. Echocardiogram, ejection fraction of 55% to 60%. WBC 18.9, H and H 13.7/40.7, platelet of 200. Urinalysis; specific gravity of 1.015. Current Medications: The patient on include Zithromax, ceftriaxone, Eliquis, ipratropium, Solu-Medrol. Assessment And Plan: 1. Acute kidney injury on chronic kidney disease secondary to prerenal secondary to cardiorenal, recovered, back to his baseline, looked to me on normal volume. I am going to hold on any diuresis. We will hold on losartan given the acute kidney injury and the marginal blood pressure for the time being and we will follow up. 2. Hypertension with the presence of acute kidney injury. We will hold on ARB. 3. Hypokalemia, status post supplement, resolved. 4. Cardiorenal syndrome, currently the patient is euvolemic. I will hold on the diuresis. 5. Pneumonia, looked to me health-care associated pneumonia. The patient started on antibiotic. Will follow up with primary. Thank you Dr. Gonzalez for allowing us to participate in the care of your patient. Time spent examining the patient [id number], discussing the case with the patient and the sister by bedside, discussing the case with the truck driver teamster including dialysis nurse from her unit and the nursing staff in the unit, discussing the case with the hospitalist and Cardiology 65 minutes. MANGO Voice ID: [id number] Report ID: [id number] VAN
[2021-12-19] MEDS ORDERED: HYDROCODONE/APAP 5/325 MG TAB PO ONE (20:32)
[2021-12-19] MEDS ORDERED: dexAMETHasone 4 MG TAB PO SCH (21:00)
[2021-12-19] MEDS ORDERED: predniSONE 20 MG TAB PO SCH (21:00)
[2021-12-20] MEDS ORDERED: AZITHROMYCIN IV 250 MG in NA CHLORIDE 0.9% 250 ML IVPB SCH (05:00)
[2021-12-20 06:13] LABS: Albumin 2.8 g/dL (3.4-5.0); Phosphorus 3.3 mg/dL (2.5-4.9); Potassium 4.2 mmol/L (3.5-5.1); Uric Acid 8.7 mg/dL (3.5-7.2)
--- NOTE | 2021-12-20 08:58 | P.PN ---
Subjective Date of Service: 12/20/21 Chief Complaint: SOB Physical Examination - Vital Signs Temperature: 97.9 F Blood Pressure: 119/61 Pulse: 75 Respirations: 18 Pulse Ox (%): 100 - Studies Medications List Reviewed: Yes Assessment And Plan - Plan 1. Acute kidney injury on chronic kidney disease secondary to prerenal secondary to cardiorenal, recovered, back to his baseline, looked to me on normal volume. I am going to hold on any diuresis. We will hold on losartan given the acute kidney injury and the marginal blood pressure for the time being and we will follow up. 2. Hypertension with the presence of acute kidney injury. We will hold on A RB. 3. Hypokalemia, status post supplement, resolved. 4. Cardiorenal syndrome, currently the patient is euvolemic. I will hold on the diuresis. 5. Pneumonia, looked to me health-care associated pneumonia. The patient started on antibiotic.
[2021-12-20] MEDS ORDERED: levoFLOXacin 500 MG TAB PO SCH (09:00)
[2021-12-20] MEDS: APIXABAN 5 MG TABLET PO SCH (09:53)
[2021-12-20] MEDS ORDERED: PANTOPRAZOLE 40MG TABLET PO ONE (10:05)
[2021-12-20] MEDS: ACETAMINOPHEN 325 MG TABLET PO PRN (10:08)
[2021-12-20 12:24] VITALS: O2SAT 98
[2021-12-21] MEDS ORDERED: FAMOTIDINE 20 MG TAB PO ONE (10:06)
--- NOTE | 2021-12-21 23:01 | PN ---
The patient was admitted to Dr. Orona's service on 12/18/2021. He was seen that day. On , he had an echocardiogram that was normal. He had come in with shortness of breath, COPD. He has a history of benign prostatic hypertrophy, DVT, dyslipidemia, and gout. He had COVID. He had atypic al chest pain. He is on Xarelto. V/Q was unremarkable. Doppler showed DVT. EKG shows sinus tachyc ardia. His echo is normal, he has improved. His breathing was better. I still think that this is r elated to COVID and COPD. His right-sided chest pain is atypical. His echo is normal. We are comfo rtable with him going home. We will make arrangements for him to have an outpatient stress test. HSAR/KEVIN Voice ID: [id number] Report ID: [id number]
[2021-12-25 09:59] LABS: Vitamin D 1,25-Dihydroxy Total 54 pg/mL (18-72); Vitamin D,1,25-OH2, D2 <8 pg/mL
[2022-01-20 00:51] VITALS: BP 142/91; TEMP 98.6
--- NOTE | 2022-01-20 00:52 | P.DS ---
Discharge Date: 12/20/21 Disposition: ROUTINE DISCHARGE Discharge Condition: GOOD Reason for Admission: SOB - Problems (1) Pleuritic chest pain Status: Acute (2) Pulmonary embolism Status: Acute (3) Pneumonia due to COVID-19 virus Status: Acute (4) Pleurisy Status: Acute (5) DVT (deep venous thrombosis) Status: Acute Qualifiers: Laterality: right (6) Shortness of breath Status: Acute Brief History of Present Illness: Patient is a 71-year-old gentleman who started having sudden pleuritic chest pain yesterday. Pain progressively got worse and he became really dyspneic so he came into the emergency room for further evaluation. Patient was started on steroids, anticoagulation, neb treatments, and antibiotic therapy. Patient was recently diagnosed with Covid-19 pneumonia. Patient is not vaccinated. Patient was not on anticoagulation. Patient will be admitted for possible pulmonary embolism with a V/Q study pending. Continue with IV steroids for pleurisy. Continue with antibiotic therapy as well. Hospital Course: Will continue with antibiotic therapy. We will continue with anticoagulation. Patient will continue with steroids. At this time patient is doing well and is stable for discharge with outpatient follow-up. Vital Signs/Physical Exam: Temp Pulse Resp BP Pulse Ox 98.6 F 87 20 142/91 H 93 01/20/22 00:51 01/20/22 00:51 01/20/22 00:51 01/20/22 00:51 01/20/22 00:51 General: Alert, In no apparent distress, Oriented x3 Respiratory: Diminished Laboratory Data at Discharge: WBC 18.9 K/uL (4.3-10.9) H D 12/19/21 05:47 Hgb 13.7 g/dL (13.6-17.9) 12/19/21 05:47 Hct 40.7 % (39.6-49.0) 12/19/21 05:47 Plt Count 200 K/uL (152-406) 12/19/21 05:47 PT 12.3 SECONDS (9.5-12.5) 12/18/21 04:00 INR 1.12 12/18/21 04:00 APTT 29.7 SECONDS (24.3-36.9) 12/18/21 04:00 Sodium 140 mmol/L (136-145) 12/20/21 05:10 Potassium 4.2 mmol/L (3.5-5.1) 12/20/21 05:10 BUN 34 mg/dL (7-18) H 12/20/21 05:10 Creatinine 1.48 mg/dL (0.55-1.3) H 12/20/21 05:10 Glucose 124 mg/dL (74-106) H 12/20/21 05:10 Uric Acid 8.7 mg/dL (3.5-7.2) H D 12/20/21 05:10 Phosphorus 3.3 mg/dL (2.5-4.9) 12/20/21 05:10 Magnesium Cancelled 12/18/21 04:23 Total Bilirubin Cancelled 12/18/21 04:23 AST Cancelled 12/18/21 04:23 ALT Cancelled 12/18/21 04:23 Alkaline Phosphatase Cancelled 12/18/21 04:23 Home Medications: Albuterol Sulfate [Proair Hfa] 8.5 gm IH TID PRN 01/27/19 Aspirin/Acetaminophen/Caffeine [Excedrin Extra Strength Caplet] 1 each PO BID PRN 01/27/19 Cholecalciferol (Vitamin D3) [Vitamin D3] 1,000 unit PO DAILY 01/27/19 Colchicine [Colcrys] 0.6 mg PO DAILY PRN 01/27/19 Duloxetine HCl 60 mg PO DAILY 01/27/19 Loratadine [Claritin*] 10 mg PO DAILY PRN 01/27/19 Pravastatin Sodium 80 mg PO DAILY 01/27/19 Rivaroxaban [Xarelto] 20 mg PO DAILY 01/27/19 Ropinirole HCl 2 mg PO DAILY 01/27/19 Tamsulosin [Flomax*] 0.4 mg PO DAILY 01/27/19 allopurinoL [Allopurinol] 100 mg PO DAILY 01/27/19 Fluticasone/Salmeterol [Advair 250-50 Diskus] 1 each IH BID #1 blst.w.dev 01/30/19 Apixaban [Eliquis] 5 mg PO BID #60 tablet 12/20/21 levoFLOXacin [Levaquin*] 500 mg PO DAILY #7 tab 12/20/21 predniSONE [Prednisone*] 20 mg PO BID #11 tab 12/20/21 New Medications: Apixaban [Eliquis] 5 mg PO BID #60 tablet levoFLOXacin [Levaquin*] 500 mg PO DAILY #7 tab predniSONE [Prednisone*] 20 mg PO BID #11 tab Physician Discharge Instructions: -DC IV and DC home -Follow-up with PCP in 1 to 2 weeks -Follow-up with pulmonary in 1 to 2 weeks -Please call Dr. Gonzalez at [phone] if any questions regarding hospital stay -Please call nursing station at [phone] if any nursing or medication questions -Return to the emergency room if symptoms worsen Diet: AHA Activity: Fall precautions Followup: Unknown,U [Primary Care Provider] - Time spent managing pt's care (in minutes): 35
== END 2021-12-20 15:00 | disposition home or self-care (01) | DRG 175 ==
LOC: ER 03:35 → ERHOLD 06:29 → 2ND 17:58
PROVIDERS: ADMIT Hospitalist; ATTEND Hospitalist
DX: I26.99 Other pulmonary embolism without acute cor pulmonale (principal); U07.1 COVID-19; J12.82 Pneumonia due to coronavirus disease 2019; I82.451 Acute embolism and thrombosis of right peroneal vein; J44.0 Chronic obstructive pulmonary disease with (acute) lower respiratory infection; N17.9 Acute kidney failure, unspecified; R06.03 Acute respiratory distress; E78.5 Hyperlipidemia, unspecified; R09.1 Pleurisy; N40.0 Benign prostatic hyperplasia without lower urinary tract symptoms; I12.9 Hypertensive chronic kidney disease with stage 1 through stage 4 chronic kidney disease, or unspecified chronic kidney disease; N18.30 Chronic kidney disease, stage 3 unspecified; M19.90 Unspecified osteoarthritis, unspecified site; E87.6 Hypokalemia; M10.9 Gout, unspecified; Z28.310 Unvaccinated for COVID-19; Z79.82 Long term (current) use of aspirin; Z91.040 Latex allergy status; Z88.0 Allergy status to penicillin
CPT/HCPCS: 0240U; 36415; 71045; 71250; 80048; 80053; 80069; 82248; 82652; 83605; 83735; 83880; 84484; 84550; 85025; 85610; 85730; 87040; 93005; 93306; 93970; 94760; 96365; 96372; 96375; 99285; J0456; J1650; J2270; J2405; J2920; J2930; J3490; J7030; J7050; J7512

== ENCOUNTER 2022-08-15 10:58 | Inpatient (IN) | payer OTHER ==
--- OUTSIDE RECORDS SUMMARY | 2022-08-15 11:03 | XMS REPORT | Continuity of Care Document ---
:1950 Author Organization [facility] t Address [address] [place] [address] Care Team Providers Name Role Phone PRINCE THURMAN Primary Care Physician Unavailable JOSE CORDOVA Attending Clinician Unavailable Jose Cordova MD Attending Clinician JOSE CORDOVA Attending Clinician Jose Crow MD Attending Clinician JOSE CORDOVA Admitting Clinician Unavailable Payers Payer Name Policy Type Policy Number Effective Date Expiration Date S man [employer]NA MEDICARE HMO [id number] 2017 POS PPO 00:00:00 MEDICARE PLAN PPO [id number] - [employer] Problems Condition Condition Condition Status Onset Resolution Last Treating Co mments Source Name Details Category Date Date Treatment Clinician Date Renal cell Renal cell Disease Active [facility] carcinoma, carcinoma, 3-31 [facility] right right 00:00: of (HCCode) (HCCode) 00 Medici n e Bilateral Bilateral Disease Active [facility] Renal mass Renal mass Disease Active 2017-[address] [facility]04 [facility] CKD CKD Disease Active 2017-09 [facility] (chronic (chronic 1-14 Colleg e kidney kidney 00:00: of disease) disease) 00 Medici n stage 3, stage 3, e GFR 30-59 GFR 30-59 ml/min ml/min Renal cell Renal cell Disease Active 2017-09 [facility] carcinoma, carcinoma, 09-27 Co llege left left 00:00: of (HCCode) (HCCode) 00 Medici n e Bilateral Bilateral Disease Active 2017-09 [facility] renal renal 09-27 College masses masses 00:00: of 00 Medicin e Allergies, Adverse Reactions, Alerts Allergy Allergy Status Severity Reaction(s) Onset Inactive Treating Comm ents Source Name Type Date Date Clinician Codeine Propensi Active 2017-09 [facility] ty to 09-27 [place] adverse 00:00: of reaction 00 Medicin s to e drug Latex Propensi Active 2017-09 [facility] ty to 09-27 [place] adverse 00:00: of reaction 00 Medicin s to e substanc e Penicill Propensi Active 2017-09 [facility] ins ty to 09-27 [place] adverse 00:00: of reaction 00 Medicin s to e drug Codeine Propensi Active [facility] 2017[facility] adverse 00:[facility]: Medical reaction 00 Center s Latex Drug Active Rash 2017-[address] [facility] [address] Allergy 0-26 [facility] Center Penicill Propensi Active Itching, 2017-[address] [facility] ins ty to Rash 0-26 [facility] adverse 00:00: Medical reaction 00 Center s CODEINE Allergy Active Low Itching 2017-09 [facility] 0-26 00:00: 00 LATEX Allergy Active Low Rash 2017-09 [facility] 0-26 00:00: 00 PENICILL Allergy Active Low Itching 2017-09 [facility] INS 0-26 00:00: 00 Social History Social Habit Start Date Stop Date Quantity Comments Source Alcohol intake 2018-11-19 2018-11-[address] [facility] 00:[facility]:00 00:00:00 non-drinker of Medical Ce nter alcohol (finding) Tobacco Comment 2018-11-09 2018-11-[address] [facility] [address] [facility] 00:00:00 00:00:00 [facility] Tobacco use and 2018-07-09 2018-07-[address] [facility] exposure 00:00:00 00:00:00 [facility] Cigarettes smoked 2018-07-09 2018-07-[address] [facility] current (pack per 00:00:00 00:00:00 Medical Center day) - Reported Cigarette 2018-07-09 2018-07-[address] [facility] pack-years 00:00:00 00:00:00 [facility] Sex Assigned At [birth year] PR[facility] [place] 00:00:00 00:00:00 [facility] Center Smoking Status Start Date Stop Date Source Ex-smoker 2018-06-14 00:00:00 2018-06-14 00:00:00 [facility] Dorita beyer of Medicine Medications Ordered Filled Start Stop Current Ordering Indication Dosage Frequency Signature Comments Components Source Medication Medication Date Date Medication? Clinician (SIG) Name Name colchicine Yes 1{tbl} 1 Tablet. Sridhar (COLCRYS) 02 College 0.6 MG 13:28: of tablet 40 Medicin e allopurinol Yes allopurino Sridhar (ZYLOPRIM) 02 l 100 mg Colle ge 100 MG 13:27: tablet of tablet 21 Medicin e ropinirole Yes ropinirole [facility] (REQUIP) 2 02 2 mg College MG tablet 13:27: tablet of 21 Medicin e pravastatin Yes 80mg Take 80 mg [facility] (PRAVACHOL) 02 by mouth [facility]ia [facility] 80 MG 13:27: daily. of tablet 21 Medicin e duloxetine Yes 60mg Take 60 mg [facility] (CYMBALTA) 202 by mouth Colle ge 60 MG 13:27: daily. of capsule 21 Medicin e lansoprazol Yes 30mg Take 30 mg Sridhar e (PREVACID 02 by mouth Bia [facility]ge SOLUTAB) 30 13:27: daily. of MG 21 Medicin disintegrat e ing tablet Tamsulosin Yes Take by [facility] HCl 0.4 MG 202 mouth. College CAPS 13:27: of 21 Medicin e olmesartan Yes 40mg Take 40 mg [facility] (BENICAR) 202 by mouth Colleg e 20 MG 13:27: daily. of tablet 21 Medicin e PROAIR HFA Yes [facility] 2-02 College 13:27: of 21 Medicin e Nutritional Yes Take by [place] [facility] Supplements 2-02 mouth. Colleg e (VITAMIN D 13:27: of BOOSTER OR) 21 Medicin e Loratadine Yes Take by [facility] (CLARITIN 2-02 mouth as Colleg e OR) 13:27: needed. of 21 Medicin e olmesartan Yes 40mg Take 40 mg [facility] (BENICAR) 2-03 by mouth Colleg e 20 MG 20:16: daily. of tablet 34 Medicin e allopurinol Yes allopurino [facility] (ZYLOPRIM) 2-03 l 100 mg Colle ge 100 MG [...] e lansoprazol Yes 30mg Take 30 mg [facility] e (PREVACID 2-03 by mouth Bia e[facility] SOLUTAB) 30 20:15: daily. of MG 20 Medicin disintegrat e ing tablet Tamsulosin Yes Take by [facility] HCl 0.4 MG 2-03 mouth. College CAPS 20:15: of 20 Medicin e PROAIR HFA Yes Sridhar 2-03 College 20:15: of 20 Medicin e Nutritional Yes Take by [place] [facility] Supplements 2-03 mouth. Colleg e (VITAMIN D 20:15: of BOOSTER OR) 20 Medicin e Loratadine Yes Take by [facility] (CLARITIN 2-03 mouth. College OR) 20:15: of 20 Medicin e allopurinol 2018-09 Yes allopurino [facility] (ZYLOPRIM) 0-07 l 100 mg Colle ge 100 MG 14:18: tablet of tablet 48 Medicin e ropinirole 2018-09 Yes ropinirole [facility] (REQUIP) 2 0-07 2 mg College MG tablet 14:18: tablet of 48 Medicin e pravastatin 2018-09 Yes 80mg Take 80 mg [facility] (PRAVACHOL) 0-07 by mouth [facility] 80 MG 14:18: daily. of tablet 48 Medicin e duloxetine 2018-09 Yes 60mg Take 60 mg [facility] (CYMBALTA) 0-07 by mouth Colle ge 60 MG 14:18: daily. of capsule 48 Medicin e lansoprazol 2018-09 Yes 30mg Take 30 mg [facility] e (PREVACID 0-07 by mouth Bia ege SOLUTAB) 30 14:18: daily. of MG 48 Medicin disintegrat e ing tablet Tamsulosin 2018-09 Yes Take by [facility] HCl 0.4 MG 0-07 mouth. College CAPS 14:18: of 48 Medicin e olmesartan 2018-09 Yes 20mg Take 20 mg [facility] (BENICAR) 0-07 by mouth Colleg e 20 MG 14:18: daily. of tablet 48 Medicin e PROAIR HFA 2018-09 Yes Sridhar 0-07 College 14:18: of 48 Medicin e Nutritional 2018-09 Yes Take by [place] [facility] Supplements 0-07 mouth. Vanitag e (VITAMIN D 14:18: of BOOSTER OR) 48 Medicin e Loratadine 2018-09 Yes Take by [facility] (CLARITIN 0-07 mouth. College OR) 14:18: of 48 Medicin e Rivaroxaban 2018-09- No Take by Lucas breen (XARELTO) 0-07 10-07 mouth. [place] 20 MG TABS 14:15: 00:00 of 20 :00 Medicin e SYMBICORT 2018- Yes [facility] 160-4.5 - [place] MCG/ACT 00:00: of AERO 00 Medicin e SYMBICORT 2018- Yes [facility] 160-4.5 9 [place] MCG/ACT 00:00: of AERO 00 Medicin e SYMBICORT 2018- Yes [facility] 160-4.5 907 [place] MCG/ACT 00:00: of AERO 00 Medicin e DULoxetine Yes 60mg QD Take [address] (CYMBALTA) 3-11 by mouth [facility] 60 MG 09:47: daily. Medical capsule 46 Center lansoprazol Yes 30mg QD Take [address] [facility] e 3-11 by mouth [facility] (PREVACID) 09:47: daily. Medic al 30 MG 46 Center capsule tamsulosin Yes .4mg QD Take 0.[address] [facility] [facility] (FLOMAX) 3-11 mg by [facility] 0.4 mg Cap 09:47: mouth Medica l 24 hr 46 daily. [place] capsule rOPINIRole Yes 2mg QD Take [address] (REQUIP) 2 3-11 by mouth [facility] MG tablet 09:47: nightly. Medi heena 46 [place] olmesartan Yes 20mg QD Take [address] (BENICAR) 3-11 by mouth [facility] 20 MG 09:47: daily. Medical tablet 46 [place] allopurinol Yes 100mg QD Take [address] (ZYLOPRIM) 3-11 mg by [facility] 100 MG 09:47: mouth Medical tablet 46 daily . [place] colchicine Yes .6mg Take 0.[address] [facility] (COLCRYS) 3-11 mg by [facility] 0.6 mg 09:47: mouth Medical tablet 46 daily as Center needed. albuterol Yes 1{puff} Inhale [address] HFA 3-11 puff by [facility] (VENTOLIN 09:47: mouth via Med ical HFA) 90 46 inhaler Center mcg/actuati every 6 on inhaler (six) hours as needed for Wheezing. pravastatin Yes 80mg QD Take [address] (PRAVACHOL) 3-11 by mouth Luke s 80 MG 09:47: daily. Medical tablet 46 [place] cholecalcif Yes QD Take by [facility] christy, 3-11 mouth [facility] vitamin D3, 09:47: daily . Med ical 2,000 unit 46 [place] Cap traMADol Yes 100mg Take [address] (ULTRAM) 50 3-10 tablets [facility] mg tablet 00:00: (100 mg Medic al 00 total) by Center mouth every 6 (six) hours as needed for Pain. Max Daily Amount: 400 mg Vital Signs Vital Name Observation Time Observation Value Comments Source Diastolic blood 2021-10-16 19:24:00 91 mm[Hg] [facility] pressure Medicine Heart rate 2021-10-16 19:24:00 105 /min [facility] Systolic blood 2021-10-16 19:24:00 142 mm[Hg] [facility] pressure Medicine Systolic blood 2020-10-17 20:14:00 144 mm[Hg] [facility] Medicine Diastolic blood 2020-10-17 20:14:00 80 mm[Hg] [facility] pressure Medicine Heart rate 2020-10-17 20:14:00 100 /min [facility] ollege of [facility] Body temperature 2020-10-17 20:14:00 35.67 Sejal [facility] Respiratory rate 2020-10-17 20:14:00 18 /min [facility] Body height 2020-10-17 20:14:00 193 cm [facility] Body weight 2020-10-17 20:14:00 122.471 kg [facility] BMI 2020-10-17 20:14:00 32.87 [facility]2 [facility] Systolic blood 2019-06-20 14:13:00 96 mm[Hg] [facility] pressure Medicine Diastolic blood 2019-06-20 14:13:00 64 mm[Hg] [facility] Medicine Heart rate 2019-06-20 14:13:00 61 /min [facility] ollege of Medicine Body temperature 2019-06-20 14:13:00 36.72 Sejal [facility] Body height 2019-06-20 14:13:00 193 cm [facility] Body weight 2019-06-20 14:13:00 117.935 [facility] BMI 2019-06-20 14:13:00 31.65 kg/m2 [facility] Systolic blood 2019-06-20 14:13:00 96 mm[Hg] [facility] of pressure Medicine Diastolic blood 2019-06-20 14:13:00 64 mm[Hg] [facility] pressure Medicine Heart rate 2019-06-20 14:13:00 61 /min [facility] ollege of Medicine Body temperature 2019-06-20 14:13:00 36.72 Sejal [facility] Body height 2019-06-20 14:13:00 193 cm [facility] ollege of Medicine Body weight 2019-06-20 14:13:00 117.935 kg [facility] BMI 2019-06-20 14:13:00 31.65 kg/m2 [facility] Dorita oljanusz of Medicine Procedures Procedure Date / Time Performed Performing Clinician Sourc e XR CHEST 2 VIEWS 2021-10-16 14:13:00 Jose Cordova [facility] POCT URINALYSIS 2020-10-17 00:00:00 Jose Cordova ge of [facility] Medicine POCT URINALYSIS 2019-06-20 00:00:00 Jose Cordova [facility] Vanita of [facility]IPSTICK Medicine Plan of Care Planned Activity Planned Date Details Comments Source Future Scheduled 2022-10-16 US RENAL BILATERAL Expected: [employer] Test 00:00:00 [code = 84044] 10/16/2022, of Medicine Expires: 10/16/2022 Future Scheduled 2022-05-15 INFLUENZA VACCINE [facility] Test 00:00:00 (#1) [code = [facility] INFLUENZA VACCINE (#1)] Future Scheduled 2021-10-17 CT ABDOMEN PELVIS W Expected: [facility] or College Test 00:00:00 WO CONTRAST [code = 10/17/2021, of Medic ine 72335-1] Expires: 10/17/2021 Future Scheduled 2021-10-17 XR CHEST PA AND Expected: [facility] C [facility]llen[facility]ot Test 00:00:00 LATERAL [code = 10/17/2021, of Medicine 19643-6] Expires: 10/17/2021 Future Scheduled 2021-10-16 Screening for [facility] Col lege Test 13:45:05 malignant neoplasm of Medici ne of colon (procedure) [code = 107927830] Future Scheduled 2021-10-16 COVID-19 Vaccine (1) [employer] Test 13:45:05 [code = COVID-19 of Medicine Vaccine (1)] Future Scheduled 2021-10-16 TETANUS SHOT (ADULT) [employer] Test 13:45:05 [code = TETANUS SHOT of Medi cine (ADULT)] Future Scheduled 2021-10-16 BMI FOLLOW UP PLAN [employer] Test 13:45:05 [code = BMI FOLLOW of Medici ne UP PLAN] Future Scheduled 2021-10-16 Hepatitis C [facility] Test 13:45:05 screening of Medicine (procedure) [code = 322577260] Future Scheduled 2021-10-16 ZOSTER VACCINE (1 of [facility] Test 13:45:05 2) [code = ZOSTER of Medicin e VACCINE (1 of 2)] Future Scheduled 2021-10-16 Abdominal aortic [facility] Test 13:45:05 aneurysm screening of Medici ne (procedure) [code = 449437348] Future Scheduled 2021-10-16 Pneumococcal 65+ (1 [facility] Test 13:45:05 of 1 - PPSV23) [code of Medi cine = Pneumococcal 65+ (1 of 1 - PPSV23)] Future Scheduled 2021-10-16 MEDICARE AWV [facility] Test 13:45:05 (Initial) [code = of Medicin e MEDICARE AWV (Initial)] Future Scheduled 2021-10-16 FALL SCREEN [code = [facility] or [place] Test 13:45:05 FALL SCREEN] of Medicine Future Scheduled 2021-10-16 XR CHEST PA AND 1 Occurrences [facility] Test 13:39:17 LATERAL [code = starting of Medicine 15442-1] 10/16/2021 until 10/16/2022 Future Scheduled 2021-09-[address] [facility] Test 00:00:00 (12+) [code = Medical Center DEPRESSION SCREENING (12+)] Future Scheduled 2021-09-14 FALLS RISK SCREENING [facility] Test 00:00:00 [code = FALLS RISK Medical C enter SCREENING] Future Scheduled 2018-09-[address] [facility] Test 00:00:00 WELLNESS (YEAR 2 or Medical Center FIRST YEAR if no IPPE) [code = MEDICARE ANNUAL WELLNESS (YEAR 2 or FIRST YEAR if no IPPE)] Future Scheduled 2013 PNEUMOCOCCAL 65+ YRS [facility] Test 00:00:00 (1 - PCV) [code = Medical Ce nter PNEUMOCOCCAL 65+ YRS (1 - PCV)] Future Scheduled 1998 SHINGLES VACCINES ([address] [facility] Test 00:00:00 of 2) [code = Medical Center SHINGLES VACCINES (1 of 2)] Future Scheduled 1967 DTAP/TDAP/TD [facility] Test 00:00:00 VACCINES (1 - Tdap) Medical Center [code = DTAP/TDAP/TD VACCINES (1 - Tdap)] Future Scheduled [address] [facility] Test 00:00:00 SCREENING [code = Medical Ce nter HEPATITIS C SCREENING] Future Scheduled [address] [facility] Test 00:00:00 Counseling and Medical Cente r Screening (12+) [code = Tobacco Cessation Counseling and Screening (12+)] Future Scheduled 1948 COVID-[address] [facility] Test 00:00:00 (#1) [code = Medical Center COVID-19 VACCINE (#1)] Future Scheduled [address] [facility] Test 00:00:00 (combo) [code = CT Medical C enter Colonography (combo)] Future Scheduled [address] [facility] Test 00:00:00 malignant neoplasm Medical C enter of colon (procedure) [code = 273619735] Future Scheduled [address] [facility] Test 00:00:00 malignant neoplasm Medical C enter of colon (procedure) [code = 609118947] Future Scheduled [address] [facility] Test 00:00:00 malignant neoplasm Medical C enter of colon (procedure) [code = 652317247] Future Scheduled [address] [facility] Test 00:00:00 malignant neoplasm Medical C enter of colon (procedure) [code = 708647318] Future Scheduled 1950 Sigmoidoscopy [code [facility] Test 00:00:00 = Sigmoidoscopy] Medical Natalie ter Future Scheduled TETANUS SHOT (ADULT) [facility] Test [code = TETANUS SHOT of Medi cine (ADULT)] Future Scheduled BMI FOLLOW UP PLAN [facility] Test [code = BMI FOLLOW of Medici ne UP PLAN] Future Scheduled HEPATITIS C [facility] Test SCREENING [code = of Medicin e HEPATITIS C SCREENING] Future Scheduled AAA Screen [code = [facility] Test AAA Screen] of Medicine Future Scheduled FALL SCREEN [code = [facility] Test FALL SCREEN] of Medicine Future Scheduled PNEUMOVAX >=65 [facility] Co llege Test (PPSV23) [code = of Medicine PNEUMOVAX >=65 (PPSV23)] Future Scheduled PREVNAR >= 65 [facility] Col lege Test (PCV13) [code = of Medicine PREVNAR >= 65 (PCV13)] Future Scheduled FLU VACCINE > 6 [facility] C ollege Test MONTHS [code = FLU of Medici ne VACCINE > 6 MONTHS] Future Scheduled COLON CANCER [facility] Test SCREENING: of Medicine COLONOSCOPY [code = COLON CANCER SCREENING: COLONOSCOPY] Future Scheduled COVID-19 Vaccine [facility] College Test Evaluation [code = of Medici ne COVID-19 Vaccine Evaluation] Future Scheduled TETANUS SHOT (ADULT) [employer] Test [code = TETANUS SHOT of Medi cine (ADULT)] Future Scheduled BMI FOLLOW UP PLAN [employer] Test [code = BMI FOLLOW of Medici ne UP PLAN] Future Scheduled HEPATITIS C [facility] Test SCREENING [code = of Medicin e HEPATITIS C SCREENING] Future Scheduled ZOSTER VACCINE (1 of [employer] Test 2) [code = ZOSTER of Medicin e VACCINE (1 of 2)] Future Scheduled AAA Screen [code = [employer] Test AAA Screen] of Medicine Future Scheduled FALL SCREEN [code = [facility] [employer] Test FALL SCREEN] of Medicine Future Scheduled PNEUMOVAX >=65 [facility] Co [facility] Test (PPSV23) [code = of Medicine PNEUMOVAX >=65 (PPSV23)] Future Scheduled MEDICARE AWV [facility] Test (Initial) [code = of Medicin e MEDICARE AWV (Initial)] Future Scheduled COLON CANCER [facility] Test SCREENING: of Medicine COLONOSCOPY [code = COLON CANCER SCREENING: COLONOSCOPY] Future Scheduled MEDICARE AWV [code = [employer] Test MEDICARE AWV] of Medicine Encounters Start End Encounter Admission Attending Care Care Encounter Source Date/Time Date/Time Type Type Clinicians Facility Department ID 2021-10-16 2021-10-16 Outpatient EL LINK, [facility] [id number] [facility] 14:04:45 23:59:00 JOSE 2021-10-16 2021-10-16 Hospital Link, [facility] [id number] [facility] 14:00:00 23:59:00 Encounter Jose [facility] 2021-10-16 2021-10-16 Office LINKMARLENE [id number] [facility] 13:09:18 15:59:13 Visit JOSE AMBULATOR 350.1.13.21 College Y 0.2.7.2.686 of [id number] Medi shantelle 300 e 2021-10-102021-10-16 Outpatient [facility] [id number] [facility] 13:20:35 12:02:26 Declan de la torre of Medicin e 2021-10-16 2021-10-16 Outside Link, [facility] [id number] [facility] 00:00:00 00:00:00 Orders Jose [facility] 2020-10-17 2020-10-17 Office Link, [facility] [id number] [facility] 13:13:31 14:18:58 Visit Jose De La Torre AMBULATOR 350.1.13.21 College Y 0.2.7.2.686 of [id number] Medi shantelle 300 e 2019-06-20 2019-06-20 Office Link, [facility] [id number] [facility] 08:22:01 09:59:00 Visit Jose De La Torre AMBULATOR 350.1.13.21 College Y 0.2.7.2.686 of [id number] Medi shantelle 300 e 2019-06-20 2019-06-20 Office Link, [facility] [id number] 08:22:01 09:59:00 Visit Jose De La Torre AMBULATOR 350.1.13.21 Y 0.2.7.2.686 [id number] Results Test Description Test Time Test Comments Results Result [facility] e Comments RAD, CHEST, 2 2021-10-17 Reason for VIEWS 08:36:00 Exam:->renal cell carcinoma, PRASANTH COLEMAN [facility] - MEDICAL Exam:->renal CENTERName: delmer LOCK right JAMES WALKER : 1950 Sex: M FINAL REPORT EXAMINATION: [...] Holloway Verified Date/Time: 10/17/2021 08:36:25 Reading Location: [facility] Reading Room [address] [place] [address] URINALYSIS DIPSTICK 2020-10-17 00:00:00 Test Item Value Reference Range Interpretation Comme nts COLOR UA (test code = 5778-6) Yellow YELLOW/STRAW CLARITY UA (test code = 48265-8) Clear CLEAR GLUCOSE UA (test code = 5792-7) Negative NEGATIVE BILIRUBIN UA (test code = 5770-3) Negative NEGATIVE KETONES UA (test code = 13982-6) Negative NEGATIVE SPECIFIC GRAVITY UA (test code [...] NEGATIVE REDUCING SUBSTANCES URINE (test code = 11920-4) [facility] [id number] 00:00:00 Test Item Value Reference Range Interpretation Comments COLOR UA (test code = 5778-6) Yellow YELLOW/STRAW CLARITY UA (test code = 72152-7) Clear CLEAR GLUCOSE UA (test code = 5792-7) Negative NEGATIVE BILIRUBIN UA (test code = 5770-3) Negative NEGATIVE KETONES UA (test code = 45778-1) Negative NEGATIVE SPECIFIC GRAVITY UA (test code [...] REDUCING SUBSTANCES URINE (test NEGATIVE code = 04677-8) [facility] [id number] 16:03:00Surgical Pathology Report Case: [id number] Authorizing Provider: Jose Cordova MD Collected: 11/19/2018 1218 Ordering Location: [facility] PERIOPERATIVE Received: 11/19/2018 1324 SERVICES Pathologist: [...] BONE IS PRESENT IN THE TUMORAJCC CLASSIFICATION [id number]. SEE SYNOPTIC REPORT. Signing Pathologist Direct Phone Line: [phone] signed by Tristan Huffman MD on 11/24/2018 at 4:03 PMThis case hasbeen partially reviewed (slide A5) with Dr. Del [...] 3 Centimeters (cm) Additional Dimension in Centimeters (cm):2.5 Centimeters (cm) Tumor Focality: Unifocal Tumor Extent: Tumor Extension: Tumor limited to kidneyAccessory Findings: Sarcomatoid Features: Not identified Rhabdoid Features: Not identified Tumor Necrosis: Present Percentage of Necrosis: 10 % Lymphovascular Invasion: Not identified MARGINS Margins:Uninvolved by invasive carcinoma LYMPH NODES Regional Lymph Nodes: No lymph nodes submitted or foundPATHOLOGIC STAGE CLASSIFICATION (pTNM, AJCC 8th Edition) Primary Tumor (pT): pT1a Regional Lymph Nodes (pN): pNX 29113Iiurz massRight renal mass with perirenal fat The specimen is received fresh labeled with the patient's information labeled "right renal mass with perirenal fat" and consists of 170 gmpartial nephrectomy that measures 4.5 x 3.8 x 2.6 cm with detached perirenal fat measuring 8 x 8 x 2cm in aggregate. Ink code: perirenal fat black and kidney parenchyma blue.The specimen is serially sectioned from one end to the other revealing well-circumscribed hemorrhagic partially bulging yellow mass measuring 3 x 3 x 2.5 cm, grossly 0.5 cm from the kidney parenchymal margin and 0.3 cm from the perirenal fat. The detached perirenal fat is sectioned yielding no lymph nodes or areas of suspicion.Section code: A1 to A3, Tumor and kidney parenchyma; A4 to A6, tumor and perirenal fat; A7 and 8, inside outside sales representative of detached perirenal fat. Tissue is submitted for tumor banking. CG/pl Performed.BASIC METABOLIC [id number] 07:10:00 Test Item Value Reference Range Interpretation [...] APPLICABLE FOR DIALYSIS PATIEN TS. HEMOGLOBIN AND [id number] 06:37:00 Test Item Value Reference Range Interpretation Comments HEMOGLOBIN (BEAKER) (test code = 7.5 GM/DL 13.7-17.5 L 410) HEMATOCRIT (BEAKER) (test code = 24.8 % 40.1-51.0 L 411) HEMOGLOBIN AND [id number] 20:28:00 Test Item Value Reference Range Interpretation Comments HEMOGLOBIN (BEAKER) (test code = 8.1 GM/DL 13.7-17.5 L 410) HEMATOCRIT (BEAKER) (test code = 27.3 % 40.1-51.0 L 411) After transfusionHEMOGLOBIN AND [id number] 13:08:00 Test Item Value Reference Range Interpretation Comments HEMOGLOBIN (BEAKER) (test code = 6.9 GM/DL 13.7-17.5 L 410) HEMATOCRIT (BEAKER) (test code = 23.0 % 40.1-51.0 L 411) BASIC METABOLIC [id number] 06:12:00 Test Item Value Reference Range Interpretation [...] APPLICABLE FOR DIALYSIS PATIEN TS. HEMOGLOBIN AND [id number] 05:47:00 Test Item Value Reference Range Interpretation Comments HEMOGLOBIN (BEAKER) (test code = 7.0 GM/DL 13.7-17.5 L 410) HEMATOCRIT (BEAKER) (test code = 23.8 % 40.1-51.0 L 411) BASIC METABOLIC [id number] 05:00:00 Test Item Value Reference Range Interpretation [...] APPLICABLE FOR DIALYSIS PATIEN TS. HEMOGLOBIN AND [id number] 04:36:00 Test Item Value Reference Range Interpretation Comments HEMOGLOBIN (BEAKER) (test code = 7.4 GM/DL 13.7-17.5 L 410) HEMATOCRIT (BEAKER) (test code = 25.7 % 40.1-51.0 L 411) BASIC METABOLIC [id number] 13:52:00 Test Item Value Reference Range Interpretation [...] FOR DIALYSIS PATIEN [facility] [id number] 13:30:00 Test Item Value Reference Range Interpretation Comments HEMOGLOBIN (BEAKER) (test code = 7.2 GM/DL 13.7-17.5 L 410) HEMATOCRIT (BEAKER) (test code = 24.5 % 40.1-51.0 L 411) SODIUM NA-STAT [id number] 09:41:00 Test Item Value Reference Range Interpretation Comments SODIUM (BEAKER) (test code = 381) 138 meq/L 135-148 POTASSIUM-STAT [id number] 09:41:00 Test Item Value Reference Range Interpretation Comments POTASSIUM (BEAKER) (test code = 3.6 meq/L 3.6-5.5 379) BLOOD GAS, [id number] 09:41:00 Test Item Value Reference Range Interpretation [...] (test code = 1819) 21.0 % GLUCOSE-STAT [id number] 09:41:00 Test Item Value Reference Range Interpretation Comments GLUCOSE RANDOM (BEAKER) (test code 139 mg/dL 70-110 H = 652) HGB/HCT (H&H) - STAT [id number] 09:41:00 Test Item Value Reference Range Interpretation Comments HEMOGLOBIN (BEAKER) (test code = 8.0 g/dL 13.0-16.8 L 410) HEMATOCRIT (BEAKER) (test code = 24.0 % 40.0-50.0 L 411) TISSUE [id number] 18:24:00Surgical Pathology Report Case: [id number] Authorizing Provider: Jose Cordova MD Collected: 08/17/20181957 Ordering Location: [facility] Received: 08/18/2018 0820 SERVICES Pathologist: Aylin Arango MD Specimen: Mass, Left renal mass KIDNEY, LEFT, PARTIAL NEPHRECTOMY: - CLEAR CELL RENAL CELL CARCINOMA, 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 It bulges into the fat but does not conclusively invade the adipose tissue (A9, A12, A19).INTRADEPARTMENTAL CONSULTATION: - Dee Newton MD has seen selected slides andagrees with the diagnosis.KIDNEY: Nephrectomy (Kidney Res - [...] (cm): 2.2 Centimeters (cm) Tumor Focality: Unifocal Tumor Extent: Tumor Extension: Tumor limited to kidney Accessory Findings: Sarcomatoid Features: Not identified Rhabdoid Features: Not identified Tumor Necrosis: Not identified Lymphovascular Invasion: Not identified MARGINS Margins: Involved by invasive carcinoma Margin(s): Renal parenchymal margin (partial nephrectomy only) LYMPH NODES Regional Lymph Nodes: No lymph nodes submitted or found PATHOLOGIC STAGE CLASSIFICATION (pTNM, AJCC 8th Edition) TNM Descriptors: Not applicable Primary Tumor (pT): pT1a Regional Lymph Nodes (pN): pNX ADDITIONAL FINDINGS Pathologic Findings in Nonneoplastic Kidney: None [id number] cell adenocarcinoma left Left renal mass Received fresh labeled "mass", description "leftrenal mass" is a 6.0 x 4.0 x 4.0 cm left partial nephrectomy specimen.The capsular sections is purple-urbano and smooth with attached focally adherent yellow-urbano adipose tissue.The specimen is serially sec tioned to reveal a 4.0 x 3.0 x 2.2 cm, irregular, yellow-gold to red, rubbery, lobulated, hemorrhagic mass, which abuts the parenchymal resection margin and capsule and appears to invade into the attached perinephric adipose tissue.The surrounding uninvolved renal parenchyma is dark-brown, homogeneous, dense and unremarkable.Ink code: Parenchymal resection margin-black, capsule-blue.Also received in the specimen container is a 15.0 x 8. X 3.0 cm, yellow-urbano, irregular portion of adipose tissue. Sectioning reveals no discrete masses. Section code: A1-A12, inside outside sales representative sequential sections of renal mass; A13-A16, inside outside sales representative sections of separately received adipose tissue. Additional sections A17-20. DB/ew PerformedBASOUTHERN [facility] METABOLIC [id number] 11:51:00 Test Item Value Reference Range Interpretation [...] APPLICABLE FOR DIALYSIS PATIEN TS. HEMOGLOBIN AND [id number] 11:31:00 Test Item Value Reference Range Interpretation Comments HEMOGLOBIN (BEAKER) (test code = 8.7 GM/DL 13.7-17.5 L 410) HEMATOCRIT (BEAKER) (test code = 28.1 % 40.1-51.0 L 411) BASIC METABOLIC [id number] 05:37:00 Test Item Value Reference Range Interpretation [...] PATIEN TS. CBC W/PLT COUNT & AUTO [id number] 05:18:00 Test Item Value Reference Range Interpretation [...] = 2801) CBC W/PLT COUNT & AUTO [id number] 16:39:00 Test Item Value Reference Range Interpretation [...] Received comment: User comments: Slide comments:BASIC METABOLIC [id number] 07:05:00 Test Item Value Reference Range Interpretation [...] APPLICABLE FOR DIALYSIS PATIEN TS. HEMOGLOBIN AND [id number] 17:30:00 Test Item Value Reference Range Interpretation Comments HEMOGLOBIN (BEAKER) (test code = 9.2 GM/DL 13.7-17.5 L 410) HEMATOCRIT (BEAKER) (test code = 29.7 % 40.1-51.0 L 411) CBC W/PLT COUNT & AUTO [id number] 10:06:00 Test Item Value Reference Range Interpretation [...] (BEAKER) (test code = 2801) BASIC METABOLIC [id number] 07:06:00 Test Item Value Reference Range Interpretation [...] APPLICABLE FOR DIALYSIS PATIEN TS. HEMOGLOBIN AND [id number] 21:41:00 Test Item Value Reference Range Interpretation Comments HEMOGLOBIN (BEAKER) (test code = 13.9 GM/DL 13.7-17.5 410) HEMATOCRIT (BEAKER) (test code = 45.4 % 40.1-51.0 411) BASIC METABOLIC [id number] 21:35:00 Test Item Value Reference Range Interpretation [...] APPLICABLE FOR DIALYSIS PATIEN TS. SODIUM NA-STAT [id number] 20:15:00 Test Item Value Reference Range Interpretation Comments SODIUM (BEAKER) (test code = 381) 137 meq/L 135-148 FIO2: 75TEMP:36FIO2: 75TEMP:36FIO2: 75TEMP:36FIO2: 75TEMP:36FIO2: 75TEMP:36 POTASSIUM-STAT [id number] 20:15:00 Test Item Value Reference Range Interpretation Comments POTASSIUM (BEAKER) (test code = 4.1 meq/L 3.6-5.5 379) FIO2: 75TEMP:36FIO2: 75TEMP:36FIO2: 75TEMP:36FIO2: 75TEMP:36FIO2: 75TEMP:36 CALCIUM, [id number] 20:15:00 Test Item Value Reference Range Interpretation Comments CALCIUM IONIZED (BEAKER) (test 1.05 mmol/L 1.12-1.27 L code = 698) PH, BLOOD (BEAKER) (test code = 7.35 1810) BLOOD GAS, [id number] 20:15:00 Test Item Value Reference Range Interpretation [...] FIO2: 75TEMP:36FIO2: 75TEMP:36FIO2: 75TEMP:36FIO2: 75TEMP:36FIO2: 75TEMP:36 GLUCOSE-STAT [id number] 20:15:00 Test Item Value Reference Range Interpretation Comments GLUCOSE RANDOM (BEAKER) (test code 145 mg/dL 70-110 H = 652) FIO2: 75TEMP:36FIO2: 75TEMP:36FIO2: 75TEMP:36FIO2: 75TEMP:36FIO2: 75TEMP:36 HGB/HCT (H&H) - STAT [id number] 20:15:00 Test Item Value Reference Range Interpretation Comments HEMOGLOBIN (BEAKER) (test code = 10.4 g/dL 13.0-16.8 L 410) HEMATOCRIT (BEAKER) (test code = 31.0 % 40.0-50.0 L 411) FIO2: 75TEMP:36FIO2: 75TEMP:36FIO2: 75TEMP:36FIO2: 75TEMP:36FIO2: 75TEMP:36 PROTHROMBIN [id number] 12:12:00 Test Item Value Reference Range Interpretation Comments PROTIME (BEAKER) (test code = 14.8 seconds 11.7-14.7 H 759) INR (BEAKER) (test code = 370) 1.2 <=5.9 RECOMMENDED COUMADIN/WARFARIN INR THERAPY RANGESSTANDARD DOSE: 2.0 - 3.0 Includes: PROPHYLAXIS for venous thrombosis, systemic embolization; TREATMENT for venous thrombosis and/or pulmonary embolus.HIGH RISK: Target INR is 2.5-3.5 for patients with mechanical heart valves.TISSUE [id number] 14:21:00Surgical Pathology Report Case: [id number] Authorizing Provider: Jose Cordova MD Collected: 07/09/20182139 Ordering Location: [facility] OP Received: 07/09/20182144 Pathologist: Jose Archibald MD Specimen: Kidney, Left, Mass Bx KIDNEY, LEFT INFERIOR POLE, ULTRASOUND-GUIDED CORE NEEDLE BIOPSY:- CONVENTIONAL CLEAR CELL RENAL CELL CARCINOMA, FURHMAN NUCLEAR GRADE 2 Signing Pathologist Direct Ph one Line: [phone] signed by Jose Archibald MD on 07/21/2018 at 2:21 PMPreliminary result electronically signed by Jose Archibald MD on 07/13/2018 at 1:34 PMPreliminary result electronically signed by Jose Archibald MD on 07/10/2018 at 12:23 [id number] inferior pole renal massUl trasound-guided biopsy of renal mass at lower pole of kidneyReceived in formalin labeled with patient's name and MRN are multiple tissue cores ranging from 0.2 cm to 1.5 cm in length respectively with an average diameter of 0.1 cm. Entirely submitted in A1.Microscopic examination is performed and the findings are incorporated in the diagnostic line.U/S, BIOPSY, RENAL (KIDNEY)2018-07-09 17:45:00Reason for exam:->Left renal massFINAL REPORT Ultrasound guided renal biopsy. Clinical History: Left renal mass.Informed consent was obtained from the patient and [...] MDReport Verified Date/Time: 07/09/2018 17:45:45 Reading Location: [address] Ultrasound Reading Room [id number] 13:01:00 Test Item Value Reference Range Interpretation Comments CREATININE (BEAKER) 1.29 mg/dL 0.57-1.25 H (test code = 358) EGFR (BEAKER) (test 55 mL/min/1.73 ESTIMA SYED GFR IS code = 1092) sq m NOT ACCURATE CREATININE CLEARANCE IN PREDICTING GLOMERULAR FILTRATION RATE . ESTIMATED GFR I S NOT APPLICABLE FOR DIALYSIS PATIEN TS. [id number] 12:41:00 Test Item Value Reference Range Interpretation Comments PROTIME (BEAKER) (test code = 14.6 seconds 11.7-14.7 759) INR (BEAKER) (test code = 370) 1.1 <=5.9 PARTIAL THROMBOPLASTIN TIME 28.7 seconds 22.5-36.0 (BEAKER) (test code = 760) RECOMMENDED COUMADIN/WARFARIN INR THERAPY RANGESSTANDARD DOSE: 2.0 - 3.0 Includes: PROPHYLAXIS for venous thrombosis, systemic embolization; TREATMENT for venous thrombosis and/or pulmonary embolus.HIGH RISK: Target INR is 2.5-3.5 for patients with mechanical heart valves.CBC W/PLT COUNT & AUTO [id number] 12:32:00 Test Item Value Reference Range Interpretation [...] % 0-1 PERCENT (BEAKER) (test code = 2190)
[2022-08-15 11:44] LABS: Absolute Lymphocytes (CBC) 1.1 K/uL (0.7-4.9); Lymphocytes % 12.2 % (15.3-44.8); MCV 83.6 fL (80-100); MPV 9.1 fL (7.6-11.3); RBC Red Blood Cell Count 5.39 M/uL (4.33-5.43)
[2022-08-15 11:50] LABS: Protime INR 1.28
--- NOTE | 2022-08-15 11:54 | RAD REPORT ---
EXAM DESCRIPTION: RAD - Chest Single View - 08/15/2022 11:43 am CLINICAL HISTORY: DYSPNEA COMPARISON: Chest Single View dated 12/19/2021; Chest Single View dated 12/18/2021; Chest Pa And Lat (2 Views) dated 09/18/2021; Abdomen 1 View (KUB) dated 07/26/2020; Chest Angio dated 04/25/2022 FINDINGS: Lines: None. Lungs: Background of mild pulmonary fibrosis. No acute process identified. Pleural: No significant pleural effusions or pneumothorax. Cardiac: Stable size and configuration Mediastinum: Within normal limits. Bones: No acute fractures. Other: None IMPRESSION: Chronic interstitial lung changes without evidence of a new superimposed acute process.
[2022-08-15 11:58] LABS: SARS-CoV-2 Antigen Rapid Res Negative (Negative)
[2022-08-15 12:12] LABS: Albumin 3.4 g/dL (3.4-5.0); Bilirubin Direct 0.2 mg/dL (0-0.2); Bilirubin Total 0.5 mg/dL (0.2-1.0); Magnesium 1.9 mg/dL (1.8-2.4); Protein, Total 7.7 g/dL (6.4-8.2); Troponin High Sensitivity 7.5 pg/mL (<58.9)
[2022-08-15] MEDS ORDERED: LEVALBUTEROL 1.25 MG/3 ML NEB ONE (12:12)
[2022-08-15] MEDS ORDERED: METHYLPREDNISOLONE 125 MG INJ ONE (12:12)
--- NOTE | 2022-08-15 12:16 | EDPHYS ---
Physician Documentation [facility] Name: Zen Pink Age: 72 yrs Sex: Male : 1950 Arrival Date: 08/15/2022 Time: 11:01 Bed 5 Private MD: ED Physician Pacheco Wood HPI: 08/15 11:39 This 72 yrs old Male presents to ER via Ambulatory with complaints of Shortness Of rn Breath. 11:39 The patient has shortness of breath with light activity, while talking. Onset: The rn symptoms/episode began/occurred 2 week(s) ago. Duration: The symptoms are intermittent. The patient's shortness of breath is aggravated by light activity, supine position, talking, walking. The patient's shortness of breath is alleviated by rest. Associated signs and symptoms: Pertinent negatives: chest pain, fever, hemoptysis. Severity of symptoms: At their worst the symptoms were moderate in the emergency department the symptoms are unchanged. The patient has experienced similar episodes in the past. The patient has not recently seen a physician. Pt sent by Dr. Barr for sob, progressively worsening over last few weeks, no fever/cough. No abd pain. No chest pain. . Historical: - Allergies: 11:21 Codeine; kb3 11:21 Latex, Natural Rubber; kb3 11:21 PENICILLINS; kb3 - PMHx: 11:21 asbestosis; Asthma; COPD; Hyperlipidemia; Hypertension; Chronic kidney disease; Gout; kb3 - Immunization history:: Adult Immunizations up to date, Client reports having NOT received the Covid vaccine. Last tetanus immunization: unknown. - Social history:: Smoking status: Patient denies any tobacco usage or history of. - Family history:: not pertinent. - Hospitalizations: : No recent hospitalization is reported. ROS: 11:39 Constitutional: Negative for fever, chills, and weight loss, Eyes: Negative for injury, rn pain, redness, and discharge, Cardiovascular: Negative for chest pain Respiratory: Negative for cough, wheezing, and pleuritic chest pain, Abdomen/GI: Negative for abdominal pain, nausea, vomiting, diarrhea, and constipation, Back: Negative for injury and pain, MS/Extremity: Negative for injury and deformity, Skin: Negative for injury, rash, and discoloration, Neuro: Negative for headache, weakness, numbness, tingling, and seizure. Exam: 11:39 Constitutional: This is a well developed, well nourished patient who is awake, alert, rn + moderate tachypnea Head/Face: Normocephalic, atraumatic. Cardiovascular: Tachycardic, regular. Respiratory: + moderate tachypnea, no wheezing or retractions Abdomen/GI: Soft, non-tender Skin: Warm, dry MS/ Extremity: Pulses equal, no cyanosis. Neurovascular intact. Full, normal range of motion. Equal circumference. Neuro: Awake and alert, GCS 15 11:48 ECG was reviewed by the Attending Physician. rn Vital Signs: 11:20 BP 97 / 81; Pulse 112; Resp 26; Temp 98; Pulse Ox 97% ; Weight 119.75 kg; Height 6 ft. kb3 4 in. (193.04 cm); Pain 0/10; 11:44 BP 128 / 88; Pulse 93; Resp 24; Pulse Ox 95% on R/A; vg1 12:30 BP 134 / 82; Pulse 93; Resp 13; Pulse Ox 100% on R/A; vg1 13:30 BP 140 / 91; Pulse 89; Resp 19; Pulse Ox 97% on R/A; vg1 14:30 BP 151 / 98; Pulse 92; Resp 19; Pulse Ox 96% on R/A; vg1 15:30 BP 142 / 83; Pulse 90; Resp 20; Pulse Ox 95% on R/A; vg1 16:30 BP 146 / 92; Pulse 96; Resp 19; Pulse Ox 93% on R/A; vg1 17:30 BP 155 / 89; Pulse 97; Resp 20; Pulse Ox 95% on R/A; vg1 11:20 Body Mass Index 32.13 (119.75 kg, 193.04 cm) kb3 MDM: 11:09 Patient medically screened. rn 12:14 Differential diagnosis: Anemia Bronchitis CHF exacerbation, Chronic Obstructive rn Pulmonary Disease Myocardial Infarction pneumonia, Pneumothorax pulmonary edema. 12:14 Data reviewed: vital signs, nurses notes, lab test result(s), EKG, radiologic studies, rn plain films, and as a result, I will admit patient. Counseling: I had a detailed discussion with the patient and/or guardian regarding: the historical points, exam findings, and any diagnostic results supporting the discharge/admit diagnosis, lab results, radiology results, the need for further work-up and treatment in the hospital. Response to treatment: the patient's symptoms have mildly improved after treatment, and as a result, I will discharge patient. Admission orders: after a detailed discussion of the patient's condition and case, the admit orders are written by me. Special discussion:. 08/15 11:18 Order name: BMP; Complete Time: 12:13 rn 08/15 11:18 Order name: CBC with Diff; Complete Time: 12:07 rn 08/15 11:18 Order name: Hepatic Function; Complete Time: 12:13 rn 08/15 11:18 Order name: Magnesium; Complete Time: 12:13 rn 08/15 11:18 Order name: NT PRO-BNP; Complete Time: 12:13 rn 08/15 11:18 Order name: PT-INR; Complete Time: 12:07 rn 08/15 11:18 Order name: Ptt, Activated; Complete Time: 12:07 rn 08/15 11:18 Order name: Troponin HS; Complete Time: 12:13 rn 08/15 11:18 Order name: XRAY CXR (1 view); Complete Time: 12:07 rn 08/15 11:18 Order name: SARS RAPID; Complete Time: 12:07 rn 08/15 14:02 Order name: CBC with Automated Diff EDMS 08/15 14:02 Order name: CBC with Automated Diff EDMS 08/15 14:02 Order name: Comprehensive Metabolic Panel EDMS 08/15 14:02 Order name: Comprehensive Metabolic Panel EDMS 08/15 11:18 Order name: EKG; Complete Time: 11:19 rn 08/15 11:18 Order name: Cardiac monitoring; Complete Time: 11:39 rn 08/15 11:18 Order name: EKG - Nurse/Tech; Complete Time: 11:39 rn 08/15 11:18 Order name: IV Saline Lock; Complete Time: 11:39 rn 08/15 11:18 Order name: Labs collected and sent; Complete Time: 11:40 rn 08/15 11:18 Order name: O2 Per Protocol; Complete Time: 11:39 rn 08/15 11:18 Order name: O2 Sat Monitoring; Complete Time: 11:39 rn 08/15 14:02 Order name: Regular EDMS EC:48 Rate is 96 beats/min. Rhythm is regular. QRS Garretson is Normal. HI interval is normal. QRS rn interval is normal. QT interval is normal. No Q waves. T waves are Normal. No ST changes noted. Clinical impression: NSR w/ Non-specific ST/T Changes. Interpreted by me. Reviewed by me. Administered Medications: 12:12 Drug: SOLU-Medrol (methylPrednisoLONE) 125 mg Route: IVP; Site: left antecubital; vg1 12:16 Drug: Xopenex (levalbuterol) 1.25 mg Route: Inhalation; vg1 Disposition Summary: 08/15/22 12:16 Hospitalization Ordered Hospitalization Status: Observation rn Location: Telemetry/MedSurg (observation) rn Condition: Stable rn Problem: an ongoing problem rn Symptoms: have improved rn Bed/Room Type: Standard rn Provider: Madhav Bustamante(08/15/22 13:59) rn Room Assignment: [facility](08/15/22 16:01) dw Diagnosis - Dyspnea, unspecified rn - COPD/ Chronic obstructive pulmonary disease, unspecified rn - Interstitial emphysema rn Forms: - Medication Reconciliation Form rn - SBAR form rn Signatures: Dispatcher [employer] Lillie Juarez RN RN dw Pacheco Wood MD MD rn Garcia, Victoria RN RN vg1 Aura Mcclellan RN RN kb3 Corrections: (The following items were deleted from the chart) 11: 11:21 PMHx: stege 3 kidney disease; kb3 kb3 13:59 12:16 Geovani Gonzalez rn rn 16:01 12:16 karely carpio
--- NOTE | 2022-08-15 12:16 | ER ---
Nurse's Notes [facility] Name: Zen Pink Age: 72 yrs Sex: Male : 1950 Arrival Date: 08/15/2022 Time: 11:01 Bed 5 Private MD: Diagnosis: Dyspnea, unspecified;COPD/ Chronic obstructive pulmonary disease, unspecified;Interstitial emphysema Presentation: 08/15 11:20 Chief complaint: Patient states: Increased HR and SOB x2 weeks. Denies CP. Coronavirus kb3 screen: Vaccine status: Patient reports being unvaccinated. Client denies travel out of the [place] in the last 14 days. Ebola Screen: Patient negative for fever greater than or equal to 101.5 degrees Fahrenheit, and additional compatible Ebola Virus Disease symptoms Patient denies exposure to infectious person. Patient denies travel to an Ebola-affected area in the 21 days before illness onset. Initial Sepsis Screen: Does the patient meet any 2 criteria? No. Patient's initial sepsis screen is negative. Does the patient have a suspected source of infection? No. Patient's initial sepsis screen is negative. Risk Assessment: Do you want to hurt yourself or someone else? Patient reports no desire to harm self or others. Onset of symptoms was August 01, 2022. 11:20 Method Of Arrival: Ambulatory kb3 11:20 Acuity: DOMINICK 2 kb3 Triage Assessment: 11:21 General: Appears in no apparent distress. Behavior is calm, cooperative. Pain: Denies kb3 pain. Respiratory: Reports shortness of breath at rest labored breathing Airway is patent Respiratory effort is even, labored, Onset: The symptoms/episode began/occurred 2-3 weeks, the patient has moderate shortness of breath. Historical: - Allergies: 11:21 Codeine; kb3 11:21 Latex, Natural Rubber; kb3 11:21 PENICILLINS; kb3 - PMHx: 11:21 asbestosis; Asthma; COPD; Hyperlipidemia; Hypertension; Chronic kidney disease; Gout; kb3 - Immunization history:: Adult Immunizations up to date, Client reports having NOT received the Covid vaccine. Last tetanus immunization: unknown. - Social history:: Smoking status: Patient denies any tobacco usage or history of. - Family history:: not pertinent. - Hospitalizations: : No recent hospitalization is reported. Screenin:44 Abuse screen: Denies threats or abuse. Nutritional screening: No deficits noted. vg1 Tuberculosis screening: No symptoms or risk factors identified. Fall Risk No fall in past 12 months (0 pts). No secondary diagnosis (0 pts). IV access (20 points). Ambulatory Aid- None/Bed Rest/Nurse Assist (0 pts). Gait- Normal/Bed Rest/Wheelchair (0 pts) Mental Status- Oriented to own ability (0 pts). Total Figueroa Fall Scale indicates No Risk (0-24 pts). Assessment: 11:44 General: Appears in no apparent distress. uncomfortable, Behavior is calm, cooperative. vg1 Pain: Denies pain. Neuro: Level of Consciousness is awake, alert, obeys commands, Oriented to person, place, time, situation, Reports headache. Cardiovascular: Patient's skin is warm and dry. Cardiovascular: Rhythm is sinus rhythm. Respiratory: Reports shortness of breath on exertion Airway is patent Respiratory effort is even, unlabored, Respiratory pattern is tachypnea Breath sounds with crackles in right posterior lower lobe. GI: Patient currently denies nausea, vomiting. : No signs and/or symptoms were reported regarding the genitourinary system. EENT: No signs and/or symptoms were reported regarding the EENT system. Derm: Skin is pink, warm \T\ dry. Musculoskeletal: Circulation, motion, and sensation intact. 12:45 Reassessment: Patient appears in no apparent distress at this time. No changes from vg1 previously documented assessment. Patient and/or family updated on plan of care and expected duration. Pain level reassessed. Patient is alert, oriented x 3, equal unlabored respirations, skin warm/dry/pink. 13:45 Reassessment: Patient appears in no apparent distress at this time. No changes from vg1 previously documented assessment. Patient is alert, oriented x 3, equal unlabored respirations, skin warm/dry/pink. 14:45 Reassessment: Patient appears in no apparent distress at this time. No changes from vg1 previously documented assessment. Patient is alert, oriented x 3, equal unlabored respirations, skin warm/dry/pink. Pt given sandwich and water. 15:45 Reassessment: Patient appears in no apparent distress at this time. No changes from vg1 previously documented assessment. Patient is alert, oriented x 3, equal unlabored respirations, skin warm/dry/pink. 16:44 Reassessment: attempted to call report. vg1 Vital Signs: 11:20 BP 97 / 81; Pulse 112; Resp 26; Temp 98; Pulse Ox 97% ; Weight 119.75 kg; Height 6 ft. kb3 4 in. (193.04 cm); Pain 0/10; 11:44 BP 128 / 88; Pulse 93; Resp 24; Pulse Ox 95% on R/A; vg1 12:30 BP 134 / 82; Pulse 93; Resp 13; Pulse Ox 100% on R/A; vg1 13:30 BP 140 / 91; Pulse 89; Resp 19; Pulse Ox 97% on R/A; vg1 14:30 BP 151 / 98; Pulse 92; Resp 19; Pulse Ox 96% on R/A; vg1 15:30 BP 142 / 83; Pulse 90; Resp 20; Pulse Ox 95% on R/A; vg1 16:30 BP 146 / 92; Pulse 96; Resp 19; Pulse Ox 93% on R/A; vg1 17:30 BP 155 / 89; Pulse 97; Resp 20; Pulse Ox 95% on R/A; vg1 11:20 Body Mass Index 32.13 (119.75 kg, 193.04 cm) kb3 ED Course: 11:01 Patient arrived in ED. mr 11:09 Pacheco Wood MD is Attending Physician. rn 11:21 Triage completed. kb3 11:21 Arm band placed on right wrist. kb3 11:27 Xuan Tiwari, RN is Primary Nurse. vg1 11:39 Patient has correct armband on for positive identification. Placed in gown. Bed in low mm9 position. Call light in reach. Side rails up X2. Warm blanket given. graduate assistant on. Pulse ox on. NIBP on. 11:39 Inserted saline lock: 20 gauge in left antecubital area, using aseptic technique. Blood zm collected. 11:39 SARS RAPID Sent. zm 11:40 BMP Sent. zm 11:40 CBC with Diff Sent. zm 11:40 Hepatic Function Sent. zm 11:40 Magnesium Sent. zm 11:40 NT PRO-BNP Sent. zm 11:40 PT-INR Sent. zm 11:40 Ptt, Activated Sent. zm 11:40 Troponin HS Sent. zm 11:40 Inserted saline lock:. mm9 11:45 XRAY CXR (1 view) In Process Unspecified. EDMS 12:15 Geovani Gonzalez MD is Hospitalizing Provider. rn 13:59 Madhav Bustamante MD is Hospitalizing Provider. rn 17:48 No provider procedures requiring assistance completed. Patient admitted, IV remains in vg1 place. Administered Medications: 12:12 Drug: SOLU-Medrol (methylPrednisoLONE) 125 mg Route: IVP; Site: left antecubital; vg1 12:16 Drug: Xopenex (levalbuterol) 1.25 mg Route: Inhalation; vg1 Medication: 11:44 VIS not applicable for this client. vg1 Outcome: 12:16 Decision to Hospitalize by Provider. rn 17:47 Admitted to Med/surg accompanied by tech, via wheelchair, with chart, Report called to [facility] 17:47 Condition: good 17:47 Instructed on the need for admit. 17:48 Patient left the ED. 1 Signatures: Dispatcher [employer] EDWV Benoit Sunita tuttle Pacheco Wood MD MD rn Garcia, FILI Govea RN vg1 Joyce Mckay Kelly, RN RN [email or web address] Lianet Mckay mm9 Corrections: (The following items were deleted from the chart) 11:22 11:21 PMHx: stege 3 kidney disease; kb3 kb3 11:48 11:44 Neuro: Level of Consciousness is awake, alert, obeys commands, Oriented to vg1 person, place, time, situation, vg1 11:48 11:44 Respiratory: Airway is patent Respiratory effort is even, unlabored, Respiratory vg1 pattern is tachypnea Breath sounds with crackles in right posterior lower lobe vg1
[2022-08-15] MEDS ORDERED: ALBUTEROL 2.5 MG/3 ML NEB SOL NEB PRN (13:56)
[2022-08-15] MEDS: IPRATROPIUM BROM 0.5MG/2.5ML NEB SCH ×2 (14:00→20:00)
--- NOTE | 2022-08-15 14:04 | P.HP ---
Certification for Inpatient With expected LOS: >2 Midnights Practitioner: I am a practitioner with admitting privileges, knowledge of patient current condition, hospital course, and medical plan of care. Services: Services provided to patient in accordance with Admission requirements found in Title 42 Section 412.3 of the Code of Federal Regulations Patient History Date of Service: 08/15/22 Reason for admission: Shortness of breath History of Present Illness: Patient is 72 years of age has been complaining of worsening dyspnea for the past 2 weeks and nonproductive cough came acutely worse and it appeared in the hospital patient is compliant with his inhalers at home denies any chest pain he was seen by consumer services consultant and never sent to the emergency room to progressive symptoms Allergies codeine [Codeine] Allergy (Mild, Verified 12/09/12 08:04) ITCH Penicillins Allergy (Mild, Verified 12/09/12 08:03) ITCH Latex, Natu Allergy (Uncoded 10/21/17 14:01) Unknown Home Medications: Albuterol Sulfate [Proair Hfa] 8.5 gm IH TID PRN 01/27/19 Aspirin/Acetaminophen/Caffeine [Excedrin Extra Strength Caplet] 1 each PO BID PRN 01/27/19 Cholecalciferol (Vitamin D3) [Vitamin D3] 1,000 unit PO DAILY 01/27/19 Colchicine [Colcrys] 0.6 mg PO DAILY PRN 01/27/19 Duloxetine HCl 60 mg PO DAILY 01/27/19 Loratadine [Claritin*] 10 mg PO DAILY PRN 01/27/19 Pravastatin Sodium 80 mg PO DAILY 01/27/19 Rivaroxaban [Xarelto] 20 mg PO DAILY 01/27/19 Ropinirole HCl 2 mg PO DAILY 01/27/19 Tamsulosin [Flomax*] 0.4 mg PO DAILY 01/27/19 allopurinoL [Allopurinol] 100 mg PO DAILY 01/27/19 Fluticasone/Salmeterol [Advair 250-50 Diskus] 1 each IH BID #1 blst.w.dev 01/30/19 Apixaban [Eliquis] 5 mg PO BID #60 tablet 12/20/21 levoFLOXacin [Levaquin*] 500 mg PO DAILY #7 tab 12/20/21 predniSONE [Prednisone*] 20 mg PO BID #11 tab 12/20/21 - Past Medical/Surgical History Diabetic: No -: CKD -: COPD -: Asbestosis -: Asthma -: HTN -: Hyperelipidemia -: IBS -: 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, 11/2017 -: back sx - 2010 -: spinal stimulator - 2016 - Social History Alcohol use: No CD- Drugs: No Caffeine use: No Review of Systems 10-point ROS is otherwise unremarkable General: Weakness Respiratory: Cough, Shortness of Breath Physical Examination - Vital Signs Temperature: 98 F Blood Pressure: 128/88 Pulse: 112 Respirations: 26 Pulse Ox (%): 95 - Physical Exam General: Alert, Moderate distress Neck: Supple Respiratory: Diminished, Expiratory wheezes Cardiovascular: No edema, Regular rate/rhythm, Normal S1 S2 Gastrointestinal: Normal bowel sounds, Non-distended - Studies Laboratory Data (last 24 hrs) 08/15/22 11:36: PT 14.1 H, INR 1.28, APTT 34.7 08/15/22 11:36: WBC 9.30, Hgb 15.2, Hct 45.0, Plt Count 250 08/15/22 11:36: Sodium 140, Potassium 4.0, BUN 24 H, Creatinine 1.59 H, Glucose 101, Magnesium 1.9, Total Bilirubin 0.5, AST 10 L, ALT 17, Alkaline Phosphatase 115 Assessment and Plan - Problems (Diagnosis) (1) COPD exacerbation Current Visit: Yes Status: Acute Plan: Patient is 72 years of age admitted with acute shortness of breath has a history of COPD/asthma mild chronic renal disease and hyperlipidemia sent from the office of the consumer services consultant due to progressive dyspnea chest x-ray no pneumonia chronic interstitial changes he has mild chronic renal insufficiency normal white count plan to admit to the hospital echo dilators steroids p.o. antibiotic EKG report shows regular rhythm nonspecific ST-T changes - Advance Directives Does patient have a Living Will: Yes Does patient have a Durable POA for Healthcare: Yes
[2022-08-15] MEDS ORDERED: levoFLOXacin 500 MG TAB PO ONE (15:00)
[2022-08-15] MEDS ORDERED: levoFLOXacin 250 MG TAB ONE (15:58)
[2022-08-15] MEDS ORDERED: METHYLPREDNISOLONE 40 MG INJ IV SCH (17:00)
[2022-08-15 22:01] VITALS: BMI 32.4
[2022-08-15] MEDS: METHYLPREDNISOLONE 40 MG INJ IV SCH (22:09)
[2022-08-16] MEDS: IPRATROPIUM BROM 0.5MG/2.5ML NEB SCH ×3 (02:00→14:10)
[2022-08-16] MEDS: METHYLPREDNISOLONE 40 MG INJ IV SCH ×2 (04:32→11:47)
[2022-08-16 05:59] LABS: Absolute Lymphocytes (CBC) 0.6 K/uL (0.7-4.9); Hematocrit 43.3 % (39.6-49.0); Lymphocytes % 6.2 % (15.3-44.8); MCV 83.3 fL (80-100); MPV 9.5 fL (7.6-11.3); RBC Red Blood Cell Count 5.21 M/uL (4.33-5.43)
[2022-08-16 06:38] LABS: Albumin 3.2 g/dL (3.4-5.0); Bilirubin Total 0.5 mg/dL (0.2-1.0); Potassium 4.1 mmol/L (3.5-5.1); Protein, Total 7.4 g/dL (6.4-8.2)
[2022-08-16 07:59] LABS: Blood Morphology Comment NOT SEEN (NOT SEEN); Platelet Estimate ADEQ
[2022-08-16] MEDS ORDERED: levoFLOXacin 500 MG TAB PO SCH (09:00)
[2022-08-16 12:57] VITALS: BP 144/82; TEMP 97.6; O2SAT 97
--- NOTE | 2022-08-18 13:56 | EKG ---
Test Date: 2022-08-15 Test Time: 11:34:26 Clerical Adjuster: JAMES MEASUREMENT RESULTS: Intervals: Rate: 96 NC: 144 QRSD: 84 QT: 338 QTc: 427 [place]: P: 24 NC: 144 QRS: 20 T: 72 INTERPRETIVE STATEMENTS: Sinus rhythm with occasional premature ventricular complexes Otherwise normal ECG Compared to ECG 12/18/2021 03:53:28 Ventricular premature complex(es) now present Sinus tachycardia no longer present Electronically Signed On 08-18-22 13:53:21 ELEMENTARY INSTRUCTIONAL COACH by Maciel Barr
--- NOTE | 2022-08-25 22:52 | P.DS ---
Discharge Date: 08/16/22 Disposition: ROUTINE DISCHARGE Discharge Condition: GOOD Reason for Admission: Shortness of breath Brief History of Present Illness: Patient is 72 years of age has been complaining of worsening dyspnea for the past 2 weeks and nonproductive cough. Patient became acutely worse, and he decided to go to the hospital. Hospital Course: arrange for discharge as patient with history status has improved. We got a nebulizer with neb treatment. Continue with steroids and antibiotics. Patient will follow-up with pulmonary as an outpatient. At this time, patient is stable for discharge home. Vital Signs/Physical Exam: Temp Pulse Resp BP Pulse Ox 97.6 F 89 16 144/82 H 97 08/16/22 12:00 08/16/22 12:00 08/16/22 12:00 08/16/22 12:00 08/16/22 12:00 General: Alert, In no apparent distress, Oriented x3 Laboratory Data at Discharge: WBC 9.50 K/uL (4.3-10.9) 08/16/22 05:38 Hgb 14.9 g/dL (13.6-17.9) 08/16/22 05:38 Hct 43.3 % (39.6-49.0) 08/16/22 05:38 Plt Count 241 K/uL (152-406) 08/16/22 05:38 PT 14.1 SECONDS (9.5-12.5) H 08/15/22 11:36 INR 1.28 08/15/22 11:36 APTT 34.7 SECONDS (24.3-36.9) 08/15/22 11:36 Sodium 137 mmol/L (136-145) 08/16/22 05:38 Potassium 4.1 mmol/L (3.5-5.1) 08/16/22 05:38 BUN 28 mg/dL (7-18) H 08/16/22 05:38 Creatinine 1.63 mg/dL (0.55-1.3) H 08/16/22 05:38 Glucose 149 mg/dL (74-106) H 08/16/22 05:38 Magnesium 1.9 mg/dL (1.8-2.4) 08/15/22 11:36 Total Bilirubin 0.5 mg/dL (0.2-1.0) 08/16/22 05:38 AST 10 U/L (15-37) L 08/16/22 05:38 ALT 16 U/L (12-78) 08/16/22 05:38 Alkaline Phosphatase 108 U/L (45-117) 08/16/22 05:38 Home Medications: Albuterol Sulfate [Proair Hfa] 8.5 gm IH TID PRN 01/27/19 Aspirin/Acetaminophen/Caffeine [Excedrin Extra Strength Caplet] 3 each PO BID 01/27/19 Cholecalciferol (Vitamin D3) [Vitamin D3] 1,000 unit PO DAILY 01/27/19 Colchicine [Colcrys] 0.6 mg PO DAILY PRN 01/27/19 Duloxetine HCl 60 mg PO DAILY 01/27/19 Loratadine [Claritin*] 10 mg PO DAILY PRN 01/27/19 Pravastatin Sodium 80 mg PO DAILY 01/27/19 Ropinirole HCl 2 mg PO DAILY 01/27/19 Tamsulosin [Flomax*] 0.4 mg PO DAILY 01/27/19 allopurinoL [Allopurinol] 300 mg PO DAILY 01/27/19 Apixaban [Eliquis] 5 mg PO BID #60 tablet 12/20/21 Budesonide/Formoterol Fumarate [Symbicort 160-4.5 Mcg Inhaler] 2 puff PO BID 08/15/22 Lansoprazole 30 mg PO BID 08/15/22 Olmesartan Medoxomil [Benicar] 40 mg PO DAILY 08/15/22 Sucralfate [Carafate] 1 gm PO TID 08/15/22 carvediloL [Carvedilol] 3.125 mg PO BID 08/15/22 Albuterol Neb [Proventil 0.083% Neb Soln] 2.5 mg NEB [id number] PRN #60 amp 08/16/22 Ipratropium Neb [Atrovent*] 0.5 mg NEB [id number] #60 amp 08/16/22 Ipratropium/Albuterol Sulfate [Iprat-Albut 0.5-3(2.5) mg/3 ml] 3 ml NEB Q6HP PRN #120 amp 08/16/22 Nebulizer 1 each MC DAILY #1 box 08/16/22 Nebulizer Accessories [Aeroneb Go] 1 each MC DAILY #1 box 08/16/22 Nebulizer Accessories [Aeroneb Go] 1 each MC DAILY #1 box 08/16/22 Nebulizer [Aeroneb Go Nebulizer] 1 each MC DAILY #1 box 08/16/22 levoFLOXacin [Levaquin*] 500 mg PO DAILY #7 tab 08/16/22 levoFLOXacin [Levaquin] 500 mg PO DAILY #7 tab 08/16/22 predniSONE [Deltasone] 20 mg PO BID #20 tab 08/16/22 predniSONE [Deltasone] 20 mg PO BID #20 tab 08/16/22 New Medications: Nebulizer Accessories [Aeroneb Go] 1 each MC DAILY #1 box Nebulizer Accessories [Aeroneb Go] 1 each MC DAILY #1 box Nebulizer [Aeroneb Go Nebulizer] 1 each MC DAILY #1 box Ipratropium Neb [Atrovent*] 0.5 mg NEB [id number] #60 amp Ipratropium/Albuterol Sulfate [Iprat-Albut 0.5-3(2.5) mg/3 ml] 3 ml NEB Q6HP PRN #120 amp PRN Reason: cough/shortness of breath/whee levoFLOXacin [Levaquin*] 500 mg PO DAILY #7 tab levoFLOXacin [Levaquin] 500 mg PO DAILY #7 tab Nebulizer 1 each MC DAILY #1 box predniSONE [Deltasone] 20 mg PO BID #20 tab predniSONE [Deltasone] 20 mg PO BID #20 tab Albuterol Neb [Proventil 0.083% Neb Soln] 2.5 mg NEB [id number] PRN #60 amp PRN Reason: Shortness Of Breath Physician Discharge Instructions: -DC IV and DC home -Follow-up with PCP in 1 to 2 weeks -Follow-up with Pulmonary in 1 to 2 weeks -Please call Dr. Gonzalez at [phone] if any questions regarding hospital stay -Please call nursing station at [phone] if any nursing or medication questions -Return to the emergency room if symptoms worsen Diet: AHA Activity: Fall precautions Followup: Madhav Bustamante MD [ACTIVE - CAN ADMIT] - 1-2 Weeks (call to schedule an appointment) Sybil Orona MD [Primary Care Provider] - 1-2 Weeks (call to schedule an appointment) Time spent managing pt's care (in minutes): 35
== END 2022-08-16 15:55 | disposition home or self-care (01) | DRG 192 ==
LOC: ER 10:58 → ERHOLD 14:12 → 4TH 16:38
PROVIDERS: ADMIT Internal Medicine Sleep Medicine; ATTEND Hospitalist
DX: J44.1 Chronic obstructive pulmonary disease with (acute) exacerbation (principal); I12.9 Hypertensive chronic kidney disease with stage 1 through stage 4 chronic kidney disease, or unspecified chronic kidney disease; N18.9 Chronic kidney disease, unspecified; E78.5 Hyperlipidemia, unspecified; M10.9 Gout, unspecified; Z88.5 Allergy status to narcotic agent; Z88.0 Allergy status to penicillin; Z79.82 Long term (current) use of aspirin; Z79.01 Long term (current) use of anticoagulants; Z79.52 Long term (current) use of systemic steroids; Z79.899 Other long term (current) drug therapy; Z91.040 Latex allergy status; Z28.310 Unvaccinated for COVID-19; Z20.822 Contact with and (suspected) exposure to COVID-19
CPT/HCPCS: 36415; 71045; 80048; 80053; 80076; 83735; 83880; 84484; 85025; 85610; 85730; 87811; 93005; 96374; 99285; J2920; J2930; J7614; J7644

== ENCOUNTER 2022-10-27 08:35 | Day surgery (SDC) | payer OTHER ==
[2022-10-27] MEDS ORDERED: NA CHLORIDE 0.9% 500 ML ONE (09:42)
[2022-10-27 09:58] VITALS: BMI 31.6
[2022-10-27] MEDS ORDERED: FENTANYL CITR 100 MCG/2 ML ONE (10:16)
[2022-10-27] MEDS ORDERED: FLUMAZENIL 0.1 MG/ML (5 mL VIAL) IV ONE (10:17)
[2022-10-27] MEDS ORDERED: MIDAZOLAM HCL 2 MG/2 ML INJ ONE (10:17)
[2022-10-27] MEDS ORDERED: NALOXONE 0.4 MG/ML VIAL ONE (10:17)
[2022-10-27] MEDS ORDERED: ATROPINE SULF 1 MG/10 ML SYR IV ONE (10:18)
[2022-10-27] MEDS ORDERED: HYDROCODONE/APAP 7.5/325 MG TAB ONE (12:02)
--- NOTE | 2022-10-27 12:38 | RAD REPORT ---
EXAM DESCRIPTION: CT - Renal Biopsy CT - 10/27/2022 11:31 am CLINICAL HISTORY: RENAL FAILURE COMPARISON: No comparisons FINDINGS: Preoperative diagnosis: Renal failure Post operative diagnosis: Same Conscious Sedation: IV conscious sedation utilizing fentanyl and midazolam. Patient was continuously monitored by nursing staff. Contrast used: NONE Estimated blood loss: less than 5 mL Specimens: 2 the core specimens inferior right kidney. The patient was placed prone on the table and the right flank posteriorly area was prepped and draped in the usual sterile fashion. 1% lidocaine was infiltrated into the subcutaneous tissues for local a nesthesia. Under computed tomographic guidance, a 17 gauge introducer was advanced into the lesion. S ubsequently, a 18 gauge, 15 cm long, 20 mm throw core biopsy gun was advanced into the inferior right kidney and 2 cores were obtained. Postprocedure imaging demonstrated no complications. Samples were given to pathology for analysis. Th e patient tolerated the procedure without immediate complication and transferred to the recovery room in stable condition. IMPRESSION: Technically successful CT-guided right nonfocal renal biopsy. IV conscious sedation was utilized for [address] scans are performed using dose optimization technique as appropriate and may include automated exposure control or mA/KV adjustment according to patient size.
[2022-10-27 14:45] VITALS: BP 124/69; TEMP 98; O2SAT 97
== END 2022-10-27 14:57 | disposition home or self-care (01) ==
LOC: DS 08:35
PROVIDERS: ATTEND Internal Medicine Nephrology
PROC: 0TB03ZX Excision of Right Kidney, Percutaneous Approach, Diagnostic (ICD-10-PCS; principal; 2022-10-27)
DX: N17.9 Acute kidney failure, unspecified (principal); N18.32 Chronic kidney disease, stage 3b; N02.8 Recurrent and persistent hematuria with other morphologic changes
CPT/HCPCS: 77012; 88300; 50200; J2250; J3010; J7040; J0461; J2310

== ENCOUNTER 2024-12-13 11:01 | Day surgery (SDC) | payer OTHER ==
[2024-12-12 11:50] LABS: Absolute Eosinophils 0.2 K/uL (0-0.5); Absolute Lymphocytes (CBC) 0.7 K/uL (0.7-4.9); Absolute Monocytes 0.8 K/uL (0.1-1.3); Absolute Neutrophil 7.9 K/uL (1.8-8.0); Basophils % 0.1 % (0-1.3); Eosinophils % 2.2 % (0-4.4); Hematocrit 42.5 % (39.6-49.0); Hemoglobin 14.5 g/dL (13.6-17.9); Lymphocytes % 7.5 % (15.3-44.8); MCH 29.3 pg (27.0-35.0); MPV 9.8 fL (7.6-11.3); Monocytes % 8.3 % (3.3-12.3); Neutrophils % 81.9 % (41.7-73.7); Nucleated Red Blood Cells % 0.2 % (0-0); Platelets 214 thou/uL (152-406); RBC Red Blood Cell Count 4.94 M/uL (4.33-5.43); Red Cell Distribution Width 16.6 % (12.1-15.2)
[2024-12-12 12:09] LABS: Anion Gap 11.7 mEq/L (5.0-15.0); Potassium 4.7 mEq/L (3.5-5.1)
[2024-12-12 12:12] LABS: PT Prothrombin Time 12.5 SECONDS (10-13.0); PTT, Activated Partial Thromb 28.6 SECONDS (27.2-37.4); Protime INR 1.1
--- NOTE | 2024-12-12 13:37 | RAD REPORT ---
Procedure: Chest Pa And Lat (2 Views) HISTORY: Preop for cardiac catheterization. Hypertension COMPARISON: 2021 FINDINGS: Mild progression bilateral interstitial lung opacities. No significant pleural effusion noted. The heart is borderline enlarged. IMPRESSION: Mild progression in bilateral interstitial opacities. This may represent an acute process such as mil d pneumonitis superimposed over chronic changes.
[2024-12-13] MEDS ORDERED: NA CHLORIDE 0.9% 500 ML ONE (11:02)
[2024-12-13] MEDS ORDERED: LIDOCAINE 1% 20 ML MDV ONE (11:31)
[2024-12-13] MEDS ORDERED: HEPA 1000U/500MLS 2,000 UNIT/1,000 ML BAG IV ONE (11:31)
[2024-12-13] MEDS ORDERED: VERAPAMIL HCL 10 MG/4 ML VIAL IV ONE (11:34)
[2024-12-13] MEDS ORDERED: HEPARIN 10,000 UNIT/10 ML VIAL IV ONE ×2 (11:34→13:01)
[2024-12-13] MEDS ORDERED: MIDAZOLAM HCL 2 MG/2 ML INJ ONE (11:34)
[2024-12-13] MEDS ORDERED: ATROPINE SULF 1 MG/10 ML SYR IV ONE (11:35)
[2024-12-13] MEDS ORDERED: HEPARIN 5000 UNIT/ML 1 ML VIAL ONE (11:35)
[2024-12-13] MEDS ORDERED: NITROGLYCERIN/D5W 50 MG/250 ML BTL IV ONE (11:35)
[2024-12-13] MEDS ORDERED: FENTANYL CITR 100 MCG/2 ML ONE (11:35)
[2024-12-13] MEDS ORDERED: ASPIRIN 325 MG TAB ONE (11:40)
[2024-12-13] MEDS ORDERED: TICAGRELOR 90 MG TABLET PO ONE ×2 (11:40→13:36)
[2024-12-13] MEDS ORDERED: CLOPIDOGREL 75 MG TABLET ONE (11:40)
--- NOTE | 2024-12-13 12:20 | EKG ---
Test Date: 2024-12-12 Test Time: 11:43:23 Pharmacy Specialist: DEMETRIO MEASUREMENT RESULTS: Intervals: Rate: 101 IN: 168 QRSD: 78 QT: 330 QTc: 427 [place] [employer]: P: 35 IN: 168 QRS: 22 T: 53 INTERPRETIVE STATEMENTS: Sinus tachycardia with premature supraventricular complexes Otherwise normal ECG Compared to ECG 03/30/2023 11:06:02 Atrial premature complex(es) now present Sinus rhythm no longer present Ventricular premature complex(es) no longer present Electronically Signed On 12-13-24 12:18:39 CDT by Jonathan Carlin
[2024-12-13 14:09] VITALS: TEMP 97.8
[2024-12-13 16:52] VITALS: BP 107/61; O2SAT 99
== END 2024-12-13 17:00 | disposition home or self-care (01) ==
LOC: CCL 11:01
PROVIDERS: ATTEND Internal Medicine
DX: I25.110 Atherosclerotic heart disease of native coronary artery with unstable angina pectoris (principal); I10 Essential (primary) hypertension; Z87.891 Personal history of nicotine dependence; Z79.82 Long term (current) use of aspirin; Z79.899 Other long term (current) drug therapy; Z88.0 Allergy status to penicillin; Z88.5 Allergy status to narcotic agent; Z91.040 Latex allergy status; Z82.49 Family history of ischemic heart disease and other diseases of the circulatory system
CPT/HCPCS: 93005; 85025; 80048; 36415; 85610; 85347 ×3; 85730; 71046; 93460; 76937; C1893; Q9967; C1725; C9600; J1644; J2003; J3010; J7040; 99152; 99153; J0461; J2250

== ENCOUNTER 2025-01-10 11:05 | Day surgery (SDC) | payer OTHER ==
[2025-01-05 13:49] LABS: Absolute Basophils 0.1 K/uL (0-0.5); Absolute Eosinophils 0.1 K/uL (0-0.5); Absolute Lymphocytes (CBC) 0.6 K/uL (0.7-4.9); Absolute Monocytes 0.9 K/uL (0.1-1.3); Absolute Neutrophil 11.6 K/uL (1.8-8.0); Basophils % 0.4 % (0-1.3); Eosinophils % 0.9 % (0-4.4); Hematocrit 31.7 % (39.6-49.0); Hemoglobin 10.9 g/dL (13.6-17.9); Lymphocytes % 4.3 % (15.3-44.8); MCH 29.5 pg (27.0-35.0); MCHC 34.4 g/dL (32.0-36.0); MCV 85.6 fL (80-100); MPV 9.2 fL (7.6-11.3); Monocytes % 6.8 % (3.3-12.3); Neutrophils % 87.6 % (41.7-73.7); Platelets 333 thou/uL (152-406); Red Cell Distribution Width 16.5 % (12.1-15.2)
[2025-01-05 13:54] LABS: PT Prothrombin Time 24.4 SECONDS (10-13.0); PTT, Activated Partial Thromb 32.7 SECONDS (27.2-37.4); Protime INR 2.22
--- NOTE | 2025-01-09 12:22 | EKG ---
Test Date: 2025-01-05 Test Time: 13:14:24 Sleeve Baster: JERED MEASUREMENT RESULTS: Intervals: Rate: 82 VT: 176 QRSD: 84 QT: 362 QTc: 422 [place]: P: 30 VT: 176 QRS: 32 T: 55 INTERPRETIVE STATEMENTS: Sinus rhythm with premature atrial complexes Otherwise normal ECG Compared to ECG 12/12/2024 11:43:23 Sinus tachycardia no longer present Electronically Signed On 01-09-25 12:11:47 CDT by Jonathan Carlin
[2025-01-10] MEDS ORDERED: NA CHLORIDE 0.9% 500 ML ONE (11:17)
[2025-01-10] MEDS ORDERED: HEPARIN 10,000 UNIT/10 ML VIAL IV ONE ×2 (11:51→11:53)
[2025-01-10] MEDS ORDERED: HEPA 1000U/500MLS 2,000 UNIT/1,000 ML BAG IV ONE (11:51)
[2025-01-10] MEDS ORDERED: LIDOCAINE 1% 20 ML MDV ONE (11:51)
[2025-01-10] MEDS ORDERED: NITROGLYCERIN/D5W 50 MG/250 ML BTL IV ONE (11:51)
[2025-01-10] MEDS ORDERED: FENTANYL CITR 100 MCG/2 ML ONE (11:52)
[2025-01-10] MEDS ORDERED: HEPARIN 5000 UNIT/ML 1 ML VIAL ONE (11:52)
[2025-01-10] MEDS ORDERED: VERAPAMIL HCL 10 MG/4 ML VIAL IV ONE (11:52)
[2025-01-10] MEDS ORDERED: MIDAZOLAM HCL 2 MG/2 ML INJ ONE (11:52)
[2025-01-10] MEDS ORDERED: ASPIRIN 325 MG TAB ONE (11:53)
[2025-01-10] MEDS ORDERED: ATROPINE SULF 1 MG/10 ML SYR IV ONE (11:54)
[2025-01-10] MEDS ORDERED: REGADENOSON 0.4 MG/5 ML SYR IV ONE (12:32)
[2025-01-10 14:18] VITALS: O2SAT 100
[2025-01-10 17:28] VITALS: BP 132/60
--- NOTE | 2025-01-11 03:13 | OP ---
Date of Procedure: 01/10/2025 Surgeon: YOLETTE GR Procedures Performed: 1. Selective coronary angiogram. 2. Left heart catheterization. 3. Fractional flow reserve of proximal to mid left anterior descending, which was significant at 0.78 . 4. Percutaneous coronary intervention of proximal to mid left anterior descending, used 3.5 x 20 mm a t the mid left anterior descending, overlapped with 3.5 x 24 mm in the proximal segment. Excellent e xpansion. Indication: Unstable angina. Access: Right radial artery, 6-Kosovan, was closed with TR band. Complications: None. Bleedin mL. Total Sedation Time: 1 hour, used fentanyl and Versed. Description Of Procedure: After risks, benefits, and alternatives were explained, the patient agreed to procedure, signed informed consent. The patient was brought into [facility], prepped and draped in sterile fashion. Then I accessed right radial artery using pediatric micr opuncture kit. Placed 6-Kosovan slender sheath and took a 6-Kosovan EBU 4 guide with side holes into t he aortic root over a J-wire, engaged left main, took standard views and then sent a pressure wire in to the aortic root. Gave systemic heparin to assure ACT level above 250, and pressures were equalize d. Then, the left main was engaged and the pressure wire was advanced into the left main, into the L AD passing the area of stenosis, and FFR was performed using a Lexiscan. It was significant at 0.78. Subsequently, I took a 3.5 x 15 mm Compliant balloon and then NC balloon, pre-dilated both lesions, proximal to mid LAD and then placed a 3.5 x 20 mm at the mid segment, followed by 3.5 x 24 mm stent in the proximal segment. Then, removed the wire and final angiogram was satisfactory. ACT level was above 250 throughout the procedure by giving heparin. The patient was already on Brilinta and aspir in, which he received this morning. The wire was removed. Final angiogram was satisfactory. Guide was removed. Sheath was removed. Then, took a 6-Kosovan JR4 catheter. Engaged the RCA, took a 6-[facility] diagnostic catheter over J-wire into the aortic root, engaged the RCA, took standard views and th en crossed the aortic valve, measured the LVEDP. Pullback did not record any gradient, removed the c atheter and the sheath, placed TR band with good hemostasis. Findings: 1. Left main: Large and normal. 2. LAD: Proximal 50% to 70% with positive FFR, status post successful PCI as above. Mid LAD 70% to 80% and positive FFR, status post successful PCI as above. Rest of the LAD is normal. Normal diagon al branches. 3. Left circumflex has proximal 60% to 70% and the OM1 has 70% to 80% stenosis. 4. RCA: Widely patent stent and distally there is 50% to 60% stenosis, and 60% stenosis of the PDA. 5. LVEDP is borderline at 30 mmHg. Conclusion: 1. Severe proximal mid LAD stenosis, proven by FFR, status post successful PCI. 2. Patent RCA stent. 3. [id number] left circumflex disease. We will plan to stage PCI in 2 to 3 months. SR/MODL Voice ID: [id number] Report ID: [id number]
== END 2025-01-10 17:25 | disposition home or self-care (01) ==
LOC: CCL 11:05
PROVIDERS: ATTEND Internal Medicine
DX: I25.110 Atherosclerotic heart disease of native coronary artery with unstable angina pectoris (principal); I34.0 Nonrheumatic mitral (valve) insufficiency; E78.2 Mixed hyperlipidemia; I26.99 Other pulmonary embolism without acute cor pulmonale; Z95.5 Presence of coronary angioplasty implant and graft; Z87.891 Personal history of nicotine dependence; Z79.01 Long term (current) use of anticoagulants; Z79.82 Long term (current) use of aspirin; Z79.899 Other long term (current) drug therapy; Z88.0 Allergy status to penicillin; Z88.5 Allergy status to narcotic agent; Z91.040 Latex allergy status; Z82.49 Family history of ischemic heart disease and other diseases of the circulatory system
CPT/HCPCS: 93005; 85025; 80048; 36415; 85610; 85347 ×3; 85730; 93458; 76937; 93571; C1893; Q9967; C1725; C9600; J1644; J2785; J2003; J2250; J3010; J7040; C1769; 99152; C9601; J0461

== ENCOUNTER 2025-04-15 01:11 | Inpatient (IN) | payer OTHER ==
[2025-04-15 01:52] LABS: Absolute Lymphocytes (CBC) 0.2 K/uL (0.7-4.9); Hematocrit 20.9 % (39.6-49.0); Hemoglobin 7.3 g/dL (13.6-17.9); MCH 30.6 pg (27.0-35.0); MCHC 35.0 g/dL (32.0-36.0); MCV 87.4 fL (80-100); MPV 8.9 fL (7.6-11.3); Nucleated RBC Absolute Count 0.0 (0-0); Nucleated Red Blood Cells % 0.1 % (0-0); RBC Red Blood Cell Count 2.39 M/uL (4.33-5.43); White Blood Count 10.00 thou/uL (4.3-10.9)
[2025-04-15 02:11] LABS: Sqamous Epithelial None Seen /HPF (None Seen); Urine Culture Reflex Order NOT NEEDED; Urine Microscopic Reflex YN ORDER UMIC
[2025-04-15 02:21] LABS: ALT/SGPT 20.0 U/L (16-61); AST/SGOT 15.0 U/L (15-37); Albumin 2.3 g/dL (3.4-5.0); Albumin/Globulin Ratio 0.8 (1.1-1.8); Alkaline Phosphatase 48.0 U/L (45-117); Anion Gap 16.2 mEq/L (5.0-15.0); BUN Blood Urea Nitrogen 87.0 mg/dL (7-18); Bilirubin Indirect, Calculated 0.3 mg/dL (0.2-0.8); Globulin 2.8 g/dL (2.3-3.5); Glucose Level 160.0 mg/dL (74-106); Magnesium 2.0 mg/dL (1.6-2.4); NT PRO-BNP 8057.0 pg/mL (<450); Potassium 4.2 mEq/L (3.5-5.1); Troponin High Sensitivity 42.9 pg/mL (<58.9)
[2025-04-15 02:45] LABS: Differential Total Cells Count 100; Segmented Neutrophils 93 % (40-80)
[2025-04-15 02:46] LABS: Anisocytosis 1+; Blood Morphology Comment NOTED (NOT SEEN); Hypochromasia 2+
[2025-04-15 02:47] LABS: PT Prothrombin Time 26.2 SECONDS (10-13.0); Protime INR 2.38
--- NOTE | 2025-04-15 03:02 | EDPHYS ---
Physician Documentation [facility] Name: Zen Pink Age: 74 yrs Sex: Male : 1950 Arrival Date: 04/15/2025 Time: 01:11 Bed 20 Private MD: ED Physician Donell De Jesus HPI: 04/15 02:23 This 74 yrs old Male presents to ER via EMS with complaints of Shortness Of Breath. sp3 02:23 74-year-old male with history of asbestosis, CKD stage V, COPD, intermittent dialysis sp3 (no dialysis in 2 weeks), hyperlipidemia now presents to the ED for recurrent shortness of breath. Patient was just discharged yesterday from [facility] after transfer there approximately 4 weeks ago. Patient states he got home and is now progressively gotten more more short of breath. Denies any fever, chest pain, abdominal pain, vomiting, diarrhea, syncope, or any other signs or symptoms on ROS at this time.. Historical: - Allergies: 01:23 PENICILLINS; br2 01:23 Latex; br2 01:23 Codeine; br2 - PMHx: 01:23 asbestosis; Asthma; chronic kidney disease; COPD; Dialysis (cardiac stents); Gout; br2 Hyperlipidemia; Hypertension; - PSHx: 01:23 cardiac stents; Dialysis Catheter; br2 - Immunization history:: Adult Immunizations not up to date. - Infectious Disease History:: Denies. - Social history:: Smoking status: Patient/guardian denies using tobacco, Patient/guardian denies using alcohol, street drugs. ROS: 02:24 Constitutional: Negative for fever, chills, and weight loss, Eyes: Negative for injury, sp3 pain, redness, and discharge, ENT: Negative for injury, pain, and discharge, Neck: Negative for injury, pain, and swelling, Abdomen/GI: Negative for abdominal pain, nausea, vomiting, diarrhea, and constipation, Back: Negative for injury and pain, MS/Extremity: Negative for injury and deformity, Skin: Negative for injury, rash, and discoloration, Neuro: Negative for headache, weakness, numbness, tingling, and seizure, Psych: Negative for depression, anxiety, suicide ideation, homicidal ideation, and hallucinations, Allergy/Immunology: Negative for hives, rash, and allergies, Endocrine: Negative for neck swelling, polydipsia, polyuria, polyphagia, and marked weight changes, Hematologic/Lymphatic: Negative for swollen nodes, abnormal bleeding, and unusual bruising, 02:24 All other systems are negative, Exam: 02:24 Constitutional: This is a well developed, well nourished patient who is awake, alert, sp3 and in no acute distress. Head/Face: Normocephalic, atraumatic. Eyes: Pupils equal round and reactive to light, extra-ocular motions intact. Lids and lashes normal. Conjunctiva and sclera are non-icteric and not injected. Cornea within normal limits. Periorbital areas with no swelling, redness, or edema. Neck: Trachea midline, no thyromegaly or masses palpated, and no cervical lymphadenopathy. Supple, full range of motion without nuchal rigidity, or vertebral point tenderness. No Meningismus. Chest/axilla: Normal chest wall appearance and motion. Nontender with no deformity. No lesions are appreciated. Cardiovascular: Regular rate and rhythm with a normal S1 and S2. No gallops, murmurs, or rubs. Normal PMI, no JVD. No pulse deficits. Abdomen/GI: Soft, non-tender, with normal bowel sounds. No distension or tympany. No guarding or rebound. No evidence of tenderness throughout. Back: No spinal tenderness. No costovertebral tenderness. Full range of motion. Skin: Warm, dry with normal turgor. Normal color with no rashes, no lesions, and no evidence of cellulitis. MS/ Extremity: Pulses equal, no cyanosis. Neurovascular intact. Full, normal range of motion. Neuro: Awake and alert, GCS 15, oriented to person, place, time, and situation. Cranial nerves II-XII grossly intact. Motor strength 5/5 in all extremities. Sensory grossly intact. Cerebellar exam normal. Normal gait. Psych: Awake, alert, with orientation to person, place and time. Behavior, mood, and affect are within normal limits. 02:24 Respiratory: Rales bilateral, 03:05 ECG was reviewed by the Attending Physician. Atrial fibrillation with ventricular rate sp3 in the 90s, normal axis and nonspecific diffuse ST/T changes without evidence of acute ischemia. Vital Signs: 01:19 BP 99 / 68; Pulse 113; Resp 24; Temp 96.4; Pulse Ox 100% on 4 lpm NC; Weight 108.86 kg; br2 Height 6 ft. 4 in. ; Pain 0/10; 01:58 BP 111 / 72; Pulse 96; Resp 17; Temp 97; Pulse Ox 100% on 4 lpm NC; Pain 0/10; bm8 02:46 BP 122 / 74; Pulse 92; Resp 16; Pulse Ox 100% on 4 lpm NC; ss12 04:40 BP 133 / 65; Pulse 85; Resp 18; Pulse Ox 100% on 4 lpm NC; ss12 01:19 Body Mass Index 29.21 (108.86 kg, 193.04 cm) br2 01:19 Pain Scale: Adult br2 01:58 Pain Scale: Adult bm8 Tan Coma Score: 01:58 Eye Response: spontaneous(4). Motor Response: obeys commands(6). Verbal Response: bm8 oriented(5). Total: 15. MDM: 01:20 Medical Screening Exam initiated sp3 02:25 Data reviewed: vital signs, nurses notes, old medical records, lab test result(s), EKG, sp3 radiologic studies. ED course: 74-year-old male with dyspnea. Differential diagnosis includes volume overload, COPD, CHF, pneumonia, bronchitis, electrolyte disturbance, ACS, among others. Workup will include chest x-ray, EKG and general labs. Patient will need to be admitted. He sees Dr. Carmen for renal.. 02:59 ED course: Potassium 4.2. Patient is volume overloaded and we will admit for diuresis sp3 and probable dialysis.. 04/15 01:20 Order name: Basic Metabolic Panel; Complete Time: 02:46 sp3 04/15 01:20 Order name: CBC with Diff; Complete Time: 02:49 sp3 04/15 01:20 Order name: LFT's; Complete Time: 02:46 sp3 04/15 01:20 Order name: Magnesium; Complete Time: 02:46 sp3 04/15 01:20 Order name: NT PRO-BNP; Complete Time: 02:46 sp3 04/15 01:20 Order name: PT-INR; Complete Time: 02:49 sp3 04/15 01:20 Order name: Troponin HS; Complete Time: 02:46 sp3 04/15 01:24 Order name: UA Rfx Graham Cult if indicated; Complete Time: 02:16 sp3 04/15 01:24 Order name: Lactate w/ 2H reflex if indic.; Complete Time: 02:46 sp3 04/15 02:07 Order name: Manual Differential; Complete Time: 02:49 EDMS 04/15 01:20 Order name: XRAY Chest (1 view) sp3 04/15 01:20 Order name: Cardiac monitoring; Complete Time: 01:21 sp3 04/15 01:20 Order name: EKG - Nurse/Tech; Complete Time: 01:58 sp3 04/15 01:20 Order name: IV Saline Lock; Complete Time: 01:21 sp3 04/15 01:20 Order name: Labs collected and sent; Complete Time: 01:21 sp3 04/15 01:20 Order name: O2 Per Protocol; Complete Time: 01:21 sp3 04/15 01:20 Order name: O2 Sat Monitoring; Complete Time: 01:21 sp3 Administered Medications: 03:00 Drug: Furosemide IVP 40 mg IVP once; give over 2 minutes Route: IVP; Site: left wrist; 12 04:36 Follow up: Response: No adverse reaction ss12 Disposition Summary: 04/15/25 03:01 Hospitalization Ordered Notes: Hospitalization Status: Inpatient Admission sp3 Provider: Bo Wood sp3 Location: Telemetry/MedSurg (Inpatient) sp3 Condition: Stable sp3 Problem: an acute exacerbation sp3 Symptoms: have worsened sp3 Bed/Room Type: Standard sp3 Room Assignment: 214(04/15/25 03:44) rv1 Diagnosis - CHF, volume overload, dyspnea sp3 Forms: - Medication Reconciliation Form sp3 - SBAR form sp3 - Leadership Thank You Letter sp3 Signatures: Dispatcher [employer] EDMS Donell De Jesus MD MD sp3 Maia Candelaria rv1 Jenny Segundo RN RN br2 Dariana Westbrook RN RN ss12 Corrections: (The following items were deleted from the chart) 01:21 01:21 BASIC METABOLIC PANEL+C.LAB.BRZ ordered. EDMS EDMS 01:21 01:21 CBC+H.LAB.BRZ ordered. EDMS EDMS 01:21 01:21 HEPATIC FUNCTION+C.LAB.BRZ ordered. EDMS EDMS 01:21 01:21 MAGNESIUM+C.LAB.BRZ ordered. EDMS EDMS 01:21 01:21 PROBNP+C.LAB.BRZ ordered. EDMS EDMS 01:21 01:21 PROTIME (+INR)+COAG.LAB.BRZ ordered. EDMS EDMS 01: 01:21 Troponin High Sensitivity+C.LAB.BRZ ordered. EDMS EDMS 01:21 01:21 Chest Single View+RAD.RAD.BRZ ordered. EDMS EDMS 03:44 03:01 sp3 rv1
--- NOTE | 2025-04-15 03:02 | ER ---
Nurse's Notes [facility] Name: Zen Pink Age: 74 yrs Sex: Male : 1950 Arrival Date: 04/15/2025 Time: 01:11 Bed 20 Private MD: Diagnosis: CHF, volume overload, dyspnea Presentation: 04/15 01:19 Chief complaint: Patient states: PT WAS DISCHARGED ON THURSDAY ...ARRIVES IN ER TODAY DUE br2 SOB SINCE THIS MORNING. PT RECEIVED A\T\A AND SOLUMEDROL 125MG IV PER EMS. Chief complaint:. Coronavirus screen: Client denies travel out of the [place] in the last 14 days. Ebola Screen: Patient denies exposure to infectious person. Initial Sepsis Screen: Does the patient meet any 2 criteria? RR > 20 per min. Does the patient have a suspected source of infection? No. Patient's initial sepsis screen is negative. Risk Assessment: Do you want to hurt yourself or someone else? Patient reports no desire to harm self or others. Onset of symptoms is unknown. 01:19 Method Of Arrival: EMS: [facility] br2 01:19 Acuity: DOMINICK 3 br2 Triage Assessment: 01:24 General: Appears uncomfortable, Behavior is calm, cooperative. Pain: Denies pain. br2 Respiratory: Reports shortness of breath at rest on exertion the patient has moderate shortness of breath. Historical: - Allergies: 01:23 PENICILLINS; br2 01:23 Latex; br2 01:23 Codeine; br2 - PMHx: 01:23 asbestosis; Asthma; chronic kidney disease; COPD; Dialysis (cardiac stents); Gout; br2 Hyperlipidemia; Hypertension; - PSHx: 01:23 cardiac stents; Dialysis Catheter; br2 - Immunization history:: Adult Immunizations not up to date. - Infectious Disease History:: Denies. - Social history:: Smoking status: Patient/guardian denies using tobacco, Patient/guardian denies using alcohol, street drugs. Screenin:58 [facility] ED Fall Risk Assessment (Adult) History of falling in the last 3 months, bm8 including since admission Yes- physiologic fall (2 pts) Confusion or Disorientation No (0 pts) Intoxicated or Sedated No (0 pts) Impaired Gait Yes (1 pt) Mobility Assist Device Used No (0 pt) Altered Elimination Yes (1 pt) Score/Fall Risk Level 3 or more points = High Risk Oriented to surroundings, Maintained a safe environment, Educated pt \T\ family on fall prevention, incl call for assistance when getting out of bed, Assessed \T\ reinforced patient's understanding of fall precautions, Hourly rounding (assess needs \T\ fall precautionary measures) done, Used ambulatory aids as needed (educated on \T\ assisted with), Used gait belt as appropriate Implemented a Fall Risk Plan of Care. Abuse screen: Denies threats or abuse. Nutritional screening: No deficits noted. Tuberculosis screening: No symptoms or risk factors identified. Assessment: 02:01 Reassessment: Patient appears in no apparent distress at this time. Patient and/or bm8 family updated on plan of care and expected duration. Pain level reassessed. Patient is alert, oriented x 3, equal unlabored respirations, skin warm/dry/pink. Patient denies pain at this time. Patient states feeling better. Patient states symptoms have improved. Neuro: No deficits noted. Level of Consciousness is awake, alert, obeys commands, Oriented to person, place, time, situation, Appropriate for age. Cardiovascular: Heart tones S1 S2 present Capillary refill < 3 seconds in bilateral fingers Patient's skin is warm and dry. Rhythm is atrial flutter 3:1. Respiratory: Airway is patent Trachea midline Respiratory effort is even, unlabored, Respiratory pattern is regular, symmetrical, Breath sounds are clear bilaterally. GI: No signs and/or symptoms were reported involving the gastrointestinal system. : No signs and/or symptoms were reported regarding the genitourinary system. EENT: No signs and/or symptoms were reported regarding the EENT system. Derm: No signs and/or symptoms reported regarding the dermatologic system. Musculoskeletal: No signs and/or symptoms reported regarding the musculoskeletal system. 03:00 Reassessment: Patient appears in no apparent distress at this time. Patient and/or ss12 family updated on plan of care and expected duration. Pain level reassessed. Patient is alert, oriented x 3, equal unlabored respirations, skin warm/dry/pink. Vital Signs: 01:19 BP 99 / 68; Pulse 113; Resp 24; Temp 96.4; Pulse Ox 100% on 4 lpm NC; Weight 108.86 kg; br2 Height 6 ft. 4 in. ; Pain 0/10; 01:58 BP 111 / 72; Pulse 96; Resp 17; Temp 97; Pulse Ox 100% on 4 lpm NC; Pain 0/10; bm8 02:46 BP 122 / 74; Pulse 92; Resp 16; Pulse Ox 100% on 4 lpm NC; ss12 04:40 BP 133 / 65; Pulse 85; Resp 18; Pulse Ox 100% on 4 lpm NC; ss12 01:19 Body Mass Index 29.21 (108.86 kg, 193.04 cm) br2 01:19 Pain Scale: Adult br2 01:58 Pain Scale: Adult bm8 [place] Coma Score: 01:58 Eye Response: spontaneous(4). Motor Response: obeys commands(6). Verbal Response: bm8 oriented(5). Total: 15. ED Course: 01:16 Patient arrived in ED. gm2 01:17 Peter Mike, RN is Primary Nurse. bm8 01:17 Donell De Jesus MD is Attending Physician. sp3 01:23 Triage completed. br2 01:24 Arm band placed on right wrist. br2 01:28 Maintain EMS IV. Dressing intact. Gauge \T\ site: 20G LEFT HAND. br2 01:58 Patient has correct armband on for positive identification. Bed in low position. Call bm8 light in reach. Side rails up X2. Adult w/ patient. Client placed on continuous cardiac and pulse oximetry monitoring. NIBP monitoring applied. rail transportation operator on. Pulse ox on. NIBP on. Door closed. Noise minimized. Warm blanket given. Pillow given. Verbal reassurance given. Head of bed lowered. 01:58 No provider procedures requiring assistance completed. Initial lab(s) drawn, by me bmBarb sent to lab. Urine collected: Hernández catheter specimen, clear, EKG done, by ED staff, reviewed by Donell De Jesus MD. Oxygen administration via nasal cannula \T\ 4L/min Response to oxygen therapy: symptoms improved. 01:59 XRAY Chest (1 view) In Process Unspecified. EDMS 03:00 Bo Wood MD is Hospitalizing Provider. sp3 Administered Medications: 03:00 Drug: Furosemide IVP 40 mg IVP once; give over 2 minutes Route: IVP; Site: left wrist; ss12 04:36 Follow up: Response: No adverse reaction ss12 Medication: 01:58 VIS not applicable for this client. bm8 Outcome: 03:01 Decision to Hospitalize by Provider. sp3 05:15 Patient left the ED. ss12 Signatures: Dispatcher [employer] EDMS Donell De Jesus MD MD sp3 Soo Kellogg 2 Peter Mike, RN RN bm8 Jenny Segundo, RN RN br2 Dariana Westbrook RN RN ss12 Corrections: (The following items were deleted from the chart) 03:02 02:46 BP 110 / 52; Pulse 88bpm; Resp 16bpm; Pulse Ox 97% RA; ss12 ss12
[2025-04-15] MEDS ORDERED: FUROSEMIDE 40 MG/4 ML VIAL ONE ×2 (03:05→03:37)
[2025-04-15] MEDS: FUROSEMIDE 40 MG/4 ML VIAL IV STA (03:35)
--- NOTE | 2025-04-15 03:44 | P.HP ---
Certification for Inpatient Patient admitted to: Inpatient With expected LOS: >2 Midnights Patient will require the following post-hospital care: Home Health Services Practitioner: I am a practitioner with admitting privileges, knowledge of patient current condition, hospital course, and medical plan of care. Services: Services provided to patient in accordance with Admission requirements found in Title 42 Section 412.3 of the Code of Federal Regulations <Jose Diallo - Last Filed: 04/15/25 05:51> Patient History Date of Service: 04/15/25 Reason for admission: AHRF/ Volume Overload 2/2 CHF, and Renal failure. History of Present Illness: Patient is a 74-year-old male with multiple past medical history including chronic kidney disease, patient was receiving dialysis according to the patient's son who was at the bedside, states patient had his last dialysis last , exact date unknown, and his dialysis access port was pulled out prior to his discharge from [facility] on Thursday this week and was discharged home on according to the son, CHF, gout, vasculitis, home oxygen dependence 3 L, BPH, COPD, hyperlipidemia, IBS, anemia, received multiple blood transfusions prior, brought to the ER by son alexandria due to worsening shortness of breath. Patient son states that patient was admitted at [facility] recommended by patient nephrology Dr. Carmen, states patient was seen by multiple specialist, and discharged home on this week. He states patient occasionally has shortness of breath, but his shortness of breath today was more profound, states patient had severe shortness of breath both at rest and exertion, states patient was brought to the ER because his shortness of breath progressively worsened despite the use of his home oxygen. On admission assessment, patient had bilateral diminished breath sounds, with pulmonary congestion, with crackles and rhonchi, and expiratory wheezing, 3+ pitting edema bilateral lower extremities. Patient was so exhausted and unable to provide his medical history, all of patient medical history was provided by the son present at bedside. Patient denies of any chest pain at this time. Patient with indwelling Hernández catheter and draining clear leonel urine. Patient current H&H 7.3, and 20.9. - Past Medical/Surgical History Diabetic: No -: CKD -: COPD -: Asbestosis -: Asthma -: HTN -: Hyperelipidemia -: IBS -: Microscopic polyangitis C ANCA pos -: Kidney cancer. -: 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, 11/2017 -: back sx - 2010 -: spinal stimulator - 2017 - Family History Family History: Reviewed- Non-Contributory - Social History Smoking Status: Unknown if ever smoked Alcohol use: No CD- Drugs: No Caffeine use: No Place of Residence: Home <YoelJose - Last Filed: 04/15/25 05:51> Date of Service: 04/15/25 <Geovani Gonzalez - Last Filed: 04/20/25 21:01> Allergies codeine [Codeine] Allergy (Mild, Verified 01/27/25 14:16) ITCH Penicillins Allergy (Mild, Verified 01/27/25 14:16) ITCH Latex, Natu Allergy (Uncoded 01/27/25 14:16) RASH, SWELLING Home Medications: Duloxetine HCl 30 mg PO DAILY 01/27/19 Pravastatin Sodium 80 mg PO DAILY 01/27/19 Ropinirole HCl 2 mg PO BEDTIME 01/27/19 Tamsulosin [Flomax*] 0.4 mg PO DAILY 01/27/19 Lansoprazole 30 mg PO DAILY 08/15/22 Sucralfate [Carafate] 1 gm PO TIDWM 08/15/22 Cholecalciferol (Vitamin D3) [Vitamin D 1000 Iu Tab*] 2,000 unit PO DAILY 03/30/23 Tizanidine HCl 2 mg PO DAILY 02/12/25 Albuterol Neb [Proventil 0.083% Neb Soln] 2.5 mg NEB [id number] PRN #60 amp 02/23/25 Ticagrelor [Brilinta*] 90 mg PO BID #60 tab 02/23/25 Allopurinol 100 mg PO DAILY 03/27/25 Aspirin/Acetaminophen/Caffeine [Excedrin Extra Strength Caplet] 1 each PO PRN PRN 03/27/25 Carvedilol [Coreg] 6.25 mg PO BID 03/27/25 Apixaban [Eliquis] 5 mg PO BID 04/15/25 Cyanocobalamin [Vitamin B-12] 1,000 mcg PO DAILY 04/15/25 Na Bicarb Tab [Sodium Bicarb 325 MG] 1,300 mg PO QID 04/15/25 predniSONE [Deltasone*] 20 mg PO DAILY 04/15/25 Review of Systems 10-point ROS is otherwise unremarkable Respiratory: Shortness of Breath, SOB with Excertion, Wheezing <Jose Diallo - Last Filed: 04/15/25 05:51> Physical Examination - Physical Exam General: Alert, Oriented x2, Cooperative HEENT: Atraumatic, Normocephalic, PERRLA, Mucous membr. moist/pink, Sclerae nonicteric Neck: Supple, 2+ carotid pulse no bruit, No LAD, Without JVD or thyroid abnormality Respiratory: Diminished, Crackles/rales, Expiratory wheezes, Other (Bilateral rhonchi) Cardiovascular: Normal pulses, No gallops, No rubs, Edema (3+ bilateral lower extremities.), Irregular heart rate/rhythm (Atrial fibrillation chronic), Systolic murmur Capillary refill: <2 Seconds Gastrointestinal: Normal bowel sounds, No masses, No rebound, No guarding, Other (Distended secondary to obesity.) Musculoskeletal: No clubbing, No contractures, No erythema, No warmth, Swelling (Bilateral lower extremities.) Integumentary: No rashes, No significant lesion, No erythema, No warmth, No cyanosis Neurological: Normal affect, Other (Generalized weakness, unable to fully assess neurostatus at this time.) Lymphatics: No axilla or inguinal lymphadenopathy Urinary: Hernández catheter - Studies Laboratory Data (last 24 hrs) 04/15/25 04/15/25 04/15/25 01:43 01:43 01:43 WBC 10.00 Hgb 7.3 L Hct 20.9 L Plt Count 171 PT 26.2 H INR 2.38 Sodium 136 Potassium 4.2 BUN 87 H Creatinine 2.77 H Glucose 160 H Magnesium 2.0 Total Bilirubin 0.5 AST 15 ALT 20 Alkaline Phosphatase 48 <Jose Diallo - Last Filed: 04/15/25 05:51> Male Exam - Male Exam Inguinal exam: No hernias <Jose Diallo - Last Filed: 04/15/25 05:51> Assessment and Plan - Plan Patient is a 74-year-old male admitted inpatient with diagnosis of AHRF/volume overload 2/2 CHF/Renal failure. (1)AHRF/Volume Overload 2/2 CHF/renal failure. -Order Lasix IV 40 mg x 1 stat, patient received 40 mg IV in ED, making total dose of 80 mg. -Order albumin 25 g IV x 1 stat. -Albumin 12.5 g/furosemide 100 mg in NS at 20 mL/hr. -Consult nephrology Dr. Carmen, who has been following the patient. Patient may need to be restarted back on dialysis. Patient does not currently have any dialysis port, will defer surgical consult to be done by nephrology. -Order echo. -DuoNeb every 6 hours as needed. -Carvedilol 6.25 mg p.o. twice daily. -O2 3 L to be titrated to maintain O2 saturation above 90%. - Consult social services to continue home health services. Patient is currently receiving home health services. (2)Normocytic, and normochromic anemia. H&H 7.3/20.9. -Order for type and screen, transfuse 1 unit. (3)Chronic gout. -Continue home medication allopurinol 600 mg p.o. daily. (4)Chronic BPH. -Continue home medication tamsulosin 0.4 mg p.o. daily. (5)Explained the entire treatment plan to the patient, and son present at bedside, solicit questions answered and voiced understanding by the son. Discharge Plan: Other (Patient will need continuation of home health services.) - Advance Directives Does patient have a Living Will: Yes Does patient have a Durable POA for Healthcare: No - Code Status/Comfort Care Code Status Assessed: Yes Code Status: Do Not Attempt Resuscitat (Patient son states he is a DNR/DNI.) Critical Care: No Time Spent Managing Pts Care (In Minutes): 55 <Jose Diallo - Last Filed: 04/15/25 05:51> Date of Service: 04/15/25 Patient was seen and examined. Events of the last 24 hours have been noted. Spoke with with NILE regarding patient's clinical picture after evaluating and examining the patient independently. I performed a substantial part of the MDM during this patient's care today. I personally made or approved the documented management plan and acknowledge its risk of complications. I agree with the findings and documentation provided in the NILE's notes. Chart been reviewed. Patient known to me from prior admissions for granulomatous polyangiitis. Patient been on IV steroids. Patient is continuing to decline. Patient has received second dose of rituximab. Patient response for about 48 to 72 hours before his clinical condition started deteriorating. Patient once again was getting more short of breath so he came into the emergency room. Steroids. Patient's clinical symptoms are improving. Patient will be admitted to the hospital for further workup. <Geovani Gonzalez - Last Filed: 04/20/25 21:01>
[2025-04-15] MEDS ORDERED: ALBUTEROL 2.5 MG/3 ML NEB SOL NEB PRN (03:45)
[2025-04-15] MEDS: ALBUMIN HUMAN 25% 12.5 GM, FUROSEMIDE 100 MG in NA CHLORIDE 0.9% 40 ML IV SCH ×2 (04:00→09:15)
[2025-04-15] MEDS: ALBUMIN HUMAN 25% 100 ML IV ONE (05:43)
--- NOTE | 2025-04-15 06:53 | RAD REPORT ---
EXAM DESCRIPTION: XR CHEST 1 VIEW 04/15/2025 3:36 AM CDT CLINICAL HISTORY: 74 years, Male, Dyspnea. COMPARISON: XR Chest 04/02/2025. FINDINGS: 1 view of the chest (AP portable projection) was obtained. Prior films were compared. There is decr eased lung volume. Mediastinum: The cardiomediastinal silhouette is stable in size and shape. Lungs: There is a focal area of airspace opacity within the right lower lung zone. Heart: The heart is in the upper normal size. Thoracic aorta: The thoracic aorta demonstrate to be tortuous. Pulmonary vasculature: The pulmonary vasculature is normal in distribution. Pleura: The costophrenic angles demonstrate to be sharp. Osseous structures: The bony structures demonstrate epidural neurostimulator lower thoracic spine. Other: External EKG leads within the [id number] limits diagnosis. IMPRESSION: Focal area of airspace opacity within the right lower lung zone suspicious for pneumonia. Electronically signed by: Chuck Blake MD 04/15/2025 03:49 AM CDT RP Due to temporary technical issues with the [employer] reporting system, reports are being celia d by the in-house radiologist without review as a courtesy to ensure prompt reporting. The interpreting radiologist is fully responsible for the content of the report. Transcribed Date/Time: 04/15/2025 6:53 AM
[2025-04-15] MEDS: APIXABAN 5 MG TABLET PO SCH ×2 (09:15→20:30)
--- NOTE | 2025-04-15 13:13 | CON ---
Date of Consultation: 04/15/2025 Reason For Consultation: Elevated BUN and creatinine, fluid management. 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 At that time, found to have ANCA vas culitis. The patient received rituximab, received 2 doses in a part of 2 weeks. The patient continu ed to have dialysis. The patient gradually found improvement in kidney function. For that reason, candy fenton was weaned from dialysis, last dialysis almost 2 weeks ago. The TDC was removed. The patient was admitted to the hospital multiple times with symptomatic shortness of breath and symptomatic ane kalin, required recurrent transfusions this time. The patient was released from the hospital last week with the same symptoms. The patient arrived home, continued to have shortness of breath and chest t ightness. For that reason, came back. The patient denied taking any nonsteroidal. Upon arrival to the hospital, the patient was found to have anemia, hemoglobin down to 7.3. The patient denied any h ematochezia. Denied any hemoptysis or any hematuria. The patient continued to have chronic shortnes s of breath. The patient is being evaluated by Rheumatology, supposed to continue on maintenance the rapy. The patient is not on any steroid. The patient also has chronic interstitial nephritis second daniel to consequence of ANCA vasculitis. Next, over the night, patient received breathing treatment, r eceived diuresis. The patient is still complaining of shortness of breath and fatigue. Past Medical History: Includes: 1. 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 Used to be on dialysis, weaned fr om dialysis, status post rituximab as above. 2. COPD. 3. Interstitial lung disease. 4. Asbestosis. 5. Hypertension. 6. Inflammatory bowel disease. 7. Kidney cancer, status post kidney removal, partial. Past Surgical History: Partial nephrectomy, kidney biopsy, back surgeries, spinal stimulator. Family History: Positive for hypertension. Social History: Denied smoking. Denied drinking. Denied drugs abuse. Home Medications: Include albuterol, colchicine, doxycycline, pravastatin, Requip, tamsulosin, [place], Carafate, cholecalciferol, albuterol, prednisone 10 mg daily, aspirin, allopurinol, breathing treatment, carvedilol 6.25 b.i.d., Lasix 40 daily, loratadine. Review of Systems: Head and Neck: No red eye. No ear pain. GI: No nausea, no vomiting. : No polyuria, no dysuria, no hematuria. TURBINE ENGINEER: Not applicable. Respiratory: Has shortness of breath. Cardiovascular: Has leg swelling. Has no orthopnea. Endocrine: No polydipsia. Skin: No rash. Neuro: Has neuropathy, has weakness. Physical Examination: General: When I saw the patient, patient is lying in bed. He was lying flat even though with nasal cannula. Chest: Crackles, bilateral up to the upper zone. Heart: S1, S2. Systolic murmur. Abdomen: Soft, nontender. Extremities: Trace edema. Neurologic: Alert and oriented x3. No focality. Vital Signs: Blood pressure 105/68, pulse of 83, afebrile. Laboratory Data: For the patient, WBC 10, hemoglobin 7.3, hematocrit 20.9, platelet 171. Sodium 13 6, potassium 4.2, bicarb 14, BUN 87, creatinine 2.7, calcium of 8. Albumin 2.3. BNP 8000. Previous BNP 2700. Chest x-ray, cardiomegaly with congestion with interstitial infiltration. Assessment And Plan: 1. Chronic kidney disease, stage 4, secondary to ANCA vasculitis, status post rituximab, received 2 d oses. No activity in the urine. I am going to continue the patient on his maintenance treatment and we will follow up. I am going to repeat the urinalysis to clarify about the hematuria that he has, if there is any sign of activity and we will follow up the patient. We will resume his maintenance d ose of prednisone. I do not see the need for any extra dose of rituximab for the time being. We estefania l send for ANCA P and C to evaluate for the activity/remission of the disease and we will follow up. 2. 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 I am going to speak with the outpatient Pulmonary and we will follow up. We will contin ue breathing treatment for the time being. We will discuss about option of plasmapheresis if needed or confirm if we needed to go with a transbronchial biopsy and we will follow up. 3. Anemia, symptomatic, with shortness of breath. I am going to send for anemia workup. We will sen d for LDH and haptoglobin to rule out any intravascular hemolysis in the presence of his autoimmune d isease and we will follow up. We will transfuse the patient p.r.n. I am going to start the patient on TURNER and we will repeat iron deficiency anemia. 4. Non-anion gap metabolic acidosis secondary to renal failure. I am going to start the patient on o ral bicarb. I am going to go ahead and send for urine electrolyte to evaluate for any RTA and we estefania l follow up. 5. Hypertension. We will utilize blood pressure for more diuresis. 6. Hyponatremia secondary to renal failure, dilutional. We will optimize the fluid status with diure sis. AVIS/KEVIN Voice ID: [id number] Report ID: [id number]
[2025-04-15] MEDS: NA CHLORIDE 0.9% 250 ML ONE (13:43)
[2025-04-15] MEDS: SODIUM BICARB 325 MG TAB PO SCH (14:18)
[2025-04-15] MEDS: EPOETIN ALFA-EPBX 10,000 UNIT/ML VIAL SQ SCH (14:18)
[2025-04-15 14:51] LABS: UR POTASSIUM 17.0 mmol/L (20-40); UR SODIUM 99.0 mmol/L (27-287)
[2025-04-15] MEDS ORDERED: FUROSEMIDE 40 MG/4 ML VIAL IV SCH (17:00)
[2025-04-15 18:30] LABS: Hematocrit 23.3 % (39.6-49.0); Hemoglobin 8.1 g/dL (13.6-17.9)
[2025-04-15 19:23] LABS: UR CL RANDOM 115 mmol/L (25-40); UR CREAT < 18.0 mg/dL (20-370); UR PROTEIN 10.0 mg/dL (<11.9)
[2025-04-15] MEDS: ALBUTEROL 2.5 MG/3 ML NEB SOL NEB PRN (21:06)
[2025-04-15] MEDS: IPRATROPIUM BROM 0.5MG/2.5ML NEB PRN (21:06)
[2025-04-15] MEDS: TIZANIDINE 4 MG TABLET PO SCH (21:13)
[2025-04-16 06:21] LABS: Absolute Lymphocytes (CBC) 0.3 K/uL (0.7-4.9); Hematocrit 19.4 % (39.6-49.0); Hemoglobin 6.6 g/dL (13.6-17.9); MCH 29.2 pg (27.0-35.0); MCHC 34.1 g/dL (32.0-36.0); MCV 85.4 fL (80-100); MPV 8.8 fL (7.6-11.3); Nucleated RBC Absolute Count 0.0 (0-0); Nucleated Red Blood Cells % 0.1 % (0-0); Percent Reticulocyte Count 1.88 % (0.4-2.05); RBC Red Blood Cell Count 2.27 M/uL (4.33-5.43); White Blood Count 13.80 thou/uL (4.3-10.9)
[2025-04-16 07:15] LABS: ALT/SGPT 18.0 U/L (16-61); AST/SGOT 12.0 U/L (15-37); Albumin 3.0 g/dL (3.4-5.0); Albumin/Globulin Ratio 1.3 (1.1-1.8); Alkaline Phosphatase 48.0 U/L (45-117); Anion Gap 12.3 mEq/L (5.0-15.0); BUN Blood Urea Nitrogen 102.0 mg/dL (7-18); Ferritin 681.1 ng/mL (26-388); Globulin 2.4 g/dL (2.3-3.5); Glucose Level 117.0 mg/dL (74-106); Iron 34.0 ug/dL (65-175); Magnesium 2.0 mg/dL (1.6-2.4); NT PRO-BNP 7248.0 pg/mL (<450); Potassium 3.3 mEq/L (3.5-5.1); Thyroid Stimulating Hormone 1.28 uIU/mL (0.358-3.740); Transferrin 126.0 mg/dL (200-360); Uric Acid 9.5 mg/dL (3.5-7.2)
[2025-04-16] MEDS: predniSONE 20 MG TAB PO SCH (09:32)
--- NOTE | 2025-04-16 10:03 | P.PN ---
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 The patient received rituximab, received 2 doses in a part of 2 weeks. The patient continued to have dialysis. The patient gradually found improvement in kidney function. For that reason, patient was weaned from dialysis, last dialysis almost 2 weeks ago. The TDC was removed. The patient was admitted to the hospital multiple times with symptomatic shortness of breath and symptomatic anemia, required recurrent transfusions this time. The patient was released from the hospital last week with the same symptoms. The patient arrived home, continued to have shortness of breath and chest tightness. For that reason, came back. The patient denied taking any nonsteroidal. Upon arrival to the hospital, the patient was found to have anemia, hemoglobin down to 7.3. The patient denied any hematochezia. Denied any hemoptysis or any hematuria. The patient continued to have chronic shortness of breath. The patient is being evaluated by Rheumatology, supposed to continue on maintenance therapy. The patient is not on any steroid. 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 Next, over the night, patient received breathing treatment, received diuresis. The patient is still complaining of shortness of breath and fatigue. Yesterday patient received blood transfusion patient was diuresis patient continued to have shortness of breath Physical exam Temp Pulse Resp BP Pulse Ox 97.5 F 99 H 18 101/65 95 04/16/25 04:00 04/16/25 04:00 04/16/25 04:00 04/16/25 04:00 04/16/25 04:00 General: When I saw the patient, patient is lying in bed. He was lying flat even though with nasal cannula. Chest: Crackles, bilateral up to the upper zone. Heart: S1, S2. Systolic murmur. Abdomen: Soft, nontender. Extremities: Trace edema. Neurologic: Alert and oriented x3. No focality. Laboratory Results WBC 10.00 thou/uL (4.3-10.9) 04/15/25 01:43 RBC 2.39 M/uL (4.33-5.43) L 04/15/25 01:43 Hgb 7.3 g/dL (13.6-17.9) L 04/15/25 01:43 Hct 20.9 % (39.6-49.0) L 04/15/25 01:43 MCV 87.4 fL (80-100) 04/15/25 01:43 MCH 30.6 pg (27.0-35.0) 04/15/25 01:43 MCHC 35.0 g/dL (32.0-36.0) 04/15/25 01:43 RDW 20.4 % (12.1-15.2) H 04/15/25 01:43 Plt Count 171 thou/uL (152-406) 04/15/25 01:43 MPV 8.9 fL (7.6-11.3) 04/15/25 01:43 Neutrophils % 92.6 % (41.7-73.7) H 04/15/25 01:43 Lymphocytes % 2.4 % (15.3-44.8) L 04/15/25 01:43 Monocytes % 4.0 % (3.3-12.3) 04/15/25 01:43 Eosinophils % 0.3 % (0-4.4) 04/15/25 01:43 Basophils % 0.7 % (0-1.3) 04/15/25 01:43 Absolute Neutrophils 9.2 K/uL (1.8-8.0) H 04/15/25 01:43 Segmented Neutrophils 93 % (40-80) H 04/15/25 01:43 Band Neutrophils 1 % (0-1) 04/15/25 01:43 Absolute Lymphocytes 0.2 K/uL (0.7-4.9) L 04/15/25 01:43 Lymphocytes 4 % (15-42) L 04/15/25 01:43 Monocytes 2 % (0-10) 04/15/25 01:43 Absolute Monocytes 0.4 K/uL (0.1-1.3) 04/15/25 01:43 Absolute Eosinophils 0.0 K/uL (0-0.5) 04/15/25 01:43 Absolute Basophils 0.1 K/uL (0-0.5) 04/15/25 01:43 Diff Path Review No 04/15/25 01:43 Platelet Estimate Adeq 04/15/25 01:43 Hypochromasia 2+ 04/15/25 01:43 Anisocytosis 1+ 04/15/25 01:43 Morphology Comment Noted (NOT SEEN) 04/15/25 01:43 PT 26.2 SECONDS (10-13.0) H 04/15/25 01:43 INR 2.38 04/15/25 01:43 Sodium 136 mEq/L (136-145) 04/15/25 01:43 Potassium 4.2 mEq/L (3.5-5.1) 04/15/25 01:43 Chloride 110 mEq/L (98-107) H 04/15/25 01:43 Carbon Dioxide 14 mEq/L (21-32) L 04/15/25 01:43 Anion Gap 16.2 mEq/L (5.0-15.0) H 04/15/25 01:43 BUN 87 mg/dL (7-18) H 04/15/25 01:43 Creatinine 2.77 mg/dL (0.70-1.30) H 04/15/25 01:43 Est GFR (CKD-EPI) 23 ml/min (=/>90) L 04/15/25 01:43 Glucose 160 mg/dL (74-106) H 04/15/25 01:43 Lactic Acid 0.8 mmol/L (0.4-2.0) 04/15/25 01:54 Calcium 8.0 mg/dL (8.5-10.1) L 04/15/25 01:43 Magnesium 2.0 mg/dL (1.6-2.4) 04/15/25 01:43 Total Bilirubin 0.5 mg/dL (0.2-1.0) 04/15/25 01:43 Direct Bilirubin 0.2 mg/dL (0-0.2) 04/15/25 01:43 Indirect Bilirubin 0.3 mg/dL (0.2-0.8) 04/15/25 01:43 AST 15 U/L (15-37) 04/15/25 01:43 ALT 20 U/L (16-61) 04/15/25 01:43 Alkaline Phosphatase 48 U/L (45-117) 04/15/25 01:43 Troponin I High Sens 42.9 pg/mL (<58.9) 04/15/25 01:43 NT-Pro-B Natriuret Pep 8057 pg/mL (<450) H 04/15/25 01:43 Serum Total Protein 5.1 g/dL (6.4-8.2) L 04/15/25 01:43 Albumin 2.3 g/dL (3.4-5.0) L 04/15/25 01:43 Globulin 2.8 g/dL (2.3-3.5) 04/15/25 01:43 Albumin/Globulin Ratio 0.8 (1.1-1.8) L 04/15/25 01:43 Urine Color Light-yellow (Yellow) 04/15/25 01:54 Urine Clarity Extremely turbid (Clear) H 04/15/25 01:54 Urine pH 5.0 (5.0-7.0) 04/15/25 01:54 Ur Specific Hallie 1.016 (1.005-1.030) 04/15/25 01:54 Glucose (UA)(Auto) Negative (Negative) 04/15/25 01:54 Urine Ketones Negative (Negative) 04/15/25 01:54 Urine Blood 3+ (over) (Negative) H 04/15/25 01:54 Urine Nitrite Negative (Negative) 04/15/25 01:54 Urine Bilirubin Negative (Negative) 04/15/25 01:54 Urine Urobilinogen Normal (Normal) 04/15/25 01:54 Ur Leukocyte Esterase Negative Anastacio/uL (Negative) 04/15/25 01:54 Urine RBC 21-50 /HPF (None Seen) H 04/15/25 01:54 Urine WBC <5 /HPF (<5) 04/15/25 01:54 Ur Squamous Epith Cells None seen /HPF (None Seen) 04/15/25 01:54 U Non-Squamous Epi Cells <5 /HPF (None Seen) 04/15/25 01:54 Urine Bacteria <20 /HPF (<20) 04/15/25 01:54 Urine Mucus Slight /HPF (None Seen) 04/15/25 01:54 Urine Culture Reflexed Not needed 04/15/25 01:54 Urine Total Protein Trace (Negative) H 04/15/25 01:54 Albuterol Sulfate (Albuterol 2.5 Mg/3 Ml Neb Sloane) 2.5 mg NEB [id number] PRN PRN Reason: SHORTNESS OF BREATH Last Admin: 04/16/25 08:07 Dose: 2.5 mg Apixaban (Apixaban 5 Mg Tablet) 5 mg PO BID [facility] Last Admin: 04/16/25 09:33 Dose: 5 mg Furosemide (Furosemide 40 Mg/4 Ml Vial) 40 mg IV PRN PRN PRN Reason: after each unit of blood Stop: 04/17/25 09:42 Albumin Human 12.5 gm/Furosemide 100 mg/ Sodium Chloride 100 mls @ 20 mls/hr IV Q5H [facility] Last Admin: 04/16/25 09:33 Dose: 100 mls Ipratropium [place] (Ipratropium Brom 0.5mg/2.5ml) 0.5 mg NEB [id number] PRN PRN Reason: SHORTNESS OF BREATH Last Admin: 04/16/25 08:07 Dose: 0.5 mg Prednisone (Prednisone 20 Mg Tab) 20 mg PO DAILY [facility] Last Admin: 04/16/25 09:32 Dose: 20 mg Sodium Bicarbonate (Sodium Bicarb 325 Mg Tab) 650 mg PO TID [facility] Last Admin: 04/16/25 09:32 Dose: 650 mg Tizanidine HCl (Tizanidine 4 Mg Tablet) 2 mg PO DAILY [facility] Last Admin: 04/16/25 09:32 Dose: 2 mg Assessment and plan: 1. Chronic kidney disease, stage 4, secondary to ANCA vasculitis, status post rituximab, received 2 doses. No activity in the urine. I am going to continue the patient on his maintenance treatment and we will follow up. I am going to repeat the urinalysis to clarify about the hematuria that he has, if there is any sign of activity and we will follow up the patient. We will resume his maintenance dose of prednisone. I do not see the need for any extra dose of rituximab for the time being. We will send for ANCA P and C to evaluate for the activity/remission of the disease and we will follow up. 2. 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 I am going to speak with the outpatient Pulmonary and we will follow up. We will continue breathing treatment for the time being. We discussed with the pulmonary option of treatment giving the advanced restrictive lung disease we will follow-up No indication for plasmapheresis currently giving no hemoptysis no alveolar hemorrhage 3. Anemia, iron deficiency anemia symptomatic, with shortness of breath. Follow-up LDH and haptoglobin to rule out any intravascular hemolysis in the presence of his autoimmune disease and we will follow up. We will transfuse the patient p.r.n. today to back RBC Lasix after each Status post TURNER April 15 Start IV iron 4. Non-anion gap metabolic acidosis secondary to renal failure. Recover urine anion gap 1 not in favor of RTA: Will continue current treatment 5. Hypertension. We will utilize blood pressure for more diuresis. 6. Hyponatremia secondary to renal failure, dilutional. We will optimize the fluid status with diuresis. Time spent examining the patient [id number] reviewing data lab and the radiology placing order documentation in the note discussing the case with the food service team member including hospitalist and nursing staff more than 55 minutes
[2025-04-16 10:28] LABS: White Blood Cell Scan OK (OK)
[2025-04-16 10:29] LABS: Anisocytosis 1+; Blood Morphology Comment NOTED (NOT SEEN); Burr Cells 2+; Poikilocytosis 1+
[2025-04-16] MEDS: METHYLPREDNISOLONE 125 MG INJ IV SCH (11:26)
[2025-04-16] MEDS: NA CHLORIDE 0.9% 250 ML ONE (12:44)
[2025-04-16] MEDS: FUROSEMIDE 40 MG/4 ML VIAL IV PRN (13:13)
--- NOTE | 2025-04-16 16:43 | RAD REPORT ---
EXAMINATION: ONE VIEW CHEST XR CLINICAL INDICATION: Male, 74 years old.,sob TECHNIQUE: Frontal chest projection is submitted. Examination is limited by patient positioning and t echnique. COMPARISON: 04/15/2025 FINDINGS: Stable interstitial opacities throughout, and stable to mildly progressive confluent right lower lung airspace opacities. No pneumothorax or sizable effusion. The heart is normal in size. Mediastinal contours are unremarkable. IMPRESSION: Bilateral airspace opacities as above including confluent right mid to lower lung opacification michelle rning for pneumonia.
[2025-04-16 16:56] LABS: Sqamous Epithelial <5 /HPF (None Seen); Urine Culture Reflex Order REFLEXED; Urine Microscopic Reflex YN ORDER UMIC
[2025-04-16] MEDS: SOD FERRIC GLUC COMPLX/SUCROSE 250 MG in NA CHLORIDE 0.9% 250 ML IV SCH (17:12)
[2025-04-16] MEDS: FUROSEMIDE 40 MG/4 ML VIAL IV ONE (17:49)
[2025-04-16] MEDS: TIZANIDINE 4 MG TABLET PO SCH (21:56)
[2025-04-16] MEDS: POTASSIUM CL SA 10 MEQ TAB PO ONE ×2 (23:00→23:04)
[2025-04-17 05:00] LABS: Absolute Lymphocytes (CBC) 0.2 K/uL (0.7-4.9); Hematocrit 20.4 % (39.6-49.0); Hemoglobin 6.9 g/dL (13.6-17.9); MCH 28.9 pg (27.0-35.0); MCHC 34.1 g/dL (32.0-36.0); MCV 84.7 fL (80-100); MPV 8.8 fL (7.6-11.3); Nucleated RBC Absolute Count 0.0 (0-0); Nucleated Red Blood Cells % 0.2 % (0-0); RBC Red Blood Cell Count 2.41 M/uL (4.33-5.43); White Blood Count 14.80 thou/uL (4.3-10.9)
[2025-04-17 05:32] LABS: ALT/SGPT 19 U/L (16-61); Albumin 3.5 g/dL (3.4-5.0); Albumin/Globulin Ratio 1.3 (1.1-1.8); Alkaline Phosphatase 49 U/L (45-117); Anion Gap 15.5 mEq/L (5.0-15.0); BUN Blood Urea Nitrogen 106 mg/dL (7-18); Globulin 2.7 g/dL (2.3-3.5); Glucose Level 146 mg/dL (74-106); Magnesium 2.0 mg/dL (1.6-2.4); NT PRO-BNP 5812 pg/mL (<450); Potassium 3.5 mEq/L (3.5-5.1)
[2025-04-17 05:39] LABS: AST/SGOT < 10 U/L (15-37)
[2025-04-17] MEDS: TRAMADOL HCL 50 MG TAB PO ONE (09:10)
[2025-04-17] MEDS: POTASSIUM CL SA 10 MEQ TAB PO ONE (09:10)
[2025-04-17] MEDS: ACETAMINOPHEN 325 MG TABLET PO ONE (09:10)
[2025-04-17] MEDS: NA CHLORIDE 0.9% 250 ML ONE (10:31)
[2025-04-17 15:11] LABS: Hematocrit 23.5 % (39.6-49.0); Hemoglobin 8.2 g/dL (13.6-17.9)
--- NOTE | 2025-04-18 03:25 | PN ---
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 He had renal biopsy done during previous ad mission in February 2025. At that time, the patient was found to have ANCA positive vasculitis. He rece ived rituximab 2 doses in 2 weeks apart. Subsequently, he was transferred to [facility] a [facility] for possible plasma exchange. Although, his respiratory status improved and he had some polyuria related to renal function recovering, tunneled dialysis catheter was removed during admission at [facility]. Although after he was discharged from [facility], fransisco de la torre developed shortness of breath and came to the hospital in [place] because of shortness of lory th and generalized weakness. He is admitted to ICU and he was started on Lasix drip. Of note, when patient was at [facility], [facility] he was seen by well logger and apparently he d id not need plasma exchange, escalation of immunosuppressive medication because there was now involve ment with vasculitis according to pulmonary assessment. Review of Systems: Patient is a and he complains of some shortness of breath with mild activities. Denies fever , chills. Denies cough or hemoptysis. Physical Examination: Lungs: Rhonchi and crackles bilaterally. Heart: S1, S2. 2/6 systolic murmur, left lower sternal border. Abdomen: Soft, benign. Extremities: Some edema present. Impression And Plan: 1. Patient has acute kidney injury. He is on a high dose of steroids. 2. Pneumonia, he is on antibiotics for pneumonia. 3. Patient has chronic kidney disease stage 4. Continue to monitor and plan to resume dialysis. If renal function does not improve, . 4. Vasculitis secondary to ANCA vasculitis confirmed by biopsy. Questionable involvement of pulmonar y system. The patient will follow up from Lasix drip and monitor renal function closely. 5. Hypertension. Continue to adjust blood pressure medication. 6. Hyponatremia secondary to renal failure. Continue diuretics. EB/MODL Voice ID: [id number] Report ID: [id number]
[2025-04-18 06:01] LABS: Absolute Lymphocytes (CBC) 0.8 K/uL (0.7-4.9); Hematocrit 25.7 % (39.6-49.0); Hemoglobin 8.6 g/dL (13.6-17.9); MCH 27.9 pg (27.0-35.0); MCHC 33.6 g/dL (32.0-36.0); MCV 83.2 fL (80-100); MPV 8.8 fL (7.6-11.3); Nucleated RBC Absolute Count 0.1 (0-0); Nucleated Red Blood Cells % 0.3 % (0-0); RBC Red Blood Cell Count 3.09 M/uL (4.33-5.43); White Blood Count 21.30 thou/uL (4.3-10.9)
[2025-04-18 06:28] LABS: ALT/SGPT 18 U/L (16-61); Albumin 4.0 g/dL (3.4-5.0); Albumin/Globulin Ratio 1.4 (1.1-1.8); Alkaline Phosphatase 52 U/L (45-117); Anion Gap 16.2 mEq/L (5.0-15.0); BUN Blood Urea Nitrogen 123 mg/dL (7-18); Globulin 2.8 g/dL (2.3-3.5); Glucose Level 125 mg/dL (74-106); Magnesium 2.2 mg/dL (1.6-2.4); NT PRO-BNP 5813 pg/mL (<450); Potassium 4.2 mEq/L (3.5-5.1)
[2025-04-18 06:39] LABS: AST/SGOT < 10 U/L (15-37)
[2025-04-18] MEDS: ACETAMINOPHEN 325 MG TABLET PO PRN (07:11)
[2025-04-18 07:58] LABS: Differential Total Cells Count 100; Segmented Neutrophils 85 % (40-80)
[2025-04-18 07:59] LABS: Anisocytosis 1+; Blood Morphology Comment NOTED (NOT SEEN); Ovalocytes SLIGHT; Toxic Granulation 1+
[2025-04-18 08:00] LABS: Dohle Bodies PRESENT
--- NOTE | 2025-04-18 12:04 | P.PN ---
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 The patient received rituximab, received 2 doses in a part of 2 weeks. The patient continued to have dialysis. The patient gradually found improvement in kidney function. For that reason, patient was weaned from dialysis, last dialysis almost 2 weeks ago. The TDC was removed. The patient was admitted to the hospital multiple times with symptomatic shortness of breath and symptomatic anemia, required recurrent transfusions this time. The patient was released from the hospital last week with the same symptoms. The patient arrived home, continued to have shortness of breath and chest tightness. For that reason, came back. The patient denied taking any nonsteroidal. Upon arrival to the hospital, the patient was found to have anemia, hemoglobin down to 7.3. The patient denied any hematochezia. Denied any hemoptysis or any hematuria. The patient continued to have chronic shortness of breath. The patient is being evaluated by Rheumatology, supposed to continue on maintenance therapy. The patient is not on any steroid. 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 Next, over the night, patient received breathing treatment, received diuresis. The patient is still complaining of shortness of breath and fatigue. Yesterday patient received blood transfusion patient was diuresis patient continued to have shortness of breath Physical exam Temp Pulse Resp BP Pulse Ox 97.9 F 113 H 28 H 134/78 98 04/18/25 08:04/18/25 10:00 04/18/25 10:00 04/18/25 10:04/18/25 10:00 General: When I saw the patient, patient is lying in bed. He was lying flat even though with nasal cannula. Chest: Crackles, bilateral up to the upper zone. Heart: S1, S2. Systolic murmur. Abdomen: Soft, nontender. Extremities: Trace edema. Neurologic: Alert and oriented x3. No focality. Laboratory Tests 04/15/25 04/15/25 04/15/25 01:43 01:43 01:43 WBC 10.00 RBC 2.39 L Hgb 7.3 L Hct 20.9 L MCV 87.4 MCH 30.6 MCHC 35.0 RDW 20.4 H Plt Count 171 MPV 8.9 Neutrophils % 92.6 H Lymphocytes % 2.4 L Monocytes % 4.0 Eosinophils % 0.3 Basophils % 0.7 Absolute Neutrophils 9.2 H Segmented Neutrophils 93 H Band Neutrophils 1 Absolute Lymphocytes 0.2 L Lymphocytes 4 L Monocytes 2 Absolute Monocytes 0.4 Absolute Eosinophils 0.0 Absolute Basophils 0.1 Diff Path Review No Platelet Estimate Adeq Hypochromasia 2+ Anisocytosis 1+ Morphology Comment Noted PT 26.2 H INR 2.38 Sodium 136 Potassium 4.2 Chloride 110 H Carbon Dioxide 14 L Anion Gap 16.2 H BUN 87 H Creatinine 2.77 H Est GFR (CKD-EPI) 23 L Glucose 160 H Lactic Acid Calcium 8.0 L Magnesium 2.0 Total Bilirubin 0.5 Direct Bilirubin 0.2 Indirect Bilirubin 0.3 AST 15 ALT 20 Alkaline Phosphatase 48 Troponin I High Sens 42.9 NT-Pro-B Natriuret Pep 8057 H Serum Total Protein 5.1 L Albumin 2.3 L Globulin 2.8 Albumin/Globulin Ratio 0.8 L Urine Color Urine Clarity Urine pH Ur Specific [place] Glucose (UA)(Auto) Urine Ketones Urine Blood Urine Nitrite Urine Bilirubin Urine Urobilinogen Ur Leukocyte Esterase Urine RBC Urine WBC Ur Squamous Epith Cells U Non-Squamous Epi Cells Urine Bacteria Urine Mucus Urine Culture Reflexed Urine Total Protein 04/15/25 04/15/25 01:54 01:54 WBC RBC Hgb Hct MCV MCH MCHC RDW Plt Count MPV Neutrophils % Lymphocytes % Monocytes % Eosinophils % Basophils % Absolute Neutrophils Segmented Neutrophils Band Neutrophils Absolute Lymphocytes Lymphocytes Monocytes Absolute Monocytes Absolute Eosinophils Absolute Basophils Diff Path Review Platelet Estimate Hypochromasia Anisocytosis Morphology Comment PT INR Sodium Potassium Chloride Carbon Dioxide Anion Gap BUN Creatinine Est GFR (CKD-EPI) Glucose Lactic Acid 0.8 Calcium Magnesium Total Bilirubin Direct Bilirubin Indirect Bilirubin AST ALT Alkaline Phosphatase Troponin I High Sens NT-Pro-B Natriuret Pep Serum Total Protein Albumin Globulin Albumin/Globulin Ratio Urine Color Light-yellow Urine Clarity Extremely turbid H Urine pH 5.0 Ur Specific [place] 1.016 Glucose (UA)(Auto) Negative Urine Ketones Negative Urine Blood 3+ (over) H Urine Nitrite Negative Urine Bilirubin Negative Urine Urobilinogen Normal Ur Leukocyte Esterase Negative Urine RBC 21-50 H Urine WBC <5 Ur Squamous Epith Cells None seen U Non-Squamous Epi Cells <5 Urine Bacteria <20 Urine Mucus Slight Urine Culture Reflexed Not needed Urine Total Protein Trace H Acetaminophen (Acetaminophen 325 Mg Tablet) 650 mg PO Q6H PRN PRN Reason: Pain scale 5-7 (Moderate) Last Admin: 04/18/25 07:11 Dose: 650 mg Albuterol Sulfate (Albuterol 2.5 Mg/3 Ml Neb [place]) 2.5 mg NEB [id number] PRN PRN Reason: SHORTNESS OF BREATH Last Admin: 04/17/25 19:36 Dose: 2.5 mg Apixaban (Apixaban 5 Mg Tablet) 5 mg PO BID [facility] Last Admin: 04/18/25 08:44 Dose: 5 mg Ferric Sodium Gluconate Complex 250 mg/ Sodium Chloride 270 mls @ 135 mls/hr IV Q72H [facility] Stop: 04/25/25 11:01 Last Admin: 04/16/25 17:12 Dose: 270 mls Ipratropium [place] (Ipratropium Brom 0.5mg/2.5ml) 0.5 mg NEB [id number] PRN PRN Reason: SHORTNESS OF BREATH Last Admin: 04/17/25 19:36 Dose: 0.5 mg Methylprednisolone Sodium Succinate (Methylprednisolone 125 Mg Inj) 60 mg IV DAILY [facility] Last Admin: 04/18/25 08:44 Dose: 60 mg Sodium Bicarbonate (Sodium Bicarb 325 Mg Tab) 650 mg PO TID [facility] Last Admin: 04/18/25 08:44 Dose: 650 mg Tizanidine HCl (Tizanidine 4 Mg Tablet) 2 mg PO BEDTIME [facility] Last Admin: 04/17/25 21:26 Dose: 2 mg Assessment and plan: 1. Chronic kidney disease, stage 4, secondary to ANCA vasculitis, status post rituximab, received 2 doses. No activity in the urine. I am going to continue the patient on his maintenance treatment and we will follow up. Repeated urine analysis no significant hematuria had decline in the kidney function mostly secondary to aggressive diuresis : I doubted that the decline in the kidney function are related to ANCA vasculitis it is more for a prerenal secondary to aggressive diuresis I do not see the need to initiate renal replacement therapy for the time being Will monitor the patient closely Continue [facility] Follow-up with rheumatology recommendation Patient's status post 2 doses of rituximab. do not see the need for any extra dose of rituximab for the time being. 2. 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 I am going to speak with the outpatient Pulmonary and and rheumatology plan for adding a new immunotherapeutic agent Will follow-up with rheumatology No indication for plasmapheresis currently giving no hemoptysis no alveolar hemorrhage 3. Anemia, iron deficiency anemia symptomatic, with shortness of breath. Follow-up LDH and haptoglobin to rule out any intravascular hemolysis in the pr esence of his autoimmune disease and we will follow up. We will transfuse the patient p.r.n. today to back RBC Lasix after each Status post TURNER April 2 continue IV iron 4. Non-anion gap metabolic acidosis secondary to renal failure. Recover urine anion gap 1 not in favor of RTA: Will continue current treatment 5. Hypertension. We will utilize blood pressure for more diuresis. 6. Hyponatremia secondary to renal failure, dilutional. We will optimize the fluid status with diuresis. Time spent examining the patient [id number] reviewing data lab and the radiology placing order documentation in the note discussing the case with the steam conditioner filling including hospitalist and nursing staff more than 55 minutes
[2025-04-18] MEDS: VANCOMYCIN 1 GM/VIAL ONE (18:24)
[2025-04-18] MEDS: NA CHLORIDE 0.9% 250 ML ONE (18:24)
[2025-04-18] MEDS: Meropenem 500 MG in NA CHLORIDE 0.9% 100 ML IV SCH (18:32)
[2025-04-18] MEDS: VANCOMYCIN 1 GM in NA CHLORIDE 0.9% 250 ML IVPB ONE (18:33)
[2025-04-18] MEDS: VANCOMYCIN 1 GM in NA CHLORIDE 0.9% 250 ML IVPB SCH (21:00)
[2025-04-18] MEDS ORDERED: VANCOMYCIN 1 GM in NA CHLORIDE 0.9% 250 ML IVPB ONE (22:00)
--- NOTE | 2025-04-19 03:02 | P.PN ---
Date of Service: 04/16/25 Subjective Chart has been reviewed. Events of the last 24 hours been noted. Patient is well known to me after recent diagnosis of granulomatous polyangiitis. Patient has been on rituximab as well as high-dose steroids. Patient responded but a few days later autoimmune disease returned even worse. Patient has been anemic and been getting very short of breath. Patient has been on immunosuppressant so will discuss possibly starting on steroids. Will also discuss other options. Patient has a general store manager who he has been seeing so will try to discuss the case with the general store manager and recommendations pending. Physical Examination - Vital Signs Reviewed - Physical Exam General: Alert, In no apparent distress, Oriented x3 Respiratory: Diminished, Crackles/rales Cardiovascular: Regular rate/rhythm, Normal S1 S2, Systolic murmur Gastrointestinal: Normal bowel sounds, Soft and benign, Non-distended, No tenderness Musculoskeletal: No clubbing, No tenderness, Swelling Integumentary: No rashes Neurological: No focal abnormalities; gait ataxia Assessment & Plan - Problems (Diagnosis) (1) Karely's granulomatosis Current Visit: Yes Status: Acute Qualifiers: Granulomatosis renal involvement: with renal involvement Qualified Code(s): M31.31 - Karely's granulomatosis with renal involvement (2) End stage renal disease Current Visit: Yes Status: Acute (3) Urinary retention Current Visit: Yes Status: Acute (4) COPD exacerbation Current Visit: No Status: Acute (5) DVT (deep venous thrombosis) Current Visit: No Status: Acute Qualifiers: Laterality: right (6) Pulmonary embolism Current Visit: No Status: Acute (7) CAD (coronary artery disease) Current Visit: No Status: Chronic Qualifiers: Coronary Disease-Associated Artery/Lesion type: [place] artery [place] vs. transplanted heart: [place] heart Associated angina: without angina Qualified Code(s): I25.10 - Atherosclerotic heart disease of [place] coronary artery without angina pectoris (8) Hypertension Current Visit: No Status: Chronic Qualifiers: Hypertension type: primary hypertension Qualified Code(s): I10 - Essential (primary) hypertension - Plan Continue with clinic as mentioned below: 1. Patient with granulomatous polyangiitis; continue with IV steroids. With consult Rheumatology regarding further recommendation. Otherwise, prognosis remains very poor. 2. ESRD; hemodialysis per nephrology . Currently hemodialysis has been on hold. Will continue monitoring urine output and volume status closely. 3. CAD; continue with antiplatelet therapy 4. History of DVT/PE; continue with Xarelto 5. GI DVT prophylaxis Discharge Plan: Home Plan to discharge in: Greater than 2 days - Advance Directives Does patient have a Living Will: No Does patient have a Durable POA for Healthcare: No - Code Status/Comfort Care Code Status Assessed: Yes Code Status: Full Code Critical Care: No Time Spent Managing PTS Care (In Minutes): 45
--- NOTE | 2025-04-19 03:05 | P.PN ---
Date of Service: 04/17/25 Subjective Patient continues to improve. Clinical status is stable. Patient was little more hypoxic and tachypneic at rest. Patient's oxygen requirements have decreased. Patient is anemic and will go ahead and transfer to the intensive care unit for closer monitoring. Patient continues to have respiratory distress. Progression of granulomatous polyangiitis. Will treat with additional IV steroids and discuss with rheumatology regarding further plan of care. Physical Examination - Vital Signs Reviewed - Physical Exam General: Alert, In no apparent distress, Oriented x3 Respiratory: End-expiratory wheezing and rhonchi Cardiovascular: tachycardic, Systolic murmur Gastrointestinal: Normal bowel sounds, Soft and benign, Non-distended, No tenderness Musculoskeletal: No clubbing, No tenderness, Swelling Integumentary: No rashes Neurological: No focal abnormalities; gait ataxia Assessment & Plan - Problems (Diagnosis) (1) Karely's granulomatosis Current Visit: Yes Status: Acute Qualifiers: Granulomatosis renal involvement: with renal involvement Qualified Code(s): M31.31 - Karely's granulomatosis with renal involvement (2) End stage renal disease Current Visit: Yes Status: Acute (3) Urinary retention Current Visit: Yes Status: Acute (4) COPD exacerbation Current Visit: No Status: Acute (5) DVT (deep venous thrombosis) Current Visit: No Status: Acute Qualifiers: Laterality: right (6) Pulmonary embolism Current Visit: No Status: Acute (7) CAD (coronary artery disease) Current Visit: No Status: Chronic Qualifiers: Coronary Disease-Associated Artery/Lesion type: [place] artery [place] vs. transplanted heart: [place] heart Associated angina: without angina Qualified Code(s): I25.10 - Atherosclerotic heart disease of [place] coronary artery without angina pectoris (8) Hypertension Current Visit: No Status: Chronic Qualifiers: Hypertension type: primary hypertension Qualified Code(s): I10 - Essential (primary) hypertension - Plan Continue with clinic as mentioned below: 1. Patient with granulomatous polyangiitis; continue with IV steroids. With consult Rheumatology regarding further recommendation. Otherwise, prognosis remains very poor. discussed with rheumatology and will call back in a.m.. Patient has other additional treatment options available. Will need to notify patient's wearing apparel shaker. 2. ESRD; hemodialysis per nephrology . Currently hemodialysis has been on hold. Will continue monitoring urine output and volume status closely. 3. CAD; continue with antiplatelet therapy 4. History of DVT/PE; continue with Xarelto 5. GI DVT prophylaxis Discharge Plan: Home Plan to discharge in: Greater than 2 days - Advance Directives Does patient have a Living Will: No Does patient have a Durable POA for Healthcare: No - Code Status/Comfort Care Code Status Assessed: Yes Code Status: Full Code Critical Care: No Time Spent Managing PTS Care (In Minutes): 35
--- NOTE | 2025-04-19 03:06 | P.PN ---
Date of Service: 04/18/25 Subjective Discussed the case with patient's director hospice operations. Patient was able to follow-up with appointment on zoom. Arrangements being made for Tavneos (avacopan) to be started-patient hopefully patient responds once medication is started and patient's clinical condition will continue to improve. May add antibiotic coverage at this time. Patient with end-stage renal disease but hemodialysis has been on hold as renal function recovered. Will discuss with nephrology regarding restarting hemodialysis. Physical Examination - Vital Signs Reviewed - Physical Exam General: Alert, In no apparent distress, Oriented x3 Respiratory: End-expiratory wheezing and rhonchi Cardiovascular: tachycardic, Systolic murmur Gastrointestinal: Normal bowel sounds, Soft and benign, Non-distended, No tenderness Musculoskeletal: No clubbing, No tenderness, Swelling Integumentary: No rashes Neurological: No focal abnormalities; gait ataxia Assessment & Plan - Problems (Diagnosis) (1) Karely's granulomatosis Current Visit: Yes Status: Acute Qualifiers: Granulomatosis renal involvement: with renal involvement Qualified Code(s): M31.31 - Karely's granulomatosis with renal involvement (2) End stage renal disease Current Visit: Yes Status: Acute (3) Urinary retention Current Visit: Yes Status: Acute (4) COPD exacerbation Current Visit: No Status: Acute (5) DVT (deep venous thrombosis) Current Visit: No Status: Acute Qualifiers: Laterality: right (6) Pulmonary embolism Current Visit: No Status: Acute (7) CAD (coronary artery disease) Current Visit: No Status: Chronic Qualifiers: Coronary Disease-Associated Artery/Lesion type: [place] artery [place] vs. transplanted heart: [place] heart Associated angina: without angina Qualified Code(s): I25.10 - Atherosclerotic heart disease of [place] coronary artery without angina pectoris (8) Hypertension Current Visit: No Status: Chronic Qualifiers: Hypertension type: primary hypertension Qualified Code(s): I10 - Essential (primary) hypertension - Plan Continue with clinic as mentioned below: 1. Patient with granulomatous polyangiitis; continue with IV steroids. Consulted Rheumatology regarding further recommendation. Plan to start Tavneos (avacopan). Will continue with nutritional support. Will continue to add antibiotic therapy. 2. ESRD; hemodialysis per nephrology . Currently hemodialysis has been on hold. Will continue monitoring urine output and volume status closely. Discussed with nephrology regarding resuming nephrology. 3. CAD; continue with antiplatelet therapy 4. History of DVT/PE; continue with Xarelto 5. GI DVT prophylaxis Discharge Plan: Home Plan to discharge in: Greater than 2 days - Advance Directives Does patient have a Living Will: No Does patient have a Durable POA for Healthcare: No - Code Status/Comfort Care Code Status Assessed: Yes Code Status: Full Code Critical Care: Yes Time Spent Managing PTS Care (In Minutes): 35
[2025-04-19] MEDS: VANCOMYCIN 1 GM in NA CHLORIDE 0.9% 250 ML IVPB ONE (03:27)
[2025-04-19 05:27] LABS: Albumin 3.1 g/dL (3.4-5.0); Anion Gap 14.8 mEq/L (5.0-15.0); BUN Blood Urea Nitrogen 143.0 mg/dL (7-18); Glucose Level 113.0 mg/dL (74-106); Potassium 3.8 mEq/L (3.5-5.1)
[2025-04-19 10:23] LABS: Hematocrit 23.6 % (39.6-49.0); Hemoglobin 7.9 g/dL (13.6-17.9); MCH 28.4 pg (27.0-35.0); MCHC 33.7 g/dL (32.0-36.0); MCV 84.3 fL (80-100); MPV 8.1 fL (7.6-11.3); RBC Red Blood Cell Count 2.80 M/uL (4.33-5.43); White Blood Count 21.40 thou/uL (4.3-10.9)
--- NOTE | 2025-04-19 10:25 | P.PN ---
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 The patient received rituximab, received 2 doses in a part of 2 weeks. The patient continued to have dialysis. The patient gradually found improvement in kidney function. For that reason, patient was weaned from dialysis, last dialysis almost 2 weeks ago. The TDC was removed. The patient was admitted to the hospital multiple times with symptomatic shortness of breath and symptomatic anemia, required recurrent transfusions this time. The patient was released from the hospital last week with the same symptoms. The patient arrived home, continued to have shortness of breath and chest tightness. For that reason, came back. The patient denied taking any nonsteroidal. Upon arrival to the hospital, the patient was found to have anemia, hemoglobin down to 7.3. The patient denied any hematochezia. Denied any hemoptysis or any hematuria. The patient continued to have chronic shortness of breath. The patient is being evaluated by Rheumatology, supposed to continue on maintenance therapy. The patient is not on any steroid. 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 Next, over the night, patient received breathing treatment, received diuresis. The patient is still complaining of shortness of breath and fatigue. Yesterday patient received blood transfusion patient was diuresis patient continued to have shortness of breath Physical exam Temp Pulse Resp BP Pulse Ox 97.6 F 98 H 17 145/90 H 96 04/19/25 08:04/19/25 10:00 04/19/25 10:00 04/19/25 10:04/19/25 10:00 General: When I saw the patient, patient is lying in bed. He was lying flat even though with nasal cannula. Chest: Crackles, bilateral up to the upper zone. Heart: S1, S2. Systolic murmur. Abdomen: Soft, nontender. Extremities: Trace edema. Neurologic: Alert and oriented x3. No focality. Laboratory Tests Laboratory Last Values WBC 10.00 thou/uL (4.3-10.9) 04/15/25 01:43 RBC 2.39 M/uL (4.33-5.43) L 04/15/25 01:43 Hgb 7.3 g/dL (13.6-17.9) L 04/15/25 01:43 Hct 20.9 % (39.6-49.0) L 04/15/25 01:43 MCV 87.4 fL (80-100) 04/15/25 01:43 MCH 30.6 pg (27.0-35.0) 04/15/25 01:43 MCHC 35.0 g/dL (32.0-36.0) 04/15/25 01:43 RDW 20.4 % (12.1-15.2) H 04/15/25 01:43 Plt Count 171 thou/uL (152-406) 04/15/25 01:43 MPV 8.9 fL (7.6-11.3) 04/15/25 01:43 Neutrophils % 92.6 % (41.7-73.7) H 04/15/25 01:43 Lymphocytes % 2.4 % (15.3-44.8) L 04/15/25 01:43 Monocytes % 4.0 % (3.3-12.3) 04/15/25 01:43 Eosinophils % 0.3 % (0-4.4) 04/15/25 01:43 Basophils % 0.7 % (0-1.3) 04/15/25 01:43 Absolute Neutrophils 9.2 K/uL (1.8-8.0) H 04/15/25 01:43 Segmented Neutrophils 93 % (40-80) H 04/15/25 01:43 Band Neutrophils 1 % (0-1) 04/15/25 01:43 Absolute Lymphocytes 0.2 K/uL (0.7-4.9) L 04/15/25 01:43 Lymphocytes 4 % (15-42) L 04/15/25 01:43 Monocytes 2 % (0-10) 04/15/25 01:43 Absolute Monocytes 0.4 K/uL (0.1-1.3) 04/15/25 01:43 Absolute Eosinophils 0.0 K/uL (0-0.5) 04/15/25 01:43 Absolute Basophils 0.1 K/uL (0-0.5) 04/15/25 01:43 Diff Path Review No 04/15/25 01:43 Platelet Estimate Adeq 04/15/25 01:43 Hypochromasia 2+ 04/15/25 01:43 Anisocytosis 1+ 04/15/25 01:43 Morphology Comment Noted (NOT SEEN) 04/15/25 01:43 PT 26.2 SECONDS (10-13.0) H 04/15/25 01:43 INR 2.38 04/15/25 01:43 Sodium 136 mEq/L (136-145) 04/15/25 01:43 Potassium 4.2 mEq/L (3.5-5.1) 04/15/25 01:43 Chloride 110 mEq/L (98-107) H 04/15/25 01:43 Carbon Dioxide 14 mEq/L (21-32) L 04/15/25 01:43 Anion Gap 16.2 mEq/L (5.0-15.0) H 04/15/25 01:43 BUN 87 mg/dL (7-18) H 04/15/25 01:43 Creatinine 2.77 mg/dL (0.70-1.30) H 04/15/25 01:43 Est GFR (CKD-EPI) 23 ml/min (=/>90) L 04/15/25 01:43 Glucose 160 mg/dL (74-106) H 04/15/25 01:43 Lactic Acid 0.8 mmol/L (0.4-2.0) 04/15/25 01:54 Calcium 8.0 mg/dL (8.5-10.1) L 04/15/25 01:43 Magnesium 2.0 mg/dL (1.6-2.4) 04/15/25 01:43 Total Bilirubin 0.5 mg/dL (0.2-1.0) 04/15/25 01:43 Direct Bilirubin 0.2 mg/dL (0-0.2) 04/15/25 01:43 Indirect Bilirubin 0.3 mg/dL (0.2-0.8) 04/15/25 01:43 AST 15 U/L (15-37) 04/15/25 01:43 ALT 20 U/L (16-61) 04/15/25 01:43 Alkaline Phosphatase 48 U/L (45-117) 04/15/25 01:43 Troponin I High Sens 42.9 pg/mL (<58.9) 04/15/25 01:43 NT-Pro-B Natriuret Pep 8057 pg/mL (<450) H 04/15/25 01:43 Serum Total Protein 5.1 g/dL (6.4-8.2) L 04/15/25 01:43 Albumin 2.3 g/dL (3.4-5.0) L 04/15/25 01:43 Globulin 2.8 g/dL (2.3-3.5) 04/15/25 01:43 Albumin/Globulin Ratio 0.8 (1.1-1.8) L 04/15/25 01:43 Urine Color Light-yellow (Yellow) 04/15/25 01:54 Urine Clarity Extremely turbid (Clear) H 04/15/25 01:54 Urine pH 5.0 (5.0-7.0) 04/15/25 01:54 Ur Specific [place] 1.016 (1.005-1.030) 04/15/25 01:54 Glucose (UA)(Auto) Negative (Negative) 04/15/25 01:54 Urine Ketones Negative (Negative) 04/15/25 01:54 Urine Blood 3+ (over) (Negative) H 04/15/25 01:54 Urine Nitrite Negative (Negative) 04/15/25 01:54 Urine Bilirubin Negative (Negative) 04/15/25 01:54 Urine Urobilinogen Normal (Normal) 04/15/25 01:54 Ur Leukocyte Esterase Negative Anastacio/uL (Negative) 04/15/25 01:54 Urine RBC 21-50 /HPF (None Seen) H 04/15/25 01:54 Urine WBC <5 /HPF (<5) 04/15/25 01:54 Ur Squamous Epith Cells None seen /HPF (None Seen) 04/15/25 01:54 U Non-Squamous Epi Cells <5 /HPF (None Seen) 04/15/25 01:54 Urine Bacteria <20 /HPF (<20) 04/15/25 01:54 Urine Mucus Slight /HPF (None Seen) 04/15/25 01:54 Urine Culture Reflexed Not needed 04/15/25 01:54 Urine Total Protein Trace (Negative) H 04/15/25 01:54 Acetaminophen (Acetaminophen 325 Mg Tablet) 650 mg PO Q6H PRN PRN Reason: Pain scale 5-7 (Moderate) Last Admin: 04/18/25 07:11 Dose: 650 mg Albuterol Sulfate (Albuterol 2.5 Mg/3 Ml Neb [place]) 2.5 mg NEB [id number] PRN PRN Reason: SHORTNESS OF BREATH Last Admin: 04/17/25 19:36 Dose: 2.5 mg Apixaban (Apixaban 5 Mg Tablet) 5 mg PO BID [facility] Last Admin: 04/19/25 07:40 Dose: 5 mg Ferric Sodium Gluconate Complex 250 mg/ Sodium Chloride 270 mls @ 135 mls/hr IV Q72H [facility] Stop: 04/25/25 11:01 Last Admin: 04/16/25 17:12 Dose: 270 mls Meropenem 500 mg/ Sodium (Chloride) 100 mls @ 200 mls/hr IV Q12H [facility] Last Admin: 04/19/25 07:40 Dose: 100 mls Vancomycin HCl 1.75 gm/ Sodium (Chloride) 500 mls @ 250 mls/hr IVPB Q36H [facility] Ipratropium [place] (Ipratropium Brom 0.5mg/2.5ml) 0.5 mg NEB [id number] PRN PRN Reason: SHORTNESS OF BREATH Last Admin: 04/17/25 19:36 Dose: 0.5 mg Methylprednisolone Sodium Succinate (Methylprednisolone 125 Mg Inj) 60 mg IV DAILY [facility] Last Admin: 04/19/25 07:40 Dose: 60 mg Sodium Bicarbonate (Sodium Bicarb 325 Mg Tab) 650 mg PO TID [facility] Last Admin: 04/19/25 07:39 Dose: 650 mg Tizanidine HCl (Tizanidine 4 Mg Tablet) 2 mg PO BEDTIME [facility] Last Admin: 04/18/25 21:26 Dose: 2 mg Assessment and plan: 1. Chronic kidney disease, stage 4, secondary to ANCA vasculitis, status post rituximab, received 2 doses. No activity in the urine. I am going to continue the patient on his maintenance treatment and we will follow up. Repeated urine analysis no significant hematuria had decline in the kidney function mostly secondary to aggressive diuresis : I doubted that the decline in the kidney function are related to ANCA vasculitis it is more for a prerenal secondary to aggressive diuresis I do not see the need to initiate renal replacement therapy for the time being Will monitor the patient closely Continue Solu-Medrol Follow-up with rheumatology recommendation seen yesterday plan for treatment in the next couple of days Patient's status post 2 doses of rituximab. do not see the need for any extra dose of rituximab for the time being. 2. 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 I am going to speak with the outpatient Pulmonary and and rheumatology plan for adding a new immunotherapeutic agent Will follow-up with rheumatology No indication for plasmapheresis currently giving no hemoptysis no alveolar hemorrhage 3. Anemia, iron deficiency anemia symptomatic, with shortness of breath. Follow-up LDH and haptoglobin to rule out any intravascular hemolysis in the presence of his autoimmune disease and we will follow up. We will transfuse the patient p.r.n. today to back RBC Lasix after each Status post TURNER April 15 continue IV iron 4. Non-anion gap metabolic acidosis secondary to renal failure. Recover urine anion gap 1 not in favor of RTA: Will continue current treatment 5. Hypertension. We will utilize blood pressure for more diuresis. 6. Hyponatremia secondary to renal failure, dilutional. We will optimize the fluid status with diuresis. Time spent examining the patient [id number] reviewing data lab and the radiology placing order documentation in the note discussing the case with the executive team leader including hospitalist and nursing staff more than 55 minutes
--- NOTE | 2025-04-19 12:49 | P.CNS ---
Date of Consult: 04/19/25 reason for consult: urine growing gram neg bacilli HPI:74-year-old male with multiple past medical history including chronic kidney disease, CHF, gout, vasculitis, home oxygen dependence 3 L, BPH, COPD, hyperlipidemia, IBS, anemia, received multiple blood transfusions prior, was brought to the ER by son due to worsening shortness of breath. Patient was having severe shortness of breath both at rest and exertion despite the use of his home oxygen. No fever/chill. VS stable. Chest xray show right lower lung zone suspicious for pneumonia. urine culture is growing gram negative bacilli Allergies codeine [Codeine] Allergy (Mild, Verified 01/27/25 14:16) ITCH Penicillins Allergy (Mild, Verified 01/27/25 14:16) ITCH Latex, Natu Allergy (Uncoded 01/27/25 14:16) RASH, SWELLING Current Medications Acetaminophen (Acetaminophen 325 Mg Tablet) 650 mg PO Q6H PRN PRN Reason: Pain scale 5-7 (Moderate) Last Admin: 04/18/25 07:11 Dose: 650 mg Albuterol Sulfate (Albuterol 2.5 Mg/3 Ml Neb [place]) 2.5 mg NEB [id number] PRN PRN Reason: SHORTNESS OF BREATH Last Admin: 04/17/25 19:36 Dose: 2.5 mg Apixaban (Apixaban 5 Mg Tablet) 5 mg PO BID [facility] Last Admin: 04/19/25 07:40 Dose: 5 mg Ferric Sodium Gluconate Complex 250 mg/ Sodium Chloride 270 mls @ 135 mls/hr IV Q72H [facility] Stop: 04/25/25 11:01 Last Admin: 04/19/25 10:36 Dose: 270 mls Meropenem 500 mg/ Sodium (Chloride) 100 mls @ 200 mls/hr IV Q12H [facility] Last Admin: 04/19/25 07:40 Dose: 100 mls Vancomycin HCl 1.75 gm/ Sodium (Chloride) 500 mls @ 250 mls/hr IVPB Q36H [facility] Ipratropium [place] (Ipratropium Brom 0.5mg/2.5ml) 0.5 mg NEB [id number] PRN PRN Reason: SHORTNESS OF BREATH Last Admin: 04/17/25 19:36 Dose: 0.5 mg Methylprednisolone Sodium Succinate (Methylprednisolone 125 Mg Inj) 60 mg IV DAILY [facility] Last Admin: 04/19/25 07:40 Dose: 60 mg Sodium Bicarbonate (Sodium Bicarb 325 Mg Tab) 650 mg PO TID [facility] Last Admin: 04/19/25 07:39 Dose: 650 mg Tizanidine HCl (Tizanidine 4 Mg Tablet) 2 mg PO BEDTIME [facility] Last Admin: 04/18/25 21:26 Dose: 2 mg - Past Medical/Surgical History Diabetic: No -: CKD -: COPD -: Asbestosis -: Asthma -: HTN -: Hyperelipidemia -: IBS -: Microscopic polyangitis C ANCA pos -: Kidney cancer. -: 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, 11/2017 -: back sx - 2010 -: spinal stimulator - 2017 - Family History Family History: Reviewed- Non-Contributory - Social History Smoking Status: Unknown if ever smoked Alcohol use: No CD- Drugs: No Caffeine use: No Place of Residence: Home Review of Systems 10-point ROS is otherwise unremarkable Respiratory: Shortness of Breath, SOB with Exertion, Wheezing Physical Examination - Physical Exam General: Alert, Oriented x3, Cooperative HEENT: Atraumatic, Normocephalic, PERRLA, Mucous membr. moist/pink, Sclerae nonicteric Neck: Supple, Without JVD or thyroid abnormality Respiratory: Crackles, Expiratory wheezes, on 4 L NC Cardiovascular: RRR Capillary refill: <2 Seconds Gastrointestinal:normal BS, ND, NT Musculoskeletal: trace edema Integumentary: No skin lesions Urinary: Hernández catheter labs: wbc 21.4, Hgb 7.9, platelet 185,bun 143, cr 3.11 albumin 3.1 1. Right lower lung Pneumonia 2. UTI 3. Karely's granulomatosis 4. ESRD 5. urinary retention 6, COPD exacerbation 7. moderate protein calories malnourishment 8. anemia continue vancomycin empirically. switch from merrem to levaquin urine culture grew gram negative bacilli. pending sensitivity increase in leukocytosis possibly due to high steroid dose. recommend to lower steroid dose if possible sputum culture pending recommend to do blood culture will continue to monitor for sign of infection with wbc and fever trend thank you for the consult case discussed and in agreement with Dr Stanley
[2025-04-19 13:38] LABS: Albumin, (SPE) 3.1 g/dL (3.8-4.8); Total Protein 5.0 g/dL (6.1-8.1)
[2025-04-19] MEDS: Levofloxacin 750mg IV 750 MG/150 ML BAG IV SCH (14:09)
[2025-04-19 17:08] LABS: Hematocrit 22.0 % (39.6-49.0); Hemoglobin 7.4 g/dL (13.6-17.9); MCH 28.2 pg (27.0-35.0); MCHC 33.5 g/dL (32.0-36.0); MCV 84.3 fL (80-100); MPV 9.1 fL (7.6-11.3); RBC Red Blood Cell Count 2.61 M/uL (4.33-5.43); White Blood Count 16.70 thou/uL (4.3-10.9)
[2025-04-20 05:32] LABS: Absolute Lymphocytes (CBC) 0.9 K/uL (0.7-4.9); Hematocrit 20.8 % (39.6-49.0); Hemoglobin 7.1 g/dL (13.6-17.9); MCH 28.5 pg (27.0-35.0); MCHC 34.0 g/dL (32.0-36.0); MCV 83.8 fL (80-100); MPV 8.4 fL (7.6-11.3); Nucleated RBC Absolute Count 0.1 (0-0); Nucleated Red Blood Cells % 0.8 % (0-0); RBC Red Blood Cell Count 2.48 M/uL (4.33-5.43); White Blood Count 17.70 thou/uL (4.3-10.9)
[2025-04-20 05:56] LABS: Albumin 2.9 g/dL (3.4-5.0); Anion Gap 13.6 mEq/L (5.0-15.0); BUN Blood Urea Nitrogen 124.0 mg/dL (7-18); Glucose Level 111.0 mg/dL (74-106); Magnesium 2.2 mg/dL (1.6-2.4); Potassium 3.6 mEq/L (3.5-5.1)
[2025-04-20] MEDS: VANCOMYCIN 1.75 GM in NA CHLORIDE 0.9% 500 ML IVPB SCH ×2 (06:00→18:25)
--- NOTE | 2025-04-20 14:17 | P.PN ---
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 The patient received rituximab, received 2 doses in a part of 2 weeks. The patient continued to have dialysis. The patient gradually found improvement in kidney function. For that reason, patient was weaned from dialysis, last dialysis almost 2 weeks ago. The TDC was removed. The patient was admitted to the hospital multiple times with symptomatic shortness of breath and symptomatic anemia, required recurrent transfusions this time. The patient was released from the hospital last week with the same symptoms. The patient arrived home, continued to have shortness of breath and chest tightness. For that reason, came back. The patient denied taking any nonsteroidal. Upon arrival to the hospital, the patient was found to have anemia, hemoglobin down to 7.3. The patient denied any hematochezia. Denied any hemoptysis or any hematuria. The patient continued to have chronic shortness of breath. The patient is being evaluated by Rheumatology, supposed to continue on maintenance therapy. The patient is not on any steroid. 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 Next, over the night, patient received breathing treatment, received diuresis. The patient is still complaining of shortness of breath and fatigue. Yesterday patient received blood transfusion patient was diuresis patient continued to have shortness of breath Physical exam Temp Pulse Resp BP Pulse Ox 98.4 F 101 H 20 130/79 95 04/20/25 08:00 04/20/25 10:00 04/20/25 10:00 04/20/25 10:04/20/25 10:00 General: When I saw the patient, patient is lying in bed. He was lying flat even though with nasal cannula. Chest: Crackles, bilateral up to the upper zone. Heart: S1, S2. Systolic murmur. Abdomen: Soft, nontender. Extremities: Trace edema. Neurologic: Alert and oriented x3. No focality. Acetaminophen (Acetaminophen 325 Mg Tablet) 650 mg PO Q6H PRN PRN Reason: Pain scale 5-7 (Moderate) Last Admin: 04/20/25 03:50 Dose: 650 mg Albuterol Sulfate (Albuterol 2.5 Mg/3 Ml Neb [place]) 2.5 mg NEB [id number] PRN PRN Reason: SHORTNESS OF BREATH Last Admin: 04/17/25 19:36 Dose: 2.5 mg Apixaban (Apixaban 5 Mg Tablet) 5 mg PO BID [facility] Last Admin: 04/20/25 08:55 Dose: 5 mg Ferric Sodium Gluconate Complex 250 mg/ Sodium Chloride 270 mls @ 135 mls/hr IV Q72H [facility] Stop: 04/25/25 11:01 Last Admin: 04/19/25 10:36 Dose: 270 mls Vancomycin HCl 1.75 gm/ Sodium (Chloride) 500 mls @ 250 mls/hr IVPB Q36H [facility] Last Admin: 04/20/25 06:00 Dose: Not Given Levofloxacin/Dextrose (Levaquin 750 Mg/150 Ml Ivpb (Premix)) 750 mg in 150 mls @ 100 mls/hr IV Q48H [facility] Last Admin: 04/19/25 14:09 Dose: 150 mls Ipratropium [place] (Ipratropium Brom 0.5mg/2.5ml) 0.5 mg NEB [id number] PRN PRN Reason: SHORTNESS OF BREATH Last Admin: 04/17/25 19:36 Dose: 0.5 mg Methylprednisolone Sodium Succinate (Methylprednisolone 125 Mg Inj) 60 mg IV DAILY [facility] Last Admin: 04/20/25 08:55 Dose: 60 mg Sodium Bicarbonate (Sodium Bicarb 325 Mg Tab) 650 mg PO TID [facility] Last Admin: 04/20/25 13:10 Dose: 650 mg Tizanidine HCl (Tizanidine 4 Mg Tablet) 2 mg PO BEDTIME [facility] Last Admin: 04/19/25 21:13 Dose: 2 mg Laboratory Last Values WBC 10.00 thou/uL (4.3-10.9) 04/15/25 01:43 RBC 2.39 M/uL (4.33-5.43) L 04/15/25 01:43 Hgb 7.3 g/dL (13.6-17.9) L 04/15/25 01:43 Hct 20.9 % (39.6-49.0) L 04/15/25 01:43 MCV 87.4 fL (80-100) 04/15/25 01:43 MCH 30.6 pg (27.0-35.0) 04/15/25 01:43 MCHC 35.0 g/dL (32.0-36.0) 04/15/25 01:43 RDW 20.4 % (12.1-15.2) H 04/15/25 01:43 Plt Count 171 thou/uL (152-406) 04/15/25 01:43 MPV 8.9 fL (7.6-11.3) 04/15/25 01:43 Neutrophils % 92.6 % (41.7-73.7) H 04/15/25 01:43 Lymphocytes % 2.4 % (15.3-44.8) L 04/15/25 01:43 Monocytes % 4.0 % (3.3-12.3) 04/15/25 01:43 Eosinophils % 0.3 % (0-4.4) 04/15/25 01:43 Basophils % 0.7 % (0-1.3) 04/15/25 01:43 Absolute Neutrophils 9.2 K/uL (1.8-8.0) H 04/15/25 01:43 Segmented Neutrophils 93 % (40-80) H 04/15/25 01:43 Band Neutrophils 1 % (0-1) 04/15/25 01:43 Absolute Lymphocytes 0.2 K/uL (0.7-4.9) L 04/15/25 01:43 Lymphocytes 4 % (15-42) L 04/15/25 01:43 Monocytes 2 % (0-10) 04/15/25 01:43 Absolute Monocytes 0.4 K/uL (0.1-1.3) 04/15/25 01:43 Absolute Eosinophils 0.0 K/uL (0-0.5) 04/15/25 01:43 Absolute Basophils 0.1 K/uL (0-0.5) 04/15/25 01:43 Diff Path Review No 04/15/25 01:43 Platelet Estimate Adeq 04/15/25 01:43 Hypochromasia 2+ 04/15/25 01:43 Anisocytosis 1+ 04/15/25 01:43 Morphology Comment Noted (NOT SEEN) 04/15/25 01:43 PT 26.2 SECONDS (10-13.0) H 04/15/25 01:43 INR 2.38 04/15/25 01:43 Sodium 136 mEq/L (136-145) 04/15/25 01:43 Potassium 4.2 mEq/L (3.5-5.1) 04/15/25 01:43 Chloride 110 mEq/L (98-107) H 04/15/25 01:43 Carbon Dioxide 14 mEq/L (21-32) L 04/15/25 01:43 Anion Gap 16.2 mEq/L (5.0-15.0) H 04/15/25 01:43 BUN 87 mg/dL (7-18) H 04/15/25 01:43 Creatinine 2.77 mg/dL (0.70-1.30) H 04/15/25 01:43 Est GFR (CKD-EPI) 23 ml/min (=/>90) L 04/15/25 01:43 Glucose 160 mg/dL (74-106) H 04/15/25 01:43 Lactic Acid 0.8 mmol/L (0.4-2.0) 04/15/25 01:54 Calcium 8.0 mg/dL (8.5-10.1) L 04/15/25 01:43 Magnesium 2.0 mg/dL (1.6-2.4) 04/15/25 01:43 Total Bilirubin 0.5 mg/dL (0.2-1.0) 04/15/25 01:43 Direct Bilirubin 0.2 mg/dL (0-0.2) 04/15/25 01:43 Indirect Bilirubin 0.3 mg/dL (0.2-0.8) 04/15/25 01:43 AST 15 U/L (15-37) 04/15/25 01:43 ALT 20 U/L (16-61) 04/15/25 01:43 Alkaline Phosphatase 48 U/L (45-117) 04/15/25 01:43 Troponin I High Sens 42.9 pg/mL (<58.9) 04/15/25 01:43 NT-Pro-B Natriuret Pep 8057 pg/mL (<450) H 04/15/25 01:43 Serum Total Protein 5.1 g/dL (6.4-8.2) L 04/15/25 01:43 Albumin 2.3 g/dL (3.4-5.0) L 04/15/25 01:43 Globulin 2.8 g/dL (2.3-3.5) 04/15/25 01:43 Albumin/Globulin Ratio 0.8 (1.1-1.8) L 04/15/25 01:43 Urine Color Light-yellow (Yellow) 04/15/25 01:54 Urine Clarity Extremely turbid (Clear) H 04/15/25 01:54 Urine pH 5.0 (5.0-7.0) 04/15/25 01:54 Ur Specific [place] 1.016 (1.005-1.030) 04/15/25 01:54 Glucose (UA)(Auto) Negative (Negative) 04/15/25 01:54 Urine Ketones Negative (Negative) 04/15/25 01:54 Urine Blood 3+ (over) (Negative) H 04/15/25 01:54 Urine Nitrite Negative (Negative) 04/15/25 01:54 Urine Bilirubin Negative (Negative) 04/15/25 01:54 Urine Urobilinogen Normal (Normal) 04/15/25 01:54 Ur Leukocyte Esterase Negative Anastacio/uL (Negative) 04/15/25 01:54 Urine RBC 21-50 /HPF (None Seen) H 04/15/25 01:54 Urine WBC <5 /HPF (<5) 04/15/25 01:54 Ur Squamous Epith Cells None seen /HPF (None Seen) 04/15/25 01:54 U Non-Squamous Epi Cells <5 /HPF (None Seen) 04/15/25 01:54 Urine Bacteria <20 /HPF (<20) 04/15/25 01:54 Urine Mucus Slight /HPF (None Seen) 04/15/25 01:54 Urine Culture Reflexed Not needed 04/15/25 01:54 Urine Total Protein Trace (Negative) H 04/15/25 01:54 Assessment and plan: 1. Chronic kidney disease, stage 4, secondary to ANCA vasculitis, status post rituximab, received 2 doses. No activity in the urine. I am going to continue the patient on his maintenance treatment and we will follow up. Repeated urine analysis no significant hematuria had decline in the kidney function mostly secondary to aggressive diuresis : I doubted that the decline in the kidney function are related to ANCA vasculitis it is more for a prerenal secondary to aggressive diuresis I do not see the need to initiate renal replacement therapy for the time being Will monitor the patient closely Continue Solu-Medrol Follow-up with rheumatology recommendation seen yesterday plan for treatment in the next couple of days Patient's status post 2 doses of rituximab. do not see the need for any extra dose of rituximab for the time being. 2. 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 I am going to speak with the outpatient Pulmonary and and rheumatology plan for adding a new immunotherapeutic agent Will follow-up with rheumatology No indication for plasmapheresis currently giving no hemoptysis no alveolar hemorrhage 3. Anemia, iron deficiency anemia symptomatic, with shortness of breath. Follow-up LDH and haptoglobin to rule out any intravascular hemolysis in the pre sence of his autoimmune disease and we will follow up. We will transfuse the patient p.r.n. today to back RBC Lasix after each Status post TURNER April 15 continue IV iron 4. Non-anion gap metabolic acidosis secondary to renal failure. Recover urine anion gap 1 not in favor of RTA: Will continue current treatment 5. Hypertension. We will utilize blood pressure for more diuresis. 6. Hyponatremia secondary to renal failure, dilutional. We will optimize the fluid status with diuresis. Time spent examining the patient [id number] reviewing data lab and the radiology placing order documentation in the note discussing the case with the shipping team leader including hospitalist and nursing staff more than 55 minutes
[2025-04-20] MEDS: POTASSIUM CL SA 10 MEQ TAB PO ONE (16:32)
[2025-04-20] MEDS: METOPROLOL TARTRATE 5 MG/5 ML INJ IV STA (18:25)
--- NOTE | 2025-04-20 21:07 | P.PN ---
Date of Service: 04/19/25 Subjective Patient doing well. He states he has been tracking the medication and they are anticipating that it will arrive over the next 48 hours. Otherwise patient denies any new complaints. Physical Examination - Vital Signs Reviewed - Physical Exam General: Alert, In no apparent distress, Oriented x3 Respiratory: End-expiratory wheezing and rhonchi Cardiovascular: tachycardic, Systolic murmur Gastrointestinal: Normal bowel sounds, Soft and benign, Non-distended, No tenderness Musculoskeletal: No clubbing, No tenderness, Swelling Integumentary: No rashes Neurological: No focal abnormalities; gait ataxia Assessment & Plan - Problems (Diagnosis) (1) Karely's granulomatosis Current Visit: Yes Status: Acute Qualifiers: Granulomatosis renal involvement: with renal involvement Qualified Code(s): M31.31 - Karely's granulomatosis with renal involvement (2) End stage renal disease Current Visit: Yes Status: Acute (3) Urinary retention Current Visit: Yes Status: Acute (4) COPD exacerbation Current Visit: No Status: Acute (5) DVT (deep venous thrombosis) Current Visit: No Status: Acute Qualifiers: Laterality: right (6) Pulmonary embolism Current Visit: No Status: Acute (7) CAD (coronary artery disease) with history of atrial fibrillation with rapid ventricular response Current Visit: No Status: Chronic Qualifiers: Coronary Disease-Associated Artery/Lesion type: [place] artery [place] vs. transplanted heart: [place] heart Associated angina: without angina Qualified Code(s): I25.10 - Atherosclerotic heart disease of [place] coronary artery without angina pectoris (8) Hypertension Current Visit: No Status: Chronic Qualifiers: Hypertension type: primary hypertension Qualified Code(s): I10 - Essential (primary) hypertension - Plan Continue with clinic as mentioned below: 1. Patient with granulomatous polyangiitis; continue with IV steroids. Consulted Rheumatology regarding further recommendation. Plan to start Tavneos (avacopan). Medicine has been called in and waiting for it to arrive to the patient's home. Once it arrives we will go ahead and start the medication and hopefully patient will get a response. Will continue with nutritional support. Antibiotic therapy started as well. 2. ESRD; hemodialysis per nephrology . Currently hemodialysis has been on hold. Will continue monitoring urine output and volume status closely. Disc ussed with nephrology regarding resuming nephrology. 3. CAD with atrial fibrillation with rapid ventricular response; continue with antiplatelet therapy 4. History of DVT/PE; continue with Xarelto 5. GI DVT prophylaxis Discharge Plan: Home Plan to discharge in: Greater than 2 days - Advance Directives Does patient have a Living Will: No Does patient have a Durable POA for Healthcare: No - Code Status/Comfort Care Code Status Assessed: Yes Code Status: Full Code Critical Care: Yes Time Spent Managing PTS Care (In Minutes): 35
--- NOTE | 2025-04-20 21:09 | P.PN ---
Date of Service: 04/20/25 Subjective Patient wanted atrial fibrillation with rapid ventricular response. Patient was given IV Lopressor. According to the patient patient's medication will be here over the next 24 hours. Once it gets their plan to start the medication and hopefully will have a good response to the medication. Physical Examination - Vital Signs Reviewed - Physical Exam General: Alert, In no apparent distress, Oriented x3 Respiratory: End-expiratory wheezing and rhonchi Cardiovascular: tachycardic, irregularly irregular rate and rhythm systolic murmur Gastrointestinal: Normal bowel sounds, Soft and benign, Non-distended, No tenderness Musculoskeletal: No clubbing, No tenderness, Swelling Integumentary: No rashes Neurological: Generalized weakness; gait ataxia Assessment & Plan - Problems (Diagnosis) (1) Karely's granulomatosis Current Visit: Yes Status: Acute Qualifiers: Granulomatosis renal involvement: with renal involvement Qualified Code(s): M31.31 - Karely's granulomatosis with renal involvement (2) End stage renal disease Current Visit: Yes Status: Acute (3) Urinary retention Current Visit: Yes Status: Acute (4) COPD exacerbation Current Visit: No Status: Acute (5) DVT (deep venous thrombosis) Current Visit: No Status: Acute Qualifiers: Laterality: right (6) Pulmonary embolism Current Visit: No Status: Acute (7) CAD (coronary artery disease) with history of atrial fibrillation with rapid ventricular response Current Visit: No Status: Chronic Qualifiers: Coronary Disease-Associated Artery/Lesion type: [place] artery [place] vs. transplanted heart: [place] heart Associated angina: without angina Qualified Code(s): I25.10 - Atherosclerotic heart disease of [place] coronary artery without angina pectoris (8) Hypertension Current Visit: No Status: Chronic Qualifiers: Hypertension type: primary hypertension Qualified Code(s): I10 - Essential (primary) hypertension - Plan Continue with clinic as mentioned below: 1. Patient with granulomatous polyangiitis; continue with IV steroids. Consulted Rheumatology regarding further recommendation. Plan to start Tavneos (avacopan). Medicine has been called in and waiting for it to arrive to the patient's home. Once it arrives we will go ahead and start the medication and hopefully patient will get a response. Will continue with nutritional support. Antibiotic therapy started as well. 2. ESRD; hemodialysis per nephrology . Currently hemodialysis has been on hold. Will continue monitoring urine output and volume status closely. Discussed with nephrology regarding resuming nephrology. 3. CAD with atrial fibrillation with rapid ventricular response; continue with antiplatelet therapy and anticoagulation as well as medication for rate control 4. History of DVT/PE; continue with Xarelto 5. GI DVT prophylaxis Discharge Plan: Home Plan to discharge in: Greater than 2 days - Advance Directives Does patient have a Living Will: No Does patient have a Durable POA for Healthcare: No - Code Status/Comfort Care Code Status Assessed: Yes Code Status: Full Code Critical Care: Yes Time Spent Managing PTS Care (In Minutes): 35
--- NOTE | 2025-04-20 21:27 | PN ---
Subjective: The patient is lying in bed, continued to have difficulty in breathing. The patient den ies any headache, nausea, vomiting, chest pain, abdominal pain, non bowel movement in last 24 hours. Objective: Vital signs: Temperature 98, pulse 109, respirations 18, blood pressure 131/87. Lungs: Basal crackles, right more than left . Heart: S1, S2. Regular. Abdomen: Soft. Bowel sounds present. Obese. Extremities: Trace edema. Laboratory Data: Shows WBC 17.7, hemoglobin 7.1, platelets are 189. BUN 124, creatinine 3. Assessment And Plan: 1. Right lower lobe pneumonitis with leukocytosis. 2. Urine cultures growing gram-negative bacilli. Sensitivities, specificity pending. The patient is currently on Levaquin and vancomycin empirically. 3. Significant history of chronic kidney disease stage 4 secondary to ANCA vasculitis, status post ri tuximab, has received 2 doses. 4. Anemia of chronic disease with iron deficiency anemia. 5. End-stage renal disease. 6. Karely's granulomatosis. 7. Chronic obstructive pulmonary disease exacerbation. 8. Moderate protein-calorie malnourishment. 9. Continue current treatment. We will monitor signs of infection with WBC and fever trends. NF/MODL Voice ID: [id number] Report ID: [id number]
[2025-04-20] MEDS: LORAZEPAM 1 MG TABLET PO ONE (23:44)
[2025-04-21 05:20] LABS: Absolute Lymphocytes (CBC) 0.3 K/uL (0.7-4.9); Hematocrit 21.0 % (39.6-49.0); Hemoglobin 7.2 g/dL (13.6-17.9); MCH 29.1 pg (27.0-35.0); MCHC 34.1 g/dL (32.0-36.0); MCV 85.3 fL (80-100); MPV 8.6 fL (7.6-11.3); Nucleated RBC Absolute Count 0.0 (0-0); Nucleated Red Blood Cells % 0.2 % (0-0); RBC Red Blood Cell Count 2.46 M/uL (4.33-5.43); White Blood Count 14.00 thou/uL (4.3-10.9)
[2025-04-21 05:37] LABS: ALT/SGPT 22 U/L (16-61); Albumin 3.0 g/dL (3.4-5.0); Albumin/Globulin Ratio 1.3 (1.1-1.8); Alkaline Phosphatase 60 U/L (45-117); Anion Gap 11.5 mEq/L (5.0-15.0); BUN Blood Urea Nitrogen 115 mg/dL (7-18); Globulin 2.3 g/dL (2.3-3.5); Glucose Level 118 mg/dL (74-106); Magnesium 2.4 mg/dL (1.6-2.4); Potassium 4.5 mEq/L (3.5-5.1)
[2025-04-21 05:38] LABS: AST/SGOT < 10 U/L (15-37)
--- NOTE | 2025-04-21 08:54 | P.PN ---
Date of Service: 04/21/25 Subjective: sleeping, vitals stable no acute events overnight afebrile Physical Exam: Gen: Alert, NAD, Orientedx3 CV: Regular rate and rhythm, systolic murmur Pulm: Nonlabored respirations on 5L NC, wheeze, rhonci Abdomen: Soft, nontender, nondistended Neuro: No focal abnormalities; gait ataxia Problem List: Karely's granulomatosis Acute on chronic COPD exacerbation (on 3L Home O2) CKD4; previously on HD Iron deficiency anemia; Symptomatic A-fib with RVR Hx of CAD Urinary Retention Chronic CHF BPH Hyperlipidemia Chronic Anemia Hx of DVT/PE Hx of kidney cancer Karely's granulomatosis Acute on chronic COPD exacerbation (on 3L Home O2) on admission, presents with worsening shortness of breath, worsened with light activity associated with wheeze, cough CXR (04/15): Focal area of airspace opacity within the right lower lung zone suspicious for pneumonia Repeat CXR (04/16): Bilateral airspace opacities as above including confluent right mid to lower lung opacification concerning for pneumonia. Continue IV steroids, nebs Continue IV Levaquin/Vanc (04/19-) Rheumatology consulted. Plan to start Tavneos (avacopan). Called in and waiting for delivery. Needs to follow up with Rheumatology on discharge Pain control, supportive care. ID consulted CKD4; previously on HD Nephrology is following Continue to monitor renal function, electrolytes s/p rituximab x2 Daily labs Continue sodium bicarb Urinary retention Hernández in place UA not suggestive of UTI. Urine cx (04/16): 1+ Gram negative bacilli Iron deficiency anemia; Symptomatic No obvious bleeds / black tarry stools. s/p 3 uPRBC (04/15-04/17) Continue IV iron (250mg); s/p 2 of 4 bags Monitor hgb closely. Hgb in low 7s last 2-3 days. A-fib with RVR Hx of CAD s/p IV metoprolol 04/20 continue home Eliquis Monitor on telemetry Chronic CHF BPH Hyperlipidemia Chronic Anemia Hx of DVT/PE Hx of kidney cancer confirm home meds, restart as appropriate resume home Eliquis VTE: Home Eliquis Code: DNR Dispo: Home Pending improvement, Tavneos delivery, hgb stable
[2025-04-21 11:17] LABS: C-ANCA Anti-Proteinase 3 <1.0 AI (<1.0); P-ANCA Anti-Myeloperoxidase Ab 1.3 AI (<1.0)
--- NOTE | 2025-04-21 14:16 | P.PN ---
Date of Service: 04/21/25 subjective: VS stable.wbc trending down. lung sound improving. denied NVD. Physical Examination - Physical Exam General: Alert, Oriented x3, Cooperative HEENT: Atraumatic, Normocephalic, PERRLA, Mucous membr. moist/pink, Sclerae nonicteric Neck: Supple, Without JVD or thyroid abnormality Respiratory: Basal crackles, right more than left. 4L NC Cardiovascular: RRR Capillary refill: <2 Seconds Gastrointestinal:normal BS, ND, NT Musculoskeletal: trace edema Integumentary: No skin lesions Urinary: Hernández catheter labs: wbc 14, Hgb 7.2, platelet 195,bun 115, cr 2.86 albumin 3.0 1. Right lower lung Pneumonia 2. UTI GNB 3. Karely's granulomatosis 4. CKD4; previously on HD 5. urinary retention 6, COPD exacerbation 7. moderate protein calories malnourishment 8. iron deficiency anemia; symptomatic continue vancomycin and levaquin empirically. recommend abx duration 7 days. stop date apr 25 urine culture grew gram negative bacilli. pending sensitivity wbc trending downward, pt also on steroid sputum and blood culture pending will continue to monitor for sign of infection with wbc and fever trend case discussed and in agreement with Dr Stanley
[2025-04-21] MEDS: SUCRALFATE 1GM/10ML UCUP PO SCH (16:56)
[2025-04-21] MEDS: MELATONIN 3 MG TABLET PO PRN (21:24)
[2025-04-22 05:30] LABS: Absolute Lymphocytes (CBC) 0.3 K/uL (0.7-4.9); Hematocrit 20.3 % (39.6-49.0); Hemoglobin 6.8 g/dL (13.6-17.9); MCH 29.0 pg (27.0-35.0); MCHC 33.5 g/dL (32.0-36.0); MCV 86.5 fL (80-100); MPV 8.8 fL (7.6-11.3); Nucleated RBC Absolute Count 0.0 (0-0); Nucleated Red Blood Cells % 0.1 % (0-0); RBC Red Blood Cell Count 2.34 M/uL (4.33-5.43); White Blood Count 13.10 thou/uL (4.3-10.9)
[2025-04-22 06:01] LABS: ALT/SGPT 18 U/L (16-61); Albumin 2.7 g/dL (3.4-5.0); Albumin/Globulin Ratio 1.2 (1.1-1.8); Alkaline Phosphatase 56 U/L (45-117); Anion Gap 12.1 mEq/L (5.0-15.0); BUN Blood Urea Nitrogen 103 mg/dL (7-18); Globulin 2.3 g/dL (2.3-3.5); Glucose Level 96 mg/dL (74-106); Magnesium 2.3 mg/dL (1.6-2.4); Potassium 4.1 mEq/L (3.5-5.1)
[2025-04-22 06:02] LABS: AST/SGOT < 10 U/L (15-37)
--- NOTE | 2025-04-22 07:52 | P.PN ---
Date of Service: 04/22/25 Subjective: Endorses constipation Hemoglobin low this morning Discussed with nursing staff to transfuse 1 unit PRBC Tachycardic overnight Physical Exam: Gen: Alert, NAD, Orientedx3 CV: Regular rate and rhythm, systolic murmur Pulm: Nonlabored respirations on 5L NC, wheeze, rhonci Abdomen: Soft, nontender, nondistended Neuro: No focal abnormalities; gait ataxia Problem List: Karely's granulomatosis Acute on chronic COPD exacerbation (on 3L Home O2) CKD4; previously on HD Iron deficiency anemia; Symptomatic A-fib with RVR Hx of CAD Urinary Retention Chronic CHF BPH Hyperlipidemia Chronic Anemia Hx of DVT/PE Hx of kidney cancer Karely's granulomatosis Acute on chronic COPD exacerbation (on 3L Home O2) on admission, presents with worsening shortness of breath, worsened with light activity associated with wheeze, cough CXR (04/15): Focal area of airspace opacity within the right lower lung zone suspicious for pneumonia Repeat CXR (04/16): Bilateral airspace opacities as above including confluent right mid to lower lung opacification concerning for pneumonia. Continue IV steroids, nebs Continue IV Levaquin/Vanc (04/19-) Rheumatology consulted. Plan to start Tavneos (avacopan). Called in and waiting for delivery. Needs to follow up with Rheumatology on discharge Pain control, supportive care. ID consulted CKD4; previously on HD Nephrology is following Continue to monitor renal function, electrolytes s/p rituximab x2 Daily labs Continue sodium bicarb Urinary retention Hernández in place UA not suggestive of UTI. Urine cx (04/16): 1+ Gram negative bacilli Iron deficiency anemia; Symptomatic No obvious bleeds / black tarry stools. s/p 3 uPRBC (04/15-04/17) Continue IV iron (250mg); s/p 2 of 4 bags Monitor hgb closely. Hgb in low 7s last 2-3 days. A-fib with RVR Hx of CAD s/p IV metoprolol 04/20 continue home Eliquis Monitor on telemetry Chronic CHF BPH Hyperlipidemia Chronic Anemia Hx of DVT/PE Hx of kidney cancer confirm home meds, restart as appropriate resume home Eliquis Constipation Add Colace VTE: Home Eliquis Code: DNR Dispo: Home Pending improvement, Tavneos delivery, hgb stable
[2025-04-22 08:30] LABS: Differential Total Cells Count 100; Segmented Neutrophils 88 % (40-80)
[2025-04-22 08:31] LABS: Blood Morphology Comment NOTED (NOT SEEN)
[2025-04-22 08:32] LABS: Anisocytosis 2+; Macrocytosis SLIGHT
[2025-04-22] MEDS: NA CHLORIDE 0.9% 250 ML ONE (09:47)
[2025-04-22] MEDS: DOCUSATE NA 100 MG CAP PO SCH (09:47)
[2025-04-22 15:47] LABS: Hematocrit 26.1 % (39.6-49.0); Hemoglobin 8.8 g/dL (13.6-17.9)
[2025-04-22] MEDS: VANCOMYCIN 1 GM in NA CHLORIDE 0.9% 250 ML IVPB SCH (16:00)
[2025-04-22] MEDS ORDERED: AVACOPAN 10 MG PO SCH (17:00)
[2025-04-23 04:40] LABS: Absolute Lymphocytes (CBC) 0.4 K/uL (0.7-4.9); Hematocrit 25.4 % (39.6-49.0); Hemoglobin 8.6 g/dL (13.6-17.9); MCH 29.8 pg (27.0-35.0); MCHC 33.7 g/dL (32.0-36.0); MCV 88.5 fL (80-100); MPV 8.8 fL (7.6-11.3); Nucleated RBC Absolute Count 0.0 (0-0); Nucleated Red Blood Cells % 0.3 % (0-0); RBC Red Blood Cell Count 2.87 M/uL (4.33-5.43); White Blood Count 10.20 thou/uL (4.3-10.9)
[2025-04-23 05:04] LABS: ALT/SGPT 27.0 U/L (16-61); AST/SGOT 15.0 U/L (15-37); Albumin 2.8 g/dL (3.4-5.0); Albumin/Globulin Ratio 1.2 (1.1-1.8); Alkaline Phosphatase 67.0 U/L (45-117); Anion Gap 12.6 mEq/L (5.0-15.0); BUN Blood Urea Nitrogen 88.0 mg/dL (7-18); Globulin 2.3 g/dL (2.3-3.5); Glucose Level 147.0 mg/dL (74-106); Magnesium 2.5 mg/dL (1.6-2.4); Potassium 4.6 mEq/L (3.5-5.1)
[2025-04-23] MEDS: predniSONE 20 MG TAB PO SCH (08:44)
[2025-04-23] MEDS: FUROSEMIDE 40 MG/4 ML VIAL IV ONE ×2 (09:19→16:06)
[2025-04-23] MEDS: FUROSEMIDE 20 MG/ 2ML VIAL ONE (09:23)
--- NOTE | 2025-04-23 09:59 | RAD REPORT ---
EXAM: Chest Single View HISTORY: 74 years Male shortness of breath/tachypnea COMPARISON: 04/16/2025 FINDINGS: LUNGS/PLEURA: Coarsened pulmonary interstitium with bilateral opacities. CARDIAC/MEDIASTINUM: Mild cardiomegaly UPPER ABDOMEN: No significant abnormality. BONES: No acute abnormality. LINES/TUBES/OTHER: N/A IMPRESSION: Coarsened pulmonary interstitium with some irregular bilateral opacities suspicious for multifocal pn eumonia. Findings are similar to 04/16/2025.
[2025-04-23 10:05] LABS: NT PRO-BNP 1898.0 pg/mL (<450)
--- NOTE | 2025-04-23 11:06 | P.PN ---
Date of Service: 04/23/25 Subjective: Continues to endorse shortness of breath this morning We will obtain stat chest x-ray Discussed with nephrology and pulmonology Stat dose of 40 mg IV Lasix ordered Physical Exam: Gen: Alert, NAD, Orientedx3 CV: Regular rate and rhythm, systolic murmur Pulm: Nonlabored respirations on 5L NC, wheeze, rhonci Abdomen: Soft, nontender, nondistended Neuro: No focal abnormalities; gait ataxia Problem List: Karely's granulomatosis Acute on chronic COPD exacerbation (on 3L Home O2) CKD4; previously on HD Iron deficiency anemia; Symptomatic A-fib with RVR Hx of CAD Urinary Retention Chronic CHF BPH Hyperlipidemia Chronic Anemia Hx of DVT/PE Hx of kidney cancer Karely's granulomatosis Acute on chronic COPD exacerbation (on 3L Home O2) Acute respiratory failure Restart atovaquone per pulmonology recommendation 40 mg IV Lasix x 1 and stat chest x-ray, will give another dose depending on urine output. Discussed with nephrology on admission, presents with worsening shortness of breath, worsened with light activity associated with wheeze, cough Continue oral prednisone and restart Solu-Medrol Continue IV Levaquin/Vanc (04/19-) Rheumatology consulted. Plan to start Tavneos (avacopan). Discussed with rheumatology and will hold off on medication until improvement in respiratory status and control of infection Needs to follow up with Rheumatology on discharge Pain control, supportive care. ID consulted CKD4; previously on HD Nephrology is following Continue to monitor renal function, electrolytes s/p rituximab x2 Daily labs Continue sodium bicarb Urinary retention Hernández in place UA not suggestive of UTI. Urine cx (04/16): 1+ Gram negative bacilli Iron deficiency anemia; Symptomatic No obvious bleeds / black tarry stools. s/p 3 uPRBC (04/15-04/17) Continue IV iron (250mg); s/p 2 of 4 bags Monitor hgb closely. Hgb in low 7s last 2-3 days. A-fib with RVR Hx of CAD s/p IV metoprolol 04/20 continue home Eliquis Monitor on telemetry Chronic CHF BPH Hyperlipidemia Chronic Anemia Hx of DVT/PE Hx of kidney cancer confirm home meds, restart as appropriate resume home Eliquis Constipation Add Colace VTE: Home Eliquis Code: DNR Dispo: Home Pending improvement, Tavneos delivery, hgb stable
[2025-04-23] MEDS: METHYLPREDNISOLONE 125 MG INJ IV SCH (12:06)
[2025-04-23] MEDS: WATER FOR INJ,STERILE 10 ML IV SCH (12:07)
--- NOTE | 2025-04-23 18:00 | RAD REPORT ---
EXAMINATION: Thorax Wo Con CLINICAL INDICATION: Male, 74 years old. RO PCP TECHNIQUE: Routine CT scan of the chest without intravenous contrast. One or more of the following do se reduction techniques were used: Automated exposure control, adjustment of the mA and/or kV according to patient size, and/or iterative reconstruction. Unless otherwise specified, incidental fi ndings do not require dedicated imaging follow-up. [id number]. COMPARISON: 04/02/2025 FINDINGS: LOWER NECK: Visualized thyroid gland and soft tissues are normal. MEDIASTINUM AND LYMPH NODES: No mediastinal mass or fluid collection. Normal size mediastinal, hilar, and axillary lymph nodes. THORACIC AORTA: No thoracic aortic aneurysm. PULMONARY ARTERIES: Caliber is within normal limits. HEART: Normal heart size. Moderate coronary artery calcifications.No significant pericardial effusion . Aortic valve calcifications. LUNGS AND AIRWAYS: Worsened bilateral geographic areas of groundglass attenuation throughout both emery gs compared with 04/02/2025. No consolidative airspace disease. Moderate emphysema. No suspicious and/or stable pulmonary nodules. PLEURA: No pleural effusions. No pneumothorax. OSSEOUS STRUCTURES AND CHEST WALL: No fracture or suspicious osseous lesions. Spinal stimulator. UPPER ABDOMEN: No acute abnormalities. IMPRESSION: Worsening bilateral groundglass opacities that may reflect a viral pneumonia. Pneumocystic pneumonia is within the differential.
[2025-04-24 05:41] LABS: Absolute Lymphocytes (CBC) 0.2 K/uL (0.7-4.9); Hematocrit 25.2 % (39.6-49.0); Hemoglobin 8.7 g/dL (13.6-17.9); MCH 30.5 pg (27.0-35.0); MCHC 34.6 g/dL (32.0-36.0); MCV 88.0 fL (80-100); MPV 8.4 fL (7.6-11.3); Nucleated RBC Absolute Count 0.0 (0-0); Nucleated Red Blood Cells % 0.2 % (0-0); RBC Red Blood Cell Count 2.86 M/uL (4.33-5.43); White Blood Count 8.90 thou/uL (4.3-10.9)
[2025-04-24 05:56] LABS: Anion Gap 11.1 mEq/L (5.0-15.0); BUN Blood Urea Nitrogen 88.0 mg/dL (7-18); Glucose Level 106.0 mg/dL (74-106); Magnesium 2.3 mg/dL (1.6-2.4); Potassium 4.1 mEq/L (3.5-5.1)
--- NOTE | 2025-04-24 08:40 | P.CNS ---
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 has been on steroids has had progressive worsening recently got much worse ended up here in the hospital still complains of shortness of breath no cough fever or chills he has diffuse groundglass changes on CT scan patient has been on high doses of steroids off dialysis Allergies codeine [Codeine] Allergy (Mild, Verified 01/27/25 14:16) ITCH Penicillins Allergy (Mild, Verified 01/27/25 14:16) ITCH Latex, Natu Allergy (Uncoded 01/27/25 14:16) RASH, SWELLING Home Medications: Duloxetine HCl 30 mg PO DAILY 01/27/19 Pravastatin Sodium 80 mg PO DAILY 01/27/19 Ropinirole HCl 2 mg PO BEDTIME 01/27/19 Tamsulosin [Flomax*] 0.4 mg PO DAILY 01/27/19 Lansoprazole 30 mg PO DAILY 08/15/22 Sucralfate [Carafate] 1 gm PO TIDWM 08/15/22 Cholecalciferol (Vitamin D3) [Vitamin D 1000 Iu Tab*] 2,000 unit PO DAILY 03/30/23 Tizanidine HCl 2 mg PO DAILY 02/12/25 Albuterol Neb [Proventil 0.083% Neb Soln] 2.5 mg NEB [id number] PRN #60 amp 02/23/25 Ticagrelor [Brilinta*] 90 mg PO BID #60 tab 02/23/25 Allopurinol 100 mg PO DAILY 03/27/25 Aspirin/Acetaminophen/Caffeine [Excedrin Extra Strength Caplet] 1 each PO PRN PRN 03/27/25 Carvedilol [Coreg] 6.25 mg PO BID 03/27/25 Apixaban [Eliquis] 5 mg PO BID 04/15/25 Cyanocobalamin [Vitamin B-12] 1,000 mcg PO DAILY 04/15/25 Na Bicarb Tab [Sodium Bicarb 325 MG] 1,300 mg PO QID 04/15/25 predniSONE [Deltasone*] 20 mg PO DAILY 04/15/25 Avacopan [Tavneos] 30 mg PO BID 04/22/25 - Past Medical/Surgical History Diabetic: No -: CKD -: COPD -: Asbestosis -: Asthma -: HTN -: Hyperelipidemia -: IBS -: Microscopic polyangitis C ANCA pos -: Kidney cancer. -: 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, 11/2017 -: back sx - 2010 -: spinal stimulator - 2016 - Social History Smoking Status: Former smoker Alcohol use: No CD- Drugs: No Caffeine use: No Place of Residence: Home Review of Systems 10-point ROS is otherwise unremarkable General: Weakness Respiratory: Shortness of Breath Physical Examination Temp Pulse Resp BP Pulse Ox 97.2 F 93 H 15 126/80 98 04/24/25 08:00 04/24/25 08:00 04/24/25 08:00 04/24/25 08:00 04/24/25 06:00 General: Alert HEENT: Atraumatic Neck: Supple Respiratory: Crackles/rales Cardiovascular: Normal S1 S2 Gastrointestinal: Normal bowel sounds, Soft and benign, Non-distended - Problems (1) Respiratory distress Current Visit: Yes Status: Acute Plan: Patient is 74 years of age admitted with progressive dyspnea I strongly suspect that he has pneumocystis is got diffuse bilateral groundglass changes as he is stable we will plan to reduce the dose of his prednisone to 10 mg twice a day start patient on atovaquone scheduled for a bronchoscopy on Thursday patient is on Eliquis that has been stopped patient's white count is back down to normal blood cultures are so far negative discussed with the patient the risk of bronchoscopy possible bleeding not going to do any biopsies just to BAL possible risk of infection plan to do it on Thursday patient agrees his oxygenation is satisfactory he is well over 95% on 3 L of nasal cannula oxygen hemoglobin steady I doubt that this is diffuse alveolar hemorrhage in any case he is off the dialysis
[2025-04-24] MEDS: predniSONE 20 MG TAB PO SCH (09:00)
[2025-04-24] MEDS: ATOVAQUONE 750 MG/5 ML PO SCH (09:23)
--- NOTE | 2025-04-24 11:54 | P.PN ---
Date of Service: 04/24/25 subjective: VS stable.wbc WNL. lung sound improving. denied NVD. Physical Examination - Physical Exam General: Alert, Oriented x3, Cooperative HEENT: Atraumatic, Normocephalic, PERRLA, Mucous membr. moist/pink, Sclerae nonicteric Neck: Supple, Without JVD or thyroid abnormality Respiratory: Basal crackles, right more than left. 4L NC Cardiovascular: RRR Capillary refill: <2 Seconds Gastrointestinal:normal BS, ND, NT Musculoskeletal: trace edema Integumentary: No skin lesions Urinary: Hernández catheter labs: wbc 8.9, Hgb 8.7, platelet 326,bun 88, cr 2.56 albumin 2.8 1. Multifocal Pneumonia 2. UTI 3. Karely's granulomatosis 4. CKD4; previously on HD 5. urinary retention 6, COPD exacerbation 7. moderate protein calories malnourishment 8. iron deficiency anemia; symptomatic continue atovaquone for pneumocystis per [employer]. bronchoscopy pending on thursday urine culture grew GNR. will complete levaquin x 7 days for UTI. stop date apr 25 blood culture no growth will continue to monitor for sign of infection with wbc and fever trend case discussed and in agreement with Dr Stanley
[2025-04-24] MEDS: PANTOPRAZOLE 40 MG INJ IVP SCH (12:18)
[2025-04-24] MEDS: Levofloxacin 750mg IV 750 MG/150 ML BAG IV ONE (12:20)
--- NOTE | 2025-04-24 16:37 | P.PN ---
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 Discussed with nephrology on admission, presents with worsening shortness of breath, worsened with light activity associated with wheeze, cough Continue oral prednisone Levaquin and vancomycin discontinued Needs to follow up with Rheumatology on discharge, Tavneos on hold Pain control, supportive care. ID consulted and appreciate help CKD4; previously on HD Nephrology is following Continue to monitor renal function, electrolytes s/p rituximab x2 Daily labs Continue sodium bicarb Urinary retention Hernández in place UA not suggestive of UTI. Urine cx (04/16): 1+ Gram negative bacilli Iron deficiency anemia; Symptomatic No obvious bleeds / black tarry stools. s/p 3 uPRBC (04/15-04/17) Continue IV iron (250mg); s/p 2 of 4 bags Monitor hgb closely. Hgb in low 7s last 2-3 days. A-fib with RVR Hx of CAD s/p IV metoprolol 04/20 continue home Eliquis Monitor on telemetry Chronic CHF BPH Hyperlipidemia Chronic Anemia Hx of DVT/PE Hx of kidney cancer confirm home meds, restart as appropriate resume home Eliquis Constipation Add Colace VTE: Home Eliquis Code: DNR Dispo: Home Pending improvement, Tavneos delivery, hgb stable
[2025-04-24] MEDS: DULOXETINE 30 MG CAP PO SCH (21:22)
--- NOTE | 2025-04-25 01:54 | PN ---
Date of Progress Note: 04/24/2025 Chief Complaint: Acute on chronic kidney injury. 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 Biopsy was done during previous admission in February 2025. The patient took rituximab 2 doses two weeks apart. The patient wa s also started on steroids and was initiated on dialysis via tunneled dialysis catheter. Subsequentl y, when creatinine level was improving and the patient developed polyuria, TDC was removed at [facility]. The patient was seen by a furnishings conservator and plan of treatment was di scussed with the patient. Subsequently after the patient was discharged from [facility], he developed progressively worse s hortness of breath and came to the hospital, and was admitted to ICU and was started on antibiotics f or pneumonia. Review of Systems: Denies chest pain, palpitations. Physical Examination: Lungs: Few crackles. Heart: S1, S2. Abdomen: Soft. Extremities: Minimal edema. Impression And Plan: 1. 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 Th e patient has completed rituximab. Continue immunosuppressive protocol. The patient was previously on steroids. 2. The patient will follow up with Rheumatology for further recommendation. 3. Pneumonia. Continue antibiotics. 4. Congestive heart failure, diastolic dysfunction. The patient completed IV furosemide drip. 5. Chronic kidney disease stage 4. Avoid nephrotoxic medication. 6. Anemia. Monitor hemoglobin level. Continue TURNER for anemia due to chronic kidney disease. KATHERINE/KEVIN Voice ID: [id number] Report ID: [id number]
[2025-04-25 07:18] LABS: AST/SGOT 12 U/L (15-37); Albumin 2.7 g/dL (3.4-5.0); Albumin/Globulin Ratio 1.0 (1.1-1.8); Alkaline Phosphatase 44 U/L (45-117); Anion Gap 11.2 mEq/L (5.0-15.0); BUN Blood Urea Nitrogen 67 mg/dL (7-18); Globulin 2.6 g/dL (2.3-3.5); Glucose Level 200 mg/dL (74-106); Magnesium 2.2 mg/dL (1.6-2.4); Potassium 5.2 mEq/L (3.5-5.1)
[2025-04-25 07:20] LABS: ALT/SGPT < 14 U/L (16-61)
--- NOTE | 2025-04-25 07:20 | P.PN ---
Date of Service: 04/25/20 Subjective: Continues to endorse shortness of breath. States he feels slightly better than yesterday. Denies fevers and chills. We discussed his bronchoscopy tomorrow Physical Exam: Gen: Alert, NAD, Orientedx3 CV: Regular rate and rhythm, systolic murmur Pulm: Nonlabored respirations on 5L NC, wheeze, rhonci Abdomen: Soft, nontender, nondistended Neuro: No focal abnormalities; gait ataxia Problem List: Karely's granulomatosis Acute on chronic COPD exacerbation (on 3L Home O2) CKD4; previously on HD Iron deficiency anemia; Symptomatic A-fib with RVR Hx of CAD Urinary Retention Chronic CHF BPH Hyperlipidemia Chronic Anemia Hx of DVT/PE Hx of kidney cancer Karely's granulomatosis Acute on chronic COPD exacerbation (on 3L Home O2) Acute respiratory failure Pneumocystis pneumonia Imaging results concerning for PJP/PCP Restart atovaquone per pulmonology recommendation Planning for bronchoscopy on 04/26/2025 Continue oral prednisone 20 mg daily Completed Levaquin and vancomycin Needs to follow up with Rheumatology on discharge, Tavneos on hold Pain control, supportive care. 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 Urine cx (04/16): 1+ Gram negative bacilli Iron deficiency anemia; Symptomatic No obvious bleeds / black tarry stools. s/p 3 uPRBC (04/15-04/17) Continue IV iron (250mg); s/p 2 of 4 bags Monitor hgb closely. Hgb in low 7s last 2-3 days. A-fib with RVR Hx of CAD s/p IV metoprolol 04/20 continue home Eliquis Monitor on telemetry Chronic CHF BPH Hyperlipidemia Chronic Anemia Hx of DVT/PE Hx of kidney cancer confirm home meds, restart as appropriate resume home Eliquis Constipation Add Colace VTE: Home Eliquis Code: DNR Dispo: Home Pending improvement, hgb stable
[2025-04-25 08:02] LABS: Absolute Lymphocytes (CBC) 0.3 K/uL (0.7-4.9); Hematocrit 26.7 % (39.6-49.0); Hemoglobin 9.0 g/dL (13.6-17.9); MCH 29.7 pg (27.0-35.0); MCHC 33.7 g/dL (32.0-36.0); MCV 88.1 fL (80-100); MPV 8.4 fL (7.6-11.3); Nucleated RBC Absolute Count 0.0 (0-0); Nucleated Red Blood Cells % 0.1 % (0-0); RBC Red Blood Cell Count 3.03 M/uL (4.33-5.43); White Blood Count 12.50 thou/uL (4.3-10.9)
[2025-04-25] MEDS: predniSONE 20 MG TAB PO SCH (08:14)
[2025-04-25 12:00] LABS: Differential Total Cells Count 100
[2025-04-25 12:01] LABS: Anisocytosis 2+; Blood Morphology Comment NOTED (NOT SEEN); Segmented Neutrophils 86 % (40-80)
[2025-04-25 12:02] LABS: Ovalocytes SLIGHT
--- NOTE | 2025-04-25 12:40 | P.PN ---
Subjective Date of Service: 04/25/25 Chief Complaint: Presumed pneumocystis pneumonia infection No change in patient's condition is still current to be very dyspneic Review of Systems General: Weakness Respiratory: Shortness of Breath Physical Examination - Vital Signs Temperature: 97.9 F Blood Pressure: 153/83 Pulse: 100 Respirations: 17 Pulse Ox (%): 91 - Physical Exam General: Alert, Oriented x3, Mild distress Respiratory: Clear to auscultation bilaterally Cardiovascular: No edema, Regular rate/rhythm Assessment And Plan - Current Problems (Diagnosis) (1) Respiratory distress Current Visit: Yes Status: Acute Plan: Patient admitted with respiratory distress she has diffuse bilateral groundglass changes most likely pneumocystis infection patient is on atovaquone low-dose prednisone scheduled for bronchoscopy tomorrow beta-1 D glucan can test is still pending patient is feels very weak unable to walk
--- NOTE | 2025-04-25 17:19 | PN ---
Subjective: The patient lying in bed. No new complaints overnight. Objective: Vital Signs: Temperature 97, pulse 105, respirations 17, blood pressure 121/63. Lungs: Basal crackles. Heart: S1, S2. Regular. Abdomen: Soft, nontender. Bowel sounds present. Extremities: Trace edema. Laboratory Data: WBC 12.5, hemoglobin 9, platelets are 238. BUN of 67, creatinine 2.2, albumin leve l of 2.7. Urine culture showing Stenotrophomonas maltophilia and gram-negative bacilli, gram-negativ e rods. Recommend to continue Levaquin for 7 days. Assessment And Plan: 1. Leukocytosis possibly secondary to steroids. 2. Chronic obstructive pulmonary disease. 3. Karely's granulomatosis. 4. Chronic anemia. 5. Pneumocystis pneumonia. The patient is being getting bronch tomorrow. We will follow the patient as needed. NF/MODL Voice ID: [id number] Report ID: [id number]
[2025-04-26] MEDS: KETOROLAC 30 MG/ML INJ IV ONE (06:31)
[2025-04-26] MEDS: Phenylephrine HCl 10 MG/ML 1 ML VIAL ONE (11:02)
[2025-04-26] MEDS: LIDOCAINE 4% TOP SOLUTION ONE (11:02)
--- NOTE | 2025-04-26 11:19 | P.PN ---
Date of Service: 04/26/25 subjective: VS stable. Pt continue to be SOB. denied NVD. Physical Examination - Physical Exam General: Alert, Oriented x3, Cooperative HEENT: Atraumatic, Normocephalic, PERRLA, Mucous membr. moist/pink, Sclerae nonicteric Neck: Supple, Without JVD or thyroid abnormality Respiratory: Basal crackles, right more than left. 4L NC Cardiovascular: RRR Capillary refill: <2 Seconds Gastrointestinal:normal BS, ND, NT Musculoskeletal: trace edema Integumentary: No skin lesions Urinary: Hernández catheter labs: wbc 8.9, Hgb 8.7, platelet 326,bun 88, cr 2.56 albumin 2.8 1. Pneumocystis Pneumonia 2. UTI 3. Karely's granulomatosis 4. CKD4; previously on HD 5. urinary retention 6, COPD exacerbation 7. moderate protein calories malnourishment 8. iron deficiency anemia; symptomatic continue atovaquone for pneumocystis per display coordinator. bronchoscopy pending on thursday today urine culture grew GNR. completed levaquin x 7 days for UTI. blood culture no growth will continue to monitor for sign of infection with wbc and fever trend case discussed and in agreement with Dr Stanley
[2025-04-26] MEDS: NA CHLORIDE 0.9% 500 ML ONE (11:30)
[2025-04-26] MEDS ORDERED: LIDOCAINE 2% MPF 5 ML VIAL ONE (11:31)
--- NOTE | 2025-04-26 11:48 | P.PN ---
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 The patient received rituximab, received 2 doses in a part of 2 weeks. The patient continued to have dialysis. The patient gradually found improvement in kidney function. For that reason, patient was weaned from dialysis, last dialysis almost 2 weeks ago. The TDC was removed. The patient was admitted to the hospital multiple times with symptomatic shortness of breath and symptomatic anemia, required recurrent transfusions this time. The patient was released from the hospital last week with the same symptoms. The patient arrived home, continued to have shortness of breath and chest tightness. For that reason, came back. The patient denied taking any nonsteroidal. Upon arrival to the hospital, the patient was found to have anemia, hemoglobin down to 7.3. The patient denied any hematochezia. Denied any hemoptysis or any hematuria. The patient continued to have chronic shortness of breath. The patient is being evaluated by Rheumatology, supposed to continue on maintenance therapy. The patient is not on any steroid. 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 Next, over the night, patient received breathing treatment, received diuresis. The patient is still complaining of shortness of breath and fatigue. Yesterday patient received blood transfusion patient was diuresis patient continued to have shortness of breath Physical exam Temp Pulse Resp BP Pulse Ox 98.1 F 101 H 19 110/67 98 04/26/25 08:00 04/26/25 08:00 04/26/25 08:00 04/26/25 08:00 04/26/25 08:00 General: When I saw the patient, patient is lying in bed. He was lying flat even though with nasal cannula. Chest: Crackles, bilateral up to the upper zone. Heart: S1, S2. Systolic murmur. Abdomen: Soft, nontender. Extremities: Trace edema. Neurologic: Alert and oriented x3. No focality. Acetaminophen (Acetaminophen 325 Mg Tablet) 650 mg PO Q6H PRN PRN Reason: Pain scale 5-7 (Moderate) Last Admin: 04/20/25 03:50 Dose: 650 mg Albuterol Sulfate (Albuterol 2.5 Mg/3 Ml Neb Sloane) 2.5 mg NEB Q6HP PRN PRN Reason: SHORTNESS OF BREATH Docusate Sodium (Docusate Na 100 Mg Cap) 100 mg PO BID [facility] Last Admin: 04/26/25 09:00 Dose: Not Given Duloxetine HCl (Duloxetine 30 Mg Cap) 30 mg PO BEDTIME MAREK Last Admin: 04/25/25 20:58 Dose: 30 mg Home Med ([place] [Tavneos]) 30 mg PO BIDWM [facility] Melatonin (Melatonin 3 Mg Tablet) 3 mg PO BEDTIME PRN PRN PRN Reason: INSOMNIA Last Admin: 04/25/25 20:58 Dose: 3 mg Atovaquone 750mg/5ml Oral Susp *Special Order Med* 1 ea PO BID [facility] Last Admin: 04/26/25 09:00 Dose: Not Given Pantoprazole Sodium (Pantoprazole 40 Mg Inj) 40 mg IVP Q12HR [facility]; Protocol Last Admin: 04/26/25 09:08 Dose: 40 mg Prednisone (Prednisone 20 Mg Tab) 20 mg PO DAILY [facility] Last Admin: 04/26/25 09:00 Dose: Not Given Sodium Chloride (Sodium Chloride 0.9% 10ml Inj) 10 ml IV UD PRN PRN Reason: Diluant Sterile Water (Water For Inj,Sterile 10 Ml) 2 ml IV DAILY [facility] Last Admin: 04/26/25 09:08 Dose: 2 ml Sucralfate (Sucralfate 1gm/10ml Ucup) 1 gm PO ACHS MAREK Last Admin: 04/26/25 07:30 Dose: Not Given Tizanidine HCl (Tizanidine 4 Mg Tablet) 2 mg PO BEDTIME [facility] Last Admin: 04/25/25 20:58 Dose: 2 mg Laboratory Last Values WBC 10.00 thou/uL (4.3-10.9) 04/15/25 01:43 RBC 2.39 M/uL (4.33-5.43) L 04/15/25 01:43 Hgb 7.3 g/dL (13.6-17.9) L 04/15/25 01:43 Hct 20.9 % (39.6-49.0) L 04/15/25 01:43 MCV 87.4 fL (80-100) 04/15/25 01:43 MCH 30.6 pg (27.0-35.0) 04/15/25 01:43 MCHC 35.0 g/dL (32.0-36.0) 04/15/25 01:43 RDW 20.4 % (12.1-15.2) H 04/15/25 01:43 Plt Count 171 thou/uL (152-406) 04/15/25 01:43 MPV 8.9 fL (7.6-11.3) 04/15/25 01:43 Neutrophils % 92.6 % (41.7-73.7) H 04/15/25 01:43 Lymphocytes % 2.4 % (15.3-44.8) L 04/15/25 01:43 Monocytes % 4.0 % (3.3-12.3) 04/15/25 01:43 Eosinophils % 0.3 % (0-4.4) 04/15/25 01:43 Basophils % 0.7 % (0-1.3) 04/15/25 01:43 Absolute Neutrophils 9.2 K/uL (1.8-8.0) H 04/15/25 01:43 Segmented Neutrophils 93 % (40-80) H 04/15/25 01:43 Band Neutrophils 1 % (0-1) 04/15/25 01:43 Absolute Lymphocytes 0.2 K/uL (0.7-4.9) L 04/15/25 01:43 Lymphocytes 4 % (15-42) L 04/15/25 01:43 Monocytes 2 % (0-10) 04/15/25 01:43 Absolute Monocytes 0.4 K/uL (0.1-1.3) 04/15/25 01:43 Absolute Eosinophils 0.0 K/uL (0-0.5) 04/15/25 01:43 Absolute Basophils 0.1 K/uL (0-0.5) 04/15/25 01:43 Diff Path Review No 04/15/25 01:43 Platelet Estimate Adeq 04/15/25 01:43 Hypochromasia 2+ 04/15/25 01:43 Anisocytosis 1+ 04/15/25 01:43 Morphology Comment Noted (NOT SEEN) 04/15/25 01:43 PT 26.2 SECONDS (10-13.0) H 04/15/25 01:43 INR 2.38 08/02/25 01:43 Sodium 136 mEq/L (136-145) 04/15/25 01:43 Potassium 4.2 mEq/L (3.5-5.1) 04/15/25 01:43 Chloride 110 mEq/L (98-107) H 04/15/25 01:43 Carbon Dioxide 14 mEq/L (21-32) L 04/15/25 01:43 Anion Gap 16.2 mEq/L (5.0-15.0) H 04/15/25 01:43 BUN 87 mg/dL (7-18) H 04/15/25 01:43 Creatinine 2.77 mg/dL (0.70-1.30) H 04/15/25 01:43 Est GFR (CKD-EPI) 23 ml/min (=/>90) L 04/15/25 01:43 Glucose 160 mg/dL (74-106) H 04/15/25 01:43 Lactic Acid 0.8 mmol/L (0.4-2.0) 04/15/25 01:54 Calcium 8.0 mg/dL (8.5-10.1) L 04/15/25 01:43 Magnesium 2.0 mg/dL (1.6-2.4) 04/15/25 01:43 Total Bilirubin 0.5 mg/dL (0.2-1.0) 04/15/25 01:43 Direct Bilirubin 0.2 mg/dL (0-0.2) 04/15/25 01:43 Indirect Bilirubin 0.3 mg/dL (0.2-0.8) 04/15/25 01:43 AST 15 U/L (15-37) 04/15/25 01:43 ALT 20 U/L (16-61) 04/15/25 01:43 Alkaline Phosphatase 48 U/L (45-117) 04/15/25 01:43 Troponin I High Sens 42.9 pg/mL (<58.9) 04/15/25 01:43 NT-Pro-B Natriuret Pep 8057 pg/mL (<450) H 04/15/25 01:43 Serum Total Protein 5.1 g/dL (6.4-8.2) L 04/15/25 01:43 Albumin 2.3 g/dL (3.4-5.0) L 04/15/25 01:43 Globulin 2.8 g/dL (2.3-3.5) 04/15/25 01:43 Albumin/Globulin Ratio 0.8 (1.1-1.8) L 04/15/25 01:43 Urine Color Light-yellow (Yellow) 04/15/25 01:54 Urine Clarity Extremely turbid (Clear) H 04/15/25 01:54 Urine pH 5.0 (5.0-7.0) 04/15/25 01:54 Ur Specific [place] 1.016 (1.005-1.030) 04/15/25 01:54 Glucose (UA)(Auto) Negative (Negative) 04/15/25 01:54 Urine Ketones Negative (Negative) 04/15/25 01:54 Urine Blood 3+ (over) (Negative) H 04/15/25 01:54 Urine Nitrite Negative (Negative) 04/15/25 01:54 Urine Bilirubin Negative (Negative) 04/15/25 01:54 Urine Urobilinogen Normal (Normal) 04/15/25 01:54 Ur Leukocyte Esterase Negative Anastacio/uL (Negative) 04/15/25 01:54 Urine RBC 21-50 /HPF (None Seen) H 04/15/25 01:54 Urine WBC <5 /HPF (<5) 04/15/25 01:54 Ur Squamous Epith Cells None seen /HPF (None Seen) 04/15/25 01:54 U Non-Squamous Epi Cells <5 /HPF (None Seen) 04/15/25 01:54 Urine Bacteria <20 /HPF (<20) 04/15/25 01:54 Urine Mucus Slight /HPF (None Seen) 04/15/25 01:54 Urine Culture Reflexed Not needed 04/15/25 01:54 Urine Total Protein Trace (Negative) H 04/15/25 01:54 Assessment and plan: 1. Chronic kidney disease, stage 4, secondary to ANCA vasculitis, status post rituximab, received 2 doses. No activity in the urine. I am going to continue the patient on his maintenance treatment and we will follow up. Repeated urine analysis no significant hematuria had decline in the kidney function mostly secondary to aggressive diuresis : I doubted that the decline in the kidney function are related to ANCA vasculitis it is more for a prerenal secondary to aggressive diuresis Patient had good urine output we will continue current treatment Will monitor the patient closely Continue Solu-Medrol Follow-up with rheumatology recommendation seen yesterday plan for treatment in the next couple of days Patient's status post 2 doses of rituximab. do not see the need for any extra dose of rituximab for the time being. 2. 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 I am going to speak with the outpatient Pulmonary and and rheumatology plan for adding a new immunotherapeutic agent Will follow-up with rheumatology No indication for plasmapheresis currently giving no hemoptysis no alveolar hemorrhage 3. Anemia, iron deficiency anemia symptomatic, with shortness of breath. Continue TURNER 2 continue IV iron 4. Non-anion gap metabolic acidosis secondary to renal failure. Recover urine anion gap 1 not in favor of RTA: Will continue current treatment 5. Hypertension. We will utilize blood pressure for more diuresis. 6. Hyponatremia secondary to renal failure, dilutional. We will optimize the fluid status with diuresis. 7. Possible Pneumocystis carinii pneumonia plan for bronchoscopy today we will follow-up with the pulmonary Time spent examining the patient [id number] reviewing data lab and the radiology placing order documentation in the note discussing the case with the pilot steam yacht including hospitalist and nursing staff more than 55 minutes
[2025-04-26] MEDS: LIDOCAINE 1% MPF 30 ML VIAL ONE (12:21)
--- NOTE | 2025-04-26 12:31 | P.OP ---
Date of Service: 04/26/25 (BAL RUL) Findings and Operative Technique Pt is 74 , AW resp distress on high doses of steroids. CT scan suggestive of PCP. Bronch done. Findings normal bronch. No bleeding or infection. All bronchi inspected normal. BAL RUL . No bleeding noted. Lavage clear. STAT PCP No complications. No biopsies done
--- NOTE | 2025-04-26 15:06 | P.PN ---
Date of Service: 04/26/25 Subjective: Sleeping on arrival. Scheduled for bronchoscopy today Physical Exam: Gen: Alert, NAD, Orientedx3 CV: Regular rate and rhythm, systolic murmur Pulm: Nonlabored respirations on 5L NC, wheeze, rhonci Abdomen: Soft, nontender, nondistended Neuro: No focal abnormalities; gait ataxia Problem List: Karely's granulomatosis Acute on chronic COPD exacerbation (on 3L Home O2) CKD4; previously on HD Iron deficiency anemia; Symptomatic A-fib with RVR Hx of CAD Urinary Retention Chronic CHF BPH Hyperlipidemia Chronic Anemia Hx of DVT/PE Hx of kidney cancer Karely's granulomatosis Acute on chronic COPD exacerbation (on 3L Home O2) Acute respiratory failure Pneumocystis pneumonia Status post bronchoscopy today by Dr. Bustamante, within normal finding Imaging results concerning for PJP/PCP Continue atovaquone per pulmonology recommendation Continue oral prednisone 20 mg daily Completed Levaquin and vancomycin Needs to follow up with Rheumatology on discharge, Tavneos on hold Pain control, supportive care. 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 Urine cx (04/16): 1+ Gram negative bacilli Iron deficiency anemia; Symptomatic No obvious bleeds / black tarry stools. s/p 3 uPRBC (04/15-04/17) Continue IV iron (250mg); s/p 2 of 4 bags Monitor hgb closely. Hgb in low 7s last 2-3 days. A-fib with RVR Hx of CAD s/p IV metoprolol 04/20 Resume Eliquis Monitor on telemetry Chronic CHF BPH Hyperlipidemia Chronic Anemia Hx of DVT/PE Hx of kidney cancer confirm home meds, restart as appropriate resume home Eliquis Constipation Add Colace VTE: Home Eliquis Code: DNR Dispo: PT OT pending, health social work professor consult for long-term versus home health Pending improvement, hgb stable
--- NOTE | 2025-04-26 15:11 | RAD REPORT ---
EXAM: Chest Single View HISTORY: 74 years Male S/P BRONCH R/O PNEUMOTHORAX COMPARISON: 04/23/2025 FINDINGS: LUNGS/PLEURA: No pneumothorax on bronchoscopy. Similar bilateral ill-defined interstitial and airspac e opacities. CARDIAC/MEDIASTINUM: The cardiac silhouette is within normal limits. UPPER ABDOMEN: No significant abnormality. BONES: No acute abnormality. Spinal stimulator LINES/TUBES/OTHER: N/A IMPRESSION: No pneumothorax following bronchoscopy. No significant change compared with 04/23/2025.
[2025-04-26] MEDS: NA CHLORIDE 0.9% 1,000 ML IV SCH (17:16)
[2025-04-26] MEDS: SMZ./TMP. 10 ML in D5W 250 ML IVPB SCH (18:10)
[2025-04-26] MEDS: APIXABAN 5 MG TABLET PO SCH (20:37)
[2025-04-26] MEDS: ALBUTEROL 2.5 MG/3 ML NEB SOL NEB PRN (22:05)
[2025-04-27 08:15] LABS: Absolute Lymphocytes (CBC) 0.2 K/uL (0.7-4.9); Hematocrit 29.4 % (39.6-49.0); Hemoglobin 9.7 g/dL (13.6-17.9); MCH 29.4 pg (27.0-35.0); MCHC 33.1 g/dL (32.0-36.0); MCV 88.7 fL (80-100); MPV 9.0 fL (7.6-11.3); Nucleated RBC Absolute Count 0.0 (0-0); Nucleated Red Blood Cells % 0.0 % (0-0); RBC Red Blood Cell Count 3.31 M/uL (4.33-5.43); White Blood Count 9.00 thou/uL (4.3-10.9)
[2025-04-27 08:36] LABS: ALT/SGPT 23.0 U/L (16-61); AST/SGOT 11.0 U/L (15-37); Albumin 2.6 g/dL (3.4-5.0); Albumin/Globulin Ratio 1.0 (1.1-1.8); Alkaline Phosphatase 65.0 U/L (45-117); Anion Gap 11.5 mEq/L (5.0-15.0); BUN Blood Urea Nitrogen 60.0 mg/dL (7-18); Globulin 2.6 g/dL (2.3-3.5); Glucose Level 90.0 mg/dL (74-106); Potassium 3.5 mEq/L (3.5-5.1)
--- NOTE | 2025-04-27 12:07 | P.PN ---
Subjective Date of Service: 04/27/25 Chief Complaint: Presumed pneumocystis pneumonia infection Patient states that he is a little better still continues to feel very weak Review of Systems General: Weakness Respiratory: Shortness of Breath Physical Examination - Vital Signs Temperature: 98.1 F Blood Pressure: 116/69 Pulse: 104 Respirations: 18 Pulse Ox (%): 94 - Physical Exam General: Oriented x3 Respiratory: Clear to auscultation bilaterally Cardiovascular: No edema, Regular rate/rhythm Assessment And Plan - Current Problems (Diagnosis) (1) Respiratory distress Current Visit: Yes Status: Acute Plan: Patient admitted with respiratory distress presumed pneumocystis pneumonia therefore bronchoscopy was negative no PCP seen on the Gram stain pending cellblock feels a little better continue with atovaquone Bactrim would be contraindicated as far as his because of his renal failure continue with low- dose prednisone physical therapy discharge planning no evidence of pulmonary hemorrhage
--- NOTE | 2025-04-27 12:22 | P.PN ---
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 The patient received rituximab, received 2 doses in a part of 2 weeks. The patient continued to have dialysis. The patient gradually found improvement in kidney function. For that reason, patient was weaned from dialysis, last dialysis almost 2 weeks ago. The TDC was removed. The patient was admitted to the hospital multiple times with symptomatic shortness of breath and symptomatic anemia, required recurrent transfusions this time. The patient was released from the hospital last week with the same symptoms. The patient arrived home, continued to have shortness of breath and chest tightness. For that reason, came back. The patient denied taking any nonsteroidal. Upon arrival to the hospital, the patient was found to have anemia, hemoglobin down to 7.3. The patient denied any hematochezia. Denied any hemoptysis or any hematuria. The patient continued to have chronic shortness of breath. The patient is being evaluated by Rheumatology, supposed to continue on maintenance therapy. The patient is not on any steroid. 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 Next, over the night, patient received breathing treatment, received diuresis. The patient is still complaining of shortness of breath and fatigue. Yesterday patient received blood transfusion patient was diuresis patient continued to have shortness of breath Physical exam Temp Pulse Resp BP Pulse Ox 98.1 F 104 H 18 116/69 94 04/27/25 12:07 04/27/25 12:07 04/27/25 12:07 04/27/25 12:07 04/27/25 12:07 General: When I saw the patient, patient is lying in bed. He was lying flat even though with nasal cannula. Chest: Crackles, bilateral up to the upper zone. Heart: S1, S2. Systolic murmur. Abdomen: Soft, nontender. Extremities: Trace edema. Neurologic: Alert and oriented x3. No focality. Active Medications Acetaminophen (Acetaminophen 325 Mg Tablet) 650 mg PO Q6H PRN PRN Reason: Pain scale 5-7 (Moderate) Last Admin: 04/20/25 03:50 Dose: 650 mg Albuterol Sulfate (Albuterol 2.5 Mg/3 Ml Neb Sloane) 2.5 mg NEB Q6HP PRN PRN Reason: SHORTNESS OF BREATH Last Admin: 04/26/25 22:05 Dose: 2.5 mg Apixaban (Apixaban 5 Mg Tablet) 5 mg PO BID [facility] Last Admin: 04/27/25 09:12 Dose: 5 mg Docusate Sodium (Docusate Na 100 Mg Cap) 100 mg PO BID MAREK Last Admin: 04/27/25 09:12 Dose: 100 mg Duloxetine HCl (Duloxetine 30 Mg Cap) 30 mg PO BEDTIME MAREK Last Admin: 04/26/25 20:37 Dose: 30 mg Melatonin (Melatonin 3 Mg Tablet) 3 mg PO BEDTIME PRN PRN PRN Reason: INSOMNIA Last Admin: 04/26/25 20:42 Dose: 3 mg Atovaquone 750mg/5ml Oral Susp *Special Order Med* 1 ea PO BID [facility] Last Admin: 04/27/25 09:00 Dose: 1 ea Sodium Chloride (Sodium Chloride 0.9% 10ml Inj) 10 ml IV UD PRN PRN Reason: Diluant Sterile Water (Water For Inj,Sterile 10 Ml) 2 ml IV DAILY [facility] Last Admin: 04/26/25 09:08 Dose: 2 ml Sucralfate (Sucralfate 1gm/10ml Ucup) 1 gm PO ACHS [facility] Last Admin: 04/27/25 09:12 Dose: 1 gm Tizanidine HCl (Tizanidine 4 Mg Tablet) 2 mg PO BEDTIME [facility] Last Admin: 04/26/25 20:37 Dose: 2 mg Laboratory Last Values WBC 10.00 thou/uL (4.3-10.9) 04/15/25 01:43 RBC 2.39 M/uL (4.33-5.43) L 04/15/25 01:43 Hgb 7.3 g/dL (13.6-17.9) L 04/15/25 01:43 Hct 20.9 % (39.6-49.0) L 04/15/25 01:43 MCV 87.4 fL (80-100) 04/15/25 01:43 MCH 30.6 pg (27.0-35.0) 04/15/25 01:43 MCHC 35.0 g/dL (32.0-36.0) 04/15/25 01:43 RDW 20.4 % (12.1-15.2) H 04/15/25 01:43 Plt Count 171 thou/uL (152-406) 04/15/25 01:43 MPV 8.9 fL (7.6-11.3) 04/15/25 01:43 Neutrophils % 92.6 % (41.7-73.7) H 04/15/25 01:43 Lymphocytes % 2.4 % (15.3-44.8) L 04/15/25 01:43 Monocytes % 4.0 % (3.3-12.3) 04/15/25 01:43 Eosinophils % 0.3 % (0-4.4) 04/15/25 01:43 Basophils % 0.7 % (0-1.3) 04/15/25 01:43 Absolute Neutrophils 9.2 K/uL (1.8-8.0) H 04/15/25 01:43 Segmented Neutrophils 93 % (40-80) H 04/15/25 01:43 Band Neutrophils 1 % (0-1) 04/15/25 01:43 Absolute Lymphocytes 0.2 K/uL (0.7-4.9) L 04/15/25 01:43 Lymphocytes 4 % (15-42) L 04/15/25 01:43 Monocytes 2 % (0-10) 04/15/25 01:43 Absolute Monocytes 0.4 K/uL (0.1-1.3) 04/15/25 01:43 Absolute Eosinophils 0.0 K/uL (0-0.5) 04/15/25 01:43 Absolute Basophils 0.1 K/uL (0-0.5) 04/15/25 01:43 Diff Path Review No 04/15/25 01:43 Platelet Estimate Adeq 04/15/25 01:43 Hypochromasia 2+ 04/15/25 01:43 Anisocytosis 1+ 04/15/25 01:43 Morphology Comment Noted (NOT SEEN) 04/15/25 01:43 PT 26.2 SECONDS (10-13.0) H 04/15/25 01:43 INR 2.38 04/15/25 01:43 Sodium 136 mEq/L (136-145) 04/15/25 01:43 Potassium 4.2 mEq/L (3.5-5.1) 04/15/25 01:43 Chloride 110 mEq/L (98-107) H 04/15/25 01:43 Carbon Dioxide 14 mEq/L (21-32) L 04/15/25 01:43 Anion Gap 16.2 mEq/L (5.0-15.0) H 04/15/25 01:43 BUN 87 mg/dL (7-18) H 04/15/25 01:43 Creatinine 2.77 mg/dL (0.70-1.30) H 04/15/25 01:43 Est GFR (CKD-EPI) 23 ml/min (=/>90) L 04/15/25 01:43 Glucose 160 mg/dL (74-106) H 04/15/25 01:43 Lactic Acid 0.8 mmol/L (0.4-2.0) 04/15/25 01:54 Calcium 8.0 mg/dL (8.5-10.1) L 04/15/25 01:43 Magnesium 2.0 mg/dL (1.6-2.4) 04/15/25 01:43 Total Bilirubin 0.5 mg/dL (0.2-1.0) 04/15/25 01:43 Direct Bilirubin 0.2 mg/dL (0-0.2) 04/15/25 01:43 Indirect Bilirubin 0.3 mg/dL (0.2-0.8) 04/15/25 01:43 AST 15 U/L (15-37) 04/15/25 01:43 ALT 20 U/L (16-61) 04/15/25 01:43 Alkaline Phosphatase 48 U/L (45-117) 04/15/25 01:43 Troponin I High Sens 42.9 pg/mL (<58.9) 04/15/25 01:43 NT-Pro-B Natriuret Pep 8057 pg/mL (<450) H 04/15/25 01:43 Serum Total Protein 5.1 g/dL (6.4-8.2) L 04/15/25 01:43 Albumin 2.3 g/dL (3.4-5.0) L 04/15/25 01:43 Globulin 2.8 g/dL (2.3-3.5) 04/15/25 01:43 Albumin/Globulin Ratio 0.8 (1.1-1.8) L 04/15/25 01:43 Urine Color Light-yellow (Yellow) 04/15/25 01:54 Urine Clarity Extremely turbid (Clear) H 04/15/25 01:54 Urine pH 5.0 (5.0-7.0) 04/15/25 01:54 Ur Specific [place] 1.016 (1.005-1.030) 04/15/25 01:54 Glucose (UA)(Auto) Negative (Negative) 04/15/25 01:54 Urine Ketones Negative (Negative) 04/15/25 01:54 Urine Blood 3+ (over) (Negative) H 04/15/25 01:54 Urine Nitrite Negative (Negative) 04/15/25 01:54 Urine Bilirubin Negative (Negative) 04/15/25 01:54 Urine Urobilinogen Normal (Normal) 04/15/25 01:54 Ur Leukocyte Esterase Negative Anastacio/uL (Negative) 04/15/25 01:54 Urine RBC 21-50 /HPF (None Seen) H 04/15/25 01:54 Urine WBC <5 /HPF (<5) 04/15/25 01:54 Ur Squamous Epith Cells None seen /HPF (None Seen) 04/15/25 01:54 U Non-Squamous Epi Cells <5 /HPF (None Seen) 04/15/25 01:54 Urine Bacteria <20 /HPF (<20) 04/15/25 01:54 Urine Mucus Slight /HPF (None Seen) 04/15/25 01:54 Urine Culture Reflexed Not needed 04/15/25 01:54 Urine Total Protein Trace (Negative) H 04/15/25 01:54 Assessment and plan: 1. Chronic kidney disease, stage 4, secondary to ANCA vasculitis, status post rituximab, received 2 doses. No activity in the urine. I am going to continue the patient on his maintenance treatment and we will follow up. Repeated urine analysis no significant hematuria had decline in the kidney function mostly secondary to aggressive diuresis : I doubted that the decline in the kidney function are related to ANCA vasculitis it is more for a prerenal secondary to aggressive diuresis Patient had good urine output we will continue current treatment Will monitor the patient closely Continue [facility] Follow-up with rheumatology recommendation seen yesterday plan for treatment in the next couple of days Patient's status post 2 doses of rituximab. do not see the need for any extra dose of rituximab for the time being. Please avoid any nonsteroidal use including but not limited to Toradol 2. 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 I am going to speak with the outpatient Pulmonary and and rheumatology plan for adding a new immunotherapeutic agent Will follow-up with rheumatology No indication for plasmapheresis currently giving no hemoptysis no alveolar hemorrhage 3. Anemia, iron deficiency anemia symptomatic, with shortness of breath. Continue TURNER 2 continue IV iron 4. Non-anion gap metabolic acidosis secondary to renal failure. Recover urine anion gap 1 not in favor of RTA: Will continue current treatment 5. Hypertension. We will utilize blood pressure for more diuresis. 6. Hyponatremia secondary to renal failure, dilutional. We will optimize the fluid status with diuresis. 7. 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
--- NOTE | 2025-04-27 16:18 | P.PN ---
Date of Service: 04/27/25 Subjective: Seen resting on the floor. He is in A-fib with RVR currently. Appears short of breath. No more chills. Denies fevers Physical Exam: Gen: Alert, NAD, Orientedx3 CV: Regular rate and rhythm, systolic murmur Pulm: Nonlabored respirations on 5L NC, wheeze, rhonci Abdomen: Soft, nontender, nondistended Neuro: No focal abnormalities; gait ataxia Problem List: Karely's granulomatosis Acute on chronic COPD exacerbation (on 3L Home O2) CKD4; previously on HD Iron deficiency anemia; Symptomatic A-fib with RVR Hx of CAD Urinary Retention Chronic CHF BPH Hyperlipidemia Chronic Anemia Hx of DVT/PE Hx of kidney cancer Karely's granulomatosis Acute on chronic COPD exacerbation (on 3L Home O2) Acute respiratory failure Pneumocystis pneumonia Status post bronchoscopy today by Dr. Bustamante, within normal finding Imaging results concerning for PJP/PCP Continue atovaquone per pulmonology recommendation Continue oral prednisone 20 mg daily Completed Levaquin and vancomycin Needs to follow up with Rheumatology on discharge, Tavneos on hold Pain control, supportive care. 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 Urine cx (04/16): 1+ Gram negative bacilli Iron deficiency anemia; Symptomatic No obvious bleeds / black tarry stools. s/p 3 uPRBC (04/15-04/17) Continue IV iron (250mg); s/p 2 of 4 bags Monitor hgb closely. Hgb in low 7s last 2-3 days. A-fib with RVR Hx of CAD Given 10 mg IV Cardizem x 1 Will avoid amiodarone due to pulmonary toxicity and currently weak lung function Discussed with Dr. Bustamante Resume Eliquis Monitor on telemetry Chronic CHF BPH Hyperlipidemia Chronic Anemia Hx of DVT/PE Hx of kidney cancer confirm home meds, restart as appropriate resume home Eliquis Constipation Add Colace VTE: Home Eliquis Code: DNR Dispo: PT OT pending, social services aide consult for alf versus home health Pending improvement, hgb stable
[2025-04-27] MEDS: METOPROLOL TARTRATE 5 MG/5 ML INJ IV STA (17:40)
[2025-04-28] MEDS: SODIUM CHLORIDE 0.9% 10ML INJ IV PRN (03:06)
[2025-04-28] MEDS: METHYLPREDNISOLONE 125 MG INJ IV ONE (03:06)
[2025-04-28] MEDS: BUDESONIDE 0.5 MG/2 ML NEB NEB ONE (03:15)
[2025-04-28 07:33] LABS: Anion Gap 11.9 mEq/L (5.0-15.0); BUN Blood Urea Nitrogen 51.0 mg/dL (7-18); Glucose Level 136.0 mg/dL (74-106); Potassium 3.9 mEq/L (3.5-5.1)
--- NOTE | 2025-04-28 11:52 | P.PN ---
Subjective Date of Service: 04/28/25 Chief Complaint: Presumed pneumocystis pneumonia infection No change in patient's condition he still continues to complain of significant shortness of breath Review of Systems General: Weakness Respiratory: Shortness of Breath Physical Examination - Vital Signs Temperature: 97.7 F Blood Pressure: 105/69 Pulse: 111 Respirations: 16 Pulse Ox (%): 95 - Physical Exam General: Alert, Oriented x3, Moderate distress Respiratory: Clear to auscultation bilaterally Cardiovascular: No edema Gastrointestinal: Normal bowel sounds, Soft and benign Assessment And Plan - Current Problems (Diagnosis) (1) Respiratory distress Current Visit: Yes Status: Acute Plan: Patient admitted with respiratory distress presumed pneumocystis pneumonia therefore bronchoscopy was negative no PCP seen on the Gram stain pending c massiel feels a little better continue with atovaquone Bactrim would be contraindicated as far as his because of his renal failure continue with low- dose prednisone physical therapy discharge planning no evidence of pulmonary hemorrhage recommend starting back on avacopan steroid sparing agent for microscopic polyangiitis continue with atovaquone also await for beta 1 3 glucan I did not perform any biopsies prognosis poor trial of BiPAP consider transfer to a long-term care facility
--- NOTE | 2025-04-28 13:22 | RAD REPORT ---
Procedure: Chest Single View HISTORY: Cough COMPARISON: April 26, 2025 FINDINGS: Overall no significant change in moderate bilateral pulmonary opacities No significant pleural effusion noted. The heart is borderline enlarged. IMPRESSION: No significant change in moderate bilateral lung opacities probably pneumonia
--- NOTE | 2025-04-28 14:10 | P.PN ---
Date of Service: 04/28/25 subjective: VS stable. Pt continue to be SOB. denied NVD. Objective Temp Pulse Resp BP Pulse Ox 97.6 F 101 H 15 121/76 95 04/28/25 12:00 04/28/25 12:00 04/28/25 12:00 04/28/25 12:00 04/28/25 12:00 Physical Examination - Physical Exam General: Alert and Oriented , sleepy HEENT: Atraumatic, Normocephalic, PERRLA, Mucous membr. moist/pink, Sclerae nonicteric Neck: Supple, Without JVD or thyroid abnormality Respiratory: Basal crackles, right more than left. 4L NC, Cardiovascular: RRR Capillary refill: <2 Seconds Gastrointestinal:normal BS, ND, NT Musculoskeletal: trace edema Integumentary: No skin lesions Urinary: Hernández catheter labs: wbc 9, Hgb 9.7, platelet 206,bun 51, cr 2.40 albumin 2.6 1. Pneumocystis Pneumonia 2. UTI 3. Karely's granulomatosis 4. CKD4; previously on HD 5. urinary retention 6, COPD exacerbation 7. moderate protein calories malnourishment 8. iron deficiency anemia; symptomatic continue atovaquone for pneumocystis per executive receptionist. bronchoscopy negative urine culture grew GNR. completed levaquin x 7 days for UTI. blood culture no growth acid fast bacilli culture and smear pending will continue to monitor for sign of infection with wbc and fever trend case discussed and in agreement with Dr Stanley
--- NOTE | 2025-04-28 17:07 | P.PN ---
Subjective Date of Service: 04/28/25 Chief Complaint: Presumed pneumocystis pneumonia infection Patient is complaining of shortness of breath. He is requiring 8 L of oxygen by nasal cannula. No recorded fever. Physical Examination - Vital Signs Temperature: 97.7 F Blood Pressure: 114/67 Pulse: 110 Respirations: 15 Pulse Ox (%): 94 Assessment And Plan - Plan Physical Exam: Gen: Alert, NAD, Orientedx3 CV: Regular rate and rhythm, systolic murmur Pulm: Bilateral crackles, no wheezes. Abdomen: Soft, nontender, nondistended Neuro: No focal abnormalities; gait ataxia Problem List: ANCA vasculitis Acute on chronic COPD exacerbation (on 3L Home O2) CKD4; previously on HD Iron deficiency anemia; Symptomatic A-fib with RVR Hx of CAD Urinary Retention Chronic CHF BPH Hyperlipidemia Chronic Anemia Hx of DVT/PE Hx of kidney cancer ANCA vasculitis Acute on chronic COPD exacerbation (on 3L Home O2) Acute respiratory failure Pneumocystis pneumonia Status post bronchoscopy today by Dr. Bustamante, within normal finding, pathology positive for Margaret. No PJP identified Imaging results was concerning for PJP/PCP. Pulmonary Dr. Bustamante is following. B2-D- glucan is pending Patient is on atovaquone per pulmonology recommendation Continue oral prednisone 10 mg twice daily Patient completed Levaquin and vancomycin Given nonresponse to treatment transferred to [facility] has been initiated for patient to be evaluated by his mortising machine operator, also to be seen by supervisor lead burning and photogeologist for further assessment of his P ANCA vasculitis and more advanced therapy as needed Continue supportive measures with pain control, supportive care. ID is following and assisting with management. 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 Nephrology is following Continue to monitor renal function, electrolytes s/p rituximab x2 Daily labs Urinary retention Hernández in place UA not suggestive of UTI. Urine cx (04/16): GNR Patient completed antibiotics Iron deficiency anemia; Symptomatic No obvious bleeds / black tarry stools. s/p 3 uPRBC (04/15-04/17) Continue IV iron (250mg); s/p 2 of 4 bags Monitor hgb closely. A-fib with RVR Hx of CAD Status post 10 mg IV Cardizem x 1 Will avoid amiodarone due to pulmonary toxicity and currently weak lung function Discussed with Dr. Bustamante Resume Eliquis Will start Cardizem as needed if patient heart rates remain consistently high Monitor on telemetry Chronic CHF BPH Hyperlipidemia Chronic Anemia Hx of DVT/PE Hx of kidney cancer Continue home medications Continue home Eliquis Constipation Stool softeners as needed VTE: Eliquis Code: DNR
[2025-04-28] MEDS: predniSONE 10 MG TAB PO SCH (20:45)
--- NOTE | 2025-04-28 20:47 | CON ---
Date of Consultation: 04/28/2025 Reason For Consultation: Atrial fibrillation with rapid ventricular response. History Of Present Illness: This is a 74-year-old male who was admitted on the 2nd and has been in [facility] since. Currently, workup diagnosis is pneumonia and respiratory failure due to that and COPD exacerbation. He apparently went into atrial fibrillation with rapid ventricular response since I was consulted. I saw him by bedside. Denied having any chest pain, but he is very short of breat h and wheezing. Very minimal cough. Past Medical History: COPD, chronic kidney disease, asthma, hypertension, dyslipidemia. Medications: Refer to reconciliation sheet for detailed list. Allergies: CODEINE AND PENICILLIN. Family History: No premature coronary artery disease or cancer. Social History: He does not smoke or drink. Does not use any drugs. Review of Systems: All systems reviewed and they were negative except as mentioned in the HPI. Physical Examination: Vital Signs: Reviewed. Head and Neck: Pupils are equal, reactive to light. Intact eye movements. No cervical lymphadenopa thy. Neck is supple. Thyroid is not enlarged. Lungs: Clear to auscultation bilaterally. No rhonchi, wheezing, or crackles. No accessory muscle u se. Heart: Irregularly irregular. No extra sounds. Abdomen: Soft, nontender. Bowel sounds positive. No organomegaly. No masses or hernia. No rigidi ty or rebound. Extremities: No clubbing or cyanosis. Positive edema. Neurologic: Alert, awake, oriented x3. No acute focal deficits appreciated. Lymph Nodes: No cervical or axillary lymphadenopathy. Investigations: BUN is 51, creatinine is 2.40. Assessment And Recommendations: 1. Atrial fibrillation with rapid ventricular response. Recommend to load with IV amiodarone load wi th 150 mg over 10 minutes, and then 1 mg/minute for 6 hours and then 0.5 mg/minute for 16 hours and c ontinue Eliquis. I will follow the patient through and he might need ADAM-guided cardioversion later on, if he does not get controlled with the above regimen. 2. Congestive heart failure. Appears to be euvolemic. 3. Pneumonia and sepsis and chronic obstructive pulmonary disease exacerbation, [facility] SR/MODL Voice ID: [id number] Report ID: [id number]
--- NOTE | 2025-04-28 21:26 | PN ---
Date of Progress Note: 04/27/2025 Subjective: The patient is lying in bed. Continues to have problem with his breathing. Objective: Vital Signs: Temperature 98, pulse 100, respirations 16, blood pressure 105/62, currentl y on 5 L nasal cannula. Lungs: Basal crackles. Heart: S1, S2. Regular. Abdomen: Soft, nontender. Bowel sounds present. Extremities: Trace edema. Laboratory Data: Shows WBC 9, hemoglobin 9.7, platelets 206. BUN of 60, creatinine 2.3. Albumin le daysi 2.6. Assessment And Plan: 1. Pneumonitis, possibly pneumocystic pneumonia. 2. Urinary tract infection. 3. Karely granulomatosis. 4. Chronic kidney disease 4. Previously, patient was on hemodialysis. 5. Urinary retention. 6. Chronic obstructive pulmonary disease exacerbation. 7. Moderate protein-calorie malnourishment. 8. Iron deficiency anemia. 9. Hypoxia. Monitor signs of infection and continue current treatment. We will follow the patient as needed. NF/MODL Voice ID: [id number] Report ID: [id number]
[2025-04-28 22:32] VITALS: O2SAT 99
[2025-04-29 04:40] VITALS: BP 113/56; TEMP 98.3
--- NOTE | 2025-04-29 04:47 | PN ---
Date of Progress Note: 04/28/2025 Chief Complaint: Acute on chronic kidney injury. Subjective: The patient has history of chronic kidney disease stage 3. He developed progressively w orse acute on chronic kidney injury, rapidly progressive glomerulonephritis. He had biopsy done, i ch showed ANCA vasculitis glomerulonephritis. He was treated with rituximab, received 2 d oses over 2 weeks. The patient required dialysis, although due to improvement of renal function, mo lysis catheter was removed. The patient although came to the hospital because of shortness of breath . He is undergoing workup with Pulmonary for Pneumocystis pneumonia and he is on treatment for Pneum ocystis pneumonia. Review of Systems: Denies complaints. Physical Examination: Lungs: Diminished breath sounds at bases. Heart: S1, S2. Abdomen: Soft. Extremities: Minimal ankle edema. Impression And Plan: Vasculitis and ANCA, glomerulonephritis, chronic kidney. The patient developed acute on chronic kidney injury. Renal function somewhat stabilized. Creatinine is 2.2 to 2.4 level . Patient had dialysis catheter removal done at [facility]. Vasculitis secondary to a renal biopsy confirmed with finding of presenting glomerulonephritis. The patient underwent immunotherapy. Currently, he is in treatment for pneumonia. Cardiology was consulted for congestive heart failure. KATHERINE/MODL Voice ID: [id number] Report ID: [id number]
[2025-04-29 06:04] LABS: Absolute Lymphocytes (CBC) 0.1 K/uL (0.7-4.9); Hematocrit 25.6 % (39.6-49.0); Hemoglobin 8.5 g/dL (13.6-17.9); MCH 29.1 pg (27.0-35.0); MCHC 33.1 g/dL (32.0-36.0); MCV 87.7 fL (80-100); MPV 9.1 fL (7.6-11.3); Nucleated RBC Absolute Count 0.0 (0-0); Nucleated Red Blood Cells % 0.0 % (0-0); RBC Red Blood Cell Count 2.92 M/uL (4.33-5.43); White Blood Count 13.60 thou/uL (4.3-10.9)
[2025-04-29 06:26] LABS: Anion Gap 15.3 mEq/L (5.0-15.0); BUN Blood Urea Nitrogen 63.0 mg/dL (7-18); Glucose Level 128.0 mg/dL (74-106); Potassium 4.3 mEq/L (3.5-5.1)
[2025-04-29 10:02] LABS: Anisocytosis 1+; Blood Morphology Comment NOTED (NOT SEEN); Ovalocytes SLIGHT; White Blood Cell Scan OK (OK)
== END 2025-04-29 07:39 | disposition short-term general hospital (02) | DRG 871 ==
LOC: ER 01:11 → ERHOLD 03:34 → 2ND 04:29 → 3RD-ICU 04-16 17:28 → 4TH 04-25 05:00
PROVIDERS: ADMIT Hospitalist; ATTEND Internal Medicine
PROC: 30233N1 Transfusion of Nonautologous Red Blood Cells into Peripheral Vein, Percutaneous Approach (ICD-10-PCS; 2025-04-15)
PROC: 0B9C8ZX Drainage of Right Upper Lung Lobe, Via Natural or Artificial Opening Endoscopic, Diagnostic (ICD-10-PCS; principal; 2025-04-26 12:00)
PROC: 5A09357 Assistance with Respiratory Ventilation, Less than 24 Consecutive Hours, Continuous Positive Airway Pressure (ICD-10-PCS; 2025-04-28)
DX: A41.9 Sepsis, unspecified organism (principal); J18.9 Pneumonia, unspecified organism; J96.01 Acute respiratory failure with hypoxia; N18.6 End stage renal disease; N17.9 Acute kidney failure, unspecified; J44.0 Chronic obstructive pulmonary disease with (acute) lower respiratory infection; E87.20 Acidosis, unspecified; I13.2 Hypertensive heart and chronic kidney disease with heart failure and with stage 5 chronic kidney disease, or end stage renal disease; E87.1 Hypo-osmolality and hyponatremia; M31.31 Wegener's granulomatosis with renal involvement; J44.1 Chronic obstructive pulmonary disease with (acute) exacerbation; E44.0 Moderate protein-calorie malnutrition; N39.0 Urinary tract infection, site not specified; I50.32 Chronic diastolic (congestive) heart failure; D63.1 Anemia in chronic kidney disease; D50.9 Iron deficiency anemia, unspecified; R65.20 Severe sepsis without septic shock; E78.5 Hyperlipidemia, unspecified; K59.00 Constipation, unspecified; I77.82 Antineutrophilic cytoplasmic antibody [ANCA] vasculitis; M1A.9XX0 Chronic gout, unspecified, without tophus (tophi); I25.10 Atherosclerotic heart disease of native coronary artery without angina pectoris; N40.1 Benign prostatic hyperplasia with lower urinary tract symptoms; R33.8 Other retention of urine; Z66 Do not resuscitate; Z99.2 Dependence on renal dialysis; Z88.0 Allergy status to penicillin; Z88.5 Allergy status to narcotic agent; Z95.5 Presence of coronary angioplasty implant and graft; Z99.81 Dependence on supplemental oxygen; Z91.158 Patient's noncompliance with renal dialysis for other reason; Z79.52 Long term (current) use of systemic steroids; Z79.01 Long term (current) use of anticoagulants; Z68.29 Body mass index [BMI] 29.0-29.9, adult; Z87.891 Personal history of nicotine dependence; Z85.528 Personal history of other malignant neoplasm of kidney
CPT/HCPCS: 36415; 36430; 71045; 71250; 80048; 80053; 80069; 80076; 80202; 81001; 82436; 82550; 82570; 82607; 82728; 83010; 83540; 83605; 83615; 83735; 83880; 84100; 84132; 84145; 84156; 84165; 84300; 84443; 84466; 84484; 84550; 85014; 85018; 85025; 85027; 85044; 85610; 86021; 86140; 86160; 86850; 86900; 86901; 86920; 87015; 87040; 87077; 87086; 87088; 87102; 87116; 87186; 87206; 88108; 88305; 88312; 93005; 94010; 94640; 94660; 94760; 96374; 97110; 97116; 97163; 97530; 99285; A4216; J1100; J1938; J2003; J2371; J2470; J2704; J2916; J2919; J3370; J7030; J7040; J7050; J7060; J7512; J7613; J7626; J7644; P9016; P9047; Q5106